=== PATIENT | female | born 1960 | race Caucasian/White ===

== ENCOUNTER → 2016-11-19 | Outpatient (CLI) | payer OTHER ==
[~2016-11-19] MED LIST: EST.625T; ESTR-19; NF-SOLIF5T PO; PANT40TA3; PNT40TEC; PRM25T; RIZA10TA23; SCR1T; SCR1T1; SUCR1TAB36 PO; TOPI100T; TOPI50TA20; TPR100T
--- OUTSIDE RECORDS SUMMARY | 2016-11-19 14:51 | XMS REPORT | Continuity of Care Document ---
Author Author Interface Organization Interface Address Unknown Phone Unavailable Problems Problem Status Onset Date Classification Date Reported Comments Source No data available for this section Problem 05/09/2014 [employer]. Chronic migraine without aura, without mention of intractable migraine, without mention of status migrainosus 05/05/2014 Diagnosis 05/09/2014 [employer]. Headache 05/05/2014 Diagnosis 05/09/2014 [employer]. Medications Medication Details Route Status Patient Instructions Ordering Provider Order Date Source Allergies, Adverse Reactions, Alerts Substance Category Reaction Severity Reaction type Status Date Reported Comments Source Cephalexin Assertion sunburn effect Drug allergy [employer]. Valproate Assertion Drug allergy [employer]. Doxycycline Assertion Drug allergy [employer]. Erythromycin Assertion Drug allergy [employer]. Niacin Assertion Drug allergy [employer]. NSAIDs Assertion Drug allergy [employer]. sulfa drugs Assertion Drug allergy [employer]. Immunizations Immunization Date Given Site Status Last Updated Comments Source No data available for this section No data available for this section [employer]. Results Order Name Results Value Reference Range Date Interpretation Comments Source Vital Signs Vital Sign Value Date Comments Source Encounters Location Location Details Encounter Type Encounter Number Reason For Visit Attending Provider ADM Date DC Date Status Source [facility] [id number] Day Surgery [id number] PAT Randle 03/03/201405/2014 Active [facility] [id number] Day Surgery [id number] PAT Randle 04/07/201409/2014 [facility] [id number] Day Surgery [id number] PAT Randle 05/05/201407/2014 Active [facility] Out[facility] Day [facility] [id number] Physician Non-Staff 05/0505/06/2014 [employer] Outpatient Day Surgery [id number] Physician Non-Staff 04/0704/08/2014 [facility] [id number] Physician Non-Staff 03/0303/03/2014 [employer] [facility] Procedures Procedure Code Date Perfomer Comments Source Bilateral frontal migraine decompression 05/05/2014 [employer] Bilat Occipital Migraine Decompression 04/07/2014 [employer] Bilateral temporal migraine decompression 03/03/2014 [employer] cholecystectomy 10/27/1996 [employer]. EGD/Colonoscopy 10/27/2008 [employer]. heart catheterization-negative 10/27/2009 [employer]. lump remove right breast 10/1998 [employer]. lump removed from left breast 10/27/1999 [employer]. t and a 10/27/1968 [employer]. SHAMIR/BSO 10/27/1987 [employer].
--- NOTE | 2016-11-19 18:54 | Diagnostic Imaging Report ---
Digital mammogram bilateral screening. This study was compared to the prior exams of 10/11/2015, 08/17/2014, 01/27/2014, and 08/10/2013. At this time, there are no current complaints. The current study was also evaluated with a Computer Aided Detection (CAD) system. FINDINGS: The fibroglandular tissue in both breasts is heterogeneously dense. This does limit the sensitivity of this exam. Overall, there does not appear to have been any significant change when compared to the prior study. No primary or secondary sign of malignancy is noted. IMPRESSION: There is no radiographic evidence for malignancy. ACR BI-RADS Category 1: Negative. Result letter will be mailed to the patient. Note: At least 10% of breast cancer is not imaged by mammography. Dictated by: Dictated on workstation # [id number]
== END ==
LOC: RAD 14:47
PROVIDERS: ATTEND Obstetrics & Gynecology
DX: Z12.31 Encounter for screening mammogram for malignant neoplasm of breast (principal)

== ENCOUNTER → 2017-09-29 | Outpatient (CLI) | payer OTHER ==
--- NOTE | 2017-09-29 21:03 | Diagnostic Imaging Report ---
EXAMINATION: Liver ultrasound. INDICATION: Abdominal pain. FINDINGS: The pancreas is largely obscured. The liver is fairly homogeneous with no focal lesion. Hepatopetal flow in the portal vein is seen. The gallbladder has been removed. The CBD is obscured. The right kidney is 10.3 cm in length with no hydronephrosis or focal lesion. Sonographic Fuentes's sign is reportedly negative. No fluid collection in the upper right abdomen is seen. IMPRESSION: No definite abnormality. Dictated by: Dictated on workstation # [id number]
== END ==
LOC: RAD 06:57
PROVIDERS: ATTEND Nurse Practitioner Family
DX: R10.811 Right upper quadrant abdominal tenderness (principal); R79.82 Elevated C-reactive protein (CRP)
CPT/HCPCS: 76705

== ENCOUNTER → 2018-02-23 | Outpatient (CLI) | payer OTHER ==
--- NOTE | 2018-02-23 15:30 | Diagnostic Imaging Report ---
INDICATION: Routine screening. COMPARISON: 11/19/2016 and 10/11/2015. TECHNIQUE: Bilateral CC and MLO 3D mammography was performed. The current study was also evaluated with a Computer Aided Detection (CAD) system. FINDINGS: Scattered fibroglandular densities are identified bilaterally. No mass or malignant appearing microcalcifications are seen. The axillae are unremarkable. IMPRESSION: No mammographic features suspicious for malignancy are identified. ACR BI-RADS Category 1: Negative. Result letter will be mailed to the patient. Note: At least 10% of breast cancer is not imaged by mammography. Dictated by: Dictated on workstation # [id number]
== END ==
LOC: RAD 09:46
PROVIDERS: ATTEND Obstetrics & Gynecology
DX: Z12.31 Encounter for screening mammogram for malignant neoplasm of breast (principal)
CPT/HCPCS: 77067

== ENCOUNTER → 2018-12-08 | Outpatient (CLI) | payer OTHER ==
--- NOTE | 2018-12-08 15:54 | Diagnostic Imaging Report ---
INDICATION: Knee pain and swelling. COMPARISON: None. FINDINGS: Three views of the right knee joint demonstrate no acute fracture or dislocation. No focal osseous lesions are seen. No significant joint effusion is seen. The surrounding soft tissue structures are unremarkable. There are no radiopaque foreign bodies. IMPRESSION: 1. No acute fractures or dislocations of the right knee joint. Dictated by: Dictated on workstation # [id number]
== END ==
LOC: RAD 14:35
PROVIDERS: ATTEND Nurse Practitioner Family
DX: M25.461 Effusion, right knee (principal)
CPT/HCPCS: 73562

== ENCOUNTER → 2019-02-24 | Outpatient (CLI) | payer OTHER ==
--- NOTE | 2019-02-24 12:10 | Diagnostic Imaging Report ---
INDICATION: Screening. TECHNIQUE: The current study was also evaluated with a Computer Aided Detection (CAD) system. 3D tomographic imaging was also performed. COMPARISON: 02/23/2018, 11/19/2016, and 10/11/2015. FINDINGS: There are scattered fibroglandular densities bilaterally. There are a few benign type calcifications. There is no dominant mass, spiculated lesion, or suspicious calcification identified. The skin, nipples, and axillae are unremarkable. IMPRESSION: Benign findings. ACR BI-RADS Category 2: Benign findings. Result letter will be mailed to the patient. Note: At least 10% of breast cancer is not imaged by mammography. Dictated by: Dictated on workstation # [id number]
== END ==
LOC: RAD 09:33
PROVIDERS: ATTEND Obstetrics & Gynecology
DX: Z12.31 Encounter for screening mammogram for malignant neoplasm of breast (principal)
CPT/HCPCS: 77067

== ENCOUNTER 2020-02-02 08:00 | Inpatient (IN) | payer OTHER ==
[~2020-02-02] VITALS: Ht 165 cm; Wt 103.8 kg
[2020-03-06] MEDS ORDERED: NAPR500T8 PO (09:25)
[2020-03-06] MEDS ORDERED: NF-VITD400 PO (09:25)
[2020-03-06] MEDS ORDERED: OXYB5TAB13 PO (09:25)
[2020-03-06] MEDS ORDERED: ALPR0.254 PO (09:25)
[2020-03-06] MEDS ORDERED: ROPI0.253 PO (09:25)
[2020-03-06] MEDS ORDERED: LOSA50TA63 PO (09:25)
[2020-03-06] MEDS ORDERED: PANT40TA3 PO (09:25)
[2020-03-06] MEDS ORDERED: MULT-593 PO (09:25)
--- NOTE | 2020-03-06 11:34 | HISTORY AND PHYSICAL ---
DATE OF SERVICE: DATE OF ADMISSION: 03/15/2020. This will be inpatient admission for right total knee arthroplasty on 03/15/2020 for right total knee arthroplasty. The patient will require regular inpatient admission due to pain management, gait abnormalities, need for physical therapy and comorbidities. HISTORY OF PRESENT ILLNESS: The patient is a 60-year-old female with longstanding progressive right knee pain. She has previously undergone multiple arthroscopies as well as injections. Radiographs reveal complete loss of medial patellofemoral joint spaces. She reports functional impairment and failure to improve with conservative measures and because of this, it was elected to proceed with surgical intervention. REVIEW OF SYSTEMS: No chest pain, no shortness of breath, no dysuria. PAST MEDICAL HISTORY: Reflux, anxiety disorder, migraines, hypertension, insomnia, urinary incontinence. PAST SURGICAL HISTORY: Cholecystectomy, hysterectomy, tonsillectomy, right knee arthroscopy. FAMILY HISTORY: Significant for hypertension, cancer, diabetes. PRIMARY CARE PROVIDER: Dr. Collins. MEDICATIONS: Ibuprofen, cranberry, vitamin D, oxybutynin, Xanax, meloxicam, Hyzaar, Protonix, hydrocodone. ALLERGIES: CEPHALEXIN, DOXYCYCLINE, SULFA AND NIACIN. SOCIAL HISTORY: The patient drinks alcohol socially. Denies tobacco use. PHYSICAL EXAMINATION: GENERAL: The patient is well developed, well-nourished, in no acute distress. HEENT: Normocephalic, atraumatic. Pupils are equal, round and reactive to light. Oropharynx is clear. NECK: Supple, no lymphadenopathy. LUNGS: Clear to auscultation bilaterally. HEART: Regular rate and rhythm. ABDOMEN: Soft, nontender, nondistended. EXTREMITIES: The right knee demonstrates varus alignment. She has an antalgic gait on the right. She has moderate effusion. She is tender along the medial joint line. She has pain medially with Princess's. Range of motion actively 0/3/120. There is no varus valgus laxity. Negative anterior and posterior drawer. Patella tracks well. No skin lesions are noted. IMPRESSION: Right knee osteoarthritis, unresponsive to conservative measures. PLAN: Right total knee arthroplasty. The risks, benefits, options, ramifications and recovery were discussed at length with the patient. She understands and wishes to proceed. Job ID: [id number] DocumentID: [id number] Dictated Date: 03/06/2020 11:02:01 Transverse Abdominal Muscle Nurse Date: 03/06/2020 11:33:22 Dictated By: CECILIO SHORT MD
[2020-03-15] VITALS (11 sets, daily range): BP systolic 103–175; BP diastolic 60–103
--- OUTSIDE RECORDS SUMMARY | 2020-03-15 06:28 | XMS REPORT | Encounter Summary ---
Author Author [facility], [facility] Organization [facility], [facility] Address Unknown Phone Unavailable Care Team Providers Care Turning Machine Operator Helper Name Role Phone Chaparro Macias DO PCP Unavailable Encounter Details Care Team Description Date Type Department Bryan Crabtree MD [address] [place], [place] [id number] SCREENING MAMM-MAILG NEOPL-OTHER (Primar y Dx) 02/02/2002 Inpatient [facility] Breast [facility] Kat [address] [place] [phone] Social History Date Tobacco Use Types Packs/Day Years Used Never Assessed Sex Assigned at Date Recorded Not on file documented as of this encounter Plan of Treatment Not on filedocumented as of this encounter Visit Diagnoses Diagnosis Other screening mammogram documented in this encounter
--- OUTSIDE RECORDS SUMMARY | 2020-03-15 06:28 | XMS REPORT | Encounter Summary ---
Author Author [facility] [place], [facility] Organization [facility] Kat [facility] Address Unknown Phone Unavailable Care Team Providers Care Game Farm Supervisor Name Role Phone Chaparro Macias DO PCP Unavailable Encounter Details Care Team Description Date Type Department Mayra Carvalho MD [address] [place] [address] CHEST PAIN NEC (Primary Dx) 05/25/2002 Emergency [facility] in Emergency Services [address] [place] [address] [place] [phone] Social History Date Tobacco Use Types Packs/Day Years Used Never Assessed Sex Assigned at Date Recorded Not on file documented as of this encounter Plan of Treatment Not on filedocumented as of this encounter Visit Diagnoses Diagnosis Other chest pain documented in this encounter
--- OUTSIDE RECORDS SUMMARY | 2020-03-15 06:28 | XMS REPORT | Encounter Summary ---
Author Author [facility], [facility] Organization [facility], [facility] Address Unknown Phone Unavailable Care Team Providers Care Warehouse Man Name Role Phone Chaparro Macias DO PCP Unavailable Encounter Details Care Team Description Date Type Department Bryan Crabtree MD [address] [place], [place] [id number] SCREENING MAMM-MAILG NEOPL-OTHER (Primar y Dx) 02/04/2003 Inpatient [facility] Breast [facility] Kat [address] [place] [phone] Social History Date Tobacco Use Types Packs/Day Years Used Never Assessed Sex Assigned at Date Recorded Not on file documented as of this encounter Plan of Treatment Not on filedocumented as of this encounter Visit Diagnoses Diagnosis Other screening mammogram documented in this encounter
--- OUTSIDE RECORDS SUMMARY | 2020-03-15 06:28 | XMS REPORT | Encounter Summary ---
Author Author [facility] Organization [facility] Kat [facility] Address Unknown Phone Unavailable Care Team Providers Care Edging Machine Feeder Name Role Phone Chaparro Macias DO PCP Unavailable Encounter Details Care Team Description Date Type Department Chaparro Macias DO NO ADDRESS ON FILE HEADACHE (Primary Dx) 02/02/2002 Inpatient [facility] Laboratory Se rvices Historical [place] [address] [facility] [place] [phone] Social History Date Tobacco Use Types Packs/Day Years Used Never Assessed Sex Assigned at Date Recorded Not on file documented as of this encounter Plan of Treatment Not on filedocumented as of this encounter Visit Diagnoses Diagnosis Headache(784.0) Headache documented in this encounter
--- OUTSIDE RECORDS SUMMARY | 2020-03-15 06:28 | XMS REPORT | Encounter Summary ---
Author Author [facility] [place], [facility] Organization [facility] Kat [facility] Address Unknown Phone Unavailable Care Team Providers Care Washing Machine Striper Name Role Phone Chaparro Macias DO PCP Unavailable Encounter Details Care Team Description Date Type Department Mayra Carvalho MD [address] [place] [place] [address] GASTRITIS/DUODEN NOS W/O HEMORRH (Primar y Dx) 01/21/2002 Inpatient [facility] Kat [address] [facility] [place] [phone] Social History Date Tobacco Use Types Packs/Day Years Used Never Assessed Sex Assigned at Date Recorded Not on file documented as of this encounter Plan of Treatment Not on filedocumented as of this encounter Visit Diagnoses Diagnosis Unspecified gastritis and gastroduodeni tis without mention of hemorrhage documented in this encounter
--- OUTSIDE RECORDS SUMMARY | 2020-03-15 06:28 | XMS REPORT | Encounter Summary ---
Author Author [facility] [place], [facility] Organization [facility], [facility] Address Unknown Phone Unavailable Care Team Providers Care Surg Tech Name Role Phone Chaparro Macias DO PCP Unavailable Encounter Details Care Team Description Date Type Department Page V, DO Fly [address] [facility] [address] [place] [address] PHYSICAL THERAPY NEC (Primary Dx) 08/04/2003 Inpatient Historical [place] Historical Outpatient [facility] Social History Date Tobacco Use Types Packs/Day Years Used Never Assessed Sex Assigned at Date Recorded Not on file documented as of this encounter Plan of Treatment Not on filedocumented as of this encounter Visit Diagnoses Diagnosis Other physical therapy documented in this encounter
--- OUTSIDE RECORDS SUMMARY | 2020-03-15 06:28 | XMS REPORT | Encounter Summary ---
Author Author [facility] [place], [facility] Organization [facility] Kat [facility] Address Unknown Phone Unavailable Care Team Providers Care Casino Floor Person Name Role Phone Chaparro Macias DO PCP Unavailable Encounter Details Care Team Description Date Type Department Henri Ruiz DO [address] [place] [phone] Ed, Physician CHEST PAIN NEC (Primary Dx) 07/20/2003 Emergency [facility] [place] in Emergency Services [address] [place] [address] [place] [phone] Social History Date Tobacco Use Types Packs/Day Years Used Never Assessed Sex Assigned at Date Recorded Not on file documented as of this encounter Plan of Treatment Not on filedocumented as of this encounter Visit Diagnoses Diagnosis Other chest pain documented in this encounter
--- OUTSIDE RECORDS SUMMARY | 2020-03-15 06:28 | XMS REPORT | Clinical Summary ---
Author Author [facility] Organization [facility] Address Unknown Phone Unavailable Care Team Providers Care Composite Mechanic Name Role Phone Chaparro Macias DO PCP Unavailable Allergies Not on File Medications Not on file Active Problems Not on file Social History Date Tobacco Use Types Packs/Day Years Used Never Assessed Sex Assigned at Date Recorded Not on file Last Filed Vital Signs Not on file Plan of Treatment Health Maintenance Due Date Last Done Comments CERVICAL CANCER SCREENING 02/19/1990 BREAST CANCER SCREENING 2000 COLORECTAL SCREENING 02/19/2010 ZOSTER VACCINE (1 of 2) 02/19/2010 INFLUENZA VACCINE 05/27/2019 PNEUMOCOCCAL VACCINE 0-64 Aged Out No longer el igible based on patient's age to YEARS complete this topic Results Not on filefrom Last 3 Months
--- OUTSIDE RECORDS SUMMARY | 2020-03-15 06:28 | XMS REPORT | Encounter Summary ---
Author Author [facility] [place], [facility] Organization [facility] Kat [facility]ellan [facility] Address Unknown Phone Unavailable Care Team Providers Care Poultry Processing Supervisor Name Role Phone Chaparro Macias DO PCP Unavailable Encounter Details Care Team Description Date Type Department Chaparro Macias DO NO ADDRESS ON FILE CHEST PAIN NOS (Primary Dx) 07/27/2003 Inpatient [facility] [place] Historical [place] [address] [facility] [place] [phone] Social History Date Tobacco Use Types Packs/Day Years Used Never Assessed Sex Assigned at Date Recorded Not on file documented as of this encounter Plan of Treatment Not on filedocumented as of this encounter Visit Diagnoses Diagnosis Chest pain, unspecified documented in this encounter
--- OUTSIDE RECORDS SUMMARY | 2020-03-15 06:28 | XMS REPORT | Encounter Summary ---
Author Author [facility] Organization [facility] Address Unknown Phone Unavailable Care Team Providers Care Automotive Collision Repair Instructor Name Role Phone Chaparro Macias DO PCP Unavailable Encounter Details Care Team Description Date Type Department Darius Eugene MD [address] [facility] [address] [place] [address] CHEST PAIN NEC (Primary Dx) 12/22/2001 Inpatient [facility] Historical MEDICAL CARDIAC [address] [facility] [place] [phone] Social History Date Tobacco Use Types Packs/Day Years Used Never Assessed Sex Assigned at Date Recorded Not on file documented as of this encounter Plan of Treatment Not on filedocumented as of this encounter Visit Diagnoses Diagnosis Other chest pain documented in this encounter
--- OUTSIDE RECORDS SUMMARY | 2020-03-15 06:28 | XMS REPORT | Encounter Summary ---
Author Author [facility] Sofia [place], [facility] Organization [facility] Kat [facility] Address Unknown Phone Unavailable Care Team Providers Care Vessel Slagman Name Role Phone Chaparro Macias DO PCP Unavailable Encounter Details Care Team Description Date Type Department Alex Roy MD [address] [place] [address] [place] [address] 12/21/2002 Inpatient [facility] [place] [phone] Social History Date Tobacco Use Types Packs/Day Years Used Never Assessed Sex Assigned at Date Recorded Not on file documented as of this encounter Plan of Treatment Not on filedocumented as of this encounter Visit Diagnoses Not on filedocumented in this encounter
--- OUTSIDE RECORDS SUMMARY | 2020-03-15 06:28 | XMS REPORT | Encounter Summary ---
Author Author [facility] [facility] Organization [facility] [place], [facility] Address Unknown Phone Unavailable Care Team Providers Care Engraver Flatware Name Role Phone Chaparro Macias DO PCP Unavailable Encounter Details Care Team Description Date Type Department Airam Ball MD [facility] [address] [place], [place] [id number] 12/08/2003 Inpatient Historical Social History Date Tobacco Use Types Packs/Day Years Used Never Assessed Sex Assigned at Date Recorded Not on file documented as of this encounter Plan of Treatment Not on filedocumented as of this encounter Visit Diagnoses Not on filedocumented in this encounter
--- OUTSIDE RECORDS SUMMARY | 2020-03-15 06:28 | XMS REPORT | Encounter Summary ---
Author Author [facility] [place], [facility] Organization [facility] Kat Gee, [facility] Address Unknown Phone Unavailable Care Team Providers Care Commercial Artist Name Role Phone Chaparro Macias DO PCP Unavailable Encounter Details Care Team Description Date Type Department Deepak Gonzalez DO [address] [place] [address] [phone] Ed, Physician MIGRAINE NOS W/O MENTN INTRACTABLE (Prim enzo Dx) 11/19/2002 Emergency [facility] in Emergency Services [address] [place] [address] [place] [phone] Social History Date Tobacco Use Types Packs/Day Years Used Never Assessed Sex Assigned at Date Recorded Not on file documented as of this encounter Plan of Treatment Not on filedocumented as of this encounter Visit Diagnoses Diagnosis Migraine, unspecified, without mention of intractable migraine without mention of status migrainosus documented in this encounter
--- OUTSIDE RECORDS SUMMARY | 2020-03-15 06:28 | XMS REPORT | Encounter Summary ---
Author Author [facility] [place] [facility] Organization [facility] Kat [facility] Address Unknown Phone Unavailable Care Team Providers Care Diesel Technician Name Role Phone Chaparro Macias DO PCP Unavailable Encounter Details Care Team Description Date Type Department Chaparro Macias DO NO ADDRESS ON FILE CHEST PAIN NOS (Primary Dx) 07/18/2003 Inpatient Historical [place] [facility] Historical Social History Date Tobacco Use Types Packs/Day Years Used Never Assessed Sex Assigned at Date Recorded Not on file documented as of this encounter Plan of Treatment Not on filedocumented as of this encounter Visit Diagnoses Diagnosis Chest pain, unspecified documented in this encounter
--- OUTSIDE RECORDS SUMMARY | 2020-03-15 06:28 | XMS REPORT | Clinical Summary ---
Author Author [facility] Organization [facility] Address Unknown Phone Unavailable Care Team Providers Care Cane Piler Name Role Phone Unverified, Unverified Md PCP Unavailable Source Comments Some departments are not documenting in the electronic medical record. If you d o not see the information that you expected, contact Release of Information in [facility] [employer] Information Management department at [phone] for further assistan ce in locating additional records.[facility] Allergies Not on File Medications Not on file Active Problems Not on file Social History Date Tobacco Use Types Packs/Day Years Used Never Assessed Sex Assigned at Date Recorded Not on file Industry Job Start Date Occupation Not on file Not on file Not on file Travel End Travel History Travel Start No recent travel history available. Last Filed Vital Signs Not on file Plan of Treatment Health Maintenance Due Date Last Done Comments HIV SCREENING 02/19/1975 DTAP/TDAP VACCINES (1 - 02/19/1978 Tdap) HEPATITIS C SCREENING 02/19/1978 PHYSICAL (COMPREHENSIVE) 02/19/1978 EXAM CERVICAL CANCER SCREENING 02/19/1981 BREAST CANCER SCREENING 2000 COLORECTAL CANCER 02/19/2010 SCREENING SHINGLES RECOMBINANT 02/19/2010 VACCINE (1 of 2) INFLUENZA VACCINE 07/27/2020 Results Not on filefrom Last 3 Months
--- OUTSIDE RECORDS SUMMARY | 2020-03-15 06:28 | XMS REPORT | Encounter Summary ---
Author [facility] Organization [facility] Address Unknown Phone Unavailable Care Team Providers Care Health Data Administrator Name Role Phone Chaparro Macias DO PCP Unavailable Encounter Details Care Team Description Date Type Department Chaparro Macias DO NO ADDRESS ON FILE CHEST PAIN NOS (Primary Dx) 07/18/2003 Inpatient Historical [facility] Social History Date Tobacco Use Types Packs/Day Years Used Never Assessed Sex Assigned at Date Recorded Not on file documented as of this encounter Plan of Treatment Not on filedocumented as of this encounter Visit Diagnoses Diagnosis Chest pain, unspecified documented in this encounter
--- OUTSIDE RECORDS SUMMARY | 2020-03-15 06:29 | XMS REPORT | CCD ---
Author Author Shannon Field Organization Ling Collins MD, [facility] Address [address] [place] [address] Phone Care Team Providers Care Maintenance Supervisor 2Nd Shift Name Role Phone PP Unavailable CCM Unavailable Summary Purpose Interface Exchange Insurance Providers Payer name Policy type / Coverage type Covered republican ID Effective Begin Date Effective End Date [employer] [facility] [id number] Unkno wn Family history Mother Diagnosis Age At Onset Diabetes Unknown Lung abscess Unknown Cardiovascular disease Unknown Father Diagnosis Age At Onset Skin cancer Unknown Hypertension Unknown Cardiovascular disease Unknown Diabetes mellitus Type 2 Unknown Brother Diagnosis Age At Onset No Family Disease Entered N/A Aunt Diagnosis Age At Onset Breast cancer Unknown Sister Diagnosis Age At Onset No Family Disease Entered N/A Social History Social History Element Codes Description Effective Dates Marital status Unknown M arried 10/17/2011 Living arrangements Unknown House 10/17/2011 Employment Unknown 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 10/17/[address]: 402802821 Nonsmoker 10/17/[address]: 732579393 Never drinks alcohol 10/17/2011 Allergies, Adverse Reactions, Alerts Substance Reaction Codes Entered Date Inactivated Date Status doxycycline hyclate RxNorm: 3640 10/17/2011 No Inactive Date Active cephalexin RxNorm: 2231 11/21/2015 No Inactive Date Active NIACIN PREPARATIONS pruritis Unknown 08/23/2014 No Inactive Date Active SULFA (SULFONAMIDE A NTIBIOTICS) Unknown 10/17/2011 No Inactive Date Active Past Medical History Illness Codes Condition Status Onset Date Resolved Date Encounter for [facility] adult medical examination with abnormal findings ICD-9: V70.0 ICD-10: Z00.01 Active 06/24/2017 Unknown Essential (primary) hypertension ICD-9: 401.1 ICD-10: I10 Active 02/26/2018 Unknown Gastro-esophageal re flux disease without esophagitis ICD-9: 530.81 ICD-10: K21.9 Active 07/09/2017 Unknown Pain in right knee ICD- 9: 719.46 ICD-10: M25.561 Active 12/08/2018 Unknown Restless legs syndrome ICD-9: 333.94 ICD-10: G25.81 Active 03/02/2019 Unknown Encounter for screen ing mammogram for malignant neoplasm of breast ICD-9: V76.10 ICD-10: Z12.31 Active 02/25/2019 Unknown Acute laryngopharyng itis ICD-9: 465.9 ICD-10: J06.0 Active 09/01/2018 Unknown Other insomnia ICD-9: 327.09 ICD-10: G47.09 Active 09/01/2018 Unknown Epigastric pain ICD-9: 789.06 ICD-10: R10.13 Active 07/24/2017 Unknown Generalized abdomina l pain ICD-9: 789.07 ICD-10: R10.84 Active 07/24/2017 Unknown Other specified valeriy nfective gastroenteritis and colitis ICD-9: 558.9 ICD-10: K52.89 Active 07/24/2017 Unknown Gastro-esophageal re flux disease with esophagitis ICD-9: 530.11 ICD-10: K21.0 Active 04/22/2016 Unknown Morbid (severe) obes ity due to excess calories ICD-9: 278.01 ICD-10: E66.01 Active 01/22/2016 Unknown Urge incontinence ICD-9: 788.31 ICD-10: N39.41 Active 01/22/2016 Unknown Achilles tendinitis, right leg ICD-9: 726.71 ICD-10: M76.61 Active 11/20/2015 Unknown Metatarsalgia, right foot ICD-9: 726.70 ICD-10: M77.41 Active 11/20/2015 Unknown Biceps tendonitis ICD-9: 726.12 Active 08/23/2014 Unknown Encounter for long-t erm (current) use of other medications ICD-9: V58.69 Active 08/23/2014 Unknown Anxiety, generalized ICD-9: 300.02 Active 03/01/2014 Unknown Pain, lower leg ICD-9: 729.5 Active 03/01/2014 Unknown Intractable migraine with aura without status migrainosus ICD-9: 346.01 Active 02/18/2013 Unknown Nausea ICD-9: 787.02 Active 02/18/2013 Unknow n BACTERIAL PNEUMONIA ICD- 9: 482.9 Active 11/16/2012 Unknown Dyspnea ICD-9: 786.09 Active 11/16/2012 Unknow n OBESITY ICD-9: 278.00 Active 03/12/2012 Unknow n Knee pain ICD-9: 719.46 Active 01/28/2012 Unknow n Rotator cuff disorder ICD-9: 726.10 Active 01/28/2012 Unknown Shoulder pain, acute ICD-9: 719.41 Active 01/28/2012 Unknown Anxiety ICD-9: 300.00 Active 01/09/2012 Unknow n Migraine ICD-9: 346.90 Active 01/09/2012 Unknow n aortic insufficiency Unknown Active 10/17/2011 Unknown Gastritis Unknown Active 10/17/2011 Unknow n Migraines Unknown Active 10/17/2011 Unknow n ACUTE URI ICD-9: 465.9 Active 10/17/2011 Unknow n Cough ICD-9: 786.2 Active 10/17/2011 Unknow n Problems Condition Codes Effectiv e Dates Condition Status Encounter for genera l adult medical examination with abnormal findings ICD-9: V70.0 ICD-10: Z00.01 06/24/2017 Active Essential (primary) hypertension ICD-9: 401.1 ICD-10: I10 02/26/2018 Active Gastro-esophageal re flux disease without esophagitis ICD-9: 530.81 ICD-10: K21.9 07/09/2017 Active Pain in right knee ICD- 9: 719.46 ICD-10: M25.561 12/08/2018 Active Restless legs syndrome ICD-9: 333.94 ICD-10: G25.81 03/02/2019 Active Encounter for screen ing mammogram for malignant neoplasm of breast ICD-9: V76.10 ICD-10: Z12.31 02/25/2019 Active Acute laryngopharyng itis ICD-9: 465.9 ICD-10: J06.0 09/01/2018 Active Other insomnia ICD-9: 327.09 ICD-10: G47.09 09/01/2018 Active Epigastric pain ICD-9: 789.06 ICD-10: R10.13 07/24/2017 Active Generalized abdomina l pain ICD-9: 789.07 ICD-10: R10.84 07/24/2017 Active Other specified valeriy nfective gastroenteritis and colitis ICD-9: 558.9 ICD-10: K52.89 07/24/2017 Active Gastro-esophageal re flux disease with esophagitis ICD-9: 530.11 ICD-10: K21.0 04/22/2016 Active Morbid (severe) obes ity due to excess calories ICD-9: 278.01 ICD-10: E66.01 01/22/2016 Active Urge incontinence ICD-9: 788.31 ICD-10: N39.41 01/22/2016 Active Achilles tendinitis, right leg ICD-9: 726.71 ICD-10: M76.61 11/20/2015 Active Metatarsalgia, right foot ICD-9: 726.70 ICD-10: M77.41 11/20/2015 Active Biceps tendonitis ICD-9: 726.12 08/23/2014 Active Encounter for long-t erm (current) use of other medications ICD-9: V58.69 08/23/2014 Active Anxiety, generalized ICD-9: 300.02 03/01/2014 Active Pain, lower leg ICD-9: 729.5 03/01/2014 Active Intractable migraine with aura without status migrainosus ICD-9: 346.01 02/18/2013 Active Nausea ICD-9: 787.02 02/18/2013 Active BACTERIAL PNEUMONIA ICD- 9: 482.9 11/16/2012 Active Dyspnea ICD-9: 786.09 11/16/2012 Active OBESITY ICD-9: 278.00 03/12/2012 Active Knee pain ICD-9: 719.46 01/28/2012 Active Rotator cuff disorder ICD-9: 726.10 01/28/2012 Active Shoulder pain, acute ICD-9: 719.41 01/28/2012 Active Anxiety ICD-9: 300.00 01/09/2012 Active Migraine ICD-9: 346.90 01/09/2012 Active aortic insufficiency Unknown 10/17/2011 Active Gastritis Unknown 10/17/2011 Active Migraines Unknown 10/17/2011 Active ACUTE URI ICD-9: 465.9 10/17/2011 Active Cough ICD-9: 786.2 10/17/2011 Active Medications Medication Codes Instruc tions Start Date Stop Date Sta tus Fill Instructions ropinirole 0.25 mg t ablet RxNorm: 774518 TAKE 1 TABLET BY MOUT H TWICE DAILY 07/12/2019 No Stop Date Active losartan 50 mg tablet RxNorm: 448437 1 Tablet(s) PO daily 06/10/2019 10/07/2019 Active Protonix 40 mg table t,delayed release RxNorm: 238438 TAKE 1 TABLET BY MOUT H ONCE DAILY 05/19/2019 No Stop Date Active oxybutynin chloride ER 5 mg tablet,extended release 24 hr RxNorm: 547832 TAKE 1 TABLET BY MOUTH ONCE DAILY 05/19/2019 No Stop Date Active ropinirole 0.25 mg t ablet RxNorm: 883196 1 Tablet(s) PO BID 03/02/2019 06/29/2019 Inactive Vivlodex 10 mg capsule RxNorm: 0615547 1 Capsule(s) PO daily 03/02/2019 06/09/2019 Inactive oxybutynin chloride ER 5 mg tablet,extended release 24 hr RxNorm: 010803 TAKE 1 TABLET BY MOUTH ONCE DAILY 12/21/2018 05/18/2019 Inactive Protonix 40 mg table t,delayed release RxNorm: 596636 TAKE 1 TABLET BY MOUT H ONCE DAILY 12/21/2018 05/18/2019 Inactive Zorvolex 35 mg capsule RxNorm: 6209663 1 Capsule(s) PO TID 12/09/2018 06/09/2019 Inactive oxybutynin chloride ER 5 mg tablet,extended release 24 hr RxNorm: 007928 TAKE 1 TABLET BY MOUTH ONCE DAILY 10/21/2018 12/20/2018 Inactive Protonix 40 mg table t,delayed release RxNorm: 524353 TAKE 1 TABLET BY MOUT H ONCE DAILY 10/21/2018 12/20/2018 Inactive oxybutynin chloride ER 5 mg tablet,extended release 24 hr RxNorm: 709497 TAKE 1 TABLET BY MOUTH ONCE DAILY 07/20/2018 10/20/2018 Inactive Protonix 40 mg table t,delayed release RxNorm: 293524 TAKE 1 TABLET BY MOUT H ONCE DAILY 07/20/2018 10/20/2018 Inactive Xanax 0.25 mg tablet RxNorm: 084017 1 Tablet(s) PO Q8 as needed anxiety 02/17/2018 03/18/2018 In active oxybutynin chloride ER 5 mg tablet,extended release 24 hr RxNorm: 076029 TAKE ONE TABLET BY MOUTH ONCE DAILY 02/17/2018 07/19/2018 Inactive Protonix 40 mg table t,delayed release RxNorm: 651524 TAKE ONE TABLET BY MO UTH ONCE DAILY 02/17/2018 07/19/2018 Inactive Xanax 0.25 mg tablet RxNorm: 790703 1 Tablet(s) PO Q8 as needed anxiety 10/16/2017 11/12/2017 In active Zantac 150 mg tablet RxNorm: 863211 1 Tablet(s) PO daily 09/15/2017 03/13/2018 Inactive Carafate 1 gram tablet RxNorm: 710521 1 Tablet(s) PO AC & HS 09/15/2017 03/13/2018 Inactive oxybutynin chloride ER 5 mg tablet,extended release 24 hr RxNorm: 248331 TAKE ONE TABLET BY MOUTH ONCE DAILY 08/18/2017 02/13/2018 Inactive Protonix 40 mg table t,delayed release RxNorm: 304206 TAKE ONE TABLET BY MO UTH ONCE DAILY 08/18/2017 02/13/2018 Inactive Carafate 1 gram tablet RxNorm: 386885 1 Tablet(s) PO AC & HS 07/09/2017 08/07/2017 Inactive Protonix 40 mg table t,delayed release RxNorm: 863087 1 Tablet(s) PO daily 07/09/2017 08/07/2017 In active Zofran 4 mg tablet RxNorm: 143809 1 Tablet(s) PO TID as needed nausea 07/09/2017 07/13/2017 In active Zantac 150 mg tablet RxNorm: 605165 1 Tablet(s) PO daily 07/09/2017 08/07/2017 Inactive losartan 25 mg tablet RxNorm: 839486 1 Tablet(s) PO daily 06/24/2017 10/21/2017 Inactive oxybutynin chloride ER 5 mg tablet,extended release 24 hr RxNorm: 171237 TAKE ONE TABLET BY MOUTH ONCE DAILY 05/15/2017 08/12/2017 Inactive oxybutynin chloride ER 5 mg tablet,extended release 24 hr RxNorm: 565246 TAKE ONE TABLET BY MOUTH ONCE DAILY 02/07/2017 05/07/2017 Inactive oxybutynin chloride ER 5 mg tablet,extended release 24 hr RxNorm: 358844 TAKE ONE TABLET BY MOUTH ONCE DAILY 10/01/2016 01/28/2017 Inactive oxybutynin chloride ER 5 mg tablet,extended release 24 hr RxNorm: 077285 TAKE ONE TABLET BY MOUTH ONCE DAILY 05/27/2016 09/23/2016 Inactive cranberry fruit conc entrate 500 mg capsule RxNorm: 261012 1 Capsule(s) PO two t o three times weekly 04/23/2016 No Stop Date Active Nexium 40 mg capsule ,delayed release RxNorm: 521741 1 Capsule(s) PO BID 04/23/2016 07/23/2017 In active oxybutynin chloride ER 5 mg tablet,extended release 24 hr RxNorm: 851697 1 Tablet(s) PO daily 01/23/2016 05/21/2016 Inactive pantoprazole 40 mg t ablet,delayed release RxNorm: 721072 1 Tablet(s) PO BID TA KE ONE TABLET BY MOUTH EVERY DAY 12/12/2015 12/11/2015 Inactive pantoprazole 40 mg t ablet,delayed release RxNorm: 954858 1 Tablet(s) PO BID TA KE ONE TABLET BY MOUTH TWICE EVERY DAY 12/12/2015 04/22/2016 Inactive Vesicare 5 mg tablet RxNorm: 820747 1 Tablet(s) PO QPM 11/21/2015 01/21/2016 Inactive Carafate 1 gram tablet RxNorm: 347983 1 Tablet(s) PO QID dissolve in 10mL of w ater 11/21/2015 04/22/2016 Inactive pantoprazole 40 mg t ablet,delayed release RxNorm: 891075 1 Tablet(s) PO daily TAKE ONE TABLET BY MOUTH EVERY DAY 04/05/2015 12/11/2015 Inactive Topamax 100 mg tablet RxNorm: 020578 1 Tablet(s) UD 1tab AM & 2 at hs x2wks, [id number] x2wks, then 1/2 am & 1hs x1wk, then 1/2 bidx 1wk, then 1/2 at hs x1wk then stop 08/23/2014 01/19/2015 Inactive Vitamin B-12 1,000 m cg/mL injection solution RxNorm: 879194 2x per month Millilit er(s) Inj INJECT 1ML EVERY 2 WEEKS 08/23/2014 11/20/2015 Inactive amitriptyline 50 mg tablet RxNorm: 381923 1 Tablet(s) QPM 08/23/2014 11/20/2015 Inactive amitriptyline 50 mg tablet RxNorm: 831027 TAKE ONE TABLET BY MO UT TWICE DAILY 08/18/2014 08/22/2014 In active amitriptyline 50 mg tablet RxNorm: 715617 TAKE ONE TABLET BY MO UTH TWICE DAILY 05/27/2014 08/17/2014 In active Topamax 100 mg tablet RxNorm: 727803 TAKE ONE TABLET BY MOUTH TWICE DAILY 05/27/2014 08/22/2014 In active Topamax 100 mg tablet RxNorm: 622967 Tablet(s) PO TAKE ONE TABLET BY MOUTH TW ICE DAILY 03/24/2014 05/26/2014 Inactive pantoprazole 40 mg t ablet,delayed release RxNorm: 665950 1 Tablet(s) PO daily TAKE ONE TABLET BY MOUTH EVERY DAY 03/18/2014 03/12/2015 Inactive nystatin 100,000 uni t/mL oral suspension RxNorm: 756789 5 Milliliter(s) PO QI D 03/07/2014 03/06/2014 In active nystatin 100,000 uni t/mL oral suspension RxNorm: 564139 5 Milliliter(s) PO QI D 03/07/2014 03/16/2014 In active Topamax 100 mg tablet RxNorm: 279165 Tablet(s) PO TAKE ONE TABLET BY MOUTH TW ICE DAILY 02/21/2014 03/23/2014 Inactive Vitamin B-12 1,000 m cg/mL injection solution RxNorm: 281537 solution Inj INJECT 1 ML EVERY 2 WEEKS 12/21/2013 08/22/2014 Inactive Frova 2.5 mg tablet RxNorm: 724179 1 Tablet(s) PO 12/20/2013 11/20/2015 Inactive at o nset of migraine Frova 2.5 mg tablet RxNorm: 351329 1 Tablet(s) PO 10/28/2013 12/19/2013 Inactive at o nset of migraine Topamax 100 mg tablet RxNorm: 717117 Tablet(s) PO TAKE ONE TABLET BY MOUTH TW ICE DAILY 10/21/2013 2014 Inactive Topamax 100 mg tablet RxNorm: 998786 Tablet(s) PO TAKE ONE TABLET BY MOUTH TW ICE DAILY 08/23/2013 10/20/2013 Inactive Topamax 100 mg tablet RxNorm: 630298 1 Tablet(s) PO BID TAKE ONE TABLET BY [facility] TWICE DAILY 05/24/2013 08/22/2013 Inactive Demerol (PF) 50 mg/m L Injection RxNorm: 5264545 1/2 Milliliter(s) In j 04/06/2013 04/06/2013 In active promethazine 25 mg/m L Injection RxNorm: 507158 1 Milliliter(s) Inj 04/06/2013 04/06/2013 Inactive promethazine 25 mg/m L Injection RxNorm: 156715 2 Milliliter(s) Inj 03/26/2013 03/26/2013 Inactive Demerol (PF) 50 mg/m L Injection RxNorm: 2884905 Milliliter(s) Inj 03/26/2013 03/26/2013 Inactive amitriptyline 50 mg tablet RxNorm: 602136 Tablet(s) PO TAKE ONE TABLET BY MOUTH TWICE DAILY 03/22/2013 05/26/2014 Inactive Topamax 100 mg tablet RxNorm: 197654 1 Tablet(s) PO BID 03/19/2013 03/18/2013 Inactive Topamax 100 mg tablet RxNorm: 208032 1 Tablet(s) PO BID 03/19/2013 05/24/2013 Inactive Demerol (PF) 50 mg/m L Injection RxNorm: 3322478 1 Milliliter(s) Inj 03/11/2013 03/11/2013 Inactive Topamax 50 mg tablet RxNorm: 492837 1.5 Tablet(s) PO BID 03/10/2013 03/18/2013 Inactive promethazine 25 mg t ablet RxNorm: 337266 1 Tablet(s) PO Q6 PRN 02/25/2013 11/20/2015 Inactive pantoprazole 40 mg t ablet,delayed release RxNorm: 906303 Tablet(s) PO TAKE ONE TABLET BY MOUTH EVERY DAY 02/22/2013 03/17/2014 Inactive promethazine 25 mg/m L Injection RxNorm: 895186 1 Milliliter(s) Inj 02/18/2013 02/18/2013 Inactive Demerol (PF) 25 mg/0 .5 mL Injection RxNorm: 832577 1 Milliliter(s) Inj 02/18/2013 02/18/2013 In active total of 50mg given IM Topamax 50 mg tablet RxNorm: 742865 Tablet(s) PO TAKE ONE TABLET BY MOUTH TW ICE DAILY 02/04/2013 03/09/2013 Inactive prednisone 20 mg tablet RxNorm: 634745 3 Tablet(s) PO daily 11/16/2012 11/20/2012 Inactive ciprofloxacin 500 mg tablet RxNorm: 624864 1 Tablet(s) PO BID 11/16/2012 11/22/2012 Inactive Kenalog 40 mg/mL Lovely p for Injection RxNorm: 5821720 1 Milliliter(s) Inj 11/16/2012 11/16/2012 In active Tamiflu 75 mg capsule RxNorm: 313412 1 Capsule(s) PO BID 11/16/2012 11/20/2012 Inactive esterified estrogens -methyltestosterone 1.25 mg-2.5 mg tablet RxNorm: 056546 1 Tablet(s) PO every other day 10/29/2012 06/23/2017 Inactive amitriptyline 50 mg tablet RxNorm: 107359 1 Tablet(s) PO daily 10/29/2012 03/21/2013 Inactive TAKE ONE TABLET BY MOUTH TWICE DAILY Topamax 50 mg tablet RxNorm: 233040 1 Tablet(s) PO BID 10/29/2012 01/26/2013 Inactive Vitamin B-12 1,000 m cg/mL injection solution RxNorm: 485887 1 Milliliter(s) Inj Q 2weeks INJECT 1ML TWICE A MONTH 10/29/2012 12/20/2013 Inactive takes 2 times monthly. ok to give multidose vial if available. if not please give 3 month supply of single dose vials Vitamin B-12 1,000 m cg/mL Injection RxNorm: 524495 Solution Inj INJECT 1 ML TWICE A MONTH 10/26/2012 10/28/2012 Inactive Topamax 25 mg tablet RxNorm: 158455 1 Tablet(s) PO BID 10/13/2012 03/10/2013 Inactive Topamax 25 mg tablet RxNorm: 864551 1 Tablet(s) PO as directed 09/24/2012 10/12/2012 Inactive 1 tab bid x 2 weeks1 tab daily x 1 month 1 tab qod x 1 week then stop Percocet 10 mg-325 m g tablet RxNorm: 3061634 1 Tablet(s) PO Q4 PRN 07/22/2012 11/20/2015 Inactive diazepam 5 mg tablet RxNorm: 312146 1 Tablet(s) PO TID PRN 07/22/2012 01/17/2013 Inactive amitriptyline 50 mg tablet RxNorm: 480330 Tablet(s) PO 06/17/2012 10/28/2012 Inactive TAKE ONE TABLET BY MOUTH TWICE DAILY Topamax 25 mg tablet RxNorm: 123546 1 Tablet(s) PO as directed 04/14/2012 06/01/2012 Inactive 1 tab bid x 2 weeks1 tab daily x 1 month 1 tab qod x 1 week then stop Topamax 25 mg Tab RxNorm: 800336 1 Tablet(s) PO as directed 03/16/2012 04/13/2012 Inactive 1 tab bid x 2 weeks1 tab daily x 1 month 1 tab qod x 1 week then stop pantoprazole 40 mg t ablet,delayed release RxNorm: 731551 Tablet(s) PO 02/17/2012 02/21/2013 In active TAKE ONE TABLET BY MOUTH EVERY DAY Topamax 50 mg Tab RxNorm: 748148 Tablet(s) PO 01/21/2012 03/11/2012 Inactive plea se give pt #42 of the 50mg tablets, to take bid till gone.then 25mg q am and 50 q hs x 14 days then 25 mg bid thereafter # 44 amitriptyline 50 mg tablet RxNorm: 258126 Tablet(s) PO 12/18/2011 06/16/2012 Inactive TAKE ONE TABLET BY MOUTH TWICE DAILY Percocet 10 mg-325 m g tablet RxNorm: 9377115 1 Tablet(s) PO Q4 PRN 11/13/2011 07/21/2012 Inactive Vitamin B-12 1,000 m cg/mL Injection RxNorm: 920130 1 Milliliter(s) Inj 2 x month 10/17/2011 10/16/2011 In active Vitamin B-12 1,000 m cg/mL Injection RxNorm: 006005 1 Milliliter(s) Inj 2 x month 10/17/2011 10/25/2012 In active topiramate 100 mg Tab RxNorm: 812475 1 Tablet(s) PO BID 10/17/2011 01/20/2012 Inactive TAKE ONE TABLET BY MOUTH TWICE DAILY Kenalog 40 mg/mL Lovely p for Injection RxNorm: 1777885 1 Milliliter(s) Inj 10/17/2011 10/17/2011 In active diazepam 5 mg tablet RxNorm: 418648 1 Tablet(s) PO TID PRN 09/25/2011 03/22/2012 Inactive diazepam 5 mg Tab RxNorm: 739085 1 Tablet(s) PO TID PRN 09/15/2011 09/17/2011 Inactive topiramate 100 mg Tab RxNorm: 315748 Tablet(s) PO 08/25/2011 10/16/2011 Inactive TAKE ONE TABLET BY MOUTH TWICE DAILY topiramate 100 mg Tab RxNorm: 625532 1 Tablet(s) PO BID 08/21/2011 08/24/2011 Inactive pantoprazole 40 mg T ab, Delayed Release RxNorm: 263240 1 Tablet(s) PO daily 07/19/2011 08/17/2011 In active ibuprofen 800 mg Tab RxNorm: 090354 1 Tablet(s) PO Q8 PRN No Start Date Active Vitamin D3 5,000 uni t tablet RxNorm: 425430 1 Tablet(s) PO daily No Start Date Active Beano 150 unit tablet RxNorm: 547238 1 Tablet(s) PO PRN No Start Date Active calcium 167 mg-magne sium 65 mg-herbal complex no.180 200 mg tablet RxNorm: calcium mag zinc Tablet(s) PO daily No Start Date Active multivitamin capsule RxNorm: 1 Capsule(s) PO daily No Start Date Active cranberry fruit conc entrate 250 mg chewable tablet RxNorm: 7444266 1 Tablet(s) PO two to three times weekly No Start Date 04/22/2016 Inactive amitriptyline 50 mg Tab RxNorm: 112113 1 Tablet(s) PO BID No Start Date 12/17/2011 Inactive Topamax 50 mg Tab RxNorm: 806583 Tablet(s) PO No Start Date 01/20/2012 Inactive plea se give pt #42 of the 50mg tablets, to take bid till gone.then 25mg q am and 50 q hs x 14 days then 25 mg bid thereafter # 44 cranberry 1,000 mg c apsule RxNorm: 354203 3 Capsule(s) PO daily No Start Date 01/22/2016 Inactive promethazine 25 mg t ablet RxNorm: 381997 1 Tablet(s) PO Q6 PRN No Start Date 02/24/2013 Inactive Topamax 25 mg Tab RxNorm: 032864 1 Tablet(s) PO BID No Start Date 03/15/2012 Inactive Xanax 0.25 mg tablet RxNorm: 251467 1 Tablet(s) PO as needed anxiety No Start Date 10/15/2017 Inactive Frova 2.5 mg tablet RxNorm: 373749 1 Tablet(s) PO No Start Date 10/27/2013 Inactive at onset of migraine Zithromax Z-Darion 250 mg Tab RxNorm: 663889 Tablet(s) PO No Start Date 10/28/2012 Inactive Diflucan 200 mg tablet RxNorm: 053342 1 Tablet(s) PO PRN No Start Date 06/13/2013 Inactive Fish Oil 1,000 mg ca psule RxNorm: 4 Capsule(s) PO daily No Start Date 08/31/2018 Inactive esterified estrogens -methyltestosterone 1.25 mg-2.5 mg tablet RxNorm: 855751 1 Tablet(s) PO daily No Start Date 10/28/2012 Inactive Demerol (PF) 50 mg/m L Injection RxNorm: 4782318 1 Milliliter(s) Inj as doctor directed No Start Date 06/13/2013 Inactive Tessalon 200 mg Cap RxNorm: 800643 1 Capsule(s) PO Q6 PRN No Start Date 10/28/2012 Inactive Medication Administered Medication Codes Instruc tions Start Date Status promethazine 25 mg/mL Injection RxNo rm: 402949 1Milliliter 04/06/2013 N o longer Active Demerol (PF) 50 mg/mL Injection RxNo rm: 5335387 1/2Milliliter 04/06/2013 No longer Active promethazine 25 mg/mL Injection RxNo rm: 880712 2Milliliter 03/26/2013 N o longer Active Demerol (PF) 50 mg/mL Injection RxNo rm: 8069646 Milliliter 03/26/2013 No longer Active Demerol (PF) 50 mg/mL Injection RxNo rm: 0250214 1Milliliter 03/11/2013 N o longer Active promethazine 25 mg/mL Injection RxNo rm: 790875 1Milliliter 02/18/2013 N o longer Active Demerol (PF) 25 mg/0.5 mL Injection RxNorm: 606458 1Milliliter 02/18/2013 N o longer Active Kenalog 40 mg/mL Susp for Injection RxNorm: 0803775 1Milliliter 11/16/2012 N o longer Active Kenalog 40 mg/mL Susp for Injection RxNorm: 8124672 1Milliliter 10/17/2011 N o longer Active Immunizations No Immunization data Assessments Condition Codes Effectiv e Dates Essential (primary) hypertension ICD -10: I10 ICD-9: 401.1 06/10/2019 Gastro-esophageal reflux disease without esophagitis ICD-10: K21.9 ICD-9: 530.81 06/10/2019 Encounter for general adult medical exam ination with abnormal findings ICD-10: Z00.01 ICD-9: V70.0 06/10/2019 Restless legs syndrome ICD-10: G25.8 1 ICD-9: 333.94 03/02/2019 Pain in right knee ICD-10: M25.561 ICD-9: 719.46 03/02/2019 Encounter for screening mammogram for ma lignant neoplasm of breast ICD-10: Z12.31 ICD-9: V76.10 02/25/2019 Acute laryngopharyngitis ICD-10: J06 .0 ICD-9: 465.9 09/01/2018 Other insomnia ICD-10: G47.09 ICD-9: 327.09 09/01/2018 Generalized abdominal pain ICD-10: R 10.84 ICD-9: 789.07 07/24/2017 Other specified noninfective gastroenteritis and colit is ICD- 10: K52.89 ICD-9: 558.9 07/24/2017 Epigastric pain ICD-10: R10.13 ICD-9: 789.06 07/24/2017 Gastro-esophageal reflux disease with esophagitis ICD-10: K21.0 ICD-9: 530.11 04/23/2016 Morbid (severe) obesity due to excess calories ICD-10: E66.01 ICD-9: 278.01 01/23/2016 Urge incontinence ICD-10: N39.41 ICD-9: 788.31 01/23/2016 Achilles tendinitis, right leg ICD-1 0: M76.61 ICD-9: 726.71 11/21/2015 Metatarsalgia, right foot ICD-10: M7 7.41 ICD-9: 726.70 11/21/2015 Biceps tendonitis ICD-9: 726.12 08/23/2014 Encounter for long-term (current) use of other medicat ions ICD-9: V58.69 08/23/2014 Pain, lower leg ICD-9: 729.5 03/01/2014 Anxiety, generalized ICD-9: 300.02 03/01/2014 MIGRAINE NOS/NOT INTRCBL ICD-9: 346.90 06/14/2013 MGRN W AURA W INTRC MGRN ICD-9: 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 04/06/2013 NAUSEA ALONE ICD-9: 787.02 03/10/2013 BACTERIAL PNEUMONIA ICD-9: 482.9 11/16/2012 Cough ICD-9: 786.2 11/16 Dyspnea ICD-9: 786.09 ANXIETY STATE ICD-9: 300.00 10/29/2012 JOINT PAIN-SHLDER ICD-9: 719.41 03/12/2012 OBESITY ICD-9: 278.00 Knee pain ICD-9: 719.46 01/28/2012 Rotator cuff disorder ICD-9: 726.10 01/28/2012 ACUTE URI ICD-9: 465.9 1 12/18/2010 Reason For Visit Reason For Visit Effective Dates Notes hypertension 06/10/2019 hypertension 03/02/2019 lower leg pain 12/08/2018 hypertension 09/01/2018 hypertension 02/26/2018 abdominal pain 07/24/2017 abdominal pain 07/09/2017 foot pain 06/24/2017 imp roved foot pain 04/23/2016 nocturia 01/23/2016 nocturia 11/21/2015 headache 08/23/2014 pre-op/surgery consult 03/01/2014 having migraine surgery headache 06/14/2013 headache 03/10/2013 headache 02/18/2013 cough 11/16/2012 complai ns of not getting enough air. breathing treatments make her jittery headache 10/29/2012 headache 03/12/2012 knee pain 01/28/2012 headache 01/09/2012 sinus congestion 10/17/2011 Results Observation Observation Code Item Item Code Result Date URINALYSIS NONAUTO W/O SCOPE 07999 Specific [place] 1.005 DateTime(Free Text in Aprima) URINALYSIS NONAUTO W/O SCOPE 57272 PH 6.0 DateTime(Free Jamar t in ) URINALYSIS NONAUTO W/O SCOPE 47823 GLUCOSE DateTime(Free Text i n Aprima) URINALYSIS NONAUTO W/O SCOPE 54045 Protein DateTime(Free Text i n Aprima) URINALYSIS NONAUTO W/O SCOPE 29295 Blood DateTime(Free Text i n Aprima) URINALYSIS NONAUTO W/O SCOPE 58260 Bilirubin DateTime(Free Text i n Aprima) URINALYSIS NONAUTO W/O SCOPE 59241 Ketones DateTime(Free Text i n Aprima) URINALYSIS NONAUTO W/O SCOPE 83233 Urobilinogen DateTime(Free Text in Apr) URINALYSIS NONAUTO W/O SCOPE 32590 Nitrite DateTime(Free Text i n ) URINALYSIS NONAUTO W/O SCOPE 90130 Leukocytes DateTime(Fr ee Text in ) Review of Systems System Result Effective Dates Constitutional No recent illness 06/10/2019 Constitutional No chills 06/10/2019 Constitutional No fatigue 06/10/2019 Constitutional No fever 06/10/2019 Constitutional No malaise 06/10/2019 Eyes No vision change Ears/Nose/Throat/Neck No dizziness 06/10/2019 Ears/Nose/Throat/Neck No headache 06/10/2019 Cardiovascular No chest pain/pressure 06/10/2019 Cardiovascular No dyspnea 06/10/2019 Cardiovascular No edema 06/10/2019 Cardiovascular No fatigue 06/10/2019 Respiratory No chest congestion 06/10/2019 Respiratory No chest tightness 06/10/2019 Respiratory No cough Gastrointestinal No abdominal pain 06/10/2019 Gastrointestinal No diarrhea 06/10/2019 Musculoskeletal No stiffness 06/10/2019 Musculoskeletal No arthralgia(s) 06/10/2019 Musculoskeletal No joint complaint 06/10/2019 Dermatologic No rash Dermatologic No sores Psychiatric No anxiety 0 06/10/2019 Psychiatric No depression 06/10/2019 Constitutional No recent illness 03/02/2019 Constitutional No chills 03/02/2019 Constitutional No fever 03/02/2019 Eyes No blindness 2018 Ears/Nose/Throat/Neck No nasal discharge 03/02/2019 Cardiovascular No chest pain/pressure 03/02/2019 Cardiovascular No dyspnea 03/02/2019 Respiratory No cough 04/2019 Respiratory No dyspnea 0 03/02/2019 Musculoskeletal joint complaint 03/02/2019 Neurologic No alteration of consciousness 03/02/2019 Neurologic No mental status change 03/02/2019 Constitutional No fatigue 03/02/2019 Constitutional No malaise 03/02/2019 Eyes No vision change Ears/Nose/Throat/Neck No dizziness 03/02/2019 Ears/Nose/Throat/Neck No headache 03/02/2019 Cardiovascular No edema 03/02/2019 Cardiovascular No fatigue 03/02/2019 Cardiovascular hypertension 03/02/2019 Respiratory No chest congestion 03/02/2019 Respiratory No chest tightness 03/02/2019 Gastrointestinal No abdominal pain 03/02/2019 Gastrointestinal No diarrhea 03/02/2019 Musculoskeletal No stiffness 03/02/2019 Musculoskeletal No arthralgia(s) 03/02/2019 Dermatologic No rash 04/2019 Dermatologic No sores Psychiatric No anxiety 0 03/02/2019 Psychiatric No depression 03/02/2019 Neurologic spasms/spasticity 03/02/2019 Constitutional No recent illness 12/08/2018 Constitutional No chills 12/08/2018 Constitutional No fever 12/08/2018 Eyes No eye erythema 09/2019 Ears/Nose/Throat/Neck No nasal discharge 12/08/2018 Cardiovascular No chest pain/pressure 12/08/2018 Cardiovascular No dyspnea 12/08/2018 Respiratory No cough 09/2019 Respiratory No dyspnea 0 12/08/2018 Musculoskeletal joint complaint 12/08/2018 Neurologic No alteration of consciousness 12/08/2018 Neurologic No mental status change 12/08/2018 Constitutional No recent illness 09/01/2018 Constitutional No chills 09/01/2018 Constitutional No fatigue 09/01/2018 Constitutional No fever 09/01/2018 Constitutional No malaise 09/01/2018 Eyes No vision change Ears/Nose/Throat/Neck No dizziness 09/01/2018 Ears/Nose/Throat/Neck No headache 09/01/2018 Cardiovascular No chest pain/pressure 09/01/2018 Cardiovascular No dyspnea 09/01/2018 Cardiovascular No edema 09/01/2018 Cardiovascular No fatigue 09/01/2018 Respiratory No chest congestion 09/01/2018 Respiratory No chest tightness 09/01/2018 Respiratory No cough 03/2018 Gastrointestinal No abdominal pain 09/01/2018 Gastrointestinal No diarrhea 09/01/2018 Musculoskeletal No stiffness 09/01/2018 Musculoskeletal No arthralgia(s) 09/01/2018 Musculoskeletal No joint complaint 09/01/2018 Dermatologic No rash 03/2018 Dermatologic No sores Psychiatric No anxiety 1 11/01/2017 Psychiatric No depression 09/01/2018 Cardiovascular hypertension 09/01/2018 Ears/Nose/Throat/Neck sore throat 09/01/2018 Constitutional No recent illness 02/26/2018 Constitutional No chills 02/26/2018 Constitutional No fatigue 02/26/2018 Constitutional No fever 02/26/2018 Constitutional No malaise 02/26/2018 Eyes No vision change Ears/Nose/Throat/Neck No dizziness 02/26/2018 Ears/Nose/Throat/Neck No headache 02/26/2018 Cardiovascular No chest pain/pressure 02/26/2018 Cardiovascular No dyspnea 02/26/2018 Cardiovascular No edema 02/26/2018 Cardiovascular No fatigue 02/26/2018 Respiratory No chest congestion 02/26/2018 Respiratory No chest tightness 02/26/2018 Respiratory No cough 12/2017 Gastrointestinal No abdominal pain 02/26/2018 Gastrointestinal No diarrhea 02/26/2018 Musculoskeletal No stiffness 02/26/2018 Musculoskeletal No arthralgia(s) 02/26/2018 Musculoskeletal No joint complaint 02/26/2018 Dermatologic No rash 12/2017 Dermatologic No sores Psychiatric No anxiety 0 02/26/2018 Psychiatric No depression 02/26/2018 Constitutional No recent illness 07/24/2017 Constitutional No chills 07/24/2017 Constitutional No diaphoresis 07/24/2017 Constitutional No fever 07/24/2017 Eyes No blindness 2016 Ears/Nose/Throat/Neck No nasal allergies 07/24/2017 Ears/Nose/Throat/Neck No nasal discharge 07/24/2017 Cardiovascular No chest pain/pressure 07/24/2017 Cardiovascular No dyspnea 07/24/2017 Respiratory No chest congestion 07/24/2017 Respiratory No cough Respiratory No dyspnea 0 07/24/2017 Gastrointestinal abdominal pain 07/24/2017 Gastrointestinal gastroesophageal reflux 07/24/2017 Gastrointestinal nausea 07/24/2017 Gastrointestinal No vomiting 07/24/2017 Musculoskeletal No joint complaint 07/24/2017 Neurologic No alteration of consciousness 07/24/2017 Neurologic No mental status change 07/24/2017 Gastrointestinal gas and bloating 07/24/2017 Psychiatric No anxiety 0 07/24/2017 Psychiatric No depression 07/24/2017 Constitutional No recent illness 07/09/2017 Constitutional No chills 07/09/2017 Constitutional No diaphoresis 07/09/2017 Constitutional No fever 07/09/2017 Eyes No eye erythema Ears/Nose/Throat/Neck No nasal discharge 07/09/2017 Ears/Nose/Throat/Neck No nasal allergies 07/09/2017 Cardiovascular No chest pain/pressure 07/09/2017 Cardiovascular No dyspnea 07/09/2017 Respiratory No cough Respiratory No chest congestion 07/09/2017 Respiratory No dyspnea 0 07/09/2017 Gastrointestinal abdominal pain 07/09/2017 Gastrointestinal No diarrhea 07/09/2017 Gastrointestinal No constipation 07/09/2017 Gastrointestinal nausea 07/09/2017 Gastrointestinal No vomiting 07/09/2017 Gastrointestinal gastroesophageal reflux 07/09/2017 Musculoskeletal No joint complaint 07/09/2017 Dermatologic No rash Neurologic No alteration of consciousness 07/09/2017 Neurologic No mental status change 07/09/2017 Constitutional No recent illness 06/24/2017 Constitutional No chills 06/24/2017 Constitutional No fatigue 06/24/2017 Constitutional No fever 06/24/2017 Constitutional No malaise 06/24/2017 Eyes No vision change Ears/Nose/Throat/Neck No dizziness 06/24/2017 Ears/Nose/Throat/Neck No headache 06/24/2017 Cardiovascular No chest pain/pressure 06/24/2017 Cardiovascular No dyspnea 06/24/2017 Cardiovascular No edema 06/24/2017 Cardiovascular No fatigue 06/24/2017 Respiratory No chest congestion 06/24/2017 Respiratory No chest tightness 06/24/2017 Respiratory No cough Gastrointestinal No abdominal pain 06/24/2017 Gastrointestinal No diarrhea 06/24/2017 Musculoskeletal No stiffness 06/24/2017 Musculoskeletal No arthralgia(s) 06/24/2017 Musculoskeletal No joint complaint 06/24/2017 Dermatologic No rash Dermatologic No sores Psychiatric No anxiety 0 06/24/2017 Psychiatric No depression 06/24/2017 Genitourinary/Nephrology No dysuria 06/24/2017 Constitutional No recent illness 04/23/2016 Constitutional No chills 04/23/2016 Constitutional No fatigue 04/23/2016 Constitutional No fever 04/23/2016 Constitutional No malaise 04/23/2016 Eyes No vision change Ears/Nose/Throat/Neck No dizziness 04/23/2016 Ears/Nose/Throat/Neck No headache 04/23/2016 Cardiovascular No chest pain/pressure 04/23/2016 Cardiovascular No dyspnea 04/23/2016 Cardiovascular No edema 04/23/2016 Cardiovascular No fatigue 04/23/2016 Respiratory No chest congestion 04/23/2016 Respiratory No chest tightness 04/23/2016 Respiratory No cough Gastrointestinal No abdominal pain 04/23/2016 Gastrointestinal No diarrhea 04/23/2016 Musculoskeletal No stiffness 04/23/2016 Musculoskeletal No arthralgia(s) 04/23/2016 Musculoskeletal No joint complaint 04/23/2016 Dermatologic No rash Dermatologic No sores Psychiatric No anxiety 0 04/23/2016 Psychiatric No depression 04/23/2016 Constitutional No recent illness 01/23/2016 Constitutional No chills 01/23/2016 Constitutional No fatigue 01/23/2016 Constitutional No fever 01/23/2016 Constitutional No malaise 01/23/2016 Eyes No vision change Ears/Nose/Throat/Neck No dizziness 01/23/2016 Ears/Nose/Throat/Neck No headache 01/23/2016 Cardiovascular No chest pain/pressure 01/23/2016 Cardiovascular No dyspnea 01/23/2016 Cardiovascular No edema 01/23/2016 Cardiovascular No fatigue 01/23/2016 Respiratory No chest congestion 01/23/2016 Respiratory No chest tightness 01/23/2016 Respiratory No cough Gastrointestinal No abdominal pain 01/23/2016 Gastrointestinal No diarrhea 01/23/2016 Musculoskeletal No stiffness 01/23/2016 Musculoskeletal No arthralgia(s) 01/23/2016 Musculoskeletal No joint complaint 01/23/2016 Musculoskeletal myalgias 01/23/2016 Dermatologic No rash Dermatologic No sores Psychiatric No anxiety 0 01/23/2016 Psychiatric No depression 01/23/2016 Constitutional No recent illness 11/21/2015 Constitutional No diaphoresis 11/21/2015 Constitutional No fatigue 11/21/2015 Constitutional No fever 11/21/2015 Constitutional No malaise 11/21/2015 Cardiovascular No chest pain/pressure 11/21/2015 Cardiovascular No dyspnea 11/21/2015 Respiratory No chest congestion 11/21/2015 Respiratory No cough Gastrointestinal No abdominal pain 11/21/2015 Gastrointestinal No constipation 11/21/2015 Gastrointestinal No diarrhea 11/21/2015 Psychiatric No anxiety 0 11/21/2015 Psychiatric No depression 11/21/2015 Constitutional No chills 11/21/2015 Constitutional No insomnia 11/21/2015 Eyes No blindness 2015 Eyes No vision change Ears/Nose/Throat/Neck No dental pain 11/21/2015 Ears/Nose/Throat/Neck No dizziness 11/21/2015 Ears/Nose/Throat/Neck No dysphagia 11/21/2015 Ears/Nose/Throat/Neck No headache 11/21/2015 Ears/Nose/Throat/Neck No hearing loss 11/21/2015 Ears/Nose/Throat/Neck No nasal allergies 11/21/2015 Ears/Nose/Throat/Neck No sore throat 11/21/2015 Ears/Nose/Throat/Neck No postnasal drip 11/21/2015 Ears/Nose/Throat/Neck No sinus congestion 11/21/2015 Cardiovascular No edema 11/21/2015 Cardiovascular No exercise intolerance 11/21/2015 Cardiovascular No fatigue 11/21/2015 Cardiovascular No near-syncope/dizziness 11/21/2015 Respiratory No chest tightness 11/21/2015 Respiratory No dyspnea 0 11/21/2015 Respiratory No pedal edema 11/21/2015 Gastrointestinal No gastroesophageal reflu x 11/21/2015 Gastrointestinal No nausea 11/21/2015 Gastrointestinal No vomiting 11/21/2015 Genitourinary/Nephrology No dysuria 11/21/2015 Genitourinary/Nephrology No nocturia 11/21/2015 Genitourinary/Nephrology No urinary incontinence 11/21/2015 Musculoskeletal No stiffness 11/21/2015 Musculoskeletal No swelling 11/21/2015 Musculoskeletal No muscle weakness 11/21/2015 Musculoskeletal No myalgias 11/21/2015 Dermatologic No rash Dermatologic No sores Dermatologic No scar Neurologic No dizziness 11/21/2015 Neurologic No headache 0 11/21/2015 Neurologic No neck pain 11/21/2015 Neurologic No syncope Constitutional No recent illness 08/23/2014 Constitutional No diaphoresis 08/23/2014 Constitutional No fatigue 08/23/2014 Constitutional No fever 08/23/2014 Constitutional No malaise 08/23/2014 Cardiovascular No chest pain/pressure 08/23/2014 Cardiovascular No dyspnea 08/23/2014 Respiratory No cough Respiratory No chest congestion 08/23/2014 Musculoskeletal joint complaint 08/23/2014 Musculoskeletal shoulder pain 08/23/2014 Musculoskeletal stiffness 08/23/2014 Gastrointestinal No abdominal pain 08/23/2014 Gastrointestinal No constipation 08/23/2014 Gastrointestinal No diarrhea 08/23/2014 Psychiatric No anxiety 1 Psychiatric No depression 08/23/2014 Constitutional No recent illness 03/01/2014 Constitutional No chills 03/01/2014 Constitutional No fatigue 03/01/2014 Constitutional No fever 03/01/2014 Constitutional No malaise 03/01/2014 Eyes No vision change Ears/Nose/Throat/Neck No dizziness 03/01/2014 Ears/Nose/Throat/Neck No headache 03/01/2014 Cardiovascular No chest pain/pressure 03/01/2014 Cardiovascular No dyspnea 03/01/2014 Cardiovascular No edema 03/01/2014 Cardiovascular No fatigue 03/01/2014 Respiratory No chest congestion 03/01/2014 Respiratory No chest tightness 03/01/2014 Respiratory No cough 03/2014 Gastrointestinal No abdominal pain 03/01/2014 Gastrointestinal No diarrhea 03/01/2014 Musculoskeletal No stiffness 03/01/2014 Musculoskeletal No arthralgia(s) 03/01/2014 Dermatologic No rash 03/2014 Dermatologic No sores Psychiatric No anxiety 0 03/01/2014 Psychiatric No depression 03/01/2014 Musculoskeletal No joint complaint 03/01/2014 Musculoskeletal myalgias 03/01/2014 Constitutional No recent illness 06/14/2013 Constitutional No anorexia 06/14/2013 Constitutional No night sweats 06/14/2013 Constitutional No chills 06/14/2013 Constitutional No diaphoresis 06/14/2013 Constitutional No fatigue 06/14/2013 Constitutional No fever 06/14/2013 Constitutional No malaise 06/14/2013 Constitutional weight gain 06/14/2013 Ears/Nose/Throat/Neck No otitis media 06/14/2013 Ears/Nose/Throat/Neck No sinus congestion 06/14/2013 Cardiovascular No chest pain/pressure 06/14/2013 Cardiovascular No dyspnea 06/14/2013 Cardiovascular No edema 06/14/2013 Respiratory No productive sputum 06/14/2013 Respiratory No chest congestion 06/14/2013 Respiratory No chest tightness 06/14/2013 Respiratory No cough Gastrointestinal No abdominal pain 06/14/2013 Gastrointestinal No constipation 06/14/2013 Gastrointestinal No diarrhea 06/14/2013 Gastrointestinal No nausea 06/14/2013 Gastrointestinal No vomiting 06/14/2013 Dermatologic No rash Dermatologic No sores Psychiatric No anxiety 0 06/14/2013 Psychiatric No depression 06/14/2013 Gastrointestinal No constipation 03/10/2013 Gastrointestinal No diarrhea 03/10/2013 Gastrointestinal nausea 03/10/2013 Genitourinary/Nephrology No dysuria 03/10/2013 Musculoskeletal No joint complaint 03/10/2013 Dermatologic No rash Constitutional No recent illness 03/10/2013 Constitutional No anorexia 03/10/2013 Constitutional No night sweats 03/10/2013 Constitutional No chills 03/10/2013 Constitutional No fever 03/10/2013 Eyes No eye discharge Eyes No eye erythema Eyes photophobia 013 Ears/Nose/Throat/Neck headache 03/10/2013 Ears/Nose/Throat/Neck No nasal discharge 03/10/2013 Cardiovascular No chest pain/pressure 03/10/2013 Respiratory No cough Gastrointestinal No abdominal pain 03/10/2013 Constitutional No anorexia 02/18/2013 Constitutional No recent illness 02/18/2013 Constitutional No night sweats 02/18/2013 Constitutional No chills 02/18/2013 Constitutional No fever 02/18/2013 Eyes No eye discharge Eyes No eye erythema Eyes photophobia 013 Ears/Nose/Throat/Neck headache 02/18/2013 Ears/Nose/Throat/Neck No nasal discharge 02/18/2013 Cardiovascular No chest pain/pressure 02/18/2013 Respiratory No cough Gastrointestinal No abdominal pain 02/18/2013 Gastrointestinal No constipation 02/18/2013 Gastrointestinal No diarrhea 02/18/2013 Gastrointestinal nausea 02/18/2013 Gastrointestinal vomiting 02/18/2013 Genitourinary/Nephrology No dysuria 02/18/2013 Neurologic No alteration of consciousness 02/18/2013 Dermatologic No rash Musculoskeletal No joint complaint 02/18/2013 Constitutional recent illness 11/16/2012 Constitutional chills Constitutional fatigue 0 11/16/2012 Constitutional fever Constitutional malaise 0 11/16/2012 Cardiovascular No chest pain/pressure 11/16/2012 Cardiovascular No dyspnea 11/16/2012 Cardiovascular No edema 11/16/2012 Cardiovascular No exercise intolerance 11/16/2012 Cardiovascular No fatigue 11/16/2012 Cardiovascular No near-syncope/dizziness 11/16/2012 Gastrointestinal No hemorrhoids 11/16/2012 Gastrointestinal No abdominal pain 11/16/2012 Gastrointestinal No constipation 11/16/2012 Gastrointestinal No diarrhea 11/16/2012 Gastrointestinal No gastroesophageal reflu x 11/16/2012 Gastrointestinal No melena 11/16/2012 Gastrointestinal No nausea 11/16/2012 Gastrointestinal No vomiting 11/16/2012 Genitourinary/Nephrology No dysuria 11/16/2012 Genitourinary/Nephrology No nocturia 11/16/2012 Genitourinary/Nephrology No urinary incontinence 11/16/2012 Psychiatric No anxiety 0 11/16/2012 Psychiatric No depression 11/16/2012 Dermatologic No rash Dermatologic No scar Constitutional No recent illness 10/29/2012 Constitutional No chills 10/29/2012 Constitutional No fatigue 10/29/2012 Constitutional No fever 10/29/2012 Constitutional No malaise 10/29/2012 Eyes No vision change Ears/Nose/Throat/Neck No dizziness 10/29/2012 Ears/Nose/Throat/Neck No headache 10/29/2012 Cardiovascular No chest pain/pressure 10/29/2012 Cardiovascular No dyspnea 10/29/2012 Cardiovascular No edema 10/29/2012 Cardiovascular No fatigue 10/29/2012 Respiratory No chest congestion 10/29/2012 Respiratory No chest tightness 10/29/2012 Respiratory No cough 12/2012 Gastrointestinal No abdominal pain 10/29/2012 Gastrointestinal No diarrhea 10/29/2012 Musculoskeletal No stiffness 10/29/2012 Musculoskeletal No arthralgia(s) 10/29/2012 Dermatologic No rash 12/2012 Dermatologic No sores Psychiatric No anxiety 0 10/29/2012 Psychiatric No depression 10/29/2012 Constitutional weight gain 03/12/2012 Constitutional No recent illness 03/12/2012 Constitutional No anorexia 03/12/2012 Constitutional No night sweats 03/12/2012 Constitutional No chills 03/12/2012 Constitutional No diaphoresis 03/12/2012 Constitutional No fatigue 03/12/2012 Constitutional No fever 03/12/2012 Ears/Nose/Throat/Neck No sinus congestion 03/12/2012 Ears/Nose/Throat/Neck No otitis media 03/12/2012 Cardiovascular No chest pain/pressure 03/12/2012 Respiratory No productive sputum 03/12/2012 Respiratory No chest congestion 03/12/2012 Respiratory No cough Gastrointestinal No vomiting 03/12/2012 Gastrointestinal No nausea 03/12/2012 Gastrointestinal No abdominal pain 03/12/2012 Gastrointestinal No constipation 03/12/2012 Gastrointestinal No diarrhea 03/12/2012 Dermatologic No rash Constitutional No malaise 03/12/2012 Cardiovascular No dyspnea 03/12/2012 Cardiovascular No edema 03/12/2012 Respiratory No chest tightness 03/12/2012 Dermatologic No sores Psychiatric No anxiety 0 03/12/2012 Psychiatric No depression 03/12/2012 Constitutional No recent illness 01/28/2012 Constitutional No chills 01/28/2012 Constitutional No fatigue 01/28/2012 Constitutional No fever 01/28/2012 Constitutional No malaise 01/28/2012 Ears/Nose/Throat/Neck No dizziness 01/28/2012 Ears/Nose/Throat/Neck No headache 01/28/2012 Cardiovascular No chest pain/pressure 01/28/2012 Cardiovascular No dyspnea 01/28/2012 Cardiovascular No edema 01/28/2012 Cardiovascular No fatigue 01/28/2012 Respiratory No chest congestion 01/28/2012 Respiratory No chest tightness 01/28/2012 Respiratory No cough 12/2011 Gastrointestinal No abdominal pain 01/28/2012 Gastrointestinal No diarrhea 01/28/2012 Dermatologic No rash 12/2011 Dermatologic No sores Psychiatric No anxiety 0 01/28/2012 Psychiatric No depression 01/28/2012 Constitutional No recent illness 01/09/2012 Constitutional No chills 01/09/2012 Constitutional No fatigue 01/09/2012 Constitutional No fever 01/09/2012 Constitutional No malaise 01/09/2012 Eyes No vision change Ears/Nose/Throat/Neck No dizziness 01/09/2012 Ears/Nose/Throat/Neck No headache 01/09/2012 Cardiovascular No chest pain/pressure 01/09/2012 Cardiovascular No edema 01/09/2012 Cardiovascular No dyspnea 01/09/2012 Cardiovascular No fatigue 01/09/2012 Respiratory No cough Respiratory No chest congestion 01/09/2012 Respiratory No chest tightness 01/09/2012 Gastrointestinal No abdominal pain 01/09/2012 Gastrointestinal No diarrhea 01/09/2012 Musculoskeletal No stiffness 01/09/2012 Musculoskeletal No arthralgia(s) 01/09/2012 Dermatologic No rash Dermatologic No sores Psychiatric No anxiety 0 01/09/2012 Psychiatric No depression 01/09/2012 Constitutional No recent illness 10/17/2011 Constitutional No anorexia 10/17/2011 Constitutional No chills 10/17/2011 Constitutional No diaphoresis 10/17/2011 Constitutional No fatigue 10/17/2011 Constitutional No fever 10/17/2011 Eyes No eye discharge Eyes No eye erythema Ears/Nose/Throat/Neck No dizziness 10/17/2011 Ears/Nose/Throat/Neck nasal discharge 10/17/2011 Ears/Nose/Throat/Neck No sore throat 10/17/2011 Ears/Nose/Throat/Neck sinus congestion 10/17/2011 Cardiovascular No chest pain/pressure 10/17/2011 Respiratory No productive sputum 10/17/2011 Respiratory No chest congestion 10/17/2011 Respiratory No cough Respiratory No dyspnea 1 12/18/2010 Respiratory No dyspnea on exertion 10/17/2011 Gastrointestinal No nausea 10/17/2011 Gastrointestinal No vomiting 10/17/2011 Gastrointestinal No abdominal pain 10/17/2011 Gastrointestinal No constipation 10/17/2011 Gastrointestinal No diarrhea 10/17/2011 Genitourinary/Nephrology No dysuria 10/17/2011 Dermatologic No rash Physical Exam Exam Name System Name It em Name Status Result Effective Dates Notes Full Exam - General 1994 Constitutional general appearance Overall: well developed 06/10/2019 None Full Exam - General 1994 Constitutional general appearance Overall: in no acute distress 06/10/2019 None Full Exam - General 1994 Constitutional general appearance Overall: well nourished 06/10/2019 None Full Exam - General 1994 Eyes pupils and irises Overall: pupils equal, round, reactive to light and accomodation 06/10/2019 None Full Exam - General 1994 Ears/Nose/Throat otoscopic exam Overall: external auditory canals clear 06/10/2019 None Full Exam - General 1994 Ears/Nose/Throat otoscopic exam Overall: tympanic membranes clear 06/10/2019 None Full Exam - General 1994 Ears/Nose/Throat oral cavity/pharynx/larynx Overall: oral mucosa clear 06/10/2019 None Full Exam - General 1994 Ears/Nose/Throat oral cavity/pharynx/larynx Overall: oropharyngeal mucosa clear 06/10/2019 None Full Exam - General 1994 Ears/Nose/Throat oral cavity/pharynx/larynx Overall: no masses 06/10/2019 None Full Exam - General 1994 Respiratory auscultation Overall: breath sounds clear bilaterally 06/10/2019 None Full Exam - General 1994 Respiratory respiratory effort/rhythm Overall: no retractions 06/10/2019 None Full Exam - General 1994 Respiratory respiratory effort/rhythm Overall: normal rate 06/10/2019 None Full Exam - General 1994 Cardiovascular auscultation of heart Overall: regular rate 06/10/2019 None Full Exam - General 1994 Cardiovascular auscultation of heart Overall: normal heart sounds 06/10/2019 None Full Exam - General 1994 Cardiovascular auscultation of heart Overall: no murmurs 06/10/2019 None Full Exam - General 1994 Abdomen abdominal exam Overall: no tenderness 06/10/2019 None Full Exam - General 1994 Abdomen abdominal exam Overall: normal bowel sounds 06/10/2019 None Full Exam - General 1994 Musculoskeletal spine, ribs and pelvis Overall: ribs benign 06/10/2019 None Full Exam - General 1994 Musculoskeletal spine, ribs and pelvis Overall: spine benign 06/10/2019 None Full Exam - General 1994 Musculoskeletal spine, ribs and pelvis Overall: sacroiliac joint benign 06/10/2019 None Full Exam - General 1994 Musculoskeletal spine, ribs and pelvis Overall: right hip benign 06/10/2019 None Full Exam - General 1994 Musculoskeletal spine, ribs and pelvis Overall: left hip benign 06/10/2019 None Full Exam - General 1994 Musculoskeletal spine, ribs and pelvis Overall: good posture 06/10/2019 None Full Exam - General 1994 Neurologic gait Overall: no ataxia, no unsteadiness 06/10/2019 None Full Exam - General 1994 Neurologic cranial nerves Overall: crainial nerves 2 - 12 grossly intact 06/10/2019 None Full Exam - General 1994 Psychiatric orientation/consciousness Overall: oriented to person, place and time 06/10/2019 None Full Exam - General 1994 Psychiatric mood and affect Overall: normal mood and affect 06/10/2019 None Full Exam - General 1994 Psychiatric mood and affect Mood: happy 06/10/2019 None Full Exam - General 1994 Constitutional general appearance Overall: well developed 03/02/2019 None Full Exam - General 1994 Constitutional general appearance Overall: in no acute distress 03/02/2019 None Full Exam - General 1994 Constitutional general appearance Overall: well nourished 03/02/2019 None Full Exam - General 1994 Eyes pupils and irises Overall: pupils equal, round, reactive to light and accomodation 03/02/2019 None Full Exam - General 1994 Ears/Nose/Throat oral cavity/pharynx/larynx Overall: oral mucosa clear 03/02/2019 None Full Exam - General 1994 Ears/Nose/Throat oral cavity/pharynx/larynx Overall: oropharyngeal mucosa clear 03/02/2019 None Full Exam - General 1994 Ears/Nose/Throat oral cavity/pharynx/larynx Overall: no masses 03/02/2019 None Full Exam - General 1994 Respiratory auscultation Overall: breath sounds clear bilaterally 03/02/2019 None Full Exam - General 1994 Respiratory respiratory effort/rhythm Overall: no retractions 03/02/2019 None Full Exam - General 1994 Respiratory respiratory effort/rhythm Overall: normal rate 03/02/2019 None Full Exam - General 1994 Cardiovascular auscultation of heart Overall: regular rate 03/02/2019 None Full Exam - General 1994 Cardiovascular auscultation of heart Overall: normal heart sounds 03/02/2019 None Full Exam - General 1994 Cardiovascular auscultation of heart Overall: no murmurs 03/02/2019 None Full Exam - General 1994 Musculoskeletal spine, ribs and pelvis Overall: ribs benign 03/02/2019 None Full Exam - General 1994 Musculoskeletal spine, ribs and pelvis Overall: spine benign 03/02/2019 None Full Exam - General 1994 Musculoskeletal spine, ribs and pelvis Overall: sacroiliac joint benign 03/02/2019 None Full Exam - General 1994 Musculoskeletal spine, ribs and pelvis Overall: right hip benign 03/02/2019 None Full Exam - General 1994 Musculoskeletal spine, ribs and pelvis Overall: left hip benign 03/02/2019 None Full Exam - General 1994 Musculoskeletal spine, ribs and pelvis Overall: good posture 03/02/2019 None Full Exam - General 1994 Neurologic cranial nerves Overall: crainial nerves 2 - 12 grossly intact 03/02/2019 None Full Exam - General 1994 Psychiatric orientation/consciousness Overall: oriented to person, place and time 03/02/2019 None Full Exam - General 1994 Psychiatric mood and affect Overall: normal mood and affect 03/02/2019 None Full Exam - General 1994 Psychiatric mood and affect Mood: happy 03/02/2019 None Full Exam - General 1994 Musculoskeletal lower extremity Palpation - knee: small effusion 03/02/2019 None Full Exam - General 1994 Musculoskeletal lower extremity Palpation - knee: tender joint line 03/02/2019 None Full Exam - Orthopedics Constitutional general appearance Overall: well nourished 12/08/2018 None Full Exam - Orthopedics Constitutional general appearance Overall: well developed 12/08/2018 None Full Exam - Orthopedics Constitutional general appearance Overall: in no acute distress 12/08/2018 None Full Exam - Orthopedics Eyes conjunctiva/eyelids Overall: conjunctiva clear 12/08/2018 None Full Exam - Orthopedics Eyes conjunctiva/eyelids Overall: eyelids normal 12/08/2018 None Full Exam - Orthopedics Ears/Nose/Throat lips/teeth/gingiva Overall: benign lips 12/08/2018 None Full Exam - Orthopedics Ears/Nose/Throat oral cavity/pharynx/larynx Overall: oral mucosa clear 12/08/2018 None Full Exam - Orthopedics Respiratory respiratory effort/rhythm Overall: no retractions 12/08/2018 None Full Exam - Orthopedics Respiratory respiratory effort/rhythm Overall: normal rate 12/08/2018 None Full Exam - Orthopedics Psychiatric orientation/consciousness Overall: oriented to person, place and time 12/08/2018 None Full Exam - Orthopedics Psychiatric mood and affect Overall: normal mood and affect 12/08/2018 None Full Exam - Orthopedics Psychiatric appearance Overall: well-groomed, good eye contact 12/08/2018 None Full Exam - Orthopedics MS: head/neck insp & palp - H/N Overall: head atraumatic 12/08/2018 None Full Exam - Orthopedics MS: right lo wer extremity insp & palp - RLE Knee: joint swelling 12/08/2018 None Full Exam - Orthopedics MS: right lo wer extremity insp & palp - RLE Knee: joint tenderness 12/08/2018 None Full Exam - Orthopedics MS: right lo wer extremity range of motion - RLE Knee: pain with flexion 12/08/2018 None Full Exam - Orthopedics MS: right lo wer extremity range of motion - RLE Knee: pain with extension 12/08/2018 None Full Exam - General 1994 Constitutional general appearance Overall: well developed 09/01/2018 None Full Exam - General 1994 Constitutional general appearance Overall: in no acute distress 09/01/2018 None Full Exam - General 1994 Constitutional general appearance Overall: well nourished 09/01/2018 None Full Exam - General 1994 Eyes pupils and irises Overall: pupils equal, round, reactive to light and accomodation 09/01/2018 None Full Exam - General 1994 Ears/Nose/Throat otoscopic exam Overall: external auditory canals clear 09/01/2018 None Full Exam - General 1994 Ears/Nose/Throat otoscopic exam Overall: tympanic membranes clear 09/01/2018 None Full Exam - General 1994 Ears/Nose/Throat oral cavity/pharynx/larynx Overall: oral mucosa clear 09/01/2018 None Full Exam - General 1994 Ears/Nose/Throat oral cavity/pharynx/larynx Overall: oropharyngeal mucosa clear 09/01/2018 None Full Exam - General 1994 Ears/Nose/Throat oral cavity/pharynx/larynx Overall: no masses 09/01/2018 None Full Exam - General 1994 Respiratory auscultation Overall: breath sounds clear bilaterally 09/01/2018 None Full Exam - General 1994 Respiratory respiratory effort/rhythm Overall: no retractions 09/01/2018 None Full Exam - General 1994 Respiratory respiratory effort/rhythm Overall: normal rate 09/01/2018 None Full Exam - General 1994 Cardiovascular auscultation of heart Overall: regular rate 09/01/2018 None Full Exam - General 1994 Cardiovascular auscultation of heart Overall: normal heart sounds 09/01/2018 None Full Exam - General 1994 Cardiovascular auscultation of heart Overall: no murmurs 09/01/2018 None Full Exam - General 1994 Abdomen abdominal exam Overall: no tenderness 09/01/2018 None Full Exam - General 1994 Abdomen abdominal exam Overall: normal bowel sounds 09/01/2018 None Full Exam - General 1994 Musculoskeletal spine, ribs and pelvis Overall: ribs benign 09/01/2018 None Full Exam - General 1994 Musculoskeletal spine, ribs and pelvis Overall: spine benign 09/01/2018 None Full Exam - General 1994 Musculoskeletal spine, ribs and pelvis Overall: sacroiliac joint benign 09/01/2018 None Full Exam - General 1994 Musculoskeletal spine, ribs and pelvis Overall: right hip benign 09/01/2018 None Full Exam - General 1994 Musculoskeletal spine, ribs and pelvis Overall: left hip benign 09/01/2018 None Full Exam - General 1994 Musculoskeletal spine, ribs and pelvis Overall: good posture 09/01/2018 None Full Exam - General 1994 Neurologic gait Overall: no ataxia, no unsteadiness 09/01/2018 None Full Exam - General 1994 Neurologic cranial nerves Overall: crainial nerves 2 - 12 grossly intact 09/01/2018 None Full Exam - General 1994 Psychiatric orientation/consciousness Overall: oriented to person, place and time 09/01/2018 None Full Exam - General 1994 Psychiatric mood and affect Overall: normal mood and affect 09/01/2018 None Full Exam - General 1994 Psychiatric mood and affect Mood: happy 09/01/2018 None Full Exam - General 1994 Lymphatic neck nodes Overall: anterior cervical chain benign 09/01/2018 None Full Exam - General 1994 Lymphatic neck nodes Overall: posterior cervical chain benign 09/01/2018 None Full Exam - General 1994 Constitutional general appearance Overall: well developed 02/26/2018 None Full Exam - General 1994 Constitutional general appearance Overall: in no acute distress 02/26/2018 None Full Exam - General 1994 Constitutional general appearance Overall: well nourished 02/26/2018 None Full Exam - General 1994 Eyes pupils and irises Overall: pupils equal, round, reactive to light and accomodation 02/26/2018 None Full Exam - General 1994 Ears/Nose/Throat otoscopic exam Overall: external auditory canals clear 02/26/2018 None Full Exam - General 1994 Ears/Nose/Throat otoscopic exam Overall: tympanic membranes clear 02/26/2018 None Full Exam - General 1994 Ears/Nose/Throat oral cavity/pharynx/larynx Overall: oral mucosa clear 02/26/2018 None Full Exam - General 1994 Ears/Nose/Throat oral cavity/pharynx/larynx Overall: oropharyngeal mucosa clear 02/26/2018 None Full Exam - General 1994 Ears/Nose/Throat oral cavity/pharynx/larynx Overall: no masses 02/26/2018 None Full Exam - General 1994 Respiratory auscultation Overall: breath sounds clear bilaterally 02/26/2018 None Full Exam - General 1994 Respiratory respiratory effort/rhythm Overall: no retractions 02/26/2018 None Full Exam - General 1994 Respiratory respiratory effort/rhythm Overall: normal rate 02/26/2018 None Full Exam - General 1994 Cardiovascular auscultation of heart Overall: regular rate 02/26/2018 None Full Exam - General 1994 Cardiovascular auscultation of heart Overall: normal heart sounds 02/26/2018 None Full Exam - General 1994 Cardiovascular auscultation of heart Overall: no murmurs 02/26/2018 None Full Exam - General 1994 Musculoskeletal spine, ribs and pelvis Overall: ribs benign 02/26/2018 None Full Exam - General 1994 Musculoskeletal spine, ribs and pelvis Overall: spine benign 02/26/2018 None Full Exam - General 1994 Musculoskeletal spine, ribs and pelvis Overall: sacroiliac joint benign 02/26/2018 None Full Exam - General 1994 Musculoskeletal spine, ribs and pelvis Overall: right hip benign 02/26/2018 None Full Exam - General 1994 Musculoskeletal spine, ribs and pelvis Overall: left hip benign 02/26/2018 None Full Exam - General 1994 Musculoskeletal spine, ribs and pelvis Overall: good posture 02/26/2018 None Full Exam - General 1994 Neurologic gait Overall: no ataxia, no unsteadiness 02/26/2018 None Full Exam - General 1994 Neurologic cranial nerves Overall: crainial nerves 2 - 12 grossly intact 02/26/2018 None Full Exam - General 1994 Psychiatric orientation/consciousness Overall: oriented to person, place and time 02/26/2018 None Full Exam - General 1994 Psychiatric mood and affect Overall: normal mood and affect 02/26/2018 None Full Exam - General 1994 Psychiatric mood and affect Mood: happy 02/26/2018 None Full Exam - General 1994 Abdomen abdominal exam Overall: no tenderness 02/26/2018 None Full Exam - General 1994 Abdomen abdominal exam Overall: normal bowel sounds 02/26/2018 None Full Exam - General 1994 Constitutional general appearance Overall: well developed 07/24/2017 None Full Exam - General 1994 Constitutional general appearance Overall: in no acute distress 07/24/2017 None Full Exam - General 1994 Constitutional general appearance Overall: well nourished 07/24/2017 None Full Exam - General 1994 Eyes conjunctiva/eyelids Overall: conjunctiva clear 07/24/2017 None Full Exam - General 1994 Eyes conjunctiva/eyelids Overall: eyelids normal 07/24/2017 None Full Exam - General 1994 Ears/Nose/Throat lips/teeth/gingiva Overall: benign lips 07/24/2017 None Full Exam - General 1994 Ears/Nose/Throat oral cavity/pharynx/larynx Overall: oral mucosa clear 07/24/2017 None Full Exam - General 1994 Respiratory auscultation Overall: breath sounds clear bilaterally 07/24/2017 None Full Exam - General 1994 Respiratory respiratory effort/rhythm Overall: no retractions 07/24/2017 None Full Exam - General 1994 Respiratory respiratory effort/rhythm Overall: normal rate 07/24/2017 None Full Exam - General 1994 Cardiovascular auscultation of heart Overall: regular rate 07/24/2017 None Full Exam - General 1994 Cardiovascular auscultation of heart Overall: normal heart sounds 07/24/2017 None Full Exam - General 1994 Abdomen abdominal exam Epigastric: tender to palpation 07/24/2017 None Full Exam - General 1994 Abdomen abdominal exam Epigastric: no rebound tenderness 07/24/2017 None Full Exam - General 1994 Abdomen abdominal exam Epigastric: soft 07/24/2017 None Full Exam - General 1994 Musculoskeletal gait and station Overall: normal gait 07/24/2017 None Full Exam - General 1994 Musculoskeletal gait and station Overall: normal station 07/24/2017 None Full Exam - General 1994 Musculoskeletal head and neck Overall: head atraumatic 07/24/2017 None Full Exam - General 1994 Neurologic cranial nerves Overall: crainial nerves 2 - 12 grossly intact 07/24/2017 None Full Exam - General 1994 Psychiatric orientation/consciousness Overall: oriented to person, place and time 07/24/2017 None Full Exam - General 1994 Psychiatric mood and affect Overall: normal mood and affect 07/24/2017 None Full Exam - General 1994 Psychiatric appearance Overall: well-groomed, good eye contact 07/24/2017 None Full Exam - General 1994 Abdomen abdominal exam Bowel sounds: hypoactive 07/24/2017 with intermittent high pi tched sounds Full Exam - General 1994 Constitutional general appearance Overall: well developed 07/09/2017 None Full Exam - General 1994 Constitutional general appearance Overall: in no acute distress 07/09/2017 None Full Exam - General 1994 Constitutional general appearance Overall: well nourished 07/09/2017 None Full Exam - General 1994 Eyes conjunctiva/eyelids Overall: eyelids normal 07/09/2017 None Full Exam - General 1994 Eyes conjunctiva/eyelids Overall: conjunctiva clear 07/09/2017 None Full Exam - General 1994 Ears/Nose/Throat lips/teeth/gingiva Overall: benign lips 07/09/2017 None Full Exam - General 1994 Ears/Nose/Throat oral cavity/pharynx/larynx Overall: oral mucosa clear 07/09/2017 None Full Exam - General 1994 Respiratory respiratory effort/rhythm Overall: normal rate 07/09/2017 None Full Exam - General 1994 Respiratory respiratory effort/rhythm Overall: no retractions 07/09/2017 None Full Exam - General 1994 Respiratory auscultation Overall: breath sounds clear bilaterally 07/09/2017 None Full Exam - General 1994 Cardiovascular auscultation of heart Overall: normal heart sounds 07/09/2017 None Full Exam - General 1994 Cardiovascular auscultation of heart Overall: regular rate 07/09/2017 None Full Exam - General 1994 Abdomen abdominal exam Overall: normal bowel sounds 07/09/2017 None Full Exam - General 1994 Abdomen abdominal exam Epigastric: tender to palpation 07/09/2017 None Full Exam - General 1994 Abdomen abdominal exam Epigastric: sharp pain 07/09/2017 None Full Exam - General 1994 Abdomen abdominal exam Epigastric: voluntary guarding 07/09/2017 None Full Exam - General 1994 Abdomen abdominal exam Epigastric: no rebound tenderness 07/09/2017 None Full Exam - General 1994 Abdomen abdominal exam Epigastric: soft 07/09/2017 None Full Exam - General 1994 Musculoskeletal head and neck Overall: head atraumatic 07/09/2017 None Full Exam - General 1994 Musculoskeletal gait and station Overall: normal station 07/09/2017 None Full Exam - General 1994 Musculoskeletal gait and station Overall: normal gait 07/09/2017 None Full Exam - General 1994 Neurologic cranial nerves Overall: crainial nerves 2 - 12 grossly intact 07/09/2017 None Full Exam - General 1994 Psychiatric orientation/consciousness Overall: oriented to person, place and time 07/09/2017 None Full Exam - General 1994 Psychiatric mood and affect Overall: normal mood and affect 07/09/2017 None Full Exam - General 1994 Psychiatric appearance Overall: well-groomed, good eye contact 07/09/2017 None Full Exam - General 1994 Constitutional general appearance Overall: well developed 06/24/2017 None Full Exam - General 1994 Constitutional general appearance Overall: in no acute distress 06/24/2017 None Full Exam - General 1994 Constitutional general appearance Overall: well nourished 06/24/2017 None Full Exam - General 1994 Eyes pupils and irises Overall: pupils equal, round, reactive to light and accomodation 06/24/2017 None Full Exam - General 1994 Ears/Nose/Throat otoscopic exam Overall: external auditory canals clear 06/24/2017 None Full Exam - General 1994 Ears/Nose/Throat otoscopic exam Overall: tympanic membranes clear 06/24/2017 None Full Exam - General 1994 Ears/Nose/Throat oral cavity/pharynx/larynx Overall: oral mucosa clear 06/24/2017 None Full Exam - General 1994 Ears/Nose/Throat oral cavity/pharynx/larynx Overall: oropharyngeal mucosa clear 06/24/2017 None Full Exam - General 1994 Ears/Nose/Throat oral cavity/pharynx/larynx Overall: no masses 06/24/2017 None Full Exam - General 1994 Respiratory auscultation Overall: breath sounds clear bilaterally 06/24/2017 None Full Exam - General 1994 Respiratory respiratory effort/rhythm Overall: no retractions 06/24/2017 None Full Exam - General 1994 Respiratory respiratory effort/rhythm Overall: normal rate 06/24/2017 None Full Exam - General 1994 Cardiovascular auscultation of heart Overall: regular rate 06/24/2017 None Full Exam - General 1994 Cardiovascular auscultation of heart Overall: normal heart sounds 06/24/2017 None Full Exam - General 1994 Cardiovascular auscultation of heart Overall: no murmurs 06/24/2017 None Full Exam - General 1994 Musculoskeletal spine, ribs and pelvis Overall: ribs benign 06/24/2017 None Full Exam - General 1994 Musculoskeletal spine, ribs and pelvis Overall: spine benign 06/24/2017 None Full Exam - General 1994 Musculoskeletal spine, ribs and pelvis Overall: sacroiliac joint benign 06/24/2017 None Full Exam - General 1994 Musculoskeletal spine, ribs and pelvis Overall: right hip benign 06/24/2017 None Full Exam - General 1994 Musculoskeletal spine, ribs and pelvis Overall: left hip benign 06/24/2017 None Full Exam - General 1994 Musculoskeletal spine, ribs and pelvis Overall: good posture 06/24/2017 None Full Exam - General 1994 Neurologic gait Overall: no ataxia, no unsteadiness 06/24/2017 None Full Exam - General 1994 Neurologic cranial nerves Overall: crainial nerves 2 - 12 grossly intact 06/24/2017 None Full Exam - General 1994 Psychiatric orientation/consciousness Overall: oriented to person, place and time 06/24/2017 None Full Exam - General 1994 Psychiatric mood and affect Overall: normal mood and affect 06/24/2017 None Full Exam - General 1994 Psychiatric mood and affect Mood: happy 06/24/2017 None Full Exam - General 1994 Abdomen abdominal exam Overall: no tenderness 06/24/2017 None Full Exam - General 1994 Abdomen abdominal exam Overall: normal bowel sounds 06/24/2017 None Full Exam - General 1994 Constitutional general appearance Overall: well developed 04/23/2016 None Full Exam - General 1994 Constitutional general appearance Overall: in no acute distress 04/23/2016 None Full Exam - General 1994 Constitutional general appearance Overall: well nourished 04/23/2016 None Full Exam - General 1994 Eyes pupils and irises Overall: pupils equal, round, reactive to light and accomodation 04/23/2016 None Full Exam - General 1994 Ears/Nose/Throat otoscopic exam Overall: external auditory canals clear 04/23/2016 None Full Exam - General 1994 Ears/Nose/Throat otoscopic exam Overall: tympanic membranes clear 04/23/2016 None Full Exam - General 1994 Ears/Nose/Throat oral cavity/pharynx/larynx Overall: oral mucosa clear 04/23/2016 None Full Exam - General 1994 Ears/Nose/Throat oral cavity/pharynx/larynx Overall: oropharyngeal mucosa clear 04/23/2016 None Full Exam - General 1994 Ears/Nose/Throat oral cavity/pharynx/larynx Overall: no masses 04/23/2016 None Full Exam - General 1994 Respiratory auscultation Overall: breath sounds clear bilaterally 04/23/2016 None Full Exam - General 1994 Respiratory respiratory effort/rhythm Overall: no retractions 04/23/2016 None Full Exam - General 1994 Respiratory respiratory effort/rhythm Overall: normal rate 04/23/2016 None Full Exam - General 1994 Cardiovascular auscultation of heart Overall: regular rate 04/23/2016 None Full Exam - General 1994 Cardiovascular auscultation of heart Overall: normal heart sounds 04/23/2016 None Full Exam - General 1994 Cardiovascular auscultation of heart Overall: no murmurs 04/23/2016 None Full Exam - General 1994 Musculoskeletal spine, ribs and pelvis Overall: ribs benign 04/23/2016 None Full Exam - General 1994 Musculoskeletal spine, ribs and pelvis Overall: spine benign 04/23/2016 None Full Exam - General 1994 Musculoskeletal spine, ribs and pelvis Overall: sacroiliac joint benign 04/23/2016 None Full Exam - General 1994 Musculoskeletal spine, ribs and pelvis Overall: right hip benign 04/23/2016 None Full Exam - General 1994 Musculoskeletal spine, ribs and pelvis Overall: left hip benign 04/23/2016 None Full Exam - General 1994 Musculoskeletal spine, ribs and pelvis Overall: good posture 04/23/2016 None Full Exam - General 1994 Neurologic gait Overall: no ataxia, no unsteadiness 04/23/2016 None Full Exam - General 1994 Neurologic cranial nerves Overall: crainial nerves 2 - 12 grossly intact 04/23/2016 None Full Exam - General 1994 Psychiatric orientation/consciousness Overall: oriented to person, place and time 04/23/2016 None Full Exam - General 1994 Psychiatric mood and affect Overall: normal mood and affect 04/23/2016 None Full Exam - General 1994 Psychiatric mood and affect Mood: happy 04/23/2016 None Full Exam - General 1994 Constitutional general appearance Overall: well developed 01/23/2016 None Full Exam - General 1994 Constitutional general appearance Overall: in no acute distress 01/23/2016 None Full Exam - General 1994 Constitutional general appearance Overall: well nourished 01/23/2016 None Full Exam - General 1994 Eyes pupils and irises Overall: pupils equal, round, reactive to light and accomodation 01/23/2016 None Full Exam - General 1994 Ears/Nose/Throat otoscopic exam Overall: external auditory canals clear 01/23/2016 None Full Exam - General 1994 Ears/Nose/Throat otoscopic exam Overall: tympanic membranes clear 01/23/2016 None Full Exam - General 1994 Ears/Nose/Throat oral cavity/pharynx/larynx Overall: oral mucosa clear 01/23/2016 None Full Exam - General 1994 Ears/Nose/Throat oral cavity/pharynx/larynx Overall: oropharyngeal mucosa clear 01/23/2016 None Full Exam - General 1994 Ears/Nose/Throat oral cavity/pharynx/larynx Overall: no masses 01/23/2016 None Full Exam - General 1994 Respiratory auscultation Overall: breath sounds clear bilaterally 01/23/2016 None Full Exam - General 1994 Respiratory respiratory effort/rhythm Overall: no retractions 01/23/2016 None Full Exam - General 1994 Respiratory respiratory effort/rhythm Overall: normal rate 01/23/2016 None Full Exam - General 1994 Cardiovascular auscultation of heart Overall: regular rate 01/23/2016 None Full Exam - General 1994 Cardiovascular auscultation of heart Overall: normal heart sounds 01/23/2016 None Full Exam - General 1994 Cardiovascular auscultation of heart Overall: no murmurs 01/23/2016 None Full Exam - General 1994 Musculoskeletal spine, ribs and pelvis Overall: ribs benign 01/23/2016 None Full Exam - General 1994 Musculoskeletal spine, ribs and pelvis Overall: spine benign 01/23/2016 None Full Exam - General 1994 Musculoskeletal spine, ribs and pelvis Overall: sacroiliac joint benign 01/23/2016 None Full Exam - General 1994 Musculoskeletal spine, ribs and pelvis Overall: right hip benign 01/23/2016 None Full Exam - General 1994 Musculoskeletal spine, ribs and pelvis Overall: left hip benign 01/23/2016 None Full Exam - General 1994 Musculoskeletal spine, ribs and pelvis Overall: good posture 01/23/2016 None Full Exam - General 1994 Neurologic gait Overall: no ataxia, no unsteadiness 01/23/2016 None Full Exam - General 1994 Neurologic cranial nerves Overall: crainial nerves 2 - 12 grossly intact 01/23/2016 None Full Exam - General 1994 Psychiatric orientation/consciousness Overall: oriented to person, place and time 01/23/2016 None Full Exam - General 1994 Psychiatric mood and affect Overall: normal mood and affect 01/23/2016 None Full Exam - General 1994 Psychiatric mood and affect Mood: happy 01/23/2016 None Full Exam - General 1994 Constitutional general appearance Overall: well developed 11/21/2015 None Full Exam - General 1994 Constitutional general appearance Overall: in no acute distress 11/21/2015 None Full Exam - General 1994 Constitutional general appearance Overall: well nourished 11/21/2015 None Full Exam - General 1994 Eyes pupils and irises Overall: pupils equal, round, reactive to light and accomodation 11/21/2015 None Full Exam - General 1994 Ears/Nose/Throat otoscopic exam Overall: external auditory canals clear 11/21/2015 None Full Exam - General 1994 Ears/Nose/Throat otoscopic exam Overall: tympanic membranes clear 11/21/2015 None Full Exam - General 1994 Ears/Nose/Throat oral cavity/pharynx/larynx Overall: oral mucosa clear 11/21/2015 None Full Exam - General 1994 Ears/Nose/Throat oral cavity/pharynx/larynx Overall: oropharyngeal mucosa clear 11/21/2015 None Full Exam - General 1994 Ears/Nose/Throat oral cavity/pharynx/larynx Overall: no masses 11/21/2015 None Full Exam - General 1994 Respiratory auscultation Overall: breath sounds clear bilaterally 11/21/2015 None Full Exam - General 1994 Respiratory respiratory effort/rhythm Overall: no retractions 11/21/2015 None Full Exam - General 1994 Respiratory respiratory effort/rhythm Overall: normal rate 11/21/2015 None Full Exam - General 1994 Cardiovascular auscultation of heart Overall: regular rate 11/21/2015 None Full Exam - General 1994 Cardiovascular auscultation of heart Overall: no murmurs 11/21/2015 None Full Exam - General 1994 Musculoskeletal upper extremity Inspection - shoulder: a normal exam 11/21/2015 None Full Exam - General 1994 Musculoskeletal upper extremity Palpation - shoulder: tenderness @ subacromial space 11/21/2015 None Full Exam - General 1994 Musculoskeletal upper extremity Palpation - shoulder: tenderness @ bicipital groove 11/21/2015 None Full Exam - General 1994 Musculoskeletal upper extremity ROM - shoulder: decreased abduction 11/21/2015 None Full Exam - General 1994 Musculoskeletal upper extremity ROM - shoulder: pain with abduction 11/21/2015 None Full Exam - General 1994 Musculoskeletal upper extremity ROM - shoulder: decreased adduction 11/21/2015 None Full Exam - General 1994 Musculoskeletal upper extremity ROM - shoulder: pain with adduction 11/21/2015 None Full Exam - General 1994 Neurologic gait Overall: no ataxia, no unsteadiness 11/21/2015 None Full Exam - General 1994 Neurologic cranial nerves Overall: crainial nerves 2 - 12 grossly intact 11/21/2015 None Full Exam - General 1994 Psychiatric orientation/consciousness Overall: oriented to person, place and time 11/21/2015 None Full Exam - General 1994 Psychiatric mood and affect Overall: normal mood and affect 11/21/2015 None Full Exam - General 1994 Psychiatric mood and affect Mood: happy 11/21/2015 None Full Exam - General 1994 Constitutional general appearance Development: well developed 11/21/2015 None Full Exam - General 1994 Constitutional general appearance Development: appears stated age 0111/21/2015 None Full Exam - General 1994 Constitutional general appearance Hygiene/Attention to Grooming: good hygiene 11/21/2015 None Full Exam - General 1994 Eyes conjunctiva/eyelids Overall: conjunctiva clear 11/21/2015 None Full Exam - General 1994 Eyes conjunctiva/eyelids Overall: cornea clear 11/21/2015 None Full Exam - General 1994 Eyes conjunctiva/eyelids Overall: eyelids normal 11/21/2015 None Full Exam - General 1994 Ears/Nose/Throat lips/teeth/gingiva Overall: benign lips 11/21/2015 None Full Exam - General 1994 Ears/Nose/Throat lips/teeth/gingiva Overall: normal dentition 11/21/2015 None Full Exam - General 1994 Ears/Nose/Throat oral cavity/pharynx/larynx Overall: hypopharynx benign 11/21/2015 None Full Exam - General 1994 Cardiovascular extremities Overall: no clubbing 11/21/2015 None Full Exam - General 1994 Cardiovascular auscultation of heart Overall: normal heart sounds 11/21/2015 None Full Exam - General 1994 Abdomen abdominal exam Overall: no tenderness 11/21/2015 None Full Exam - General 1994 Abdomen abdominal exam Overall: normal bowel sounds 11/21/2015 None Full Exam - General 1994 Lymphatic neck nodes Overall: anterior cervical chain benign 11/21/2015 None Full Exam - General 1994 Lymphatic neck nodes Overall: posterior cervical chain benign 11/21/2015 None Full Exam - General 1994 Musculoskeletal spine, ribs and pelvis Overall: spine benign 11/21/2015 None Full Exam - General 1994 Musculoskeletal spine, ribs and pelvis Overall: sacroiliac joint benign 11/21/2015 None Full Exam - General 1994 Musculoskeletal spine, ribs and pelvis Overall: good posture 11/21/2015 None Full Exam - General 1994 Musculoskeletal head and neck Overall: head atraumatic 11/21/2015 None Full Exam - General 1994 Musculoskeletal head and neck Overall: cervical spine benign 11/21/2015 None Full Exam - General 1994 Integument inspection of skin Overall: few scattered moles, no gross abnormalities 11/21/2015 None Full Exam - General 1994 Neurologic deep tendon reflexes Overall: deep tendon reflexes intact 11/21/2015 None Full Exam - General 1994 Constitutional general appearance Overall: well developed 08/23/2014 None Full Exam - General 1994 Constitutional general appearance Overall: in no acute distress 08/23/2014 None Full Exam - General 1994 Constitutional general appearance Overall: well nourished 08/23/2014 None Full Exam - General 1994 Eyes pupils and irises Overall: pupils equal, round, reactive to light and accomodation 08/23/2014 None Full Exam - General 1994 Ears/Nose/Throat otoscopic exam Overall: tympanic membranes clear 08/23/2014 None Full Exam - General 1994 Ears/Nose/Throat oral cavity/pharynx/larynx Overall: oral mucosa clear 08/23/2014 None Full Exam - General 1994 Ears/Nose/Throat oral cavity/pharynx/larynx Overall: oropharyngeal mucosa clear 08/23/2014 None Full Exam - General 1994 Ears/Nose/Throat oral cavity/pharynx/larynx Overall: no masses 08/23/2014 None Full Exam - General 1994 Ears/Nose/Throat otoscopic exam Overall: external auditory canals clear 08/23/2014 None Full Exam - General 1994 Respiratory auscultation Overall: breath sounds clear bilaterally 08/23/2014 None Full Exam - General 1994 Respiratory respiratory effort/rhythm Overall: no retractions 08/23/2014 None Full Exam - General 1994 Respiratory respiratory effort/rhythm Overall: normal rate 08/23/2014 None Full Exam - General 1994 Cardiovascular auscultation of heart Overall: regular rate 08/23/2014 None Full Exam - General 1994 Cardiovascular auscultation of heart Overall: no murmurs 08/23/2014 None Full Exam - General 1994 Neurologic gait Overall: no ataxia, no unsteadiness 08/23/2014 None Full Exam - General 1994 Neurologic cranial nerves Overall: crainial nerves 2 - 12 grossly intact 08/23/2014 None Full Exam - General 1994 Psychiatric orientation/consciousness Overall: oriented to person, place and time 08/23/2014 None Full Exam - General 1994 Psychiatric mood and affect Overall: normal mood and affect 08/23/2014 None Full Exam - General 1994 Psychiatric mood and affect Mood: happy 08/23/2014 None Full Exam - General 1994 Musculoskeletal upper extremity Inspection - shoulder: a normal exam 08/23/2014 None Full Exam - General 1994 Musculoskeletal upper extremity Palpation - shoulder: tenderness @ subacromial space 08/23/2014 None Full Exam - General 1994 Musculoskeletal upper extremity Palpation - shoulder: tenderness @ bicipital groove 08/23/2014 None Full Exam - General 1994 Musculoskeletal upper extremity ROM - shoulder: decreased abduction 08/23/2014 None Full Exam - General 1994 Musculoskeletal upper extremity ROM - shoulder: pain with abduction 08/23/2014 None Full Exam - General 1994 Musculoskeletal upper extremity ROM - shoulder: decreased adduction 08/23/2014 None Full Exam - General 1994 Musculoskeletal upper extremity ROM - shoulder: pain with adduction 08/23/2014 None Full Exam - General 1994 Constitutional general appearance Overall: well developed 03/01/2014 None Full Exam - General 1994 Constitutional general appearance Overall: in no acute distress 03/01/2014 None Full Exam - General 1994 Constitutional general appearance Overall: well nourished 03/01/2014 None Full Exam - General 1994 Eyes pupils and irises Overall: pupils equal, round, reactive to light and accomodation 03/01/2014 None Full Exam - General 1994 Ears/Nose/Throat otoscopic exam Overall: external auditory canals clear 03/01/2014 None Full Exam - General 1994 Ears/Nose/Throat otoscopic exam Overall: tympanic membranes clear 03/01/2014 None Full Exam - General 1994 Ears/Nose/Throat oral cavity/pharynx/larynx Overall: oral mucosa clear 03/01/2014 None Full Exam - General 1994 Ears/Nose/Throat oral cavity/pharynx/larynx Overall: oropharyngeal mucosa clear 03/01/2014 None Full Exam - General 1994 Ears/Nose/Throat oral cavity/pharynx/larynx Overall: no masses 03/01/2014 None Full Exam - General 1994 Respiratory auscultation Overall: breath sounds clear bilaterally 03/01/2014 None Full Exam - General 1994 Respiratory respiratory effort/rhythm Overall: no retractions 03/01/2014 None Full Exam - General 1994 Respiratory respiratory effort/rhythm Overall: normal rate 03/01/2014 None Full Exam - General 1994 Cardiovascular auscultation of heart Overall: regular rate 03/01/2014 None Full Exam - General 1994 Cardiovascular auscultation of heart Overall: normal heart sounds 03/01/2014 None Full Exam - General 1994 Cardiovascular auscultation of heart Overall: no murmurs 03/01/2014 None Full Exam - General 1994 Musculoskeletal spine, ribs and pelvis Overall: ribs benign 03/01/2014 None Full Exam - General 1994 Musculoskeletal spine, ribs and pelvis Overall: spine benign 03/01/2014 None Full Exam - General 1994 Musculoskeletal spine, ribs and pelvis Overall: sacroiliac joint benign 03/01/2014 None Full Exam - General 1994 Musculoskeletal spine, ribs and pelvis Overall: right hip benign 03/01/2014 None Full Exam - General 1994 Musculoskeletal spine, ribs and pelvis Overall: left hip benign 03/01/2014 None Full Exam - General 1994 Musculoskeletal spine, ribs and pelvis Overall: good posture 03/01/2014 None Full Exam - General 1994 Neurologic gait Overall: no ataxia, no unsteadiness 03/01/2014 None Full Exam - General 1994 Neurologic cranial nerves Overall: crainial nerves 2 - 12 grossly intact 03/01/2014 None Full Exam - General 1994 Psychiatric orientation/consciousness Overall: oriented to person, place and time 03/01/2014 None Full Exam - General 1994 Psychiatric mood and affect Overall: normal mood and affect 03/01/2014 None Full Exam - General 1994 Psychiatric mood and affect Mood: happy 03/01/2014 None Full Exam - General 1994 Constitutional general appearance Overall: well developed 06/14/2013 None Full Exam - General 1994 Constitutional general appearance Overall: in no acute distress 06/14/2013 None Full Exam - General 1994 Constitutional general appearance Overall: well nourished 06/14/2013 None Full Exam - General 1994 Eyes pupils and irises Overall: pupils equal, round, reactive to light and accomodation 06/14/2013 None Full Exam - General 1994 Ears/Nose/Throat otoscopic exam Overall: external auditory canals clear 06/14/2013 None Full Exam - General 1994 Ears/Nose/Throat otoscopic exam Overall: tympanic membranes clear 06/14/2013 None Full Exam - General 1994 Ears/Nose/Throat oral cavity/pharynx/larynx Overall: oral mucosa clear 06/14/2013 None Full Exam - General 1994 Ears/Nose/Throat oral cavity/pharynx/larynx Overall: oropharyngeal mucosa clear 06/14/2013 None Full Exam - General 1994 Ears/Nose/Throat oral cavity/pharynx/larynx Overall: no masses 06/14/2013 None Full Exam - General 1994 Respiratory auscultation Overall: breath sounds clear bilaterally 06/14/2013 None Full Exam - General 1994 Respiratory respiratory effort/rhythm Overall: no retractions 06/14/2013 None Full Exam - General 1994 Respiratory respiratory effort/rhythm Overall: normal rate 06/14/2013 None Full Exam - General 1994 Cardiovascular auscultation of heart Overall: regular rate 06/14/2013 None Full Exam - General 1994 Cardiovascular auscultation of heart Overall: normal heart sounds 06/14/2013 None Full Exam - General 1994 Cardiovascular auscultation of heart Overall: no murmurs 06/14/2013 None Full Exam - General 1994 Musculoskeletal spine, ribs and pelvis Overall: ribs benign 06/14/2013 None Full Exam - General 1994 Musculoskeletal spine, ribs and pelvis Overall: spine benign 06/14/2013 None Full Exam - General 1994 Musculoskeletal spine, ribs and pelvis Overall: sacroiliac joint benign 06/14/2013 None Full Exam - General 1994 Musculoskeletal spine, ribs and pelvis Overall: right hip benign 06/14/2013 None Full Exam - General 1994 Musculoskeletal spine, ribs and pelvis Overall: left hip benign 06/14/2013 None Full Exam - General 1994 Musculoskeletal spine, ribs and pelvis Overall: good posture 06/14/2013 None Full Exam - General 1994 Neurologic gait Overall: no ataxia, no unsteadiness 06/14/2013 None Full Exam - General 1994 Neurologic cranial nerves Overall: crainial nerves 2 - 12 grossly intact 06/14/2013 None Full Exam - General 1994 Psychiatric orientation/consciousness Overall: oriented to person, place and time 06/14/2013 None Full Exam - General 1994 Psychiatric mood and affect Overall: normal mood and affect 06/14/2013 None Full Exam - General 1994 Psychiatric mood and affect Mood: happy 06/14/2013 None Full Exam - General 1994 Constitutional general appearance Overall: in no acute distress 03/10/2013 None Full Exam - General 1994 Constitutional general appearance Overall: well nourished 03/10/2013 None Full Exam - General 1994 Eyes pupils and irises Overall: pupils equal, round, reactive to light and accomodation 03/10/2013 None Full Exam - General 1994 Ears/Nose/Throat otoscopic exam Overall: external auditory canals clear 03/10/2013 None Full Exam - General 1994 Ears/Nose/Throat otoscopic exam Overall: tympanic membranes clear 03/10/2013 None Full Exam - General 1994 Ears/Nose/Throat oral cavity/pharynx/larynx Overall: oral mucosa clear 03/10/2013 None Full Exam - General 1994 Ears/Nose/Throat oral cavity/pharynx/larynx Overall: oropharyngeal mucosa clear 03/10/2013 None Full Exam - General 1994 Ears/Nose/Throat oral cavity/pharynx/larynx Overall: no masses 03/10/2013 None Full Exam - General 1994 Respiratory auscultation Overall: breath sounds clear bilaterally 03/10/2013 None Full Exam - General 1994 Respiratory respiratory effort/rhythm Overall: no retractions 03/10/2013 None Full Exam - General 1994 Respiratory respiratory effort/rhythm Overall: normal rate 03/10/2013 None Full Exam - General 1994 Cardiovascular auscultation of heart Overall: regular rate 03/10/2013 None Full Exam - General 1994 Cardiovascular auscultation of heart Overall: normal heart sounds 03/10/2013 None Full Exam - General 1994 Constitutional general appearance Overall: well developed 03/10/2013 None Full Exam - General 1994 Cardiovascular auscultation of heart Overall: no murmurs 03/10/2013 None Full Exam - General 1994 Musculoskeletal spine, ribs and pelvis Overall: ribs benign 03/10/2013 None Full Exam - General 1994 Musculoskeletal spine, ribs and pelvis Overall: spine benign 03/10/2013 None Full Exam - General 1994 Musculoskeletal spine, ribs and pelvis Overall: sacroiliac joint benign 03/10/2013 None Full Exam - General 1994 Musculoskeletal spine, ribs and pelvis Overall: right hip benign 03/10/2013 None Full Exam - General 1994 Musculoskeletal spine, ribs and pelvis Overall: left hip benign 03/10/2013 None Full Exam - General 1994 Musculoskeletal spine, ribs and pelvis Overall: good posture 03/10/2013 None Full Exam - General 1994 Neurologic gait Overall: no ataxia, no unsteadiness 03/10/2013 None Full Exam - General 1994 Neurologic cranial nerves Overall: crainial nerves 2 - 12 grossly intact 03/10/2013 None Full Exam - General 1994 Psychiatric orientation/consciousness Overall: oriented to person, place and time 03/10/2013 None Full Exam - General 1994 Psychiatric mood and affect Overall: normal mood and affect 03/10/2013 None Full Exam - General 1994 Psychiatric mood and affect Mood: happy 03/10/2013 None Full Exam - General 1994 Ears/Nose/Throat oral cavity/pharynx/larynx Overall: oral mucosa clear 02/18/2013 None Full Exam - General 1994 Ears/Nose/Throat oral cavity/pharynx/larynx Overall: oropharyngeal mucosa clear 02/18/2013 None Full Exam - General 1994 Ears/Nose/Throat oral cavity/pharynx/larynx Overall: no masses 02/18/2013 None Full Exam - General 1994 Respiratory auscultation Overall: breath sounds clear bilaterally 02/18/2013 None Full Exam - General 1994 Respiratory respiratory effort/rhythm Overall: no retractions 02/18/2013 None Full Exam - General 1994 Respiratory respiratory effort/rhythm Overall: normal rate 02/18/2013 None Full Exam - General 1994 Cardiovascular auscultation of heart Overall: regular rate 02/18/2013 None Full Exam - General 1994 Cardiovascular auscultation of heart Overall: normal heart sounds 02/18/2013 None Full Exam - General 1994 Cardiovascular auscultation of heart Overall: no murmurs 02/18/2013 None Full Exam - General 1994 Musculoskeletal spine, ribs and pelvis Overall: ribs benign 02/18/2013 None Full Exam - General 1994 Musculoskeletal spine, ribs and pelvis Overall: spine benign 02/18/2013 None Full Exam - General 1994 Musculoskeletal spine, ribs and pelvis Overall: sacroiliac joint benign 02/18/2013 None Full Exam - General 1994 Musculoskeletal spine, ribs and pelvis Overall: right hip benign 02/18/2013 None Full Exam - General 1994 Musculoskeletal spine, ribs and pelvis Overall: left hip benign 02/18/2013 None Full Exam - General 1994 Constitutional general appearance Overall: well developed 02/18/2013 None Full Exam - General 1994 Constitutional general appearance Overall: in no acute distress 02/18/2013 None Full Exam - General 1994 Constitutional general appearance Overall: well nourished 02/18/2013 None Full Exam - General 1994 Eyes pupils and irises Overall: pupils equal, round, reactive to light and accomodation 02/18/2013 None Full Exam - General 1994 Ears/Nose/Throat otoscopic exam Overall: external auditory canals clear 02/18/2013 None Full Exam - General 1994 Ears/Nose/Throat otoscopic exam Overall: tympanic membranes clear 02/18/2013 None Full Exam - General 1994 Musculoskeletal spine, ribs and pelvis Overall: good posture 02/18/2013 None Full Exam - General 1994 Neurologic gait Overall: no ataxia, no unsteadiness 02/18/2013 None Full Exam - General 1994 Neurologic cranial nerves Overall: crainial nerves 2 - 12 grossly intact 02/18/2013 None Full Exam - General 1994 Psychiatric orientation/consciousness Overall: oriented to person, place and time 02/18/2013 None Full Exam - General 1994 Psychiatric mood and affect Overall: normal mood and affect 02/18/2013 None Full Exam - General 1994 Psychiatric mood and affect Mood: happy 02/18/2013 None Full Exam - General 1995 Constitutional general appearance Overall: well developed 10/29/2012 None Full Exam - General 1995 Constitutional general appearance Overall: in no acute distress 10/29/2012 None Full Exam - General 1995 Constitutional general appearance Overall: well nourished 10/29/2012 None Full Exam - General 1994 Eyes pupils and irises Overall: pupils equal, round, reactive to light and accomodation 10/29/2012 None Full Exam - General 1995 Ears/Nose/Throat otoscopic exam Overall: external auditory canals clear 10/29/2012 None Full Exam - General 1995 Ears/Nose/Throat otoscopic exam Overall: tympanic membranes clear 10/29/2012 None Full Exam - General 1995 Ears/Nose/Throat oral cavity/pharynx/larynx Overall: oral mucosa clear 10/29/2012 None Full Exam - General 1995 Ears/Nose/Throat oral cavity/pharynx/larynx Overall: oropharyngeal mucosa clear 10/29/2012 None Full Exam - General 1995 Ears/Nose/Throat oral cavity/pharynx/larynx Overall: no masses 10/29/2012 None Full Exam - General 1994 Respiratory auscultation Overall: breath sounds clear bilaterally 10/29/2012 None Full Exam - General 1994 Respiratory respiratory effort/rhythm Overall: no retractions 10/29/2012 None Full Exam - General 1994 Respiratory respiratory effort/rhythm Overall: normal rate 10/29/2012 None Full Exam - General 1994 Cardiovascular auscultation of heart Overall: regular rate 10/29/2012 None Full Exam - General 1994 Cardiovascular auscultation of heart Overall: normal heart sounds 10/29/2012 None Full Exam - General 1994 Cardiovascular auscultation of heart Overall: no murmurs 10/29/2012 None Full Exam - General 1994 Musculoskeletal spine, ribs and pelvis Overall: good posture 10/29/2012 None Full Exam - General 1994 Musculoskeletal spine, ribs and pelvis Overall: ribs benign 10/29/2012 None Full Exam - General 1994 Musculoskeletal spine, ribs and pelvis Overall: spine benign 10/29/2012 None Full Exam - General 1994 Musculoskeletal spine, ribs and pelvis Overall: sacroiliac joint benign 10/29/2012 None Full Exam - General 1994 Musculoskeletal spine, ribs and pelvis Overall: right hip benign 10/29/2012 None Full Exam - General 1994 Musculoskeletal spine, ribs and pelvis Overall: left hip benign 10/29/2012 None Full Exam - General 1994 Neurologic gait Overall: no ataxia, no unsteadiness 10/29/2012 None Full Exam - General 1994 Neurologic cranial nerves Overall: crainial nerves 2 - 12 grossly intact 10/29/2012 None Full Exam - General 1994 Psychiatric orientation/consciousness Overall: oriented to person, place and time 10/29/2012 None Full Exam - General 1994 Psychiatric mood and affect Overall: normal mood and affect 10/29/2012 None Full Exam - General 1994 Psychiatric mood and affect Mood: happy 10/29/2012 None Full Exam - General 1994 Constitutional general appearance Overall: well developed 03/12/2012 None Full Exam - General 1994 Constitutional general appearance Overall: in no acute distress 03/12/2012 None Full Exam - General 1994 Constitutional general appearance Overall: well nourished 03/12/2012 None Full Exam - General 1994 Eyes pupils and irises Overall: pupils equal, round, reactive to light and accomodation 03/12/2012 None Full Exam - General 1994 Ears/Nose/Throat otoscopic exam Overall: external auditory canals clear 03/12/2012 None Full Exam - General 1994 Ears/Nose/Throat otoscopic exam Overall: tympanic membranes clear 03/12/2012 None Full Exam - General 1994 Ears/Nose/Throat oral cavity/pharynx/larynx Overall: oral mucosa clear 03/12/2012 None Full Exam - General 1994 Ears/Nose/Throat oral cavity/pharynx/larynx Overall: oropharyngeal mucosa clear 03/12/2012 None Full Exam - General 1994 Ears/Nose/Throat oral cavity/pharynx/larynx Overall: no masses 03/12/2012 None Full Exam - General 1994 Respiratory auscultation Overall: breath sounds clear bilaterally 03/12/2012 None Full Exam - General 1994 Respiratory respiratory effort/rhythm Overall: no retractions 03/12/2012 None Full Exam - General 1994 Respiratory respiratory effort/rhythm Overall: normal rate 03/12/2012 None Full Exam - General 1994 Cardiovascular auscultation of heart Overall: regular rate 03/12/2012 None Full Exam - General 1994 Cardiovascular auscultation of heart Overall: normal heart sounds 03/12/2012 None Full Exam - General 1994 Cardiovascular auscultation of heart Overall: no murmurs 03/12/2012 None Full Exam - General 1994 Musculoskeletal upper extremity Overall: normal elbow 03/12/2012 None Full Exam - General 1994 Musculoskeletal upper extremity Overall: normal wrist 03/12/2012 None Full Exam - General 1994 Musculoskeletal upper extremity Inspection - shoulder: a normal exam 03/12/2012 None Full Exam - General 1994 Musculoskeletal upper extremity Palpation - shoulder: pain with resisted abduction 03/12/2012 None Full Exam - General 1994 Musculoskeletal upper extremity Palpation - shoulder: pain with resisted internal rotation 03/12/2012 None Full Exam - General 1994 Musculoskeletal upper extremity Palpation - shoulder: pain with resisted external rotation 03/12/2012 None Full Exam - General 1994 Musculoskeletal upper extremity ROM - shoulder: pain with abduction 03/12/2012 None Full Exam - General 1994 Musculoskeletal upper extremity ROM - shoulder: pain with adduction 03/12/2012 None Full Exam - General 1994 Musculoskeletal upper extremity ROM - shoulder: decreased internal rotation 03/12/2012 None Full Exam - General 1994 Musculoskeletal upper extremity ROM - shoulder: pain with internal rotation 03/12/2012 None Full Exam - General 1994 Musculoskeletal upper extremity Stability - shoulder: a normal exam 03/12/2012 None Full Exam - General 1994 Musculoskeletal lower extremity Palpation - knee: small effusion 03/12/2012 None Full Exam - General 1994 Musculoskeletal lower extremity Muscle Strength/Tone - knee: a normal exam 03/12/2012 None Full Exam - General 1994 Musculoskeletal spine, ribs and pelvis Overall: good posture 03/12/2012 None Full Exam - General 1994 Musculoskeletal spine, ribs and pelvis Overall: ribs benign 03/12/2012 None Full Exam - General 1994 Musculoskeletal spine, ribs and pelvis Overall: spine benign 03/12/2012 None Full Exam - General 1994 Musculoskeletal spine, ribs and pelvis Overall: sacroiliac joint benign 03/12/2012 None Full Exam - General 1994 Musculoskeletal spine, ribs and pelvis Overall: right hip benign 03/12/2012 None Full Exam - General 1994 Musculoskeletal spine, ribs and pelvis Overall: left hip benign 03/12/2012 None Full Exam - General 1994 Neurologic gait Overall: no ataxia, no unsteadiness 03/12/2012 None Full Exam - General 1994 Neurologic cranial nerves Overall: crainial nerves 2 - 12 grossly intact 03/12/2012 None Full Exam - General 1994 Psychiatric orientation/consciousness Overall: oriented to person, place and time 03/12/2012 None Full Exam - General 1994 Psychiatric mood and affect Overall: normal mood and affect 03/12/2012 None Full Exam - General 1994 Psychiatric mood and affect Mood: happy 03/12/2012 None Full Exam - General 1994 Ears/Nose/Throat oral cavity/pharynx/larynx Overall: no masses 01/28/2012 None Full Exam - General 1994 Respiratory auscultation Overall: breath sounds clear bilaterally 01/28/2012 None Full Exam - General 1994 Respiratory respiratory effort/rhythm Overall: no retractions 01/28/2012 None Full Exam - General 1994 Respiratory respiratory effort/rhythm Overall: normal rate 01/28/2012 None Full Exam - General 1994 Cardiovascular auscultation of heart Overall: regular rate 01/28/2012 None Full Exam - General 1994 Cardiovascular auscultation of heart Overall: normal heart sounds 01/28/2012 None Full Exam - General 1994 Cardiovascular auscultation of heart Overall: no murmurs 01/28/2012 None Full Exam - General 1994 Musculoskeletal spine, ribs and pelvis Overall: good posture 01/28/2012 None Full Exam - General 1994 Musculoskeletal spine, ribs and pelvis Overall: ribs benign 01/28/2012 None Full Exam - General 1994 Musculoskeletal spine, ribs and pelvis Overall: spine benign 01/28/2012 None Full Exam - General 1994 Musculoskeletal spine, ribs and pelvis Overall: sacroiliac joint benign 01/28/2012 None Full Exam - General 1994 Musculoskeletal spine, ribs and pelvis Overall: right hip benign 01/28/2012 None Full Exam - General 1994 Musculoskeletal spine, ribs and pelvis Overall: left hip benign 01/28/2012 None Full Exam - General 1994 Constitutional general appearance Overall: well developed 01/28/2012 None Full Exam - General 1994 Constitutional general appearance Overall: in no acute distress 01/28/2012 None Full Exam - General 1994 Constitutional general appearance Overall: well nourished 01/28/2012 None Full Exam - General 1994 Eyes pupils and irises Overall: pupils equal, round, reactive to light and accomodation 01/28/2012 None Full Exam - General 1994 Ears/Nose/Throat otoscopic exam Overall: external auditory canals clear 01/28/2012 None Full Exam - General 1994 Ears/Nose/Throat otoscopic exam Overall: tympanic membranes clear 01/28/2012 None Full Exam - General 1994 Ears/Nose/Throat oral cavity/pharynx/larynx Overall: oral mucosa clear 01/28/2012 None Full Exam - General 1994 Ears/Nose/Throat oral cavity/pharynx/larynx Overall: oropharyngeal mucosa clear 01/28/2012 None Full Exam - General 1994 Musculoskeletal upper extremity ROM - shoulder: decreased internal rotation 01/28/2012 None Full Exam - General 1994 Musculoskeletal upper extremity ROM - shoulder: pain with internal rotation 01/28/2012 None Full Exam - General 1994 Musculoskeletal upper extremity Stability - shoulder: a normal exam 01/28/2012 None Full Exam - General 1994 Musculoskeletal lower extremity Muscle Strength/Tone - knee: a normal exam 01/28/2012 None Full Exam - General 1994 Musculoskeletal lower extremity Palpation - knee: small effusion 01/28/2012 None Full Exam - General 1994 Neurologic gait Overall: no ataxia, no unsteadiness 01/28/2012 None Full Exam - General 1994 Neurologic cranial nerves Overall: crainial nerves 2 - 12 grossly intact 01/28/2012 None Full Exam - General 1994 Psychiatric orientation/consciousness Overall: oriented to person, place and time 01/28/2012 None Full Exam - General 1994 Psychiatric mood and affect Overall: normal mood and affect 01/28/2012 None Full Exam - General 1994 Psychiatric mood and affect Mood: happy 01/28/2012 None Full Exam - General 1994 Musculoskeletal upper extremity Overall: normal elbow 01/28/2012 None Full Exam - General 1994 Musculoskeletal upper extremity Overall: normal wrist 01/28/2012 None Full Exam - General 1994 Musculoskeletal upper extremity Inspection - shoulder: a normal exam 01/28/2012 None Full Exam - General 1994 Musculoskeletal upper extremity Palpation - shoulder: pain with resisted abduction 01/28/2012 None Full Exam - General 1994 Musculoskeletal upper extremity Palpation - shoulder: pain with resisted internal rotation 01/28/2012 None Full Exam - General 1994 Musculoskeletal upper extremity Palpation - shoulder: pain with resisted external rotation 01/28/2012 None Full Exam - General 1994 Musculoskeletal upper extremity ROM - shoulder: pain with abduction 01/28/2012 None Full Exam - General 1994 Musculoskeletal upper extremity ROM - shoulder: pain with adduction 01/28/2012 None Full Exam - General 1994 Constitutional general appearance Overall: well nourished 01/09/2012 None Full Exam - General 1994 Constitutional general appearance Overall: well developed 01/09/2012 None Full Exam - General 1994 Constitutional general appearance Overall: in no acute distress 01/09/2012 None Full Exam - General 1994 Eyes pupils and irises Overall: pupils equal, round, reactive to light and accomodation 01/09/2012 None Full Exam - General 1994 Ears/Nose/Throat otoscopic exam Overall: tympanic membranes clear 01/09/2012 None Full Exam - General 1994 Ears/Nose/Throat otoscopic exam Overall: external auditory canals clear 01/09/2012 None Full Exam - General 1994 Ears/Nose/Throat oral cavity/pharynx/larynx Overall: oropharyngeal mucosa clear 01/09/2012 None Full Exam - General 1994 Ears/Nose/Throat oral cavity/pharynx/larynx Overall: no masses 01/09/2012 None Full Exam - General 1994 Ears/Nose/Throat oral cavity/pharynx/larynx Overall: oral mucosa clear 01/09/2012 None Full Exam - General 1994 Respiratory respiratory effort/rhythm Overall: normal rate 01/09/2012 None Full Exam - General 1994 Respiratory respiratory effort/rhythm Overall: no retractions 01/09/2012 None Full Exam - General 1994 Respiratory auscultation Overall: breath sounds clear bilaterally 01/09/2012 None Full Exam - General 1994 Cardiovascular auscultation of heart Overall: regular rate 01/09/2012 None Full Exam - General 1994 Cardiovascular auscultation of heart Overall: normal heart sounds 01/09/2012 None Full Exam - General 1994 Cardiovascular auscultation of heart Overall: no murmurs 01/09/2012 None Full Exam - General 1994 Musculoskeletal spine, ribs and pelvis Overall: ribs benign 01/09/2012 None Full Exam - General 1994 Musculoskeletal spine, ribs and pelvis Overall: good posture 01/09/2012 None Full Exam - General 1994 Musculoskeletal spine, ribs and pelvis Overall: sacroiliac joint benign 01/09/2012 None Full Exam - General 1994 Musculoskeletal spine, ribs and pelvis Overall: left hip benign 01/09/2012 None Full Exam - General 1994 Musculoskeletal spine, ribs and pelvis Overall: spine benign 01/09/2012 None Full Exam - General 1994 Musculoskeletal spine, ribs and pelvis Overall: right hip benign 01/09/2012 None Full Exam - General 1994 Neurologic gait Overall: no ataxia, no unsteadiness 01/09/2012 None Full Exam - General 1994 Neurologic cranial nerves Overall: crainial nerves 2 - 12 grossly intact 01/09/2012 None Full Exam - General 1994 Psychiatric orientation/consciousness Overall: oriented to person, place and time 01/09/2012 None Full Exam - General 1994 Psychiatric mood and affect Mood: happy 01/09/2012 None Full Exam - General 1994 Psychiatric mood and affect Overall: normal mood and affect 01/09/2012 None Full Exam - Cardiology Constitutional general appearance Overall: well nourished 10/17/2011 None Full Exam - Cardiology Constitutional general appearance Overall: well developed 10/17/2011 None Full Exam - Cardiology Constitutional general appearance Overall: in no acute distress 10/17/2011 None Full Exam - Cardiology Eyes conjunctiva/eyelids Overall: conjunctiva clear 10/17/2011 None Full Exam - Cardiology Ears/Nose/Throat oral mucosa Overall: oral mucosa clear 10/17/2011 None Full Exam - Cardiology Respiratory respiratory effort/rhythm Overall: no retractions 10/17/2011 None Full Exam - Cardiology Respiratory respiratory effort/rhythm Overall: normal rate 10/17/2011 None Full Exam - Cardiology Respiratory auscultation Overall: breath sounds clear bilaterally 10/17/2011 None Full Exam - Cardiology Cardiovascular auscultation of heart Overall: regular rate 10/17/2011 None Full Exam - Cardiology Cardiovascular auscultation of heart Overall: normal heart sounds 10/17/2011 None Full Exam - Cardiology Cardiovascular auscultation of heart Overall: no murmurs 10/17/2011 None Full Exam - Cardiology Lymphatic neck nodes Overall: posterior cervical chain be nign 10/17/2011 None Full Exam - Cardiology Lymphatic neck nodes Overall: anterior cervical chain [place] ign 10/17/2011 None Full Exam - Cardiology Psychiatric orientation/consciousness Overall: oriented to person, place and time 10/17/2011 None Procedures Procedure Codes Date URINALYSIS NONAUTO W /O SCOPE CPT-4: 40327 06/14/2013 THER/PROPH/DIAG INJ SC/IM CPT-4: 23098 04/06/2013 PROMETHAZINE HCL INJ ECTION CPT-4: J2550 04/06/2013 THER/PROPH/DIAG INJ SC/IM CPT-4: 42628 03/26/2013 PROMETHAZINE HCL INJ ECTION CPT-4: J2550 03/26/2013 THER/PROPH/DIAG INJ SC/IM CPT-4: 14706 03/11/2013 PROMETHAZINE HCL INJ ECTION CPT-4: J2550 02/18/2013 TRIAMCINOLONE ACET I [place] NOS CPT-4: J3301 11/16/2012 THER/PROPH/DIAG INJ SC/IM CPT-4: 30818 11/16/2012 TRIAMCINOLONE ACET I [place] NOS CPT-4: J3301 10/17/2011 THER/PROPH/DIAG INJ SC/IM CPT-4: 48560 10/17/2011 Vital Signs Date Vital 06/10/2019 Blood Pressure 1: 140/78 Code: 8480-6 BMI: 38.6 Code: 81596-6 Heart Rate 1: 78 bpm Height: 5'5" SpO2: 98% Weight: 232 lbs 03/02/2019 Blood Pressure 1: 150/78 Code: 8480-6 Heart Rate 1: 68 bpm Height: 5'5" SpO2: 98% Weight: 12/08/2018 Blood Pressure 1: 122/74 Code: 8480-6 BMI: 36.3 Code: 92417-2 Heart Rate 1: 64 bpm Height: 5'5" SpO2: 100% Weight: 218 lbs 09/01/2018 Blood Pressure 1: 132/80 Code: 8480-6 BMI: 35.6 Code: 77572-0 Heart Rate 1: 80 bpm Height: 5'5" SpO2: 96% Weight: 214 lbs 02/26/2018 Blood Pressure 1: 126/72 Code: 8480-6 BMI: 36.1 Code: 09226-7 Heart Rate 1: 63 bpm Height: 5'5" SpO2: 98% Weight: 217 lbs 07/24/2017 Blood Pressure 1: 138/78 Code: 8480-6 BMI: 36.1 Code: 98494-1 Heart Rate 1: 78 bpm Height: 5'5" SpO2: 99% Weight: 217 lbs 07/09/2017 Blood Pressure 1: 150/84 Code: 8480-6 BMI: 36.4 Code: 85896-2 Heart Rate 1: 70 bpm Height: 5'5" SpO2: 98% Weight: 219 lbs 06/24/2017 Blood Pressure 1: 154/80 Code: 8480-6 BMI: 36.9 Code: 40564-7 Heart Rate 1: 68 bpm Height: 5'5" SpO2: 98% Weight: 222 lbs 04/23/2016 Blood Pressure 1: 136/78 Code: 8480-6 BMI: 38.4 Code: 53916-5 Heart Rate 1: 76 bpm Height: 5'5" SpO2: 98% Weight: 231 lbs 01/23/2016 Blood Pressure 1: 148/82 Code: 8480-6 BMI: 39.6 Code: 81521-9 Heart Rate 1: 76 bpm Height: 5'5" SpO2: 98% Weight: 238 lbs 11/21/2015 Blood Pressure 1: 140/80 Code: 8480-6 BMI: 38.9 Code: 91458-0 Heart Rate 1: 89 bpm Height: 5'5" SpO2: 98% Weight: 233 lbs 8 oz 08/23/2014 Blood Pressure 1: 140/72 Code: 8480-6 BMI: 38.1 Code: 77447-5 Height: 5'5" Weight: 229 lbs 03/01/2014 Blood Pressure 1: 128/74 Code: 8480-6 Heart Rate 1: 80 bpm Weight: 232 lbs 06/14/2013 Blood Pressure 1: 134/82 Code: 8480-6 Heart Rate 1: 80 bpm Weight: 227 lbs 03/10/2013 Blood Pressure 1: 145/90 Code: 8480-6 Heart Rate 1: 80 bpm Temperature: 36.9 (C) / 98.5 (F) Weight: 233 lbs 02/18/2013 Blood Pressure 1: 130/70 Code: 8480-6 Heart Rate 1: 60 bpm Weight: 11/16/2012 Blood Pressure 1: 130/82 Code: 8480-6 Heart Rate 1: 65 bpm SpO2: 99% Temperature: 36.3 (C ) / 97.3 (F) Weight: 10/29/2012 Blood Pressure 1: 116/84 Code: 8480-6 Heart Rate 1: 77 bpm Weight: 235 lbs 03/12/2012 Blood Pressure 1: 120/82 Code: 8480-6 Heart Rate 1: 80 bpm Weight: 222 lbs 01/28/2012 Blood Pressure 1: 126/76 Code: 8480-6 Heart Rate 1: 84 bpm Respiratory Rate: 16 bpm Weight: 223 lbs 8 oz 01/09/2012 Blood Pressure 1: 122/82 Code: 8480-6 Heart Rate 1: 80 bpm Respiratory Rate: 20 bpm Weight: 221 lbs 10/17/2011 Blood Pressure 1: 142/89 Code: 8480-6 Heart Rate 1: 87 bpm Temperature: 36.4 (C) / 97.5 (F) Weight: 229 lbs Functional Status No Functional Status data History of Present Illness Symptom Name Status Resu lt Effective Date Notes Onset and Resolution o ngoing 06/10/2019 None Alleviating Factors me dication 06/10/2019 None Pertinent Findings Den ies dizziness 06/10/2019 None Pertinent Findings Den ies dyspnea 06/10/2019 None Pertinent Findings Den ies edema 06/10/2019 None Location on the right 06/10/2019 None Onset of Symptom 4 mon ths ago 06/10/2019 None Frequency of Episodes daily 06/10/2019 None Pertinent Findings Den ies decreased range of motion 06/10/2019 None Pertinent Findings Den ies limping 06/10/2019 None Pertinent Findings Den ies sensation of buckling 06/10/2019 None Quality intermittent 06/10/2019 None Onset and Resolution o ngoing 06/10/2019 None Onset of Symptom _ mon ths ago 06/10/2019 None Frequency of Episodes daily 06/10/2019 happens in day and worse at night: has been to ER twice thinking heart related. Quality stable 06/10/2019 None Blood Pressure Values patient checking blood pressure at home - did not bring in readings 06/10/2019 None Blood Pressure Values pt checking blood pressure - see scanned document 06/10/2019 None Quality acute 06/10/2019 None Quality intermittent 06/10/2019 None Quality reduced abilit y to maintain tone 06/10/2019 None Quality breathy voice 06/10/2019 None Quality raspy 06/10/2019 None Onset and Resolution s udden in onset 06/10/2019 None Onset of Symptom 1 mon ths ago 06/10/2019 None Pertinent Findings cough 06/10/2019 None Pertinent Findings Den ies decreased appetite 06/10/2019 None Pertinent Findings Den ies decreased energy 06/10/2019 None Pertinent Findings Den ies fever 06/10/2019 None Onset and Resolution o ngoing 03/02/2019 None Blood Pressure Values pt checking blood pressure - see scanned document 03/02/2019 None Alleviating Factors me dication 03/02/2019 None Pertinent Findings Den ies dizziness 03/02/2019 None Pertinent Findings Den ies dyspnea 03/02/2019 None Pertinent Findings Den ies edema 03/02/2019 None Location on the right 03/02/2019 None Onset of Symptom 4 mon ths ago 03/02/2019 None Frequency of Episodes daily 03/02/2019 None Pertinent Findings dec reased range of motion 03/02/2019 None Pertinent Findings mckeon ping 03/02/2019 None Pertinent Findings sen sation of buckling 03/02/2019 None Quality intermittent 03/02/2019 None Onset and Resolution o ngoing 03/02/2019 None Onset of Symptom _ yea rs ago 03/02/2019 None Pertinent Findings ins omnia 03/02/2019 None Location on the right 12/08/2018 None Quality cramping 12/08/2018 None Quality constant 12/08/2018 None Location in the calf r egion 12/08/2018 None Quality throbbing 12/08/2018 None Onset and Resolution s udden in onset 12/08/2018 None Onset of Symptom 2 wee ks ago 12/08/2018 None hypertension Onset and Resolution ongoing 09/01/2018 None hypertension Blood Pressure Values pt checking blood pressure - see scanned document 09/01/2018 None hypertension Alleviating Factors medication 09/01/2018 None hypertension Pertinent Findings Denies dizziness 09/01/2018 None hypertension Pertinent Findings Denies dyspnea 09/01/2018 None hypertension Pertinent Findings Denies edema 09/01/2018 None hypertension Onset and Resolution ongoing 02/26/2018 None hypertension Blood Pressure Values pt checking blood pressure - see scanned document 02/26/2018 None hypertension Alleviating Factors medication 02/26/2018 None hypertension Pertinent Findings Denies dizziness 02/26/2018 None hypertension Pertinent Findings Denies dyspnea 02/26/2018 None hypertension Pertinent Findings Denies edema 02/26/2018 None hoarseness Quality acute 02/26/2018 None hoarseness Quality inter mittent 02/26/2018 None hoarseness Quality reduc ed ability to maintain tone 02/26/2018 None hoarseness Quality breat hy voice 02/26/2018 None hoarseness Quality raspy 02/26/2018 None hoarseness Onset and Resolution sudden in onset 02/26/2018 None hoarseness Onset of Symptom 1 months ago 02/26/2018 None hoarseness Pertinent Findings cough 02/26/2018 None hoarseness Pertinent Findings Denies decreased appetite 02/26/2018 None hoarseness Pertinent Findings Denies decreased energy 02/26/2018 None hoarseness Pertinent Findings Denies fever 02/26/2018 None abdominal pain Location in the epigastric area 07/24/2017 None abdominal pain Quality a leandro 07/24/2017 None abdominal pain Onset and Resolution sudden in onset 07/24/2017 None abdominal pain Limitation on Activities moderately limits activities 07/24/2017 None abdominal pain Frequency of Episodes daily 07/24/2017 None abdominal pain Timing of Episodes all day long 07/24/2017 None hypertension Onset and Resolution ongoing 07/24/2017 None hypertension Alleviating Factors medication 07/24/2017 None hypertension Blood Pressure Values pt checking blood pressure - see scanned document 07/24/2017 None hypertension Pertinent Findings Denies dizziness 07/24/2017 None hypertension Pertinent Findings Denies dyspnea 07/24/2017 None hypertension Pertinent Findings Denies edema 07/24/2017 None abdominal pain Quality a cute 07/24/2017 None abdominal pain Quality i ntermittent 07/24/2017 None abdominal pain Pertinent Findings Denies fever 07/24/2017 None abdominal pain Pertinent Findings nausea 07/24/2017 -She did have- resolved abdominal pain Location in the epigastric area 07/09/2017 None abdominal pain Quality a leandro 07/09/2017 None abdominal pain Quality c onstant 07/09/2017 None abdominal pain Quality s tabbing 07/09/2017 None abdominal pain Quality w orsening 07/09/2017 None abdominal pain Onset and Resolution sudden in onset 07/09/2017 None abdominal pain Onset of Symptom 3 days ago 07/09/2017 None abdominal pain Limitation on Activities moderately limits activities 07/09/2017 None abdominal pain Frequency of Episodes daily 07/09/2017 None abdominal pain Frequency of Episodes hourly 07/09/2017 None abdominal pain Timing of Episodes after meals 07/09/2017 None abdominal pain Timing of Episodes all day long 07/09/2017 None foot pain Location on th e right 06/24/2017 None foot pain Quality interm ittent 06/24/2017 None foot pain Timing of Episodes after periods of inactivity (poststatic) 06/24/2017 None foot pain Timing of Episodes after rest 06/24/2017 None foot pain Timing of Episodes after sleeping 06/24/2017 None foot pain Onset and Resolution ongoing 06/24/2017 None foot pain Onset of Symptom months ago 06/24/2017 None foot pain Limitation on Activities allows weight bearing activity 06/24/2017 None foot pain Limitation on Activities moderately limits activities 06/24/2017 None foot pain Alleviating Factors NSAID's 06/24/2017 advil/tylneol foot pain Alleviating Factors orthotics 06/24/2017 None foot pain Exacerbating Factors exercise 06/24/2017 None foot pain Exacerbating Factors running 06/24/2017 None foot pain Exacerbating Factors walking 06/24/2017 None foot pain Exacerbating Factors standing 06/24/2017 None back pain Location in th e right middle back area 06/24/2017 radiating to the right breast back pain Quality acute 06/24/2017 None back pain Quality sharp 06/24/2017 None back pain Onset and Resolution sudden in onset 06/24/2017 None back pain Onset and Resolution resolved 06/24/2017 None back pain Onset of Symptom 5-6 weeks ago 06/24/2017 None back pain Triggers no kn own associated factors 06/24/2017 None back pain Severity severe 06/24/2017 None gastroesophageal reflux Quality improving 06/24/2017 None gastroesophageal reflux Quality intermittent 06/24/2017 None gastroesophageal reflux Onset and Re solution ongoing 06/24/2017 None gastroesophageal reflux Timing of Episodes at night 06/24/2017 None gastroesophageal reflux Triggers meals 06/24/2017 None gastroesophageal reflux Alleviating Factor s proton pump inhibitor 06/24/2017 None gastroesophageal reflux Pertinent Findings heartburn 06/24/2017 None foot pain Location on th e right 04/23/2016 None foot pain Quality interm ittent 04/23/2016 None foot pain Timing of Episodes after periods of inactivity (poststatic) 04/23/2016 None foot pain Timing of Episodes after rest 04/23/2016 None foot pain Timing of Episodes after sleeping 04/23/2016 None foot pain Onset and Resolution ongoing 04/23/2016 None foot pain Alleviating Factors NSAID's 04/23/2016 advil/tylneol foot pain Alleviating Factors orthotics 04/23/2016 None gastroesophageal reflux Onset and Re solution ongoing 04/23/2016 None gastroesophageal reflux Timing of Episodes at night 04/23/2016 None gastroesophageal reflux Alleviating Factor s proton pump inhibitor 04/23/2016 None foot pain Onset of Symptom months ago 04/23/2016 None foot pain Limitation on Activities allows weight bearing activity 04/23/2016 None foot pain Limitation on Activities moderately limits activities 04/23/2016 None foot pain Exacerbating Factors exercise 04/23/2016 None foot pain Exacerbating Factors walking 04/23/2016 None foot pain Exacerbating Factors running 04/23/2016 None foot pain Exacerbating Factors standing 04/23/2016 None foot pain Assistive devices orthotics 04/23/2016 None back pain Location in th e right middle back area 04/23/2016 radiating to the right breast back pain Quality acute 04/23/2016 None back pain Quality sharp 04/23/2016 None back pain Onset and Resolution sudden in onset 04/23/2016 None back pain Onset and Resolution resolved 04/23/2016 None back pain Onset of Symptom 5-6 weeks ago 04/23/2016 None back pain Triggers no kn own associated factors 04/23/2016 None back pain Severity severe 04/23/2016 None gastroesophageal reflux Quality intermittent 04/23/2016 None gastroesophageal reflux Quality improving 04/23/2016 None gastroesophageal reflux Triggers meals 04/23/2016 None nocturia Onset and Resolution ongoing 01/23/2016 None urinary frequency Quality chronic 01/23/2016 None urinary frequency Onset and Resolution ongoing 01/23/2016 None urinary frequency Triggers no known associated factors 01/23/2016 None foot pain Location on th e right 01/23/2016 None foot pain Quality interm ittent 01/23/2016 None foot pain Timing of Episodes after periods of inactivity (poststatic) 01/23/2016 None foot pain Timing of Episodes after rest 01/23/2016 None foot pain Timing of Episodes after sleeping 01/23/2016 None foot pain Onset and Resolution ongoing 01/23/2016 None gastroesophageal reflux Onset and Re solution ongoing 01/23/2016 None foot pain Onset of Symptom 6 months ago 01/23/2016 None foot pain Alleviating Factors NSAID's 01/23/2016 advil/tylneol foot pain Alleviating Factors orthotics 01/23/2016 None weight gain/obesity Quality worsening 01/23/2016 None weight gain/obesity Onset and Resolution ongoing 01/23/2016 None weight gain/obesity Onset and Resolution gradual in onset 01/23/2016 None weight gain/obesity Significant Medi nelida Conditions acid reflux 01/23/2016 N one gastroesophageal reflux Timing of Episodes at night 01/23/2016 None gastroesophageal reflux Alleviating Factor s proton pump inhibitor 01/23/2016 None urinary frequency Quality improving 01/23/2016 None urinary frequency Alleviating Factors medication 01/23/2016 -[facility]are nocturia Quality improvi ng 01/23/2016 None nocturia Alleviating Factors medication 01/23/2016 -[facility] sinus congestion Quality acute 01/23/2016 None sinus congestion Onset and Resolution sudden in onset 01/23/2016 None sinus congestion Onset of Symptom 1 days ago 01/23/2016 None nocturia Onset and Resolution ongoing 11/21/2015 None urinary frequency Onset and Resolution ongoing 11/21/2015 None foot pain Location on th e right 11/21/2015 None foot pain Quality interm ittent 11/21/2015 None foot pain Timing of Episodes after periods of inactivity (poststatic) 11/21/2015 None foot pain Timing of Episodes after rest 11/21/2015 None foot pain Timing of Episodes after sleeping 11/21/2015 None foot pain Onset and Resolution ongoing 11/21/2015 None foot pain Onset of Symptom 4-5 months ago 11/21/2015 None gastroesophageal reflux Onset and Re solution ongoing 11/21/2015 None gastroesophageal reflux Quality worsening 11/21/2015 None urinary frequency Quality chronic 11/21/2015 None urinary frequency Triggers no known associated factors 11/21/2015 she has an urge to urinate all day and night - she has not been on medication for urge incontinence. headache Onset and Resolution resolved 08/23/2014 No headache since surgery arm pain Location right forearm 08/23/2014 None arm pain Radiating the r ight upper extremity 08/23/2014 None arm pain Quality intermi ttent 08/23/2014 None arm pain Severity modera te 08/23/2014 None arm pain Extent of Symptoms weakness of deltoid, biceps 08/23/2014 None arm pain Extent of Symptoms stiffness 08/23/2014 at shoulder on the right - pt states that the shoulder feels like it is "frozen" arm pain Pertinent Findings female 08/23/2014 None arm pain Pertinent Findings 50 - 59 years 08/23/2014 None pre-op/surgery consult Referred by Dr. Asa Randle 03/01/2014 - pt states that she has surgery of this week - pre-op/surgery consult Prior Treatments multiple medications for migraine headaches 03/01/2014 She states that since the botox injectio ns helped, she states that she was told she was a great candidate for surgery to remove the nerve that is causing her the most problems for her migraine headaches.She states that the day that her botox needed to be done, she would have migraine headaches. pre-op/surgery consult Procedure to be performed frontal and temporal migraine surgery 03/01/2014 None pre-op/surgery consult Scheduled disha e of procedure 03/03/2014 03/01/2014 None pre-op/surgery consult Significant M edical Conditions migraine headaches 03/01/2014 None pre-op/surgery consult Pertinent Findings persistent headaches/migraines 03/01/2014 None pre-op/surgery consult Pertinent Findings pain 03/01/2014 None pre-op/surgery consult Additional Comments The patient is ready for surgery, states that she has not had her botox since September and would like to just get her migraine surgery taken care of soon. 03/01/2014 None headache Quality intermi ttent 06/14/2013 None headache Alleviating Factors medication 06/14/2013 patient had botox injecti ons. states it has alleviated migraines some. this weekend and today she feels "weird" and complains of pressure in her head. patient believes she still has the migraines they just are not as bad. headache Quality improvi ng 06/14/2013 None headache Triggers no kno wn associated factors 06/14/2013 None headache Pertinent Findings Denies anxiety 06/14/2013 None headache Pertinent Findings Denies chills 06/14/2013 None headache Pertinent Findings Denies depressed mood 06/14/2013 None headache Pertinent Findings Denies dizziness 06/14/2013 None headache Limitation on Activities is incapacitating 06/14/2013 None headache Quality intermi ttent 03/10/2013 patient was here 3 weeks ago for migraine and got shot for it. patient states she is extremely nauseated. says the nausea is interfering with her daily life. headache Limitation on Activities is incapacitating 03/10/2013 None headache Pertinent Findings nausea 03/10/2013 None headache Pertinent Findings Denies vomiting 03/10/2013 None headache Triggers no kno wn associated factors 03/10/2013 None headache Location diffus gretta 02/18/2013 None headache Quality acute 02/18/2013 None headache Onset of Symptom 1 days ago 02/18/2013 None headache Pertinent Findings nausea 02/18/2013 None headache Pertinent Findings vomiting 02/18/2013 None headache Pertinent Findings pallor 02/18/2013 None headache Pertinent Findings photophobia 02/18/2013 None headache Exacerbating Factors activity 02/18/2013 None headache Exacerbating Factors sunlight 02/18/2013 None headache Limitation on Activities moderately limits activities 02/18/2013 None headache Frequency of Episodes increasing 02/18/2013 None headache Significant Medical Conditions migraines 02/18/2013 None headache Significant Medications NSAID's 02/18/2013 took a valium and percoce t with no relief headache Triggers no kno wn associated factors 02/18/2013 None cough Location in the antony ng 11/16/2012 been around day care chil d diagnosed with flu cough Quality worsening 11/16/2012 None cough Onset of Symptom 3 days ago 11/16/2012 None cough Onset and Resolution ongoing 11/16/2012 None cough Quality acute 11/16/2012 None cough Quality intermitte nt 11/16/2012 None cough Quality interrupts sleep 11/16/2012 None cough Limitation on Activities moderately limits activities 11/16/2012 None cough Significant Medical Conditions asthma 11/16/2012 None cough Pertinent Findings Denies apnea 11/16/2012 None cough Pertinent Findings chills 11/16/2012 None headache Location diffus gretta 11/16/2012 None headache Quality aching 11/16/2012 None headache Quality constant 11/16/2012 None headache Quality pressure 11/16/2012 None headache Onset and Resolution gradual in onset 11/16/2012 None headache Limitation on Activities moderately limits activities 11/16/2012 None headache Location diffus gretta 10/29/2012 None headache Quality chronic 10/29/2012 states head gets heavy headache Quality pressure 10/29/2012 None headache Quality worseni ng 10/29/2012 None headache Onset and Resolution ongoing 10/29/2012 None headache Onset of Symptom 1 months ago 10/29/2012 None headache Limitation on Activities is incapacitating 10/29/2012 None headache Frequency of Episodes weekly 10/29/2012 sometimes 4 times a week headache Frequency of Episodes increasing 10/29/2012 None headache Significant Medical Conditions migraines 10/29/2012 None headache Triggers no kno wn associated factors 10/29/2012 None headache Alleviating Factors medication 10/29/2012 in the past was on topama x , migraines went away, and she stopped topamax, then about 6 months pt was tapering herself off of the topamax. headache Pertinent Findings anxiety 10/29/2012 None headache Pertinent Findings Denies chills 10/29/2012 None headache Pertinent Findings Denies depressed mood 10/29/2012 None headache Pertinent Findings Denies dizziness 10/29/2012 None headache Pertinent Findings lethargy 10/29/2012 None headache Pertinent Findings Denies nausea 10/29/2012 None headache Pertinent Findings Denies warning signs 10/29/2012 None headache Pertinent Findings photophobia 10/29/2012 None headache Pertinent Findings phonophobia 10/29/2012 None headache Quality chronic 03/12/2012 None headache Onset and Resolution ongoing 03/12/2012 None headache Limitation on Activities does not limit activities 03/12/2012 States she had migraines in 2009, has been taking topamax since. States she is also taking elavil. Weaning off of topamax-taking 25mg twice daily. States she did have one migraine on 02/16-02/17. Went home, took valium, percocet and rested. headache Frequency of Episodes decreasing 03/12/2012 None headache Significant Medical Conditions migraines 03/12/2012 None headache Exacerbating Factors weather change 03/12/2012 None weight gain/obesity Location globally 03/12/2012 None weight gain/obesity Quality worsening 03/12/2012 None weight gain/obesity Onset and Resolution ongoing 03/12/2012 States she has been doing body by [employer] for about 3 months but is not losing weight. States she is trying to lose weight. shoulder pain Location o n the left shoulder 03/12/2012 Dr. Judge told her she h ad a frozen shoulder. Trying non-surgical treatments first. shoulder pain Quality ch ronic 03/12/2012 None shoulder pain Onset and Resolution ongoing 03/12/2012 Dr. Judge injected her s isabella last week. He told her to take ibuprofen 800mg q 8 hours but she is taking it PRN. States it bothers her more at night. shoulder pain Limitation on Activities moderately limits activities 03/12/2012 None shoulder pain Triggers n o known associated factors 03/12/2012 None shoulder pain Mechanism of injury unknown 03/12/2012 None knee pain Quality sharp pain 01/28/2012 None knee pain Mechanism of injury unknown 01/28/2012 None shoulder pain Mechanism of injury unknown 01/28/2012 None shoulder pain Exacerbating Factors pulling 01/28/2012 None shoulder pain Exacerbating Factors extension 01/28/2012 None shoulder pain Exacerbating Factors internal rotation 01/28/2012 None shoulder pain Exacerbating Factors abduction/external rotation 01/28/2012 None knee pain Location in th e medial region 01/28/2012 None knee pain Location infer ior to the patella 01/28/2012 None knee pain Frequency of Episodes increasing 01/28/2012 None knee pain Limitation on Activities allows weight bearing activity 01/28/2012 None knee pain Limitation on Activities moderately limits activities 01/28/2012 None knee pain Severity mild 01/28/2012 None knee pain Sports Participation not significant 01/28/2012 None knee pain Pertinent Findings decreased range of motion 01/28/2012 None knee pain Pertinent Findings Denies limping 01/28/2012 None knee pain Pertinent Findings pain with movement 01/28/2012 None knee pain Exacerbating Factors weight bearing 01/28/2012 None shoulder pain Location o n the left shoulder 01/28/2012 None shoulder pain Quality ac cahto 01/28/2012 None shoulder pain Quality th robbing 01/28/2012 None shoulder pain Onset and Resolution gradual in onset 01/28/2012 None shoulder pain Onset and Resolution ongoing 01/28/2012 None shoulder pain Limitation on Activities moderately limits activities 01/28/2012 None shoulder pain Limitation on Activities lacks strength 01/28/2012 None shoulder pain Alleviating Factors rest 01/28/2012 None shoulder pain Pertinent Findings limited range of motion 01/28/2012 None headache Onset and Resolution resolved 01/09/2012 states hasn't had migrain e since november 18. wants to try decreaseding meds headache Location diffus gretta 01/09/2012 None headache Quality chronic 01/09/2012 None headache Limitation on Activities does not limit activities 01/09/2012 None headache Frequency of Episodes decreasing 01/09/2012 None headache Significant Medical Conditions migraines 01/09/2012 None headache Triggers stress 01/09/2012 None headache Alleviating Factors medication 01/09/2012 None headache Pertinent Findings Denies depressed mood 01/09/2012 None headache Pertinent Findings Denies blurred vision 01/09/2012 None headache Pertinent Findings Denies anxiety 01/09/2012 None sinus congestion Onset of Symptom 1 days ago 10/17/2011 None earache Location left ear 10/17/2011 None sinus congestion Quality acute 10/17/2011 None sinus congestion Onset and Resolution ongoing 10/17/2011 None sinus congestion Severity moderate 10/17/2011 None sinus congestion Frequency of Episodes increasing 10/17/2011 None earache Quality acute 10/17/2011 None earache Onset and Resolution ongoing 10/17/2011 None earache Onset of Symptom 1 days ago 10/17/2011 None earache Severity mild 10/17/2011 None earache Frequency of Episodes increasing 10/17/2011 None Advance Directives No Advance Directive data Encounters Encounter Performer Loca tion Codes Date ([id number]) PREV VISIT E ST AGE 40-64 Diagnosis: Encounter for general adult medical examination with abnormal findings[ICD10: Z00.01] [facility] CPT-4: 12548 06/10/2019 ([id number]) 48686 EST. P ATIENT, LEVEL IV Diagnosis: Essential (primary) hypertension[ICD10: I10] Diagnosis: Restless legs syndrome[ICD10: G25.81] Diagnosis: Pain in right knee[ICD10: M25.561] Ling Collins MD, [facility] CPT- 4: 13454 03/02/2019 [id number] EST. PATIENT, LEVEL III Diagnosis: Pain in right knee[ICD10: M25.561] Claritza Collins MD, [facility] CPT-4: 78147 12/08/2018 ([id number]) 08229 EST. P ATIENT, LEVEL IV Diagnosis: Essential (primary) hypertension[ICD10: I10] Diagnosis: Acute laryngopharyngitis[ICD10: J06.0] Diagnosis: Other insomnia[ICD10: G47.09] Ling Collins MD, [facility] CPT-4: 12603 09/01/2018 ([id number]) 26713 EST. P ATIENT, LEVEL III Diagnosis: Gastro-esophageal reflux disease without esophagitis[ICD10: K21.9] Diagnosis: Essential (primary) hypertension[ICD10: I10] Ling Collins MD, [facility] CPT-4: 57539 02/26/2018 ([id number]) 34076 EST. P ATIENT, LEVEL III Diagnosis: Other specified noninfective gastroenteritis and colitis[ICD10: K52.89] Diagnosis: Epigastric pain[ICD10: R10.13] Diagnosis: Generalized abdominal pain[ICD10: R10.84] Ling [facility] CPT-4: 74054 07/24/2017 00588 EST. PATIENT, LEVEL IV Diagnosis: Gastro-esophageal reflux disease without esophagitis[ICD10: K21.9] Claritza Collins MD, [facility] CPT-4: 53512 07/09/2017 ([id number]) PREV VISIT E ST AGE 40-64 Diagnosis: Encounter for general adult medical examination with abnormal findings[ICD10: Z00.01] Ling Collins MD, [facility] CPT-4: 45001 06/24/2017 ([id number]) 24012 EST. P ATIENT, LEVEL III Diagnosis: Gastro-esophageal reflux disease with esophagitis[ICD10: K21.0] Ling Collins MD, [facility] CPT-4: 66615 04/23/2016 ([id number]) 30504 EST. P ATIENT, LEVEL IV Diagnosis: Gastro-esophageal reflux disease with esophagitis[ICD10: K21.0] Diagnosis: Morbid (severe) obesity due to excess calories[ICD10: E66.01] Diagnosis: Urge incontinence[ICD10: N39.41] Ling Collins MD, [facility] CPT-4: 68736 01/23/2016 ([id number]) 20320 EST. P ATIENT, LEVEL IV Diagnosis: Metatarsalgia, right foot[ICD10: M77.41] Diagnosis: Achilles tendinitis, right leg[ICD10: M76.61] Diagnosis: Gastro-esophageal reflux disease with esophagitis[ICD10: K21.0] Ling Collins MD, [facility] CPT-4: 24590 11/21/2015 ([id number]) 40301 EST. [facility]: Biceps tendonitis[ICD9: 726.12] Diagnosis: Encounter for long-term (current) use of other medications[ICD9: V58.69] Ling Collins MD, [facility] CPT-4: 13186 08/23/2014 ([id number]) 52272 EST. [facility] Diagnosis: Anxiety, generalized[ICD9: 300.02] Diagnosis: Pain, lower leg[ICD9: 729.5] Ling Collins MD, [facility] CPT-4: 87716 03/01/2014 ([id number]) 37045 EST. P ATIENT, LEVEL III Diagnosis: MIGRAINE NOS/NOT INTRCBL[ICD9: 346.90] Ling Collins MD, [facility] CPT-4: 02993 06/14/2013 ([id number]) 40607 EST. P ATIENT, LEVEL III Diagnosis: MIGRAINE NOS/NOT INTRCBL[ICD9: 346.90] Diagnosis: NAUSEA ALONE[ICD9: 787.02] Ling Collins MD, [facility] CPT-4: 20914 03/10/2013 ([id number]) 77010 EST. [facility] Diagnosis: Intractable migraine with aura without status migrainosus[ICD9: 346.01] Diagnosis: Nausea[ICD9: 787.02] Yennifer Collins MD, [facility] CPT-4: 34235 02/18/2013 ([id number]) 06247 EST. P ATIENT, LEVEL III Diagnosis: BACTERIAL PNEUMONIA[ICD9: 482.9] Diagnosis: Dyspnea[ICD9: 786.09] Ling Collins MD, [facility] CPT-4: 14536 11/16/2012 ([id number]) 41543 EST. P ATIENT, LEVEL III Diagnosis: MIGRAINE NOS/NOT INTRCBL[ICD9: 346.90] Diagnosis: ANXIETY STATE[ICD9: 300.00] Ling Collins MD, [facility] CPT-4: 67704 10/29/2012 ([id number]) 60687 EST. P ATIENT, LEVEL IV Diagnosis: MIGRAINE NOS/NOT INTRCBL[ICD9: 346.90] Diagnosis: JOINT PAIN-SHLDER[ICD9: 719.41] Diagnosis: OBESITY[ICD9: 278.00] Ling Collins MD, [facility] CPT-4: 30565 03/12/2012 ([id number]) 50886 EST. P ATIENT, LEVEL IV Diagnosis: Rotator cuff disorder[ICD9: 726.10] Diagnosis: Shoulder pain, acute[ICD9: 719.41] Diagnosis: Knee pain[ICD9: 719.46] Ling Collins MD, [facility] CPT-4: 95073 01/28/2012 ([id number]) 60385 EST. P ATIENT, LEVEL IV Diagnosis: Migraine[ICD9: 346.90] Diagnosis: Anxiety[ICD9: 300.00] Ling Collins MD, [facility] CPT-4: 84550 01/09/2012 25994 EST. PATIENT, LEVEL III Diagnosis: ACUTE URI[ICD9: 465.9] Diagnosis: Cough[ICD9: 786.2] Yennifer Collins MD, [facility] CPT-4: 39242 10/17/2011 Plan of Care Planned Activity Notes C odes Status Date Visit Plan: Well Adult - pt was cou nseled about diet, exercise, and encouraged to follow a heart healthy diet and increase activity level. The patient was instructed to RTC yearly for well adult exams and PRN for acute illnesses. The pt was also instructed to have yearly labs for check of cholesterol, thyroid, chem panel, CBC, and renal functioning. Esophageal Reflux - the patient has been counseled against excessive intake of caffeine, spicy foods, peppermint, and cinnamon - all of which can exacerbate esophageal reflux. The patient is to take medications as prescribed and call the office if the symptoms are not improving. Hypertension - well controlled - continue with current medications, continue with no added salt diet. Pt has been encouraged to exercise daily. The pt has been advised to call the office if there are any acute concerns about change in blood pressure readings at home. 06/10/2019 Appointment: [facility] [address] [facility] (15 min) Moderate 06/10/2019 Patient Education: Patient Medication Summary Completed 06/10/2019 Referral: [facility] Referral Completed 03/08/2019 Visit Plan: Right knee pain - I hav e recommended a referral for right knee pain evaluation to Dr. Judge at [facility] [place] in [place]. - Anti-inflammatory sample of vivlodex given to patient today. vivlodex lot c [id number], exp 04/2020, iroko Restless Leg Syndrome - uncontrolled symptoms - I have recommended pt to start on a low dose of requip. Pt to alert us if the symptoms do not improve. HTN - not optimally controlled - she admits to feeling nervous today and being in pain due to her knee. Advised to monitor pressure at home. 03/02/2019 Appointment: [facility] [phone] [facility] [facility] 03/02/2019 Patient Education: Patient Medication Summary Completed 03/02/2019 Care Plan: Referral Order SNOMED-CT : [id number] Pending 03/02/2019 Patient Education: Patient Medication Summary Completed 02/25/2019 Visit Plan: Right knee pain - the p atient was instructed in appropriate posture, need for weight loss to alleviate abdominal obesity that is worsening the patient's pain.. The pt is to use prn antiinflammatories to manage acute pain. The patient is to call the office if the pain is worsening or does not improve. 12/08/2018 Appointment: Claritza Russelll: [place] (15 min) Moderate 12/08/2018 Patient Education: Patient Medication Summary Completed 12/08/2018 Visit Plan: Hypertension - well con trolled - continue with current medications, continue with no added salt diet. Pt has been encouraged to exercise daily. The pt has been advised to call the office if there are any acute concerns about change in blood pressure readings at home. URI - corcidin HBP - a decongestant for people with high blood pressure - get this over the counter - try this twice a day x 1 wk to see if it helps to clear up the cough/mucus. Insomnia - pt advised to try extended release melatonin 10mg at bedtime - if the insomnia does not improve - then we need to consider you starting on amitriptyline 10mg nightly. 09/01/2018 Appointment: Ling Collins WPtel: [place] (15 min) Moderate 09/01/2018 Patient Education: Patient Medication Summary Completed 09/01/2018 Visit Plan: Hypertension - well con trolled - continue with current medications, continue with no added salt diet. Pt has been encouraged to exercise daily. The pt has been advised to call the office if there are any acute concerns about change in blood pressure readings at home. Esophageal Reflux - the patient has been counseled against excessive intake of caffeine, spicy foods, peppermint, and cinnamon - all of which can exacerbate esophageal reflux. The patient is to take medications as prescribed and call the office if the symptoms are not improving. 02/26/2018 Appointment: Ling Collins WPtel: [place] [place] (15 min) Moderate 02/26/2018 Patient Education: Patient Medication Summary Completed 02/26/2018 Appointment: Ling Collins WPtel: [place] [facility] [place] (15 min) Moderate 08/11/2017 Visit Plan: Abdominal pain, Colitis - advised liquid diet x 2-3 days, then advance to bland diet. If at any time her symptoms worsen, she is to go to the emergency department. Pt given order for EGD/Colonoscopy at [facility] [address] Garcia. 07/24/2017 Appointment: Ling [facility]el[facility] [phone] [facility] (15 min) Moderate 07/24/2017 Patient Education: Patient Medication Summary Completed 07/24/2017 Patient Education: Obesity Completed 07/24/2017 Visit Plan: Esophageal Reflux - Sev ere and ongoing - will refer for EGD - the patient has been counseled against excessive intake of caffeine, spicy foods, peppermint, and cinnamon - all of which can exacerbate esophageal reflux. The patient is to take medications as prescribed and call the office if the symptoms are not improving. Pt states that she needs to have the EGD through a clinic through their insurance - Fax number - [phone] phone number - [phone]. 07/09/2017 Visit Plan: Esophageal Reflux - Sev ere and ongoing - will refer for EGD - the patient has been counseled against excessive intake of caffeine, spicy foods, peppermint, and cinnamon - all of which can exacerbate esophageal reflux. The patient is to take medications as prescribed and call the office if the symptoms are not improving. Pt states that she needs to have the EGD through a clinic through their insurance - Fax number - [phone] phone number - [phone]. 07/09/2017 Appointment: [facility]it[facility] Russell [facility]el[facility] [phone] [facility] (30 min) Complex 07/09/2017 Patient Education: Patient Medication Summary Completed 07/09/2017 Care Plan: Referral Order SNOMED-CT : [id number] Pending 07/09/2017 Visit Plan: Well Adult - pt was cou nseled about diet, exercise, and encouraged to follow a heart healthy diet and increase activity level. The patient was instructed to RTC yearly for well adult exams and PRN for acute illnesses. The pt was also instructed to have yearly labs for check of cholesterol, thyroid, chem panel, CBC, and renal functioning. Hypertension - uncontrolled - the patient's medications have been modified as documented in the visit note. The patient has been counseled to cut back on salt in diet for a no added salt diet, low fat diet, start an exercise program with low weight bearing exercises and higher aerobic activity for heart health. The patient is to check blood pressure readings as an outpatient and either fax, call, or email the readings to the office next week for practitioner to review. The pt is to call for acute concerns. 06/24/2017 Appointment: Ling oCllins WPtel: [address] [facility] [id number] (15 min) Moderate 06/24/2017 Patient Education: Patient Medication Summary Completed 06/24/2017 Patient Education: Obesity Completed 06/24/2017 Visit Plan: Esophageal Reflux - the patient has been counseled against excessive intake of caffeine, spicy foods, peppermint, and cinnamon - all of which can exacerbate esophageal reflux. The patient is to take medications as prescribed and call the office if the symptoms are not improving. 04/23/2016 Patient Education: Patient Medication Summary Completed 04/23/2016 Patient Education: Obesity Completed 04/23/2016 Visit Plan: Esophageal Reflux - the patient has been counseled against excessive intake of caffeine, spicy foods, peppermint, and cinnamon - all of which can exacerbate esophageal reflux. The patient is to take medications as prescribed and call the office if the symptoms are not improving. Urge incontinence -Pt has urge incontinence - the patient has been counseled about potential triggers for increase in sensation of the urgency - the pt has been counseled to avoid caffeinated products, spicy products, and to urinate every 2-3 hours to prevent the incontinence associated with the urgency. Pt is to continue with current treatment plan and call if symptoms worsen. Obesity - advised activity - exercise - decrease caloric intake - and in 6 weeks we will re-eval her situation and possibly start her on diet medication. 01/23/2016 Appointment: Ling Collins [facility]Ptel[facility] [address] [id number] (15 min) Moderate 01/23/2016 Patient Education: Patient Medication Summary Completed 01/23/2016 Patient Education: Obesity Completed 01/23/2016 Visit Plan: Esophageal Reflux - the patient has been counseled against excessive intake of caffeine, spicy foods, peppermint, and cinnamon - all of which can exacerbate esophageal reflux. The patient is to take medications as prescribed and call the office if the symptoms are not improving. referral to [facility] for EGD Urge incontinence -Pt has urge incontinence - the patient has been counseled about potential triggers for increase in sensation of the urgency - the pt has been counseled to avoid caffeinated products, spicy products, and to urinate every 2-3 hours to prevent the incontinence associated with the urgency. Pt is to continue with current treatment plan and call if symptoms worsen. start on vesicare 11/21/2015 Patient Education: Patient Medication Summary Completed 11/21/2015 Care Plan: Referral Order SNOMED-CT : [id number] Ordered 11/21/2015 Visit Plan: Biceps tendonitis - pt to do exercises as directed, antiinflammatories directed to be taken per RX instructions and pt to call if symptoms are not improved. take two aleve twice daily - call if not impr oving in the next 10 -14 days. Pt is to decrease her topamax as directed: topamax 25mg tablet to be tapered as follows: 1tab AM & 2 at hs x2wks, [id number] x2wks, then 1/2 am & 1hs x1wk, then 1/2 bidx 1wk, then 1/2 at hs x1wk then stop 08/23/2014 Appointment: Ling Collins WPtel: [address] [place], [place] [id number] Sick 08/23/2014 Patient Education: Patient Medication Summary Completed 08/23/2014 Visit Plan: Chronic migraine headac hes - recommended for pt to keep appt with the specialist in [place] for migraine surgery. Topical pain in legs - recommended pt to start on iron, monitor as pt weans off of the topamax post surgically. 03/01/2014 Appointment: Ling Collins WPtel: [address] [place], [place] [id number] Follow up 03/01/2014 Patient Education: Patient Medication Summary Completed 03/01/2014 Visit Plan: Migraine headaches - pt has not yet had an intractible migraine since she had her botox injections. She is to follow up with her Neurologist about her migraine headaches.. 06/14/2013 Appointment: Ling Collins WPtel: [id number] [place] Follow up 06/14/2013 Patient Education: Patient Medication Summary Completed 06/14/2013 Visit Plan: Acute Migraine - pt has chronic migraine headaches, but comes into clinic today complaining of intractible migraine headache symptoms. I have recommended changes to the chronic symptoms management and the pt has been given the following acute treatment in clinic today: 04/06/2013 Patient Education: Patient Medication Summary Completed 04/06/2013 Visit Plan: Migraine - shot given t o patient - pt tolerated without incidient and was sent home after abt 20-30 minute wait. 03/26/2013 Patient Education: Patient Medication Summary Completed 03/26/2013 Patient Education: Patient Medication Summary Completed 03/11/2013 Visit Plan: Acute on Chronic Migrai ne headaches - I have recommended a demerol shot tomorrow as the patient cannot drive home with having had the shot today. She was given a script for demerol 50mg to be given IM x 1 tomorrow. I have AGAIN counseled Shannon that she would be best served to have the botox injections in her forehead as this seems to be the trigger site for the migraine headaches. She has been having multiple migraine recently and I suspect that the allergy season is part of the trigger for her migraines. She is to call if her migraines to not improve with the higher dose of the topamax as I increased her topamax to 75mg bid. 03/10/2013 Appointment: Ling Collins WPtel: [address] [facility] [place] Other 03/10/2013 Patient Education: Patient Medication Summary Completed 03/10/2013 Visit Plan: Acute Migraine - pt has chronic migraine headaches, but comes into clinic today complaining of intractible migraine headache symptoms. I have recommended changes to the chronic symptoms management and the pt has been given the following acute treatment in clinic today: Demerol 50mg IM (RX written and patient's picked up medication from [facility] pharmacy and we administered) and Phenergan 25mg IM. 02/18/2013 Appointment: Yennifer Field [facility]Ptel[facility] [id number] [place] Other 02/18/2013 Patient Education: Patient Medication Summary Completed 02/18/2013 Visit Plan: Pneumonia - Pt has been diagnosed with pneumonia by physical exam. A chest xray has been ordered as have antibiotics. The pt is aware of the diagnosis and the need for acute treatment of this illness. Asthma exacerbation- recommended steroid taper. 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 11/16/2012 Appointment: Ling Collins WPtel: [address] [place] [address] 11/16/2012 Patient Education: Patient Medication Summary Completed 11/16/2012 Visit Plan: Acute on Chronic Migrai ne - pt has chronic migraine headaches, but comes into clinic today complaining of intractible migraine headache symptoms. I have recommended changes to the chronic symptoms management and the pt has been instructed in acute treatment, medications have been adjusted. I suspect that for this patient, she may need to consider BOTOX treatments for her migraines. 10/29/2012 Appointment: Ling Collins WPtel: [facility] [address] Other 10/29/2012 Patient Education: Patient Medication Summary Completed 10/29/2012 Visit Plan: Migraine Headaches - im proved, continue with plan to taper off of topamax. Pt to do the following: TOPAMAX- stay on the 25 mg dose twice daily x 2 more weeks, then back down to 25 mg one daily x 1 month, then every other day x 1 week then stop.. CALL IF THE MIGRAINES RESTART, IF YOU ARE ON THE ONCE DAILY DOSING, GO BACK UP TO TWICE DAILY. Obesity - chronic issue with this patient. The pt has been counseled about diet changes, calorie restriction, and need to exercise. Pt will RTC in one month for weight check. Shoulder pain - due to frozen shoulder - recommended follow up as per Dr. Judge. 03/12/2012 Appointment: Ling Collins WPtel: [facility] [address] Other 03/12/2012 Patient Education: Patient Medication Summary Completed 03/12/2012 Visit Plan: mri of keft shoulder - rotator cuff instability kenalog shot referal to orthopedic surgeon for eval of left shoulder and right knee 01/28/2012 Appointment: Ling Collinsl: [address] [facility] [place] Other 01/28/2012 Patient Education: Patient Medication Summary Completed 01/28/2012 Visit Plan: Migraine headaches - im proved - Decrease the Topamax to 100mg in the morning and 50mg at night x 2 weeks, then decrease further to 50mg twice daily. After two weeks on the topamax at 50mg twice daily, then lets change the amitryptylline to 25mg in the morning and 50mg at night x 2 weeks. After two weeks, and if not having migraines, then decrease to 25mg twice daily. Anxiety - associated with migraines - recommended no change in valium use at this time. 01/09/2012 Appointment: Ling Collins WPtel: [facility] [address] Other 01/09/2012 Patient Education: Patient Medication Summary Completed 01/09/2012 Visit Plan: URI - Pt advised to inc rease fluids, vitamin C. Discussed natural and expected course of this diagnosis and need to alert me if symtpoms do not follow expected course, or if any worse. RX sent to patient's pharmacy. Kenalog injection given today in the office as well. Cough-cough med called to patient's pharmacy. Call if syptoms do not resolve or if any worse. 10/17/2011 Appointment: Yennifer Field WPtel: [facility] [place] Other 10/17/2011 Patient Education: Patient Medication Summary Completed 10/17/2011 Referral: Eric Ramirez Referral Completed Referral: External, Ordering Provider Referral Initiated Referral: [facility] Referral Appointment Requested Referral: Eric Ramirez Referral Appointment Requested Instructions Comment . Acute on Chronic M igraine - pt has chronic migraine headaches, but comes into clinic today complaining of intractible migraine headache symptoms. I have recommended changes to the chronic symptoms m anagement and the pt has been instructed in acute treatment, medications have been adjusted. I suspect that for this patient, she may need to consider BOTOX treatments for her migraines. . Chronic migraine h eadaches - recommended for pt to keep appt with the specialist in [place] for migraine surgery. Topical pain in legs - recommended pt to start on iron, monitor as pt weans off of the topamax post surgically. use RICE - rest, ice , compression, elevation get knee x-ray if things are not getting better then we need to refer you to Ortho or PT zorvolex 35mg - 1 pill three times a day x 3 days. . Right knee pain - the patient was instructed in appropriate posture, need for weight loss to alleviate abdominal obesity that is worsening the patient's pain.. The pt is to use prn antiinflammatories to manage acute pain. The patient is to call the office if the pain is worsening or does not improve. corcidin HBP - a dec ongestant for people with high blood pressure - get this over the counter - try this twice a day x 1 wk to see if it helps to clear up the cough/mucus. try extended release melatonin 10mg at bedtime - if the insomnia does not improve - then we need to consider you starting on amitriptyline 10mg nightly. . Hypertension - well controlled - cosmo nue with current medications, continue with no added salt diet. Pt has been encouraged to exercise daily. The pt has been advised to call the office if there are any acute concerns about change in blood pressure readings at home. URI - corcidin HBP - a decongestant for people with high blood pressure - get this over the counter - try this twice a day x 1 wk to see if it helps to clear up the cough/mucus. Insomnia - pt advised to try extended release melatonin 10mg at bedtime - if the insomnia does not improve - then we need to consider you starting on amitriptyline 10mg nightly. . Migraine headaches - pt has not yet had an intractible migraine since she had her botox injections. She is to follow up with her Neurologist about her migraine headaches.. . Migraine - shot gi anamaria to patient - pt tolerated without incidient and was sent home after abt 20-30 minute wait. . Acute on Chronic M igraine headaches - I have recommended a demerol shot tomorrow as the patient cannot drive home with having had the shot today. She was given a script for demerol 50mg to be given IM x 1 tomorrow. I have AGAIN counseled Shannon that she would be best served to have the botox injections in her forehead as this seems to be the trigger site for the migraine headaches. She has been having multiple migraine recently and I suspect that the allergy season is part of the trigger for her migraines. She is to call if her migraines to not improve with the higher dose of the topamax as I increased her topamax to 75mg bid. . Acute Migraine - p t has chronic migraine headaches, but comes into clinic today complaining of intractible migraine headache symptoms. I have recommended changes to the chronic symptoms management and the pt has been given the following acute treatment in clinic today: Demerol 50mg IM (RX written and patient's picked up medication from [facility] pharmacy and we administered) and Phenergan 25mg IM. . Pneumonia - Pt has been diagnosed with pneumonia by physical exam. A chest xray has been ordered as have antibiotics. The pt is aware of the diagnosis and the need for acute treatment of this illness. Asthma exacerbation- recommended steroid taper. 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 . Abdominal pain, Co litis - advised liquid diet x 2-3 days, then advance to bland diet. If at any time her symptoms worsen, she is to go to the emergency department. Pt given order for EGD/Colonoscopy at [address] Garcia. . Migraine headaches - improved - Decrease the Topamax to 100mg in the morning and 50mg at night x 2 weeks, then decrease further to 50mg twice daily. After two weeks on the topamax at 50mg twice daily, then lets change the amitryptylline to 25mg in the morning and 50mg at night x 2 weeks. After two weeks, and if not having migraines, then decrease to 25mg twice daily. Anxiety - associated with migraines - recommended no change in valium use at this time. . Esophageal Reflux - the patient has been counseled against excessive intake of caffeine, spicy foods, peppermint, and cinnamon - all of which can exacerbate esophageal reflux. The patient is to take medications as prescribed and call the office if the symptoms are not improving. . Esophageal Reflux - the patient has been counseled against excessive intake of caffeine, spicy foods, peppermint, and cinnamon - all of which can exacerbate esophageal reflux. The patient is to take medications as prescribed and call the office if the symptoms are not improving. referral to [facility] for EGD Urge incontinence -Pt has urge incontinence - the patient has been counseled about potential triggers for increase in sensation of the urgency - the pt has been counseled to avoid caffeinated products, spicy products, and to urinate every 2-3 hours to prevent the incontinence associated with the urgency. Pt is to continue with current treatment plan and call if symptoms worsen. start on vesicare . Hypertension - wel l controlled - continue with current medications, continue with no added salt diet. Pt has been encouraged to exercise daily. The pt has been advised to call the office if there are any acute concerns about change in blood pressure readings at home. Esophageal Reflux - the patient has been counseled against excessive intake of caffeine, spicy foods, peppermint, and cinnamon - all of which can exacerbate esophageal reflux. The patient is to take medications as prescribed and call the office if the symptoms are not improving. . Well Adult - pt wa s counseled about diet, exercise, and encouraged to follow a heart healthy diet and increase activity level. The patient was instructed to RTC yearly for well adult exams and PRN for acute illnesses. The pt was also instructed to have yearly labs for check of cholesterol, thyroid, chem panel, CBC, and renal functioning. Hypertension - uncontrolled - the patient's medications have been modified as documented in the visit note. The patient has been counseled to cut back on salt in diet for a no added salt diet, low fat diet, start an exercise program with low weight bearing exercises and higher aerobic activity for heart health. The patient is to check blood pressure readings as an outpatient and either fax, call, or email the readings to the office next week for practitioner to review. The pt is to call for acute concerns. . mri of keft should er - rotator cuff instability kenalog shot referal to orthopedic surgeon for eval of left shoulder and right knee . Acute Migraine - p t has chronic migraine headaches, but comes into clinic today complaining of intractible migraine headache symptoms. I have recommended changes to the chronic symptoms management and the pt has been given the following acute treatment in clinic today: . Esophageal Reflux - the patient has been counseled against excessive intake of caffeine, spicy foods, peppermint, and cinnamon - all of which can exacerbate esophageal reflux. The patient is to take medications as prescribed and call the office if the symptoms are not improving. Urge incontinence -Pt has urge incontinence - the patient has been counseled about potential triggers for increase in sensation of the urgency - the pt has been counseled to avoid caffeinated products, spicy products, and to urinate every 2-3 hours to prevent the incontinence associated with the urgency. Pt is to continue with current treatment plan and call if symptoms worsen. Obesity - advised activity - exercise - decrease caloric intake - and in 6 weeks we will re-eval her situation and possibly start her on diet medication. topamax 25mg tablet to be tapered as follows: 1tab AM & 2 at hs x2wks, [id number] x2wks, then 1/2 am & 1hs x1wk, then 1/2 bidx 1wk, then 1/2 at hs x1wk then stop take two aleve twice daily - call if not improving in the next 10 -14 days. . Biceps tendonitis - pt to do exercises as directed, antiinflammatories directed to be taken per RX instructions and pt to call if symptoms are not improved. take two aleve twice daily - call if not improving in the next 10 -14 days. Pt is to decrease her topamax as directed: topamax 25mg tablet to be tapered as follows: 1tab AM & 2 at hs x2wks, [id number] x2wks, then 1/2 am & 1hs x1wk, then 1/2 bidx 1wk, then 1/2 at hs x1wk then stop Carafate - with meal s and at night protonix daily zantac daily zofran for nausea Will refer for a scope (EGD) . Esophageal Reflux - Severe and ongoing - will refer for EGD - the patient has been counseled against excessive intake of caffeine, spicy foods, peppermint, and cinnamon - all of which can exacerbate esophageal reflux. The patient is to take medications as prescribed and call the office if the symptoms are not improving. Pt states that she needs to have the EGD through a clinic through their insurance - Fax number - [phone]; phone number - [phone]. Carafate - with meal s and at night protonix daily zantac daily zofran for nausea Will refer for a scope (EGD) . Esophageal Reflux - Severe and ongoing - will refer for EGD - the patient has been counseled against excessive intake of caffeine, spicy foods, peppermint, and cinnamon - all of which can exacerbate esophageal reflux. The patient is to take medications as prescribed and call the office if the symptoms are not improving. Pt states that she needs to have the EGD through a clinic through their insurance - Fax number - [phone]; phone number - [phone]. . Migraine Headaches - improved, continue with plan to taper off of topamax. Pt to do the following: TOPAMAX- stay on the 25 mg dose twice daily x 2 more weeks, then back down to 25 mg one daily x 1 month, then every other day x 1 week then stop.. CALL IF THE MIGRAINES RESTART, IF YOU ARE ON THE ONCE DAILY DOSING, GO BACK UP TO TWICE DAILY. Obesity - chronic issue with this patient. The pt has been counseled about diet changes, calorie restriction, and need to exercise. Pt will RTC in one month for weight check. Shoulder pain - due to frozen shoulder - recommended follow up as per Dr. Judge. . URI - Pt advised t o increase fluids, vitamin C. Discussed natural and expected course of this diagnosis and need to alert me if symtpoms do not follow expected course, or if any worse. RX sent to patient's pharmacy. Kenalog injection given today in the office as well. Cough-cough med called to patient's pharmacy. Call if syptoms do not resolve or if any worse. Esophageal Reflux - the patient has been counseled against excessive intake of caffeine, spicy foods, peppermint, and cinnamon - all of which can exacerbate esophageal reflux. The patient is to take medications as prescribed and call the office if the symptoms are not improving. . Well Adult - pt was counseled about di et, exercise, and encouraged to follow a heart healthy diet and increase activity level. The patient was instructed to RTC yearly for well adult exams and PRN for acute illnesses. The pt was also instructed to have yearly labs for check of cholesterol, thyroid, chem panel, CBC, and renal functioning. Esophageal Reflux - the patient has been counseled against excessive intake of caffeine, spicy foods, peppermint, and cinnamon - all of which can exacerbate esophageal reflux. The patient is to take medications as prescribed and call the office if the symptoms are not improving. Hypertension - well controlled - continue with current medications, continue with no added salt diet. Pt has been encouraged to exercise daily. The pt has been advised to call the office if there are any acute concerns about change in blood pressure readings at home. . Right knee pain - I have recommended a referral for right knee pain evaluation to Dr. Judge at [facility] in [place]. - Anti- inflammatory sample of vivlodex given to patient today. vivlodex lot [id number], exp 04/2020, addieo Restless Leg Syndrome - uncontrolled symptoms - I have recommended pt to start on a low dose of requip. Pt to alert us if the symptoms do not improve. HTN - not optimally controlled - she admits to feeling nervous today and being in pain due to her knee. Advised to monitor pressure at home.
--- OUTSIDE RECORDS SUMMARY | 2020-03-15 06:31 | XMS REPORT | CCD ---
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 Name Role Phone PP Unavailable CCM Unavailable Summary Purpose Interface Exchange Insurance Providers Payer name Policy type / Coverage type Covered democrat ID Effective Begin Date Effective End Date [employer] Benefit [employer] [facility] [id number] Unkno wn Family history Mother Diagnosis Age [...] a daycare 10/17/[address]: 613095511 Nonsmoker 10/17/[address]: 987192843 Never drinks alcohol 10/17/2011 Allergies, Adverse Reactions, [...] Status Onset Date Resolved Date Encounter for [facility] adult medical examination with abnormal findings [...] Date Stop Date Sta tus Fill Instructions losartan 50 mg tablet RxNorm: 534191 1 Tablet(s) PO daily 06/10/2019 10/07/2019 Active Protonix 40 mg table t,delayed release RxNorm: 473699 TAKE 1 TABLET BY MOUT H ONCE DAILY 05/19/2019 No Stop Date Active oxybutynin chloride ER 5 mg tablet,extended release 24 hr RxNorm: 199753 TAKE 1 TABLET BY MOUTH ONCE DAILY 05/19/2019 No Stop Date Active ropinirole 0.25 mg t ablet RxNorm: 389591 1 Tablet(s) PO BID 03/02/2019 06/29/2019 Active Vivlodex 10 mg capsule RxNorm: 4736620 1 Capsule(s) PO daily 03/02/2019 06/09/2019 Inactive oxybutynin chloride ER 5 mg tablet,extended release 24 hr RxNorm: 760256 TAKE 1 TABLET BY MOUTH ONCE DAILY 12/21/2018 05/18/2019 Inactive Protonix 40 mg table t,delayed release RxNorm: 512289 TAKE 1 TABLET BY MOUT H ONCE DAILY 12/21/2018 05/18/2019 Inactive Zorvolex 35 mg capsule RxNorm: 9368077 1 Capsule(s) PO TID 12/09/2018 06/09/2019 Inactive oxybutynin chloride ER 5 mg tablet,extended release 24 hr RxNorm: 131585 TAKE 1 TABLET BY MOUTH ONCE DAILY 10/21/2018 12/20/2018 Inactive Protonix 40 mg table t,delayed release RxNorm: 636540 TAKE 1 TABLET BY MOUT H ONCE DAILY 10/21/2018 12/20/2018 Inactive oxybutynin chloride ER 5 mg tablet,extended release 24 hr RxNorm: 390629 TAKE 1 TABLET BY MOUTH ONCE DAILY 07/20/2018 10/20/2018 Inactive Protonix 40 mg table t,delayed release RxNorm: 850592 TAKE 1 TABLET BY MOUT H ONCE DAILY 07/20/2018 10/20/2018 Inactive Xanax 0.25 mg tablet RxNorm: 547342 1 Tablet(s) PO Q8 as needed anxiety 02/17/2018 03/18/2018 In active oxybutynin chloride ER 5 mg tablet,extended release 24 hr RxNorm: 440328 TAKE ONE TABLET BY MOUTH ONCE DAILY 02/17/2018 07/19/2018 Inactive Protonix 40 mg table t,delayed release RxNorm: 613976 TAKE ONE TABLET BY MO UTH ONCE DAILY 02/17/2018 07/19/2018 Inactive Xanax 0.25 mg tablet RxNorm: 628063 1 Tablet(s) PO Q8 as needed anxiety 10/16/2017 11/12/2017 In active Zantac 150 mg tablet RxNorm: 511857 1 Tablet(s) PO daily 09/15/2017 03/13/2018 Inactive Carafate 1 gram tablet RxNorm: 863836 1 Tablet(s) PO AC & HS 09/15/2017 03/13/2018 Inactive oxybutynin chloride ER 5 mg tablet,extended release 24 hr RxNorm: 344672 TAKE ONE TABLET BY MOUTH ONCE DAILY 08/18/2017 02/13/2018 Inactive Protonix 40 mg table t,delayed release RxNorm: 204476 TAKE ONE TABLET BY [facility] ONCE DAILY 08/18/2017 02/13/2018 Inactive Carafate 1 gram tablet RxNorm: 875500 1 Tablet(s) PO AC & HS 07/09/2017 08/07/2017 Inactive Protonix 40 mg table t,delayed release RxNorm: 784311 1 Tablet(s) PO daily 07/09/2017 08/07/2017 In active Zofran 4 mg tablet RxNorm: 064562 1 Tablet(s) PO TID as needed nausea 07/09/2017 07/13/2017 In active Zantac 150 mg tablet RxNorm: 595749 1 Tablet(s) PO daily 07/09/2017 08/07/2017 Inactive losartan 25 mg tablet RxNorm: 268709 1 Tablet(s) PO daily 06/24/2017 10/21/2017 Inactive oxybutynin chloride ER 5 mg tablet,extended release 24 hr RxNorm: 543342 TAKE ONE TABLET BY MOUTH ONCE DAILY 05/15/2017 08/12/2017 Inactive oxybutynin chloride ER 5 mg tablet,extended release 24 hr RxNorm: 435069 TAKE ONE TABLET BY MOUTH ONCE DAILY 02/07/2017 05/07/2017 Inactive oxybutynin chloride ER 5 mg tablet,extended release 24 hr RxNorm: 348183 TAKE ONE TABLET BY MOUTH ONCE DAILY 10/01/2016 01/28/2017 Inactive oxybutynin chloride ER 5 mg tablet,extended release 24 hr RxNorm: 140666 TAKE ONE TABLET BY MOUTH ONCE DAILY 05/27/2016 09/23/2016 Inactive cranberry fruit conc entrate 500 mg capsule RxNorm: 912327 1 Capsule(s) PO two t o three times weekly 04/23/2016 No Stop Date Active Nexium 40 mg capsule ,delayed release RxNorm: 430881 1 Capsule(s) PO BID 04/23/2016 07/23/2017 In active oxybutynin chloride ER 5 mg tablet,extended release 24 hr RxNorm: 688558 1 Tablet(s) PO daily 01/23/2016 05/21/2016 Inactive pantoprazole 40 mg t ablet,delayed release RxNorm: 486644 1 Tablet(s) PO BID TA KE ONE TABLET BY MOUTH EVERY DAY 12/12/2015 12/11/2015 Inactive pantoprazole 40 mg t ablet,delayed release RxNorm: 003808 1 Tablet(s) PO BID TA KE ONE TABLET BY MOUTH TWICE EVERY DAY 12/12/2015 04/22/2016 Inactive Vesicare 5 mg tablet RxNorm: 209893 1 Tablet(s) PO QPM 11/21/2015 01/21/2016 Inactive Carafate 1 gram tablet RxNorm: 188617 1 Tablet(s) PO QID dissolve in 10mL of w ater 11/21/2015 04/22/2016 Inactive pantoprazole 40 mg t ablet,delayed release RxNorm: 720695 1 Tablet(s) PO daily TAKE ONE TABLET BY MOUTH EVERY DAY 04/05/2015 12/11/2015 Inactive Topamax 100 mg tablet RxNorm: 462906 1 Tablet(s) UD 1tab AM & 2 at hs x2wks, lvlr1qno x2wks, then 1/2 am & 1hs x1wk, then 1/2 bidx 1wk, then 1/2 at hs x1wk then stop 08/23/2014 01/19/2015 Inactive Vitamin B-12 1,000 m cg/mL injection solution RxNorm: 371558 2x per month Millilit er(s) Inj INJECT 1ML EVERY 2 WEEKS 08/23/2014 11/20/2015 Inactive amitriptyline 50 mg tablet RxNorm: 172739 1 Tablet(s) QPM 08/23/2014 11/20/2015 Inactive amitriptyline 50 mg tablet RxNorm: 187740 TAKE ONE TABLET BY MO UTH TWICE DAILY 08/18/2014 08/22/2014 In active amitriptyline 50 mg tablet RxNorm: 349328 TAKE ONE TABLET BY MO UTH TWICE DAILY 05/27/2014 08/17/2014 In active Topamax 100 mg tablet RxNorm: 379626 TAKE ONE TABLET BY MOUTH TWICE DAILY 05/27/2014 08/22/2014 In active Topamax 100 mg tablet RxNorm: 956452 Tablet(s) PO TAKE ONE TABLET BY MOUTH TW ICE DAILY 03/24/2014 05/26/2014 Inactive pantoprazole 40 mg t ablet,delayed release RxNorm: 456091 1 Tablet(s) PO daily TAKE ONE TABLET BY MOUTH EVERY DAY 03/18/2014 03/12/2015 Inactive nystatin 100,000 uni t/mL oral suspension RxNorm: 569717 5 Milliliter(s) PO QI D 03/07/2014 03/06/2014 In active nystatin 100,000 uni t/mL oral suspension RxNorm: 676471 5 Milliliter(s) PO QI D 03/07/2014 03/16/2014 In active Topamax 100 mg tablet RxNorm: 069588 Tablet(s) PO TAKE ONE TABLET BY MOUTH TW ICE DAILY 02/21/2014 03/23/2014 Inactive Vitamin B-12 1,000 m cg/mL injection solution RxNorm: 874099 solution Inj INJECT 1 ML EVERY 2 WEEKS 12/21/2013 08/22/2014 Inactive Frova 2.5 mg tablet RxNorm: 749255 1 Tablet(s) PO 12/20/2013 11/20/2015 Inactive at o nset of migraine Frova 2.5 mg tablet RxNorm: 426931 1 Tablet(s) PO 10/28/2013 12/19/2013 Inactive at o nset of migraine Topamax 100 mg tablet RxNorm: 456449 Tablet(s) PO TAKE ONE TABLET BY MOUTH TW ICE DAILY 10/21/2013 2014 Inactive Topamax 100 mg tablet RxNorm: 660008 Tablet(s) PO TAKE ONE TABLET BY MOUTH TW ICE DAILY 08/23/2013 10/20/2013 Inactive Topamax 100 mg tablet RxNorm: 662355 1 Tablet(s) PO BID TAKE ONE TABLET BY MO UTH TWICE DAILY 05/24/2013 08/22/2013 Inactive Demerol (PF) 50 mg/m L Injection RxNorm: 3879134 1/2 Milliliter(s) In j 04/06/2013 04/06/2013 In active promethazine 25 mg/m L Injection RxNorm: 727201 1 Milliliter(s) Inj 04/06/2013 04/06/2013 Inactive promethazine 25 mg/m L Injection RxNorm: 666735 2 Milliliter(s) Inj 03/26/2013 03/26/2013 Inactive Demerol (PF) 50 mg/m L Injection RxNorm: 2969868 Milliliter(s) Inj 03/26/2013 03/26/2013 Inactive amitriptyline 50 mg tablet RxNorm: 080224 Tablet(s) PO TAKE ONE TABLET BY MOUTH TWICE DAILY 03/22/2013 05/26/2014 Inactive Topamax 100 mg tablet RxNorm: 961928 1 Tablet(s) PO BID 03/19/2013 03/18/2013 Inactive Topamax 100 mg tablet RxNorm: 231904 1 Tablet(s) PO BID 03/19/2013 05/24/2013 Inactive Demerol (PF) 50 mg/m L Injection RxNorm: 5341904 1 Milliliter(s) Inj 03/11/2013 03/11/2013 Inactive Topamax 50 mg tablet RxNorm: 323079 1.5 Tablet(s) PO BID 03/10/2013 03/18/2013 Inactive promethazine 25 mg t ablet RxNorm: 993858 1 Tablet(s) PO Q6 PRN 02/25/2013 11/20/2015 Inactive pantoprazole 40 mg t ablet,delayed release RxNorm: 695333 Tablet(s) PO TAKE ONE TABLET BY MOUTH EVERY DAY 02/22/2013 03/17/2014 Inactive promethazine 25 mg/m L Injection RxNorm: 718558 1 Milliliter(s) Inj 02/18/2013 02/18/2013 Inactive Demerol (PF) 25 mg/0 .5 mL Injection RxNorm: 079803 1 Milliliter(s) Inj 02/18/2013 02/18/2013 In active total of 50mg given IM Topamax 50 mg tablet RxNorm: 009706 Tablet(s) PO TAKE ONE TABLET BY MOUTH TW ICE DAILY 02/04/2013 03/09/2013 Inactive prednisone 20 mg tablet RxNorm: 445244 3 Tablet(s) PO daily 11/16/2012 11/20/2012 Inactive ciprofloxacin 500 mg tablet RxNorm: 620649 1 Tablet(s) PO BID 11/16/2012 11/22/2012 Inactive Kenalog 40 mg/mL Lovely p for Injection RxNorm: 6338147 1 Milliliter(s) Inj 11/16/2012 11/16/2012 In active Tamiflu 75 mg capsule RxNorm: 128464 1 Capsule(s) PO BID 11/16/2012 11/20/2012 Inactive esterified estrogens -methyltestosterone 1.25 mg-2.5 mg tablet RxNorm: 767732 1 Tablet(s) PO every other day 10/29/2012 06/23/2017 Inactive amitriptyline 50 mg tablet RxNorm: 909763 1 Tablet(s) PO daily 10/29/2012 03/21/2013 Inactive TAKE ONE TABLET BY MOUTH TWICE DAILY Topamax 50 mg tablet RxNorm: 752114 1 Tablet(s) PO BID 10/29/2012 01/26/2013 Inactive Vitamin B-12 1,000 m cg/mL injection solution RxNorm: 904875 1 Milliliter(s) Inj Q 2weeks INJECT 1ML TWICE A MONTH 10/29/2012 12/20/2013 Inactive takes 2 times monthly. ok to give multidose vial if available. if not please give 3 month supply of single dose vials Vitamin B-12 1,000 m cg/mL Injection RxNorm: 016001 Solution Inj INJECT 1 ML TWICE A MONTH 10/26/2012 10/28/2012 Inactive Topamax 25 mg tablet RxNorm: 366368 1 Tablet(s) PO BID 10/13/2012 03/10/2013 Inactive Topamax 25 mg tablet RxNorm: 665612 1 Tablet(s) PO as directed 09/24/2012 10/12/2012 Inactive 1 tab bid x 2 weeks1 tab daily x 1 month 1 tab qod x 1 week then stop Percocet 10 mg-325 m g tablet RxNorm: 7658053 1 Tablet(s) PO Q4 PRN 07/22/2012 11/20/2015 Inactive diazepam 5 mg tablet RxNorm: 814170 1 Tablet(s) PO TID PRN 07/22/2012 01/17/2013 Inactive amitriptyline 50 mg tablet RxNorm: 014485 Tablet(s) PO 06/17/2012 10/28/2012 Inactive TAKE ONE TABLET BY MOUTH TWICE DAILY Topamax 25 mg tablet RxNorm: 153432 1 Tablet(s) PO as directed 04/14/2012 06/01/2012 Inactive 1 tab bid x 2 weeks1 tab daily x 1 month 1 tab qod x 1 week then stop Topamax 25 mg Tab RxNorm: 382949 1 Tablet(s) PO as directed 03/16/2012 04/13/2012 Inactive 1 tab bid x 2 weeks1 tab daily x 1 month 1 tab qod x 1 week then stop pantoprazole 40 mg t ablet,delayed release RxNorm: 484522 Tablet(s) PO 02/17/2012 02/21/2013 In active TAKE ONE TABLET BY MOUTH EVERY DAY Topamax 50 mg Tab RxNorm: 307071 Tablet(s) PO 01/21/2012 03/11/2012 Inactive plea se give pt #42 of the 50mg tablets, to take bid till gone.then 25mg q am and 50 q hs x 14 days then 25 mg bid thereafter # 44 amitriptyline 50 mg tablet RxNorm: 895528 Tablet(s) PO 12/18/2011 06/16/2012 Inactive TAKE ONE TABLET BY MOUTH TWICE DAILY Percocet 10 mg-325 m g tablet RxNorm: 2117681 1 Tablet(s) PO Q4 PRN 11/13/2011 07/21/2012 Inactive Vitamin B-12 1,000 m cg/mL Injection RxNorm: 444328 1 Milliliter(s) Inj 2 x month 10/17/2011 10/16/2011 In active Vitamin B-12 1,000 m cg/mL Injection RxNorm: 031820 1 Milliliter(s) Inj 2 x month 10/17/2011 10/25/2012 In active topiramate 100 mg Tab RxNorm: 694339 1 Tablet(s) PO BID 10/17/2011 01/20/2012 Inactive TAKE ONE TABLET BY MOUTH TWICE DAILY Kenalog 40 mg/mL Lovely p for Injection RxNorm: 0205377 1 Milliliter(s) Inj 10/17/2011 10/17/2011 In active diazepam 5 mg tablet RxNorm: 181822 1 Tablet(s) PO TID PRN 09/25/2011 03/22/2012 Inactive diazepam 5 mg Tab RxNorm: 715497 1 Tablet(s) PO TID PRN 09/15/2011 09/17/2011 Inactive topiramate 100 mg Tab RxNorm: 417122 Tablet(s) PO 08/25/2011 10/16/2011 Inactive TAKE ONE TABLET BY MOUTH TWICE DAILY topiramate 100 mg Tab RxNorm: 509369 1 Tablet(s) PO BID 08/21/2011 08/24/2011 Inactive pantoprazole 40 mg T ab, Delayed Release RxNorm: 312957 1 Tablet(s) PO daily 07/19/2011 08/17/2011 In active ibuprofen 800 mg Tab RxNorm: 785627 1 Tablet(s) PO Q8 PRN No Start Date Active Vitamin D3 5,000 uni t tablet RxNorm: 182692 1 Tablet(s) PO daily No Start Date Active Beano 150 unit tablet RxNorm: 678811 1 Tablet(s) PO PRN No Start Date Active calcium 167 mg-magne sium 65 mg-herbal complex no.180 200 mg tablet RxNorm: calcium mag zinc Tablet(s) PO daily No Start Date Active multivitamin capsule RxNorm: 1 Capsule(s) PO daily No Start Date Active cranberry fruit conc entrate 250 mg chewable tablet RxNorm: 9595229 1 Tablet(s) PO two to three times weekly No Start Date 04/22/2016 Inactive amitriptyline 50 mg Tab RxNorm: 222852 1 Tablet(s) PO BID No Start Date 12/17/2011 Inactive Topamax 50 mg Tab RxNorm: 998226 Tablet(s) PO No Start Date 01/20/2012 Inactive plea se give pt #42 of the 50mg tablets, to take bid till gone.then 25mg q am and 50 q hs x 14 days then 25 mg bid thereafter # 44 cranberry 1,000 mg c apsule RxNorm: 222998 3 Capsule(s) PO daily No Start Date 01/22/2016 Inactive promethazine 25 mg t ablet RxNorm: 874556 1 Tablet(s) PO Q6 PRN No Start Date 02/24/2013 Inactive Topamax 25 mg Tab RxNorm: 423049 1 Tablet(s) PO BID No Start Date 03/15/2012 Inactive Xanax 0.25 mg tablet RxNorm: 968281 1 Tablet(s) PO as needed anxiety No Start Date 10/15/2017 Inactive Frova 2.5 mg tablet RxNorm: 831110 1 Tablet(s) PO No Start Date 10/27/2013 Inactive at onset of migraine Zithromax Z-Darion 250 mg Tab RxNorm: 972684 Tablet(s) PO No Start Date 10/28/2012 Inactive Diflucan 200 mg tablet RxNorm: 057574 1 Tablet(s) PO PRN No Start Date 06/13/2013 Inactive Fish Oil 1,000 mg ca psule RxNorm: 4 Capsule(s) PO daily No Start Date 08/31/2018 Inactive esterified estrogens -methyltestosterone 1.25 mg-2.5 mg tablet RxNorm: 850869 1 Tablet(s) PO daily No Start Date 10/28/2012 Inactive Demerol (PF) 50 mg/m L Injection RxNorm: 7861203 1 Milliliter(s) Inj as doctor directed No Start Date 06/13/2013 Inactive Tessalon 200 mg Cap RxNorm: 606464 1 Capsule(s) PO Q6 PRN No Start Date 10/28/2012 Inactive Medication Administered Medication Codes Instruc tions Start Date Status promethazine 25 mg/mL Injection RxNo rm: 335780 1Milliliter 04/06/2013 N o longer Active Demerol (PF) 50 mg/mL Injection RxNo rm: 4673101 1/2Milliliter 04/06/2013 No longer Active promethazine 25 mg/mL Injection RxNo rm: 925279 2Milliliter 03/26/2013 N o longer Active Demerol (PF) 50 mg/mL Injection RxNo rm: 7410023 Milliliter 03/26/2013 No longer Active Demerol (PF) 50 mg/mL Injection RxNo rm: 5992269 1Milliliter 03/11/2013 N o longer Active promethazine 25 mg/mL Injection RxNo rm: 918886 1Milliliter 02/18/2013 N o longer Active Demerol (PF) 25 mg/0.5 mL Injection RxNorm: 942815 1Milliliter 02/18/2013 N o longer Active Kenalog 40 mg/mL Susp for Injection RxNorm: 6913612 1Milliliter 11/16/2012 N o longer Active Kenalog 40 mg/mL Susp for Injection RxNorm: 8109423 1Milliliter 10/17/2011 N o longer Active Immunizations [...] Code Result Date URINALYSIS NONAUTO W/O SCOPE 02970 Specific [place] 1.005 DateTime(Free Text in Aprima) URINALYSIS NONAUTO W/O SCOPE 45818 PH 6.0 DateTime(Free Jamar t in Aprima) URINALYSIS NONAUTO W/O SCOPE 37172 GLUCOSE DateTime(Free Text i n Aprima) URINALYSIS NONAUTO W/O SCOPE 11872 Protein DateTime(Free Text i n Aprima) URINALYSIS NONAUTO W/O SCOPE 45745 Blood DateTime(Free Text i n Aprima) URINALYSIS NONAUTO W/O SCOPE 00126 Bilirubin DateTime(Free Text i n Aprima) URINALYSIS NONAUTO W/O SCOPE 59203 Ketones DateTime(Free Text i n Aprima) URINALYSIS NONAUTO W/O SCOPE 96246 Urobilinogen DateTime(Free Text in Aprima) URINALYSIS NONAUTO W/O SCOPE 79440 Nitrite DateTime(Free Text i n Aprima) URINALYSIS NONAUTO W/O SCOPE 25518 Leukocytes DateTime(Fr ee Text in ) Review [...] benign 03/01/2014 None Full Exam - General 1995 Musculoskeletal spine, ribs and pelvis Overall: good [...] happy 03/01/2014 None Full Exam - General 1995 Constitutional general appearance Overall: well developed 06/14/2013 [...] clear 06/14/2013 None Full Exam - General 1995 Ears/Nose/Throat [...] murmurs 06/14/2013 None Full Exam - General 1995 Musculoskeletal spine, ribs and pelvis Overall: ribs [...] happy 02/18/2013 None Full Exam - General 1994 Constitutional general appearance Overall: well developed 10/29/2012 None Full Exam - General 1994 [...] clear 01/09/2012 None Full Exam - General 1995 Ears/Nose/Throat oral cavity/pharynx/larynx Overall: oropharyngeal mucosa clear 01/09/2012 None Full Exam - General 1994 Ears/Nose/Throat oral cavity/pharynx/larynx Overall: no masses 01/09/2012 None Full Exam - General 1995 Ears/Nose/Throat [...] Date URINALYSIS NONAUTO W /O SCOPE CPT-4: 29639 06/14/2013 THER/PROPH/DIAG INJ SC/IM CPT-4: 66745 04/06/2013 PROMETHAZINE HCL INJ ECTION CPT-4: J2550 04/06/2013 THER/PROPH/DIAG INJ SC/IM CPT-4: 77006 03/26/2013 PROMETHAZINE HCL INJ ECTION CPT-4: J2550 03/26/2013 THER/PROPH/DIAG INJ SC/IM CPT-4: 36637 03/11/2013 PROMETHAZINE HCL INJ ECTION CPT-4: J2550 02/18/2013 TRIAMCINOLONE ACET I [place] NOS CPT-4: J3301 11/16/2012 THER/PROPH/DIAG INJ SC/IM CPT-4: 81055 11/16/2012 TRIAMCINOLONE ACET I [place] NOS CPT-4: J3301 10/17/2011 THER/PROPH/DIAG INJ SC/IM CPT-4: 22468 10/17/2011 Vital Signs Date Vital 06/10/2019 Blood Pressure 1: 140/78 Code: 8480-6 BMI: 38.6 Code: 51718-5 Heart Rate 1: 78 bpm Height: 5'5" SpO2: 98% Weight: 232 lbs 03/02/2019 Blood Pressure 1: 150/78 Code: 8480-6 Heart Rate 1: 68 bpm Height: 5'5" SpO2: 98% Weight: 12/08/2018 Blood Pressure 1: 122/74 Code: 8480-6 BMI: 36.3 Code: 07081-4 Heart Rate 1: 64 bpm Height: 5'5" SpO2: 100% Weight: 218 lbs 09/01/2018 Blood Pressure 1: 132/80 Code: 8480-6 BMI: 35.6 Code: 49493-2 Heart Rate 1: 80 bpm Height: 5'5" SpO2: 96% Weight: 214 lbs 02/26/2018 Blood Pressure 1: 126/72 Code: 8480-6 BMI: 36.1 Code: 95041-0 Heart Rate 1: 63 bpm Height: 5'5" SpO2: 98% Weight: 217 lbs 07/24/2017 Blood Pressure 1: 138/78 Code: 8480-6 BMI: 36.1 Code: 28254-2 Heart Rate 1: 78 bpm Height: 5'5" SpO2: 99% Weight: 217 lbs 07/09/2017 Blood Pressure 1: 150/84 Code: 8480-6 BMI: 36.4 Code: 19005-2 Heart Rate 1: 70 bpm Height: 5'5" SpO2: 98% Weight: 219 lbs 06/24/2017 Blood Pressure 1: 154/80 Code: 8480-6 BMI: 36.9 Code: 30108-6 Heart Rate 1: 68 bpm Height: 5'5" SpO2: 98% Weight: 222 lbs 04/23/2016 Blood Pressure 1: 136/78 Code: 8480-6 BMI: 38.4 Code: 35466-1 Heart Rate 1: 76 bpm Height: 5'5" SpO2: 98% Weight: 231 lbs 01/23/2016 Blood Pressure 1: 148/82 Code: 8480-6 BMI: 39.6 Code: 79932-7 Heart Rate 1: 76 bpm Height: 5'5" SpO2: 98% Weight: 238 lbs 11/21/2015 Blood Pressure 1: 140/80 Code: 8480-6 BMI: 38.9 Code: 49909-7 Heart Rate 1: 89 bpm Height: 5'5" SpO2: 98% Weight: 233 lbs 8 oz 08/23/2014 Blood Pressure 1: 140/72 Code: 8480-6 BMI: 38.1 Code: 45388-4 Height: 5'5" Weight: 229 lbs 03/01/2014 Blood [...] factors 02/18/2013 None cough Location in the [facility] 11/16/2012 been around day care chil d [...] States she has been doing body by [facility] [employer] for about 3 months but is not losing weight. States she is trying to lose weight. shoulder pain Location o n the left shoulder 03/12/2012 Dr. Judge told her she h ad a frozen shoulder. Trying non-surgical treatments first. shoulder pain [facility] 03/12/2012 None shoulder pain Onset and Resolution ongoing 03/12/2012 Dr. Judge injected her lia mason last week. He told her to take [...] shoulder 01/28/2012 None shoulder pain [facility] [place] 01/28/2012 None shoulder pain Quality th ro[place] [...] Encounters Encounter Performer Loca tion Codes Date ([id number]) PREV VISIT E ST AGE 40-64 Diagnosis: Encounter for general adult medical examination with abnormal findings[ICD10: Z00.01] [facility] CPT-4: 85935 06/10/2019 ([id number]) 34241 EST. P ATIENT, LEVEL IV Diagnosis: Essential (primary) hypertension[ICD10: I10] Diagnosis: Restless legs syndrome[ICD10: G25.81] Diagnosis: Pain in right knee[ICD10: M25.561] Ling Collins MD, [facility] CPT- 4: 79225 03/02/2019 74035 EST. PATIENT, LEVEL III Diagnosis: Pain in right knee[ICD10: M25.561] Claritza Collins MD, [facility] CPT-4: 08787 12/08/2018 ([id number]) 93179 EST. P ATIENT, LEVEL IV Diagnosis: Essential (primary) hypertension[ICD10: I10] Diagnosis: Acute laryngopharyngitis[ICD10: J06.0] Diagnosis: Other insomnia[ICD10: G47.09] Ling Collins MD, [facility] CPT-4: 22123 09/01/2018 ([id number]) 04188 EST. P ATIENT, LEVEL III Diagnosis: Gastro-esophageal reflux disease without esophagitis[ICD10: K21.9] Diagnosis: Essential (primary) hypertension[ICD10: I10] Ling Collins MD, [facility] CPT-4: 11448 02/26/2018 ([id number]) 80843 EST. P ATIENT, LEVEL III Diagnosis: Other specified noninfective gastroenteritis and colitis[ICD10: K52.89] Diagnosis: Epigastric pain[ICD10: R10.13] Diagnosis: Generalized abdominal pain[ICD10: R10.84] Ling Collins MD, [facility] CPT-4: 98195 07/24/2017 [id number] EST. PATIENT, LEVEL IV Diagnosis: Gastro-esophageal reflux disease without esophagitis[ICD10: K21.9] Claritza Collins MD, [facility] CPT-4: 42084 07/09/2017 ([id number]) PREV VISIT E ST AGE 40-64 Diagnosis: Encounter for general adult medical examination with abnormal findings[ICD10: Z00.01] Ling Collins MD, [facility] CPT-4: 31526 06/24/2017 ([id number]) 14594 EST. P ATIENT, LEVEL III Diagnosis: Gastro-esophageal reflux disease with esophagitis[ICD10: K21.0] Ling Collins MD, [facility] CPT-4: 62889 04/23/2016 ([id number]) 48779 EST. P ATIENT, LEVEL IV Diagnosis: Gastro-esophageal reflux disease with esophagitis[ICD10: K21.0] Diagnosis: Morbid (severe) obesity due to excess calories[ICD10: E66.01] Diagnosis: Urge incontinence[ICD10: N39.41] Ling Collins MD, [facility] CPT-4: 70363 01/23/2016 ([id number]) 07821 EST. P ATIENT, LEVEL IV Diagnosis: Metatarsalgia, right foot[ICD10: M77.41] Diagnosis: Achilles tendinitis, right leg[ICD10: M76.61] Diagnosis: Gastro-esophageal reflux disease with esophagitis[ICD10: K21.0] Ling Collins MD, [facility] CPT-4: 32998 11/21/2015 ([id number]) 59668 EST. P ATIENT, LEVEL III Diagnosis: Biceps tendonitis[ICD9: 726.12] Diagnosis: Encounter for long-term (current) use of other medications[ICD9: V58.69] Ling Collins MD, [facility] CPT-4: 94997 08/23/2014 ([id number]) 15407 EST. P ATIENT, LEVEL III Diagnosis: Anxiety, generalized[ICD9: 300.02] Diagnosis: Pain, lower leg[ICD9: 729.5] Ling Collins MD, [facility] CPT-4: 53101 03/01/2014 ([id number]) 29033 EST. P ATIENT, LEVEL III Diagnosis: MIGRAINE NOS/NOT INTRCBL[ICD9: 346.90] Ling Collins MD, [facility] CPT-4: 39365 06/14/2013 ([id number]) 17565 EST. P ATIENT, LEVEL III Diagnosis: MIGRAINE NOS/NOT INTRCBL[ICD9: 346.90] Diagnosis: NAUSEA ALONE[ICD9: 787.02] Ling Collins MD, [facility] CPT-4: 22117 03/10/2013 ([id number]) 59558 EST. P ATIENT, LEVEL III Diagnosis: Intractable migraine with aura without status migrainosus[ICD9: 346.01] Diagnosis: Nausea[ICD9: 787.02] Yennifer Collins MD, [facility] CPT-4: 17867 02/18/2013 ([id number]) 75645 EST. P ATIENT, LEVEL III Diagnosis: BACTERIAL PNEUMONIA[ICD9: 482.9] Diagnosis: Dyspnea[ICD9: 786.09] Ling Collins MD, [facility] CPT-4: 81949 11/16/2012 ([id number]) [id number] EST. P ATIENT, LEVEL III Diagnosis: MIGRAINE NOS/NOT INTRCBL[ICD9: 346.90] Diagnosis: ANXIETY STATE[ICD9: 300.00] Ling Collins MD, [facility] CPT-4: 85376 10/29/2012 ([id number]) 42163 EST. P ATIENT, LEVEL IV Diagnosis: MIGRAINE NOS/NOT INTRCBL[ICD9: 346.90] Diagnosis: JOINT PAIN-SHLDER[ICD9: 719.41] Diagnosis: OBESITY[ICD9: 278.00] Ling Collins MD, [facility] CPT-4: 72059 03/12/2012 ([id number]) 04677 EST. P ATIENT, LEVEL IV Diagnosis: Rotator cuff disorder[ICD9: 726.10] Diagnosis: Shoulder pain, acute[ICD9: 719.41] Diagnosis: Knee pain[ICD9: 719.46] Ling Collins MD, [facility] CPT-4: 61493 01/28/2012 ([id number]) 93272 EST. P ATIENT, LEVEL IV Diagnosis: Migraine[ICD9: 346.90] Diagnosis: Anxiety[ICD9: 300.00] Ling Collins MD, [facility] CPT-4: 38799 01/09/2012 10804 EST. PATIENT, LEVEL III Diagnosis: ACUTE URI[ICD9: 465.9] Diagnosis: Cough[ICD9: 786.2] Yennifer Collins MD, [facility] CPT-4: 88729 10/17/2011 Plan of Care Planned Activity Notes [...] in blood pressure readings at home. 06/10/2019 Patient Education: Patient Medication Summary Completed 06/10/2019 Referral: [facility] Referral Completed 03/08/2019 Visit Plan: Right knee pain - I hav e recommended a referral for right knee pain evaluation to Dr. Judge at [facility] in [place]. - Anti-inflammatory sample of vivlodex given to patient today. vivlodex lot [id number], exp 04/2020, lisa Restless Leg Syndrome - uncontrolled symptoms - I have recommended pt to start on a low dose of requip. Pt to alert us if the symptoms do not improve. HTN - not optimally controlled - she admits to feeling nervous today and being in pain due to her knee. Advised to monitor pressure at home. 03/02/2019 Appointment: Ling Collins WPtel: [facility] [facility] 03/02/2019 Patient Education: Patient Medication Summary Completed 03/02/2019 Care Plan: Referral Order SNOMED-CT : [id number] Pending 03/02/2019 Patient Education: Patient Medication Summary [...] or does not improve. 12/08/2018 Appointment: Claritza Russell WPtel: [facility] (15 min) Moderate 12/08/2018 Patient Education: [...] 10mg nightly. 09/01/2018 Appointment: Ling Collins WPtel: [facility]5 [facility] (15 min) Moderate 09/01/2018 Patient Education: Patient [...] not improving. 02/26/2018 Appointment: Ling Collins WPtel: [facility]8 [facility] (15 min) Moderate 02/26/2018 Patient Education: Patient Medication Summary Completed 02/26/2018 Appointment: Ling Collins WPtel: [facility]0 [facility] (15 min) Moderate 08/11/2017 Visit Plan: Abdominal pain, Colitis - advised liquid diet x 2-3 days, then advance to bland diet. If at any time her symptoms worsen, she is to go to the emergency department. Pt given order for EGD/Colonoscopy at [address] Garcia. 07/24/2017 Appointment: Ling Collins WPtel: [phone] [facility] (15 min) Moderate 07/24/2017 Patient Education: Patient [...] through their insurance - Fax number - [phone] phone number - [phone]. 07/09/2017 Visit Plan: Esophageal Reflux - Sev [...] through their insurance - Fax number - [phone] phone number - [phone]. 07/09/2017 Appointment: Claritza Russell WPtel: [address] [place], [place] [address] (30 min) Complex 07/09/2017 Patient Education: Patient Medication Summary Completed 07/09/2017 Care Plan: Referral Order SNOMED-CT : [id number] Pending 07/09/2017 Visit Plan: Well Adult - [...] call for acute concerns. 06/24/2017 Appointment: Ling Collins WPtel: [phone] [facility] (15 min) Moderate 06/24/2017 Patient Education: Patient [...] diet medication. 01/23/2016 Appointment: Ling Collins WPtel: [phone] [facility] (15 min) Moderate 01/23/2016 Patient Education: Patient [...] 11/21/2015 Care Plan: Referral Order SNOMED-CT : [id number] Ordered 11/21/2015 Visit Plan: Biceps tendonitis - [...] 1tab AM & 2 at hs x2wks, xpat6ane x2wks, then 1/2 am & 1hs x1wk, then 1/2 bidx 1wk, then 1/2 at hs x1wk then stop 08/23/2014 Appointment: Ling Collins WPtel: [facility]8 [facility] Sick 08/23/2014 Patient Education: Patient Medication Summary Completed 08/23/2014 Visit Plan: Chronic migraine headac hes - recommended for pt to keep appt with the specialist in [place] for migraine surgery. Topical pain in legs - recommended pt to start on iron, monitor as pt weans off of the topamax post surgically. 03/01/2014 Appointment: Ling Collins WPtel: [facility]5 [facility] Follow up 03/01/2014 Patient Education: Patient Medication Summary Completed 03/01/2014 Visit Plan: Migraine headaches - pt has not yet had an intractible migraine since she had her botox injections. She is to follow up with her Neurologist about her migraine headaches.. 06/14/2013 Appointment: Ling Collins WPtel: [facility] Follow up 06/14/2013 Patient Education: Patient Medication [...] 75mg bid. 03/10/2013 App[facility]ment: [phone] Other 03/10/2013 Patient Education: Patient Medication Summary Completed 03/10/2013 Visit Plan: Acute Migraine - pt has chronic migraine headaches, but comes into clinic today complaining of intractible migraine headache symptoms. I have recommended changes to the chronic symptoms management and the pt has been given the following acute treatment in clinic today: Demerol 50mg IM (RX written and patient's picked up medication from [facility] pharmacy and we administered) and Phenergan 25mg IM. 02/18/2013 Appointment: Yennifer Field [facility]Ptel[phone] [facility] [place] Other 02/18/2013 Patient Education: Patient [...] positive children. 11/16/2012 Appointment: Ling Collins WPtel: [facility]5 [facility] Sick 11/16/2012 Patient Education: Patient Medication Summary Completed [...] her migraines. 10/29/2012 Appointment: Ling Collins WPtel: [facility]5 [facility] Other 10/29/2012 Patient Education: Patient Medication Summary [...] Dr. Judge. 03/12/2012 Appointment: Ling Collins WPtel: [address] [place], [place] [id number] Other 03/12/2012 Patient Education: Patient Medication Summary Completed 03/12/2012 Visit Plan: mri of keft shoulder - rotator cuff instability kenalog shot referal to orthopedic surgeon for eval of left shoulder and right knee 01/28/2012 Appointment: Ling Collins WPtel: [facility]5 [facility] Other 01/28/2012 Patient Education: Patient Medication Summary [...] this time. 01/09/2012 Appointment: Ling Collins WPtel: [phone] [facility] Other 01/09/2012 Patient Education: Patient Medication Summary [...] any worse. 10/17/2011 Appointment: Yennifer Field [facility]Ptel[facility] [phone] [facility] Other 10/17/2011 Patient Education: Patient Medication Summary Completed 10/17/2011 Referral: Eric Ramirez Referral Completed Referral: External, Ordering Provider Referral Initiated Referral: [facility] Referral Appointment Requested Referral: Eric Ramirez Referral Appointment Requested Instructions Comment . Esophageal Reflux - the patient has [...] and possibly start her on diet medication. . Acute Migraine - p t has chronic migraine headaches, but comes into clinic today complaining of intractible migraine headache symptoms. I have recommended changes to the chronic symptoms management and the pt has been given the following acute treatment in clinic today: . mri of keft should er - rotator cuff instability jerzy shot referal to orthopedic surgeon for eval of left shoulder and right knee . Hypertension - wel l controlled - [...] office if the symptoms are not improving. corcidin HBP - a dec ongestant for [...] you starting on amitriptyline 10mg nightly. . Chronic migraine h eadaches - recommended for pt to keep appt with the specialist in [place] for migraine surgery. Topical pain in legs - recommended pt to start on iron, monitor as pt weans off of the topamax post surgically. Esophageal Reflux - the patient has been [...] knee pain evaluation to Dr. Judge at [facility] in [place]. - Anti- inflammatory sample of vivlodex given to patient today. vivlodex lot [id number], exp 04/2020, iroko Restless Leg Syndrome - uncontrolled symptoms - I have recommended pt to start on a low dose of requip. Pt to alert us if the symptoms do not improve. HTN - not optimally controlled - she admits to feeling nervous today and being in pain due to her knee. Advised to monitor pressure at home. . Acute on Chronic M igraine headaches [...] increased her topamax to 75mg bid. . Abdominal pain, Co litis - advised liquid diet x 2-3 days, then advance to bland diet. If at any time her symptoms worsen, she is to go to the emergency department. Pt given order for EGD/Colonoscopy at [address] Garcia. . Migraine headaches [...] if symptoms worsen. start on vesicare . Well Adult - pt wa s [...] pt is to call for acute concerns. topamax 25mg tablet to be tapered as follows: 1tab AM & 2 at hs x2wks, [id number] x2wks, then 1/2 am & 1hs x1wk, [...] 1tab AM & 2 at hs x2wks, [id number] x2wks, then 1/2 am & 1hs x1wk, [...] through their insurance - Fax number - [phone]; phone number - [phone]. Carafate - with meal s and at [...] through their insurance - Fax number - [phone]; phone number - [phone]. . Migraine Headaches - improved, continue with [...] do not resolve or if any worse. . Acute on Chronic M igraine - pt has chronic migraine headaches, but comes into clinic today complaining of intractible migraine headache symptoms. I have recommended changes to the chronic symptoms m anagement and the pt has been instructed in acute treatment, medications have been adjusted. I suspect that for this patient, she may need to consider BOTOX treatments for her migraines. use RICE - rest, ice , compression, [...] pain is worsening or does not improve. . Migraine headaches - pt has not yet had an intractible migraine since she had her botox injections. She is to follow up with her Neurologist about her migraine headaches.. . Migraine - shot gi anamaria to patient - pt tolerated without incidient and was sent home after abt 20-30 minute wait. . Acute Migraine - p t has chronic migraine headaches, but comes into clinic today complaining of intractible migraine headache symptoms. I have recommended changes to the chronic symptoms management and the pt has been given the following acute treatment in clinic today: Demerol 50mg IM (RX written and patient's picked up medication from [facility] pharmacy and we administered) and [...]
--- OUTSIDE RECORDS SUMMARY | 2020-03-15 06:32 | XMS REPORT | CCD ---
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 Name Role Phone PP Unavailable CCM Unavailable Summary Purpose Interface Exchange Insurance Providers Payer name Policy type / Coverage type Covered constitution party ID Effective Begin Date Effective End Date [employer] [facility] [id number] Unkno wn Family history Mother Diagnosis Age [...] a daycare 10/17/[address]: 711906595 Nonsmoker 10/17/[address]: 544060856 Never drinks alcohol 10/17/2011 Allergies, Adverse Reactions, Alerts Substance Reaction Codes Entered Date Inactivated Date Status doxycycline hyclate RxNorm: 3640 10/17/2011 No Inactive Date Active cephalexin RxNorm: 2231 11/21/2015 No Inactive Date Active NIACIN PREPARATIONS pruritis Unknown 08/23/2014 No Inactive Date Active SULFA (SULFONAMIDE A NTIBIOTICS) Unknown 10/17/2011 No Inactive Date Active Past Medical History Illness Codes Condition Status Onset Date Resolved Date Essential (primary) hypertension ICD-9: 401.1 ICD-10: I10 Active 02/26/2018 Unknown Pain in right knee ICD- 9: 719.46 ICD-10: M25.561 Active 12/08/2018 Unknown Restless legs syndrome ICD-9: 333.94 ICD-10: G25.81 Active 03/02/2019 Unknown Encounter for screen ing mammogram for malignant neoplasm of breast ICD-9: V76.10 ICD-10: Z12.31 Active 02/25/2019 Unknown Acute laryngopharyng itis ICD-9: 465.9 ICD-10: J06.0 Active 09/01/2018 Unknown Other insomnia ICD-9: 327.09 ICD-10: G47.09 Active 09/01/2018 Unknown Gastro-esophageal re flux disease without esophagitis ICD-9: 530.81 ICD-10: K21.9 Active 07/09/2017 Unknown Epigastric pain ICD-9: 789.06 ICD-10: R10.13 Active 07/24/2017 Unknown Generalized abdomina l pain ICD-9: 789.07 ICD-10: R10.84 Active 07/24/2017 Unknown Other specified valeriy nfective gastroenteritis and colitis ICD-9: 558.9 ICD-10: K52.89 Active 07/24/2017 Unknown Encounter for genera l adult medical examination with abnormal findings ICD-9: V70.0 ICD-10: Z00.01 Active 06/24/2017 Unknown Gastro-esophageal re flux disease with esophagitis [...] Condition Codes Effectiv e Dates Condition Status Essential (primary) hypertension ICD-9: 401.1 ICD-10: I10 02/26/2018 Active Pain in right knee ICD- 9: 719.46 ICD-10: M25.561 12/08/2018 Active Restless legs syndrome ICD-9: 333.94 ICD-10: G25.81 03/02/2019 Active Encounter for screen ing mammogram for malignant neoplasm of breast ICD-9: V76.10 ICD-10: Z12.31 02/25/2019 Active Acute laryngopharyng itis ICD-9: 465.9 ICD-10: J06.0 09/01/2018 Active Other insomnia ICD-9: 327.09 ICD-10: G47.09 09/01/2018 Active Gastro-esophageal re flux disease without esophagitis ICD-9: 530.81 ICD-10: K21.9 07/09/2017 Active Epigastric pain ICD-9: 789.06 ICD-10: R10.13 07/24/2017 Active Generalized abdomina l pain ICD-9: 789.07 ICD-10: R10.84 07/24/2017 Active Other specified valeriy nfective gastroenteritis and colitis ICD-9: 558.9 ICD-10: K52.89 07/24/2017 Active Encounter for genera l adult medical examination with abnormal findings ICD-9: V70.0 ICD-10: Z00.01 06/24/2017 Active Gastro-esophageal re flux disease with esophagitis [...] Date Stop Date Sta tus Fill Instructions Protonix 40 mg table t,delayed release RxNorm: 985454 TAKE 1 TABLET BY MOUT H ONCE DAILY 05/19/2019 No Stop Date Active oxybutynin chloride ER 5 mg tablet,extended release 24 hr RxNorm: 643420 TAKE 1 TABLET BY MOUTH ONCE DAILY 05/19/2019 No Stop Date Active ropinirole 0.25 mg t ablet RxNorm: 151787 1 Tablet(s) PO BID 03/02/2019 06/29/2019 Active Vivlodex 10 mg capsule RxNorm: 1864880 1 Capsule(s) PO daily 03/02/2019 No Stop Date Active oxybutynin chloride ER 5 mg tablet,extended release 24 hr RxNorm: 752400 TAKE 1 TABLET BY MOUTH ONCE DAILY 12/21/2018 05/18/2019 Inactive Protonix 40 mg table t,delayed release RxNorm: 123627 TAKE 1 TABLET BY MOUT H ONCE DAILY 12/21/2018 05/18/2019 Inactive Zorvolex 35 mg capsule RxNorm: 6786733 1 Capsule(s) PO TID 12/09/2018 No Stop Date Active oxybutynin chloride ER 5 mg tablet,extended release 24 hr RxNorm: 431826 TAKE 1 TABLET BY MOUTH ONCE DAILY 10/21/2018 12/20/2018 Inactive Protonix 40 mg table t,delayed release RxNorm: 990016 TAKE 1 TABLET BY MOUT H ONCE DAILY 10/21/2018 12/20/2018 Inactive oxybutynin chloride ER 5 mg tablet,extended release 24 hr RxNorm: 014118 TAKE 1 TABLET BY MOUTH ONCE DAILY 07/20/2018 10/20/2018 Inactive Protonix 40 mg table t,delayed release RxNorm: 078869 TAKE 1 TABLET BY MOUT H ONCE DAILY 07/20/2018 10/20/2018 Inactive Xanax 0.25 mg tablet RxNorm: 415709 1 Tablet(s) PO Q8 as needed anxiety 02/17/2018 03/18/2018 In active oxybutynin chloride ER 5 mg tablet,extended release 24 hr RxNorm: 036011 TAKE ONE TABLET BY MOUTH ONCE DAILY 02/17/2018 07/19/2018 Inactive Protonix 40 mg table t,delayed release RxNorm: 399848 TAKE ONE TABLET BY MO UTH ONCE DAILY 02/17/2018 07/19/2018 Inactive Xanax 0.25 mg tablet RxNorm: 805466 1 Tablet(s) PO Q8 as needed anxiety 10/16/2017 11/12/2017 In active Zantac 150 mg tablet RxNorm: 155771 1 Tablet(s) PO daily 09/15/2017 03/13/2018 Inactive Carafate 1 gram tablet RxNorm: 535955 1 Tablet(s) PO AC & HS 09/15/2017 03/13/2018 Inactive oxybutynin chloride ER 5 mg tablet,extended release 24 hr RxNorm: 580760 TAKE ONE TABLET BY MOUTH ONCE DAILY 08/18/2017 02/13/2018 Inactive Protonix 40 mg table t,delayed release RxNorm: 854681 TAKE ONE TABLET BY MO [facility] ONCE DAILY 08/18/2017 02/13/2018 Inactive Carafate 1 gram tablet RxNorm: 832645 1 Tablet(s) PO AC & HS 07/09/2017 08/07/2017 Inactive Protonix 40 mg table t,delayed release RxNorm: 452752 1 Tablet(s) PO daily 07/09/2017 08/07/2017 In active Zofran 4 mg tablet RxNorm: 743525 1 Tablet(s) PO TID as needed nausea 07/09/2017 07/13/2017 In active Zantac 150 mg tablet RxNorm: 728105 1 Tablet(s) PO daily 07/09/2017 08/07/2017 Inactive losartan 25 mg tablet RxNorm: 238789 1 Tablet(s) PO daily 06/24/2017 10/21/2017 Inactive oxybutynin chloride ER 5 mg tablet,extended release 24 hr RxNorm: 128508 TAKE ONE TABLET BY MOUTH ONCE DAILY 05/15/2017 08/12/2017 Inactive oxybutynin chloride ER 5 mg tablet,extended release 24 hr RxNorm: 312179 TAKE ONE TABLET BY MOUTH ONCE DAILY 02/07/2017 05/07/2017 Inactive oxybutynin chloride ER 5 mg tablet,extended release 24 hr RxNorm: 160036 TAKE ONE TABLET BY MOUTH ONCE DAILY 10/01/2016 01/28/2017 Inactive oxybutynin chloride ER 5 mg tablet,extended release 24 hr RxNorm: 764995 TAKE ONE TABLET BY MOUTH ONCE DAILY 05/27/2016 09/23/2016 Inactive cranberry fruit conc entrate 500 mg capsule RxNorm: 107778 1 Capsule(s) PO two t o three times weekly 04/23/2016 No Stop Date Active Nexium 40 mg capsule ,delayed release RxNorm: 245929 1 Capsule(s) PO BID 04/23/2016 07/23/2017 In active oxybutynin chloride ER 5 mg tablet,extended release 24 hr RxNorm: 299213 1 Tablet(s) PO daily 01/23/2016 05/21/2016 Inactive pantoprazole 40 mg t ablet,delayed release RxNorm: 180529 1 Tablet(s) PO BID TA KE ONE TABLET BY MOUTH EVERY DAY 12/12/2015 12/11/2015 Inactive pantoprazole 40 mg t ablet,delayed release RxNorm: 520791 1 Tablet(s) PO BID TA KE ONE TABLET BY MOUTH TWICE EVERY DAY 12/12/2015 04/22/2016 Inactive Vesicare 5 mg tablet RxNorm: 983788 1 Tablet(s) PO QPM 11/21/2015 01/21/2016 Inactive Carafate 1 gram tablet RxNorm: 631126 1 Tablet(s) PO QID dissolve in 10mL of w ater 11/21/2015 04/22/2016 Inactive pantoprazole 40 mg t ablet,delayed release RxNorm: 244747 1 Tablet(s) PO daily TAKE ONE TABLET BY MOUTH EVERY DAY 04/05/2015 12/11/2015 Inactive Topamax 100 mg tablet RxNorm: 140157 1 Tablet(s) UD 1tab AM & 2 at hs x2wks, [id number] x2wks, then 1/2 am & 1hs x1wk, then 1/2 bidx 1wk, then 1/2 at hs x1wk then stop 08/23/2014 01/19/2015 Inactive Vitamin B-12 1,000 m cg/mL injection solution RxNorm: 214939 2x per month Millilit er(s) Inj INJECT 1ML EVERY 2 WEEKS 08/23/2014 11/20/2015 Inactive amitriptyline 50 mg tablet RxNorm: 619107 1 Tablet(s) QPM 08/23/2014 11/20/2015 Inactive amitriptyline 50 mg tablet RxNorm: 518188 TAKE ONE TABLET BY [facility] TWICE DAILY 08/18/2014 08/22/2014 In active amitriptyline 50 mg tablet RxNorm: 035912 TAKE ONE TABLET BY MO UT TWICE DAILY 05/27/2014 08/17/2014 In active Topamax 100 mg tablet RxNorm: 081308 TAKE ONE TABLET BY MOUTH TWICE DAILY 05/27/2014 08/22/2014 In active Topamax 100 mg tablet RxNorm: 453245 Tablet(s) PO TAKE ONE TABLET BY MOUTH TW ICE DAILY 03/24/2014 05/26/2014 Inactive pantoprazole 40 mg t ablet,delayed release RxNorm: 781968 1 Tablet(s) PO daily TAKE ONE TABLET BY MOUTH EVERY DAY 03/18/2014 03/12/2015 Inactive nystatin 100,000 uni t/mL oral suspension RxNorm: 467531 5 Milliliter(s) PO QI D 03/07/2014 03/06/2014 In active nystatin 100,000 uni t/mL oral suspension RxNorm: 758543 5 Milliliter(s) PO QI D 03/07/2014 03/16/2014 In active Topamax 100 mg tablet RxNorm: 852110 Tablet(s) PO TAKE ONE TABLET BY MOUTH TW ICE DAILY 02/21/2014 03/23/2014 Inactive Vitamin B-12 1,000 m cg/mL injection solution RxNorm: 487219 solution Inj INJECT 1 ML EVERY 2 WEEKS 12/21/2013 08/22/2014 Inactive Frova 2.5 mg tablet RxNorm: 494272 1 Tablet(s) PO 12/20/2013 11/20/2015 Inactive at o nset of migraine Frova 2.5 mg tablet RxNorm: 321304 1 Tablet(s) PO 10/28/2013 12/19/2013 Inactive at o nset of migraine Topamax 100 mg tablet RxNorm: 732247 Tablet(s) PO TAKE ONE TABLET BY MOUTH TW ICE DAILY 10/21/2013 2014 Inactive Topamax 100 mg tablet RxNorm: 473229 Tablet(s) PO TAKE ONE TABLET BY MOUTH TW ICE DAILY 08/23/2013 10/20/2013 Inactive Topamax 100 mg tablet RxNorm: 025571 1 Tablet(s) PO BID TAKE ONE TABLET BY MO UT TWICE DAILY 05/24/2013 08/22/2013 Inactive Demerol (PF) 50 mg/m L Injection RxNorm: 1433642 1/2 Milliliter(s) In j 04/06/2013 04/06/2013 In active promethazine 25 mg/m L Injection RxNorm: 436546 1 Milliliter(s) Inj 04/06/2013 04/06/2013 Inactive promethazine 25 mg/m L Injection RxNorm: 513738 2 Milliliter(s) Inj 03/26/2013 03/26/2013 Inactive Demerol (PF) 50 mg/m L Injection RxNorm: 0236900 Milliliter(s) Inj 03/26/2013 03/26/2013 Inactive amitriptyline 50 mg tablet RxNorm: 375280 Tablet(s) PO TAKE ONE TABLET BY MOUTH TWICE DAILY 03/22/2013 05/26/2014 Inactive Topamax 100 mg tablet RxNorm: 878144 1 Tablet(s) PO BID 03/19/2013 03/18/2013 Inactive Topamax 100 mg tablet RxNorm: 079614 1 Tablet(s) PO BID 03/19/2013 05/24/2013 Inactive Demerol (PF) 50 mg/m L Injection RxNorm: 1632488 1 Milliliter(s) Inj 03/11/2013 03/11/2013 Inactive Topamax 50 mg tablet RxNorm: 152826 1.5 Tablet(s) PO BID 03/10/2013 03/18/2013 Inactive promethazine 25 mg t ablet RxNorm: 631286 1 Tablet(s) PO Q6 PRN 02/25/2013 11/20/2015 Inactive pantoprazole 40 mg t ablet,delayed release RxNorm: 134691 Tablet(s) PO TAKE ONE TABLET BY MOUTH EVERY DAY 02/22/2013 03/17/2014 Inactive promethazine 25 mg/m L Injection RxNorm: 444073 1 Milliliter(s) Inj 02/18/2013 02/18/2013 Inactive Demerol (PF) 25 mg/0 .5 mL Injection RxNorm: 332342 1 Milliliter(s) Inj 02/18/2013 02/18/2013 In active total of 50mg given IM Topamax 50 mg tablet RxNorm: 366583 Tablet(s) PO TAKE ONE TABLET BY MOUTH TW ICE DAILY 02/04/2013 03/09/2013 Inactive prednisone 20 mg tablet RxNorm: 992233 3 Tablet(s) PO daily 11/16/2012 11/20/2012 Inactive ciprofloxacin 500 mg tablet RxNorm: 030214 1 Tablet(s) PO BID 11/16/2012 11/22/2012 Inactive Kenalog 40 mg/mL Lovely p for Injection RxNorm: 5936111 1 Milliliter(s) Inj 11/16/2012 11/16/2012 In active Tamiflu 75 mg capsule RxNorm: 272338 1 Capsule(s) PO BID 11/16/2012 11/20/2012 Inactive esterified estrogens -methyltestosterone 1.25 mg-2.5 mg tablet RxNorm: 297601 1 Tablet(s) PO every other day 10/29/2012 06/23/2017 Inactive amitriptyline 50 mg tablet RxNorm: 643057 1 Tablet(s) PO daily 10/29/2012 03/21/2013 Inactive TAKE ONE TABLET BY MOUTH TWICE DAILY Topamax 50 mg tablet RxNorm: 824980 1 Tablet(s) PO BID 10/29/2012 01/26/2013 Inactive Vitamin B-12 1,000 m cg/mL injection solution RxNorm: 307513 1 Milliliter(s) Inj Q 2weeks INJECT 1ML TWICE A MONTH 10/29/2012 12/20/2013 Inactive takes 2 times monthly. ok to give multidose vial if available. if not please give 3 month supply of single dose vials Vitamin B-12 1,000 m cg/mL Injection RxNorm: 098938 Solution Inj INJECT 1 ML TWICE A MONTH 10/26/2012 10/28/2012 Inactive Topamax 25 mg tablet RxNorm: 816761 1 Tablet(s) PO BID 10/13/2012 03/10/2013 Inactive Topamax 25 mg tablet RxNorm: 332654 1 Tablet(s) PO as directed 09/24/2012 10/12/2012 Inactive 1 tab bid x 2 weeks1 tab daily x 1 month 1 tab qod x 1 week then stop Percocet 10 mg-325 m g tablet RxNorm: 8773827 1 Tablet(s) PO Q4 PRN 07/22/2012 11/20/2015 Inactive diazepam 5 mg tablet RxNorm: 369528 1 Tablet(s) PO TID PRN 07/22/2012 01/17/2013 Inactive amitriptyline 50 mg tablet RxNorm: 535013 Tablet(s) PO 06/17/2012 10/28/2012 Inactive TAKE ONE TABLET BY MOUTH TWICE DAILY Topamax 25 mg tablet RxNorm: 675873 1 Tablet(s) PO as directed 04/14/2012 06/01/2012 Inactive 1 tab bid x 2 weeks1 tab daily x 1 month 1 tab qod x 1 week then stop Topamax 25 mg Tab RxNorm: 036715 1 Tablet(s) PO as directed 03/16/2012 04/13/2012 Inactive 1 tab bid x 2 weeks1 tab daily x 1 month 1 tab qod x 1 week then stop pantoprazole 40 mg t ablet,delayed release RxNorm: 266303 Tablet(s) PO 02/17/2012 02/21/2013 In active TAKE ONE TABLET BY MOUTH EVERY DAY Topamax 50 mg Tab RxNorm: 909125 Tablet(s) PO 01/21/2012 03/11/2012 Inactive plea se give pt #42 of the 50mg tablets, to take bid till gone.then 25mg q am and 50 q hs x 14 days then 25 mg bid thereafter # 44 amitriptyline 50 mg tablet RxNorm: 158336 Tablet(s) PO 12/18/2011 06/16/2012 Inactive TAKE ONE TABLET BY MOUTH TWICE DAILY Percocet 10 mg-325 m g tablet RxNorm: 8305772 1 Tablet(s) PO Q4 PRN 11/13/2011 07/21/2012 Inactive Vitamin B-12 1,000 m cg/mL Injection RxNorm: 354004 1 Milliliter(s) Inj 2 x month 10/17/2011 10/16/2011 In active Vitamin B-12 1,000 m cg/mL Injection RxNorm: 116766 1 Milliliter(s) Inj 2 x month 10/17/2011 10/25/2012 In active topiramate 100 mg Tab RxNorm: 148334 1 Tablet(s) PO BID 10/17/2011 01/20/2012 Inactive TAKE ONE TABLET BY MOUTH TWICE DAILY Kenalog 40 mg/mL Lovely p for Injection RxNorm: 8681955 1 Milliliter(s) Inj 10/17/2011 10/17/2011 In active diazepam 5 mg tablet RxNorm: 256883 1 Tablet(s) PO TID PRN 09/25/2011 03/22/2012 Inactive diazepam 5 mg Tab RxNorm: 220794 1 Tablet(s) PO TID PRN 09/15/2011 09/17/2011 Inactive topiramate 100 mg Tab RxNorm: 435235 Tablet(s) PO 08/25/2011 10/16/2011 Inactive TAKE ONE TABLET BY MOUTH TWICE DAILY topiramate 100 mg Tab RxNorm: 536804 1 Tablet(s) PO BID 08/21/2011 08/24/2011 Inactive pantoprazole 40 mg T ab, Delayed Release RxNorm: 112850 1 Tablet(s) PO daily 07/19/2011 08/17/2011 In active ibuprofen 800 mg Tab RxNorm: 861101 1 Tablet(s) PO Q8 PRN No Start Date Active Vitamin D3 5,000 uni t tablet RxNorm: 514936 1 Tablet(s) PO daily No Start Date Active multivitamin capsule RxNorm: 1 Capsule(s) PO daily No Start Date Active cranberry fruit conc entrate 250 mg chewable tablet RxNorm: 6032276 1 Tablet(s) PO two to three times weekly No Start Date 04/22/2016 Inactive amitriptyline 50 mg Tab RxNorm: 352465 1 Tablet(s) PO BID No Start Date 12/17/2011 Inactive Topamax 50 mg Tab RxNorm: 246355 Tablet(s) PO No Start Date 01/20/2012 Inactive plea se give pt #42 of the 50mg tablets, to take bid till gone.then 25mg q am and 50 q hs x 14 days then 25 mg bid thereafter # 44 cranberry 1,000 mg c apsule RxNorm: 731466 3 Capsule(s) PO daily No Start Date 01/22/2016 Inactive promethazine 25 mg t ablet RxNorm: 752314 1 Tablet(s) PO Q6 PRN No Start Date 02/24/2013 Inactive Topamax 25 mg Tab RxNorm: 284679 1 Tablet(s) PO BID No Start Date 03/15/2012 Inactive Xanax 0.25 mg tablet RxNorm: 628542 1 Tablet(s) PO as needed anxiety No Start Date 10/15/2017 Inactive Frova 2.5 mg tablet RxNorm: 721627 1 Tablet(s) PO No Start Date 10/27/2013 Inactive at onset of migraine Zithromax Z-Darion 250 mg Tab RxNorm: 803738 Tablet(s) PO No Start Date 10/28/2012 Inactive Diflucan 200 mg tablet RxNorm: 072217 1 Tablet(s) PO PRN No Start Date 06/13/2013 Inactive Fish Oil 1,000 mg ca psule RxNorm: 4 Capsule(s) PO daily No Start Date 08/31/2018 Inactive esterified estrogens -methyltestosterone 1.25 mg-2.5 mg tablet RxNorm: 621908 1 Tablet(s) PO daily No Start Date 10/28/2012 Inactive Demerol (PF) 50 mg/m L Injection RxNorm: 4434869 1 Milliliter(s) Inj as doctor directed No Start Date 06/13/2013 Inactive Tessalon 200 mg Cap RxNorm: 252455 1 Capsule(s) PO Q6 PRN No Start Date 10/28/2012 Inactive Medication Administered Medication Codes Instruc tions Start Date Status promethazine 25 mg/mL Injection RxNo rm: 037237 1Milliliter 04/06/2013 N o longer Active Demerol (PF) 50 mg/mL Injection RxNo rm: 0329025 1/2Milliliter 04/06/2013 No longer Active promethazine 25 mg/mL Injection RxNo rm: 434997 2Milliliter 03/26/2013 N o longer Active Demerol (PF) 50 mg/mL Injection RxNo rm: 3205949 Milliliter 03/26/2013 No longer Active Demerol (PF) 50 mg/mL Injection RxNo rm: 4852388 1Milliliter 03/11/2013 N o longer Active promethazine 25 mg/mL Injection RxNo rm: 201335 1Milliliter 02/18/2013 N o longer Active Demerol (PF) 25 mg/0.5 mL Injection RxNorm: 067456 1Milliliter 02/18/2013 N o longer Active Kenalog 40 mg/mL Susp for Injection RxNorm: 9060392 1Milliliter 11/16/2012 N o longer Active Kenalog 40 mg/mL Susp for Injection RxNorm: 1177129 1Milliliter 10/17/2011 N o longer Active Immunizations No Immunization data Assessments Condition Codes Effectiv e Dates Restless legs syndrome ICD-10: G25.8 1 ICD-9: 333.94 03/02/2019 Essential (primary) hypertension ICD -10: I10 ICD-9: 401.1 03/02/2019 Pain in right knee ICD-10: M25.561 ICD-9: 719.46 03/02/2019 Encounter for screening mammogram for ma lignant neoplasm of breast ICD-10: Z12.31 ICD-9: V76.10 02/25/2019 Acute laryngopharyngitis ICD-10: J06 .0 ICD-9: 465.9 09/01/2018 Other insomnia ICD-10: G47.09 ICD-9: 327.09 09/01/2018 Gastro-esophageal reflux disease without esophagitis ICD-10: K21.9 ICD-9: 530.81 02/26/2018 Generalized abdominal pain ICD-10: R 10.84 ICD-9: 789.07 07/24/2017 Other specified noninfective gastroenteritis and colit is ICD- 10: K52.89 ICD-9: 558.9 07/24/2017 Epigastric pain ICD-10: R10.13 ICD-9: 789.06 07/24/2017 Encounter for general adult medical exam ination with abnormal findings ICD-10: Z00.01 ICD-9: V70.0 06/24/2017 Gastro-esophageal reflux disease with esophagitis ICD-10: K21.0 [...] Reason For Visit Effective Dates Notes hypertension 03/02/2019 lower leg pain 12/08/2018 hypertension [...] Code Result Date URINALYSIS NONAUTO W/O SCOPE 29209 Specific [place] 1.005 DateTime(Free Text in Aprima) URINALYSIS NONAUTO W/O SCOPE 13520 PH 6.0 DateTime(Free Jamar t in Aprima) URINALYSIS NONAUTO W/O SCOPE 60821 GLUCOSE DateTime(Free Text i n Aprima) URINALYSIS NONAUTO W/O SCOPE 41574 Protein DateTime(Free Text i n Aprima) URINALYSIS NONAUTO W/O SCOPE 35260 Blood DateTime(Free Text i n Aprima) URINALYSIS NONAUTO W/O SCOPE 65307 Bilirubin DateTime(Free Text i n Aprima) URINALYSIS NONAUTO W/O SCOPE 25307 Ketones DateTime(Free Text i n Aprima) URINALYSIS NONAUTO W/O SCOPE 32565 Urobilinogen DateTime(Free Text in ) URINALYSIS NONAUTO W/O SCOPE 26916 Nitrite DateTime(Free Text i n ) URINALYSIS NONAUTO W/O SCOPE 93851 Leukocytes DateTime(Fr ee Text in ) Review of Systems System Result Effective Dates Constitutional No recent illness 03/02/2019 Constitutional No [...] 1995 Musculoskeletal spine, ribs and pelvis Overall: left [...] posture 10/29/2012 None Full Exam - General 1995 Musculoskeletal spine, ribs and pelvis Overall: ribs benign 10/29/2012 None Full Exam - General 1994 Musculoskeletal spine, ribs and pelvis Overall: spine benign 10/29/2012 None Full Exam - General 1995 Musculoskeletal spine, ribs and pelvis Overall: sacroiliac [...] clear 03/12/2012 None Full Exam - General 1995 Ears/Nose/Throat oral cavity/pharynx/larynx Overall: oropharyngeal mucosa clear 03/12/2012 None Full Exam - General 1995 Ears/Nose/Throat oral cavity/pharynx/larynx Overall: no masses 03/12/2012 [...] Date URINALYSIS NONAUTO W /O SCOPE CPT-4: 97014 06/14/2013 THER/PROPH/DIAG INJ SC/IM CPT-4: 73797 04/06/2013 PROMETHAZINE HCL INJ ECTION CPT-4: J2550 04/06/2013 THER/PROPH/DIAG INJ SC/IM CPT-4: 29786 03/26/2013 PROMETHAZINE HCL INJ ECTION CPT-4: J2550 03/26/2013 THER/PROPH/DIAG INJ SC/IM CPT-4: 39889 03/11/2013 PROMETHAZINE HCL INJ ECTION CPT-4: J2550 02/18/2013 TRIAMCINOLONE ACET I [place] NOS CPT-4: J3301 11/16/2012 THER/PROPH/DIAG INJ SC/IM CPT-4: 97484 11/16/2012 TRIAMCINOLONE ACET I [place] NOS CPT-4: J3301 10/17/2011 THER/PROPH/DIAG INJ SC/IM CPT-4: 23381 10/17/2011 Vital Signs Date Vital 03/02/2019 Blood Pressure 1: 150/78 Code: 8480-6 Heart Rate 1: 68 bpm Height: 5'5" SpO2: 98% Weight: 12/08/2018 Blood Pressure 1: 122/74 Code: 8480-6 BMI: 36.3 Code: 75572-1 Heart Rate 1: 64 bpm Height: 5'5" SpO2: 100% Weight: 218 lbs 09/01/2018 Blood Pressure 1: 132/80 Code: 8480-6 BMI: 35.6 Code: 00143-6 Heart Rate 1: 80 bpm Height: 5'5" SpO2: 96% Weight: 214 lbs 02/26/2018 Blood Pressure 1: 126/72 Code: 8480-6 BMI: 36.1 Code: 57153-8 Heart Rate 1: 63 bpm Height: 5'5" SpO2: 98% Weight: 217 lbs 07/24/2017 Blood Pressure 1: 138/78 Code: 8480-6 BMI: 36.1 Code: 53357-2 Heart Rate 1: 78 bpm Height: 5'5" SpO2: 99% Weight: 217 lbs 07/09/2017 Blood Pressure 1: 150/84 Code: 8480-6 BMI: 36.4 Code: 31033-4 Heart Rate 1: 70 bpm Height: 5'5" SpO2: 98% Weight: 219 lbs 06/24/2017 Blood Pressure 1: 154/80 Code: 8480-6 BMI: 36.9 Code: 83071-4 Heart Rate 1: 68 bpm Height: 5'5" SpO2: 98% Weight: 222 lbs 04/23/2016 Blood Pressure 1: 136/78 Code: 8480-6 BMI: 38.4 Code: 67782-2 Heart Rate 1: 76 bpm Height: 5'5" SpO2: 98% Weight: 231 lbs 01/23/2016 Blood Pressure 1: 148/82 Code: 8480-6 BMI: 39.6 Code: 91693-3 Heart Rate 1: 76 bpm Height: 5'5" SpO2: 98% Weight: 238 lbs 11/21/2015 Blood Pressure 1: 140/80 Code: 8480-6 BMI: 38.9 Code: 17596-6 Heart Rate 1: 89 bpm Height: 5'5" SpO2: 98% Weight: 233 lbs 8 oz 08/23/2014 Blood Pressure 1: 140/72 Code: 8480-6 BMI: 38.1 Code: 90511-8 Height: 5'5" Weight: 229 lbs 03/01/2014 Blood [...] Date Notes Onset and Resolution o ngoing 03/02/2019 None [...] antony ng 11/16/2012 been around day care chimai d diagnosed with flu cough Quality worsening [...] States she has been doing body by [facility] for about 3 months but is not [...] shoulder 01/28/2012 None shoulder pain Quality ac lower [place] 01/28/2012 None shoulder pain Quality th robbing [...] Encounters Encounter Performer Loca tion Codes Date ([id number]) 17324 EST. P ATIENT, LEVEL IV Diagnosis: Essential (primary) hypertension[ICD10: I10] Diagnosis: Restless legs syndrome[ICD10: G25.81] Diagnosis: Pain in right knee[ICD10: M25.561] Ling Collins MD, [facility] CPT- 4: 57041 03/02/2019 [id number] EST. PATIENT, LEVEL III Diagnosis: Pain in right knee[ICD10: M25.561] Claritza Collins MD, [facility] CPT-4: 76807 12/08/2018 ([id number]) 19044 EST. P ATIENT, LEVEL IV Diagnosis: Essential (primary) hypertension[ICD10: I10] Diagnosis: Acute laryngopharyngitis[ICD10: J06.0] Diagnosis: Other insomnia[ICD10: G47.09] Ling Collins MD, [facility] CPT-4: 44351 09/01/2018 ([id number]) 18138 EST. P ATIENT, LEVEL III Diagnosis: Gastro-esophageal reflux disease without esophagitis[ICD10: K21.9] Diagnosis: Essential (primary) hypertension[ICD10: I10] Ling Collins MD, [facility] CPT-4: 66066 02/26/2018 ([id number]) [id number] EST. P ATIENT, LEVEL III Diagnosis: Other specified noninfective gastroenteritis and colitis[ICD10: K52.89] Diagnosis: Epigastric pain[ICD10: R10.13] Diagnosis: Generalized abdominal pain[ICD10: R10.84] Ling Collins MD, [facility] CPT-4: 12230 07/24/2017 [id number] EST. PATIENT, LEVEL IV Diagnosis: Gastro-esophageal reflux disease without esophagitis[ICD10: K21.9] Claritza Collins MD, [facility] CPT-4: 12573 07/09/2017 ([id number]) PREV VISIT E ST AGE 40-64 Diagnosis: Encounter for general adult medical examination with abnormal findings[ICD10: Z00.01] Ling Collins MD, [facility] [facility] CPT-[facility] 12713 06/24/2017 ([id number]) 53547 EST. P ATIENT, LEVEL III Diagnosis: Gastro-esophageal reflux disease with esophagitis[ICD10: K21.0] Ling Collins MD, [facility] CPT-4: 71056 04/23/2016 ([id number]) 70333 EST. P ATIENT, LEVEL IV Diagnosis: Gastro-esophageal reflux disease with esophagitis[ICD10: K21.0] Diagnosis: Morbid (severe) obesity due to excess calories[ICD10: E66.01] Diagnosis: Urge incontinence[ICD10: N39.41] Ling Collins MD, [facility] CPT-4: 71763 01/23/2016 ([id number]) 52629 EST. P ATIENT, LEVEL IV Diagnosis: Metatarsalgia, right foot[ICD10: M77.41] Diagnosis: Achilles tendinitis, right leg[ICD10: M76.61] Diagnosis: Gastro-esophageal reflux disease with esophagitis[ICD10: K21.0] Ling Collins MD, [facility] CPT-4: 75149 11/21/2015 ([id number]) 00264 EST. P ATIENT, LEVEL III Diagnosis: Biceps tendonitis[ICD9: 726.12] Diagnosis: Encounter for long-term (current) use of other medications[ICD9: V58.69] Ling Collins MD, [facility] CPT-4: 14701 08/23/2014 ([id number]) 09479 EST. P ATIENT, LEVEL III Diagnosis: Anxiety, generalized[ICD9: 300.02] Diagnosis: Pain, lower leg[ICD9: 729.5] Ling Collins MD, [facility] CPT-4: 42219 03/01/2014 ([id number]) 99315 EST. P ATIENT, LEVEL III Diagnosis: MIGRAINE NOS/NOT INTRCBL[ICD9: 346.90] Ling Collins MD, [facility] CPT-4: 92331 06/14/2013 ([id number]) 26342 EST. P ATIENT, LEVEL III Diagnosis: MIGRAINE NOS/NOT INTRCBL[ICD9: 346.90] Diagnosis: NAUSEA ALONE[ICD9: 787.02] Ling Collins MD, [facility] CPT-4: 95585 03/10/2013 ([id number]) 18479 EST. P ATIENT, LEVEL III Diagnosis: Intractable migraine with aura without status migrainosus[ICD9: 346.01] Diagnosis: Nausea[ICD9: 787.02] Yennifer Collins MD, [facility] CPT-4: 93077 02/18/2013 ([id number]) 82302 EST. P ATIENT, LEVEL III Diagnosis: BACTERIAL PNEUMONIA[ICD9: 482.9] Diagnosis: Dyspnea[ICD9: 786.09] Ling Collins MD, [facility] CPT-4: 31708 11/16/2012 ([id number]) 30567 EST. P ATIENT, LEVEL III Diagnosis: MIGRAINE NOS/NOT INTRCBL[ICD9: 346.90] Diagnosis: ANXIETY STATE[ICD9: 300.00] Ling Collins MD, [facility] CPT-4: 46600 10/29/2012 ([id number]) 41594 EST. P ATIENT, LEVEL IV Diagnosis: MIGRAINE NOS/NOT INTRCBL[ICD9: 346.90] Diagnosis: JOINT PAIN-SHLDER[ICD9: 719.41] Diagnosis: OBESITY[ICD9: 278.00] Ling Collins MD, [facility] CPT-4: 34530 03/12/2012 ([id number]) 89539 EST. P ATIENT, LEVEL IV Diagnosis: Rotator cuff disorder[ICD9: 726.10] Diagnosis: Shoulder pain, acute[ICD9: 719.41] Diagnosis: Knee pain[ICD9: 719.46] Ling Collins MD, [facility] CPT-4: 34374 01/28/2012 ([id number]) 20940 EST. P ATIENT, LEVEL IV Diagnosis: Migraine[ICD9: 346.90] Diagnosis: Anxiety[ICD9: 300.00] Ling Collins MD, [facility] CPT-4: 97219 01/09/2012 74265 EST. PATIENT, LEVEL III Diagnosis: ACUTE URI[ICD9: 465.9] Diagnosis: Cough[ICD9: 786.2] [facility] CPT-4: 26573 10/17/2011 Plan of Care Planned Activity Notes C odes Status Date Referral: [facility] Referral Completed 03/08/2019 Visit Plan: Right knee pain - I hav e recommended a referral for right knee pain evaluation to Dr. Judge at [facility] in [place]. - Anti-inflammatory sample of vivlodex given to patient today. vivlodex lot [id number], exp 04/2020, lisa Restless Leg Syndrome - uncontrolled symptoms - I have recommended pt to start on a low dose of requip. Pt to alert us if the symptoms do not improve. HTN - not optimally controlled - she admits to feeling nervous today and being in pain due to her knee. Advised to monitor pressure at home. 03/02/2019 Appointment: Ling Collins [facility]Ptel[facility] [facility] 03/02/2019 Patient Education: Patient Medication Summary Completed 03/02/2019 Care Plan: Referral Order SNOMED-CT : [id number] Pending 03/02/2019 Patient Education: Patient Medication Summary [...] not improve. 12/08/2018 Appointment: Claritza Russell WPtel: [facility]5 [facility] (15 min) Moderate 12/08/2018 Patient Education: Patient [...] 10mg nightly. 09/01/2018 Appointment: Ling Collins WPtel: [facility]4 [facility] (15 min) Moderate 09/01/2018 Patient Education: Patient Medication Summary Completed 09/01/2018 Visit Plan: Hypertension - well con trolloyded - continue with current medications, continue with [...] not improving. 02/26/2018 Appointment: Ling Collins WPtel: [facility]3 [facility] (15 min) Moderate 02/26/2018 Patient Education: Patient Medication Summary Completed 02/26/2018 Appointment: Ling Collins WPtel: [facility]5 [facility] (15 min) Moderate 08/11/2017 Visit Plan: Abdominal pain, Colitis - advised liquid diet x 2-3 days, then advance to bland diet. If at any time her symptoms worsen, she is to go to the emergency department. Pt given order for EGD/Colonoscopy at [address] Garcia. 07/24/2017 Appointment: Ling Collins WPtel: [phone] [facility] (15 min) Moderate 07/24/2017 Patient Education: Patient [...] through their insurance - Fax number - [phone] phone number - [phone]. 07/09/2017 Visit Plan: Esophageal Reflux - Sev [...] through their insurance - Fax number - [phone] phone number - [phone]. 07/09/2017 Appointment: Claritza Russell WPtel: [phone] [facility] (30 min) Complex 07/09/2017 Patient Education: Patient Medication Summary Completed 07/09/2017 Care Plan: Referral Order SNOMED-CT : [id number] Pending 07/09/2017 Visit Plan: Well Adult - [...] acute concerns. 06/24/2017 Appointment: [phone] [facility] (15 min) Moderate 06/24/2017 Patient Education: [...] diet medication. 01/23/2016 Appointment: Ling Collins WPtel: [facility] (15 min) Moderate 01/23/2016 Patient Education: [...] 11/21/2015 Care Plan: Referral Order SNOMED-CT : [id number] Ordered 11/21/2015 Visit Plan: Biceps tendonitis - [...] 1tab AM & 2 at hs x2wks, [id number] x2wks, then 1/2 am & 1hs x1wk, then 1/2 bidx 1wk, then 1/2 at hs x1wk then stop 08/23/2014 Appointment: Ling Collins [phone] [facility] S[facility] 08/23/2014 Patient Education: Patient Medication Summary Completed 08/23/2014 Visit Plan: Chronic migraine headac hes - recommended for pt to keep appt with the specialist in [place] for migraine surgery. Topical pain in legs - recommended pt to start on iron, monitor as pt weans off of the topamax post surgically. 03/01/2014 Appointment: Ling Collins WPtel: [phone] [facility] Follow up 03/01/2014 Patient Education: Patient Medication Summary Completed 03/01/2014 Visit Plan: Migraine headaches - pt has not yet had an intractible migraine since she had her botox injections. She is to follow up with her Neurologist about her migraine headaches.. 06/14/2013 Appointment: [phone] [facility] Follow [facility] 06/14/2013 Patient Education: Patient Medication [...] 75mg bid. 03/10/2013 Appointment: Ling Collins WPtel: [phone] [facility] Other 03/10/2013 Patient Education: Patient Medication Summary Completed 03/10/2013 Visit Plan: Acute Migraine - pt has chronic migraine headaches, but comes into clinic today complaining of intractible migraine headache symptoms. I have recommended changes to the chronic symptoms management and the pt has been given the following acute treatment in clinic today: Demerol 50mg IM (RX written and patient's picked up medication from [facility] pharmacy and we administered) and Phenergan 25mg IM. 02/18/2013 Appointment: Yennifer Field WPtel: [phone] [facility] Other 02/18/2013 Patient Education: Patient Medication Summary [...] positive children. 11/16/2012 Appointment: Ling Collins WPtel: [phone] [facility] [facility] 11/16/2012 Patient Education: Patient Medication Summary Completed [...] her migraines. 10/29/2012 Appointment: Ling Collins WPtel: [facility] Other 10/29/2012 Patient Education: Patient Medication [...] - recommended follow up as per Dr. Judeg. 03/12/2012 Appointment: Ling Collins WPtel: [address] [place] [address] Other 03/12/2012 Patient Education: Patient Medication Summary Completed 03/12/2012 Visit Plan: mri of keft shoulder - rotator cuff instability kenwaldemar stalin referal to orthopedic surgeon for eval of left shoulder and right knee 01/28/2012 Appointment: Ling Collins WPtel: [address] [place] [address] Other 01/28/2012 Patient Education: Patient Medication Summary [...] this time. 01/09/2012 Appointment: Ling Collins WPtel: [facility] Other 01/09/2012 Patient Education: Patient Medication [...] resolve or if any worse. 10/17/2011 Appointment: Emir Yennifer WPtel: [facility] Other 10/17/2011 Patient Education: Patient Medication Summary Completed 10/17/2011 Referral: Eric Ramirez Referral Completed Referral: External, Ordering Provider Referral Initiated Referral: [facility] Referral Appointment Requested Referral: Eric Ramirez Referral Appointment Requested Instructions Comment . Migraine Headaches - improved, continue with [...] recommended follow up as per Dr. Judge. Carafate - with meal s and at [...] through their insurance - Fax number - [phone]; phone number - [phone]. Carafate - with meal s and at [...] through their insurance - Fax number - [phone]; phone number - [phone]. topamax 25mg tablet to be tapered as follows: 1tab AM & 2 at hs x2wks, [id number] x2wks, then 1/2 am & 1hs x1wk, [...] 1tab AM & 2 at hs x2wks, [id number] x2wks, then 1/2 am & 1hs x1wk, then 1/2 bidx 1wk, then 1/2 at hs x1wk then stop . Esophageal Reflux - the patient has [...] treatment in clinic today: . mri of khalif should er - rotator cuff instability jerzy shot referal to orthopedic surgeon for eval of left shoulder and right knee . Well Adult - pt wa s [...] is to call for acute concerns. . Hypertension - wel l controlled - [...] if symptoms worsen. start on vesicare . Esophageal Reflux - the patient has been counseled against excessive intake of caffeine, spicy foods, peppermint, and cinnamon - all of which can exacerbate esophageal reflux. The patient is to take medications as prescribed and call the office if the symptoms are not improving. . Migraine headaches - improved - Decrease [...] in valium use at this time. . Abdominal pain, Co litis - advised liquid diet x 2-3 days, then advance to bland diet. If at any time her symptoms worsen, she is to go to the emergency department. Pt given order for EGD/Colonoscopy at [address] Garcia. . Pneumonia - Pt has been diagnosed [...] has had several flu positive children. . Acute Migraine - p t has chronic migraine headaches, but comes into clinic today complaining of intractible migraine headache symptoms. I have recommended changes to the chronic symptoms management and the pt has been given the following acute treatment in clinic today: Demerol 50mg IM (RX written and patient's picked up medication from [facility] pharmacy and we administered) and Phenergan 25mg IM. . Acute on Chronic M igraine headaches [...] increased her topamax to 75mg bid. . Migraine - shot gi anamaria to patient - pt tolerated without incidient and was sent home after abt 20-30 minute wait. . Migraine headaches - pt has not yet had an intractible migraine since she had her botox injections. She is to follow up with her Neurologist about her migraine headaches.. corcidin HBP - a dec ongestant for [...] consider you starting on amitriptyline 10mg nightly. use RICE - rest, ice , compression, [...] is worsening or does not improve. . Chronic migraine h eadaches - recommended for pt to keep appt with the specialist in [place] for migraine surgery. Topical pain in legs - recommended pt to start on iron, monitor as pt weans off of the topamax post surgically. . Acute on Chronic M igraine - pt has chronic migraine headaches, but comes into clinic today complaining of intractible migraine headache symptoms. I have recommended changes to the chronic symptoms m anagement and the pt has been instructed in acute treatment, medications have been adjusted. I suspect that for this patient, she may need to consider BOTOX treatments for her migraines. . URI - Pt advised t o [...] not resolve or if any worse. . Right knee pain - I have recommended a referral for right knee pain evaluation to Dr. Judge at [facility] in [place]. - Anti- inflammatory sample of vivlodex given to patient today. vivlodex lot [id number], exp 04/2020, lisa Restless Leg Syndrome - [...]
--- OUTSIDE RECORDS SUMMARY | 2020-03-15 06:33 | XMS REPORT | CCD ---
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 Name Role Phone PP Unavailable CCM Unavailable Summary Purpose Interface Exchange Insurance Providers Payer name Policy type / Coverage type Covered green party ID Effective Begin Date Effective End Date Six Month [employer] [facility] [facility] [id number] Unkno wn Family history Mother Diagnosis Age [...] a daycare 10/17/[address]: 099497379 Nonsmoker 10/17/[address]: 317319637 Never drinks alcohol 10/17/2011 Allergies, Adverse Reactions, [...] Protonix 40 mg table t,delayed release RxNorm: 937082 TAKE 1 TABLET BY MOUT H ONCE DAILY 05/19/2019 No Stop Date Active oxybutynin chloride ER 5 mg tablet,extended release 24 hr RxNorm: 746041 TAKE 1 TABLET BY MOUTH ONCE DAILY 05/19/2019 No Stop Date Active ropinirole 0.25 mg t ablet RxNorm: 682045 1 Tablet(s) PO BID 03/02/2019 06/29/2019 Active Vivlodex 10 mg capsule RxNorm: 5998141 1 Capsule(s) PO daily 03/02/2019 No Stop Date Active oxybutynin chloride ER 5 mg tablet,extended release 24 hr RxNorm: 981935 TAKE 1 TABLET BY MOUTH ONCE DAILY 12/21/2018 05/18/2019 Inactive Protonix 40 mg table t,delayed release RxNorm: 992381 TAKE 1 TABLET BY MOUT H ONCE DAILY 12/21/2018 05/18/2019 Inactive Zorvolex 35 mg capsule RxNorm: 2809868 1 Capsule(s) PO TID 12/09/2018 No Stop Date Active oxybutynin chloride ER 5 mg tablet,extended release 24 hr RxNorm: 568735 TAKE 1 TABLET BY MOUTH ONCE DAILY 10/21/2018 12/20/2018 Inactive Protonix 40 mg table t,delayed release RxNorm: 893019 TAKE 1 TABLET BY MOUT H ONCE DAILY 10/21/2018 12/20/2018 Inactive oxybutynin chloride ER 5 mg tablet,extended release 24 hr RxNorm: 782580 TAKE 1 TABLET BY MOUTH ONCE DAILY 07/20/2018 10/20/2018 Inactive Protonix 40 mg table t,delayed release RxNorm: 107452 TAKE 1 TABLET BY MOUT H ONCE DAILY 07/20/2018 10/20/2018 Inactive Xanax 0.25 mg tablet RxNorm: 886064 1 Tablet(s) PO Q8 as needed anxiety 02/17/2018 03/18/2018 In active oxybutynin chloride ER 5 mg tablet,extended release 24 hr RxNorm: 098375 TAKE ONE TABLET BY MOUTH ONCE DAILY 02/17/2018 07/19/2018 Inactive Protonix 40 mg table t,delayed release RxNorm: 639724 TAKE ONE TABLET BY MO UTH ONCE DAILY 02/17/2018 07/19/2018 Inactive Xanax 0.25 mg tablet RxNorm: 367369 1 Tablet(s) PO Q8 as needed anxiety 10/16/2017 11/12/2017 In active Zantac 150 mg tablet RxNorm: 295013 1 Tablet(s) PO daily 09/15/2017 03/13/2018 Inactive Carafate 1 gram tablet RxNorm: 175660 1 Tablet(s) PO AC & HS 09/15/2017 03/13/2018 Inactive oxybutynin chloride ER 5 mg tablet,extended release 24 hr RxNorm: 817437 TAKE ONE TABLET BY MOUTH ONCE DAILY 08/18/2017 02/13/2018 Inactive Protonix 40 mg table t,delayed release RxNorm: 133737 TAKE ONE TABLET BY [facility] ONCE DAILY 08/18/2017 02/13/2018 Inactive Carafate 1 gram tablet RxNorm: 366993 1 Tablet(s) PO AC & HS 07/09/2017 08/07/2017 Inactive Protonix 40 mg table t,delayed release RxNorm: 064775 1 Tablet(s) PO daily 07/09/2017 08/07/2017 In active Zofran 4 mg tablet RxNorm: 475057 1 Tablet(s) PO TID as needed nausea 07/09/2017 07/13/2017 In active Zantac 150 mg tablet RxNorm: 610347 1 Tablet(s) PO daily 07/09/2017 08/07/2017 Inactive losartan 25 mg tablet RxNorm: 391783 1 Tablet(s) PO daily 06/24/2017 10/21/2017 Inactive oxybutynin chloride ER 5 mg tablet,extended release 24 hr RxNorm: 714035 TAKE ONE TABLET BY MOUTH ONCE DAILY 05/15/2017 08/12/2017 Inactive oxybutynin chloride ER 5 mg tablet,extended release 24 hr RxNorm: 384884 TAKE ONE TABLET BY MOUTH ONCE DAILY 02/07/2017 05/07/2017 Inactive oxybutynin chloride ER 5 mg tablet,extended release 24 hr RxNorm: 657711 TAKE ONE TABLET BY MOUTH ONCE DAILY 10/01/2016 01/28/2017 Inactive oxybutynin chloride ER 5 mg tablet,extended release 24 hr RxNorm: 987506 TAKE ONE TABLET BY MOUTH ONCE DAILY 05/27/2016 09/23/2016 Inactive cranberry fruit conc entrate 500 mg capsule RxNorm: 381469 1 Capsule(s) PO two t o three times weekly 04/23/2016 No Stop Date Active Nexium 40 mg capsule ,delayed release RxNorm: 408141 1 Capsule(s) PO BID 04/23/2016 07/23/2017 In active oxybutynin chloride ER 5 mg tablet,extended release 24 hr RxNorm: 302586 1 Tablet(s) PO daily 01/23/2016 05/21/2016 Inactive pantoprazole 40 mg t ablet,delayed release RxNorm: 584303 1 Tablet(s) PO BID TA KE ONE TABLET BY MOUTH EVERY DAY 12/12/2015 12/11/2015 Inactive pantoprazole 40 mg t ablet,delayed release RxNorm: 108281 1 Tablet(s) PO BID TA KE ONE TABLET BY MOUTH TWICE EVERY DAY 12/12/2015 04/22/2016 Inactive Vesicare 5 mg tablet RxNorm: 768147 1 Tablet(s) PO QPM 11/21/2015 01/21/2016 Inactive Carafate 1 gram tablet RxNorm: 724035 1 Tablet(s) PO QID dissolve in 10mL of w ater 11/21/2015 04/22/2016 Inactive pantoprazole 40 mg t ablet,delayed release RxNorm: 787145 1 Tablet(s) PO daily TAKE ONE TABLET BY MOUTH EVERY DAY 04/05/2015 12/11/2015 Inactive Topamax 100 mg tablet RxNorm: 406229 1 Tablet(s) UD 1tab AM & 2 at hs x2wks, [id number] x2wks, then 1/2 am & 1hs x1wk, then 1/2 bidx 1wk, then 1/2 at hs x1wk then stop 08/23/2014 01/19/2015 Inactive Vitamin B-12 1,000 m cg/mL injection solution RxNorm: 263183 2x per month Millilit er(s) Inj INJECT 1ML EVERY 2 WEEKS 08/23/2014 11/20/2015 Inactive amitriptyline 50 mg tablet RxNorm: 195235 1 Tablet(s) QPM 08/23/2014 11/20/2015 Inactive amitriptyline 50 mg tablet RxNorm: 432354 TAKE ONE TABLET BY [facility] TWICE DAILY 08/18/2014 08/22/2014 In active amitriptyline 50 mg tablet RxNorm: 608333 TAKE ONE TABLET BY MO UT TWICE DAILY 05/27/2014 08/17/2014 In active Topamax 100 mg tablet RxNorm: 288984 TAKE ONE TABLET BY MOUTH TWICE DAILY 05/27/2014 08/22/2014 In active Topamax 100 mg tablet RxNorm: 383009 Tablet(s) PO TAKE ONE TABLET BY MOUTH TW ICE DAILY 03/24/2014 05/26/2014 Inactive pantoprazole 40 mg t ablet,delayed release RxNorm: 037760 1 Tablet(s) PO daily TAKE ONE TABLET BY MOUTH EVERY DAY 03/18/2014 03/12/2015 Inactive nystatin 100,000 uni t/mL oral suspension RxNorm: 934606 5 Milliliter(s) PO QI D 03/07/2014 03/06/2014 In active nystatin 100,000 uni t/mL oral suspension RxNorm: 353033 5 Milliliter(s) PO QI D 03/07/2014 03/16/2014 In active Topamax 100 mg tablet RxNorm: 579800 Tablet(s) PO TAKE ONE TABLET BY MOUTH TW ICE DAILY 02/21/2014 03/23/2014 Inactive Vitamin B-12 1,000 m cg/mL injection solution RxNorm: 531378 solution Inj INJECT 1 ML EVERY 2 WEEKS 12/21/2013 08/22/2014 Inactive Frova 2.5 mg tablet RxNorm: 280767 1 Tablet(s) PO 12/20/2013 11/20/2015 Inactive at o nset of migraine Frova 2.5 mg tablet RxNorm: 224991 1 Tablet(s) PO 10/28/2013 12/19/2013 Inactive at o nset of migraine Topamax 100 mg tablet RxNorm: 170750 Tablet(s) PO TAKE ONE TABLET BY MOUTH TW ICE DAILY 10/21/2013 2014 Inactive Topamax 100 mg tablet RxNorm: 323974 Tablet(s) PO TAKE ONE TABLET BY MOUTH TW ICE DAILY 08/23/2013 10/20/2013 Inactive Topamax 100 mg tablet RxNorm: 572130 1 Tablet(s) PO BID TAKE ONE TABLET BY MO UT TWICE DAILY 05/24/2013 08/22/2013 Inactive Demerol (PF) 50 mg/m L Injection RxNorm: 5940975 1/2 Milliliter(s) In j 04/06/2013 04/06/2013 In active promethazine 25 mg/m L Injection RxNorm: 889098 1 Milliliter(s) Inj 04/06/2013 04/06/2013 Inactive promethazine 25 mg/m L Injection RxNorm: 001401 2 Milliliter(s) Inj 03/26/2013 03/26/2013 Inactive Demerol (PF) 50 mg/m L Injection RxNorm: 4506674 Milliliter(s) Inj 03/26/2013 03/26/2013 Inactive amitriptyline 50 mg tablet RxNorm: 678019 Tablet(s) PO TAKE ONE TABLET BY MOUTH TWICE DAILY 03/22/2013 05/26/2014 Inactive Topamax 100 mg tablet RxNorm: 440188 1 Tablet(s) PO BID 03/19/2013 03/18/2013 Inactive Topamax 100 mg tablet RxNorm: 542228 1 Tablet(s) PO BID 03/19/2013 05/24/2013 Inactive Demerol (PF) 50 mg/m L Injection RxNorm: 4291670 1 Milliliter(s) Inj 03/11/2013 03/11/2013 Inactive Topamax 50 mg tablet RxNorm: 091867 1.5 Tablet(s) PO BID 03/10/2013 03/18/2013 Inactive promethazine 25 mg t ablet RxNorm: 354177 1 Tablet(s) PO Q6 PRN 02/25/2013 11/20/2015 Inactive pantoprazole 40 mg t ablet,delayed release RxNorm: 819133 Tablet(s) PO TAKE ONE TABLET BY MOUTH EVERY DAY 02/22/2013 03/17/2014 Inactive promethazine 25 mg/m L Injection RxNorm: 110986 1 Milliliter(s) Inj 02/18/2013 02/18/2013 Inactive Demerol (PF) 25 mg/0 .5 mL Injection RxNorm: 683427 1 Milliliter(s) Inj 02/18/2013 02/18/2013 In active total of 50mg given IM Topamax 50 mg tablet RxNorm: 531037 Tablet(s) PO TAKE ONE TABLET BY MOUTH TW ICE DAILY 02/04/2013 03/09/2013 Inactive prednisone 20 mg tablet RxNorm: 394107 3 Tablet(s) PO daily 11/16/2012 11/20/2012 Inactive ciprofloxacin 500 mg tablet RxNorm: 305104 1 Tablet(s) PO BID 11/16/2012 11/22/2012 Inactive Kenalog 40 mg/mL Lovely p for Injection RxNorm: 0057869 1 Milliliter(s) Inj 11/16/2012 11/16/2012 In active Tamiflu 75 mg capsule RxNorm: 597084 1 Capsule(s) PO BID 11/16/2012 11/20/2012 Inactive esterified estrogens -methyltestosterone 1.25 mg-2.5 mg tablet RxNorm: 620046 1 Tablet(s) PO every other day 10/29/2012 06/23/2017 Inactive amitriptyline 50 mg tablet RxNorm: 880332 1 Tablet(s) PO daily 10/29/2012 03/21/2013 Inactive TAKE ONE TABLET BY MOUTH TWICE DAILY Topamax 50 mg tablet RxNorm: 351339 1 Tablet(s) PO BID 10/29/2012 01/26/2013 Inactive Vitamin B-12 1,000 m cg/mL injection solution RxNorm: 272898 1 Milliliter(s) Inj Q 2weeks INJECT 1ML TWICE A MONTH 10/29/2012 12/20/2013 Inactive takes 2 times monthly. ok to give multidose vial if available. if not please give 3 month supply of single dose vials Vitamin B-12 1,000 m cg/mL Injection RxNorm: 683198 Solution Inj INJECT 1 ML TWICE A MONTH 10/26/2012 10/28/2012 Inactive Topamax 25 mg tablet RxNorm: 988626 1 Tablet(s) PO BID 10/13/2012 03/10/2013 Inactive Topamax 25 mg tablet RxNorm: 414088 1 Tablet(s) PO as directed 09/24/2012 10/12/2012 Inactive 1 tab bid x 2 weeks1 tab daily x 1 month 1 tab qod x 1 week then stop Percocet 10 mg-325 m g tablet RxNorm: 6526609 1 Tablet(s) PO Q4 PRN 07/22/2012 11/20/2015 Inactive diazepam 5 mg tablet RxNorm: 942143 1 Tablet(s) PO TID PRN 07/22/2012 01/17/2013 Inactive amitriptyline 50 mg tablet RxNorm: 466645 Tablet(s) PO 06/17/2012 10/28/2012 Inactive TAKE ONE TABLET BY MOUTH TWICE DAILY Topamax 25 mg tablet RxNorm: 350829 1 Tablet(s) PO as directed 04/14/2012 06/01/2012 Inactive 1 tab bid x 2 weeks1 tab daily x 1 month 1 tab qod x 1 week then stop Topamax 25 mg Tab RxNorm: 519802 1 Tablet(s) PO as directed 03/16/2012 04/13/2012 Inactive 1 tab bid x 2 weeks1 tab daily x 1 month 1 tab qod x 1 week then stop pantoprazole 40 mg t ablet,delayed release RxNorm: 734130 Tablet(s) PO 02/17/2012 02/21/2013 In active TAKE ONE TABLET BY MOUTH EVERY DAY Topamax 50 mg Tab RxNorm: 960384 Tablet(s) PO 01/21/2012 03/11/2012 Inactive plea se give pt #42 of the 50mg tablets, to take bid till gone.then 25mg q am and 50 q hs x 14 days then 25 mg bid thereafter # 44 amitriptyline 50 mg tablet RxNorm: 641731 Tablet(s) PO 12/18/2011 06/16/2012 Inactive TAKE ONE TABLET BY MOUTH TWICE DAILY Percocet 10 mg-325 m g tablet RxNorm: 2854154 1 Tablet(s) PO Q4 PRN 11/13/2011 07/21/2012 Inactive Vitamin B-12 1,000 m cg/mL Injection RxNorm: 880450 1 Milliliter(s) Inj 2 x month 10/17/2011 10/16/2011 In active Vitamin B-12 1,000 m cg/mL Injection RxNorm: 816843 1 Milliliter(s) Inj 2 x month 10/17/2011 10/25/2012 In active topiramate 100 mg Tab RxNorm: 482255 1 Tablet(s) PO BID 10/17/2011 01/20/2012 Inactive TAKE ONE TABLET BY MOUTH TWICE DAILY Kenalog 40 mg/mL Lovely p for Injection RxNorm: 9408044 1 Milliliter(s) Inj 10/17/2011 10/17/2011 In active diazepam 5 mg tablet RxNorm: 034921 1 Tablet(s) PO TID PRN 09/25/2011 03/22/2012 Inactive diazepam 5 mg Tab RxNorm: 865382 1 Tablet(s) PO TID PRN 09/15/2011 09/17/2011 Inactive topiramate 100 mg Tab RxNorm: 979210 Tablet(s) PO 08/25/2011 10/16/2011 Inactive TAKE ONE TABLET BY MOUTH TWICE DAILY topiramate 100 mg Tab RxNorm: 896244 1 Tablet(s) PO BID 08/21/2011 08/24/2011 Inactive pantoprazole 40 mg T ab, Delayed Release RxNorm: 779226 1 Tablet(s) PO daily 07/19/2011 08/17/2011 In active ibuprofen 800 mg Tab RxNorm: 702567 1 Tablet(s) PO Q8 PRN No Start Date Active Vitamin D3 5,000 uni t tablet RxNorm: 424406 1 Tablet(s) PO daily No Start Date Active multivitamin capsule RxNorm: 1 Capsule(s) PO daily No Start Date Active cranberry fruit conc entrate 250 mg chewable tablet RxNorm: 8651006 1 Tablet(s) PO two to three times weekly No Start Date 04/22/2016 Inactive amitriptyline 50 mg Tab RxNorm: 816301 1 Tablet(s) PO BID No Start Date 12/17/2011 Inactive Topamax 50 mg Tab RxNorm: 287927 Tablet(s) PO No Start Date 01/20/2012 Inactive plea se give pt #42 of the 50mg tablets, to take bid till gone.then 25mg q am and 50 q hs x 14 days then 25 mg bid thereafter # 44 cranberry 1,000 mg c apsule RxNorm: 199859 3 Capsule(s) PO daily No Start Date 01/22/2016 Inactive promethazine 25 mg t ablet RxNorm: 029586 1 Tablet(s) PO Q6 PRN No Start Date 02/24/2013 Inactive Topamax 25 mg Tab RxNorm: 169888 1 Tablet(s) PO BID No Start Date 03/15/2012 Inactive Xanax 0.25 mg tablet RxNorm: 629314 1 Tablet(s) PO as needed anxiety No Start Date 10/15/2017 Inactive Frova 2.5 mg tablet RxNorm: 181781 1 Tablet(s) PO No Start Date 10/27/2013 Inactive at onset of migraine Zithromax Z-Darion 250 mg Tab RxNorm: 200072 Tablet(s) PO No Start Date 10/28/2012 Inactive Diflucan 200 mg tablet RxNorm: 694854 1 Tablet(s) PO PRN No Start Date 06/13/2013 Inactive Fish Oil 1,000 mg ca psule RxNorm: 4 Capsule(s) PO daily No Start Date 08/31/2018 Inactive esterified estrogens -methyltestosterone 1.25 mg-2.5 mg tablet RxNorm: 066003 1 Tablet(s) PO daily No Start Date 10/28/2012 Inactive Demerol (PF) 50 mg/m L Injection RxNorm: 6747610 1 Milliliter(s) Inj as doctor directed No Start Date 06/13/2013 Inactive Tessalon 200 mg Cap RxNorm: 889631 1 Capsule(s) PO Q6 PRN No Start Date 10/28/2012 Inactive Medication Administered Medication Codes Instruc tions Start Date Status promethazine 25 mg/mL Injection RxNo rm: 957346 1Milliliter 04/06/2013 N o longer Active Demerol (PF) 50 mg/mL Injection RxNo rm: 2753917 1/2Milliliter 04/06/2013 No longer Active promethazine 25 mg/mL Injection RxNo rm: 568145 2Milliliter 03/26/2013 N o longer Active Demerol (PF) 50 mg/mL Injection RxNo rm: 9972641 Milliliter 03/26/2013 No longer Active Demerol (PF) 50 mg/mL Injection RxNo rm: 5827477 1Milliliter 03/11/2013 N o longer Active promethazine 25 mg/mL Injection RxNo rm: 097135 1Milliliter 02/18/2013 N o longer Active Demerol (PF) 25 mg/0.5 mL Injection RxNorm: 257196 1Milliliter 02/18/2013 N o longer Active Kenalog 40 mg/mL Susp for Injection RxNorm: 9950870 1Milliliter 11/16/2012 N o longer Active Kenalog 40 mg/mL Susp for Injection RxNorm: 4407056 1Milliliter 10/17/2011 N o longer Active Immunizations [...] Code Result Date URINALYSIS NONAUTO W/O SCOPE 70469 Specific [place] 1.005 DateTime(Free Text in Aprima) URINALYSIS NONAUTO W/O SCOPE 48499 PH 6.0 DateTime(Free Jamar t in Aprima) URINALYSIS NONAUTO W/O SCOPE 02835 GLUCOSE DateTime(Free Text i n Aprima) URINALYSIS NONAUTO W/O SCOPE 64228 Protein DateTime(Free Text i n Aprima) URINALYSIS NONAUTO W/O SCOPE 94355 Blood DateTime(Free Text i n Aprima) URINALYSIS NONAUTO W/O SCOPE 71888 Bilirubin DateTime(Free Text i n Aprima) URINALYSIS NONAUTO W/O SCOPE 48149 Ketones DateTime(Free Text i n Aprima) URINALYSIS NONAUTO W/O SCOPE 33168 Urobilinogen DateTime(Free Text in ) URINALYSIS NONAUTO W/O SCOPE 41666 Nitrite DateTime(Free Text i n ) URINALYSIS NONAUTO W/O SCOPE 82497 Leukocytes DateTime(Fr ee Text in ) Review [...] Date URINALYSIS NONAUTO W /O SCOPE CPT-4: 91087 06/14/2013 THER/PROPH/DIAG INJ SC/IM CPT-4: 89920 04/06/2013 PROMETHAZINE HCL INJ ECTION CPT-4: J2550 04/06/2013 THER/PROPH/DIAG INJ SC/IM CPT-4: 24639 03/26/2013 PROMETHAZINE HCL INJ ECTION CPT-4: J2550 03/26/2013 THER/PROPH/DIAG INJ SC/IM CPT-4: 96434 03/11/2013 PROMETHAZINE HCL INJ ECTION CPT-4: J2550 02/18/2013 TRIAMCINOLONE ACET I [place] NOS CPT-4: J3301 11/16/2012 THER/PROPH/DIAG INJ SC/IM CPT-4: 16638 11/16/2012 TRIAMCINOLONE ACET I [place] NOS CPT-4: J3301 10/17/2011 THER/PROPH/DIAG INJ SC/IM CPT-4: 13542 10/17/2011 Vital Signs Date Vital 03/02/2019 Blood Pressure 1: 150/78 Code: 8480-6 Heart Rate 1: 68 bpm Height: 5'5" SpO2: 98% Weight: 12/08/2018 Blood Pressure 1: 122/74 Code: 8480-6 BMI: 36.3 Code: 67473-4 Heart Rate 1: 64 bpm Height: 5'5" SpO2: 100% Weight: 218 lbs 09/01/2018 Blood Pressure 1: 132/80 Code: 8480-6 BMI: 35.6 Code: 10793-8 Heart Rate 1: 80 bpm Height: 5'5" SpO2: 96% Weight: 214 lbs 02/26/2018 Blood Pressure 1: 126/72 Code: 8480-6 BMI: 36.1 Code: 46785-7 Heart Rate 1: 63 bpm Height: 5'5" SpO2: 98% Weight: 217 lbs 07/24/2017 Blood Pressure 1: 138/78 Code: 8480-6 BMI: 36.1 Code: 24543-8 Heart Rate 1: 78 bpm Height: 5'5" SpO2: 99% Weight: 217 lbs 07/09/2017 Blood Pressure 1: 150/84 Code: 8480-6 BMI: 36.4 Code: 97853-7 Heart Rate 1: 70 bpm Height: 5'5" SpO2: 98% Weight: 219 lbs 06/24/2017 Blood Pressure 1: 154/80 Code: 8480-6 BMI: 36.9 Code: 11708-7 Heart Rate 1: 68 bpm Height: 5'5" SpO2: 98% Weight: 222 lbs 04/23/2016 Blood Pressure 1: 136/78 Code: 8480-6 BMI: 38.4 Code: 67587-7 Heart Rate 1: 76 bpm Height: 5'5" SpO2: 98% Weight: 231 lbs 01/23/2016 Blood Pressure 1: 148/82 Code: 8480-6 BMI: 39.6 Code: 29628-8 Heart Rate 1: 76 bpm Height: 5'5" SpO2: 98% Weight: 238 lbs 11/21/2015 Blood Pressure 1: 140/80 Code: 8480-6 BMI: 38.9 Code: 36780-4 Heart Rate 1: 89 bpm Height: 5'5" SpO2: 98% Weight: 233 lbs 8 oz 08/23/2014 Blood Pressure 1: 140/72 Code: 8480-6 BMI: 38.1 Code: 79926-4 Height: 5'5" Weight: 229 lbs 03/01/2014 Blood [...] factors 02/18/2013 None cough Location in the antoyn ng 11/16/2012 been around day care chimai [...] States she has been doing body by [facility] for about 3 months but is not [...] shoulder 01/28/2012 None shoulder pain [facility] [place] 01/28/2012 None shoulder pain Quality [facility] [place] [...] Encounters Encounter Performer Loca tion Codes Date ([id number]) 65044 EST. P ATIENT, LEVEL IV Diagnosis: Essential (primary) hypertension[ICD10: I10] Diagnosis: Restless legs syndrome[ICD10: G25.81] Diagnosis: Pain in right knee[ICD10: M25.561] Ling Collins MD, [facility] CPT- 4: 23899 03/02/2019 50161 EST. PATIENT, LEVEL III Diagnosis: Pain in right knee[ICD10: M25.561] Claritza Collins MD, [facility] CPT-4: 38228 12/08/2018 ([id number]) 12136 EST. P ATIENT, LEVEL IV Diagnosis: Essential (primary) hypertension[ICD10: I10] Diagnosis: Acute laryngopharyngitis[ICD10: J06.0] Diagnosis: Other insomnia[ICD10: G47.09] Ling Collins MD, [facility] CPT-4: 80975 09/01/2018 ([id number]) 44096 EST. P ATIENT, LEVEL III Diagnosis: Gastro-esophageal reflux disease without esophagitis[ICD10: K21.9] Diagnosis: Essential (primary) hypertension[ICD10: I10] Ling Collins MD, [facility] CPT-4: 48968 02/26/2018 ([id number]) 90073 EST. P ATIENT, LEVEL III Diagnosis: Other specified noninfective gastroenteritis and colitis[ICD10: K52.89] Diagnosis: Epigastric pain[ICD10: R10.13] Diagnosis: Generalized abdominal pain[ICD10: R10.84] Ling Collins MD, [facility] CPT-4: 61794 07/24/2017 41738 EST. PATIENT, LEVEL IV Diagnosis: Gastro-esophageal reflux disease without esophagitis[ICD10: K21.9] Claritza Collins MD, [facility] CPT-4: 05693 07/09/2017 ([id number]) PREV VISIT E ST AGE 40-64 Diagnosis: Encounter for general adult medical examination with abnormal findings[ICD10: Z00.01] Ling Collins MD, [facility] CPT-4: 15583 06/24/2017 ([id number]) 66401 EST. P ATIENT, LEVEL III Diagnosis: Gastro-esophageal reflux disease with esophagitis[ICD10: K21.0] Ling Collins MD, [facility] CPT-4: 70381 04/23/2016 ([id number]) 11136 EST. P ATIENT, LEVEL IV Diagnosis: Gastro-esophageal reflux disease with esophagitis[ICD10: K21.0] Diagnosis: Morbid (severe) obesity due to excess calories[ICD10: E66.01] Diagnosis: Urge incontinence[ICD10: N39.41] Ling Collins MD, [facility] CPT-4: 43784 01/23/2016 ([id number]) 95847 EST. P ATIENT, LEVEL IV Diagnosis: Metatarsalgia, right foot[ICD10: M77.41] Diagnosis: Achilles tendinitis, right leg[ICD10: M76.61] Diagnosis: Gastro-esophageal reflux disease with esophagitis[ICD10: K21.0] Ling Collins MD, [facility] CPT-4: 20481 11/21/2015 ([id number]) 54015 EST. P ATIENT, LEVEL III Diagnosis: Biceps tendonitis[ICD9: 726.12] Diagnosis: Encounter for long-term (current) use of other medications[ICD9: V58.69] Ling Collins MD, [facility] CPT-4: 22844 08/23/2014 ([id number]) 39994 EST. P ATIENT, LEVEL III Diagnosis: Anxiety, generalized[ICD9: 300.02] Diagnosis: Pain, lower leg[ICD9: 729.5] Ling Collins MD, [facility] CPT-4: 85947 03/01/2014 ([id number]) 43885 EST. P ATIENT, LEVEL III Diagnosis: MIGRAINE NOS/NOT INTRCBL[ICD9: 346.90] Ling Collins MD, [facility] CPT-4: 75755 06/14/2013 ([id number]) 62447 EST. P ATIENT, LEVEL III Diagnosis: MIGRAINE NOS/NOT INTRCBL[ICD9: 346.90] Diagnosis: NAUSEA ALONE[ICD9: 787.02] iLng Collins MD, [facility] CPT-4: 79690 03/10/2013 ([id number]) 54807 EST. P ATIENT, LEVEL III Diagnosis: Intractable migraine with aura without status migrainosus[ICD9: 346.01] Diagnosis: Nausea[ICD9: 787.02] Yennifer Collins MD, [facility] CPT-4: 62649 02/18/2013 ([id number]) 35489 EST. P ATIENT, LEVEL III Diagnosis: BACTERIAL PNEUMONIA[ICD9: 482.9] Diagnosis: Dyspnea[ICD9: 786.09] Ling Collins MD, [facility] CPT-4: 47105 11/16/2012 ([id number]) 31483 EST. P ATIENT, LEVEL III Diagnosis: MIGRAINE NOS/NOT INTRCBL[ICD9: 346.90] Diagnosis: ANXIETY STATE[ICD9: 300.00] Ling Collins MD, [facility] CPT-4: 01700 10/29/2012 ([id number]) 65287 EST. P ATIENT, LEVEL IV Diagnosis: MIGRAINE NOS/NOT INTRCBL[ICD9: 346.90] Diagnosis: JOINT PAIN-SHLDER[ICD9: 719.41] Diagnosis: OBESITY[ICD9: 278.00] Ling Collins MD, [facility] CPT-4: 16949 03/12/2012 ([id number]) 08995 EST. P ATIENT, LEVEL IV Diagnosis: Rotator cuff disorder[ICD9: 726.10] Diagnosis: Shoulder pain, acute[ICD9: 719.41] Diagnosis: Knee pain[ICD9: 719.46] Ling Collins MD, [facility] CPT-4: 11945 01/28/2012 ([id number]) 14545 EST. P ATIENT, LEVEL IV Diagnosis: Migraine[ICD9: 346.90] Diagnosis: Anxiety[ICD9: 300.00] Ling Collins MD, [facility] CPT-4: 47918 01/09/2012 17743 EST. PATIENT, LEVEL III Diagnosis: ACUTE URI[ICD9: 465.9] Diagnosis: Cough[ICD9: 786.2] [facility] CPT-4: 04279 10/17/2011 Plan of Care Planned Activity Notes C odes Status Date Referral: [facility] Referral Completed 03/08/2019 Visit Plan: Right knee pain - I hav e recommended a referral for right knee pain evaluation to Dr. Judge at [facility] in [place]. - Anti-inflammatory sample of vivlodex given to patient today. vivlodex lot c [id number], exp 04/2020, lisa Restless Leg Syndrome - uncontrolled symptoms - I have recommended pt to start on a low dose of requip. Pt to alert us if the symptoms do not improve. HTN - not optimally controlled - she admits to feeling nervous today and being in pain due to her knee. Advised to monitor pressure at home. 03/02/2019 Appointment: Ling Collins [facility]el[id number] [facility]/02/2019 Patient Education: Patient Medication Summary Completed 03/02/2019 Care Plan: Referral Order SNOMED-CT : [id number] Pending 03/02/2019 Patient Education: Patient Medication Summary [...] not improve. 12/08/2018 Appointment: Claritza Russell WPtel: [facility]5 [facility] (15 min) Moderate 12/08/2018 Patient Education: Patient [...] 10mg nightly. 09/01/2018 Appointment: Ling Collins WPtel: [facility]9 [facility] (15 min) Moderate 09/01/2018 Patient Education: Patient [...] not improving. 02/26/2018 Appointment: Ling Collins WPtel: [facility]2 [facility] (15 min) Moderate 02/26/2018 Patient Education: Patient Medication Summary Completed 02/26/2018 Appointment: Ling Collins WPtel: [facility]5 [facility] (15 min) Moderate 08/11/2017 Visit Plan: Abdominal pain, Colitis - advised liquid diet x 2-3 days, then advance to bland diet. If at any time her symptoms worsen, she is to go to the emergency department. Pt given order for EGD/Colonoscopy at [address] Garcia. 07/24/2017 Appointment: Ling Collins WPtel: [phone] [facility] (15 min) Moderate 07/24/2017 Patient Education: Patient [...] through their insurance - Fax number - [phone] phone number - [phone]. 07/09/2017 Visit Plan: Esophageal Reflux - Sev [...] through their insurance - Fax number - [phone] phone number - [phone]. 07/09/2017 Appointment: Claritza Russell WPtel: [phone] [facility] (30 min) Complex 07/09/2017 Patient Education: Patient Medication Summary Completed 07/09/2017 Care Plan: Referral Order SNOMED-CT : [id number] Pending 07/09/2017 Visit Plan: Well Adult - [...] acute concerns. 06/24/2017 App[facility]ment: [phone] ([facility]) Moderate 06/24/2017 Patient Education: Patient [...] diet medication. 01/23/2016 Appointment: Ling Collins WPtel: [facility] (15 min) Moderate 01/23/2016 Patient Education: Patient [...] 11/21/2015 Care Plan: Referral Order SNOMED-CT : [id number] Ordered 11/21/2015 Visit Plan: Biceps tendonitis - [...] 1tab AM & 2 at hs x2wks, [id number] x2wks, then 1/2 am & 1hs x1wk, then 1/2 bidx 1wk, then 1/2 at hs x1wk then stop 08/23/2014 Appointment: Ling Collins [facility]el[phone] Sick 08/23/2014 Patient Education: Patient Medication Summary Completed 08/23/2014 Visit Plan: Chronic migraine headac hes - recommended for pt to keep appt with the specialist in [place] for migraine surgery. Topical pain in legs - recommended pt to start on iron, monitor as pt weans off of the topamax post surgically. 03/01/2014 Appointment: Ling Collins WPtel: [phone] [facility] Follow up 03/01/2014 Patient Education: Patient Medication Summary Completed 03/01/2014 Visit Plan: Migraine headaches - pt has not yet had an intractible migraine since she had her botox injections. She is to follow up with her Neurologist about her migraine headaches.. 06/14/2013 Appointment: Ling Collins [facility]el[phone] Follow up 06/14/2013 Patient Education: Patient Medication [...] 75mg bid. 03/10/2013 Appointment: Ling Collins WPtel: [phone] [facility] Other 03/10/2013 Patient Education: Patient Medication Summary [...] patient's picked up medication from [facility] pharmacy and we administered) and Phenergan 25mg IM. 02/18/2013 Appointment: Yennifer Field WPtel: [phone] [facility] Other 02/18/2013 Patient Education: Patient [...] positive children. 11/16/2012 Appointment: Ling Collins WPtel: [phone] [facility] [facility] 11/16/2012 Patient Education: Patient Medication Summary [...] her migraines. 10/29/2012 Appointment: Ling Collins WPtel: [facility] Other 10/29/2012 Patient Education: Patient Medication [...] Dr. Judge. 03/12/2012 Appointment: Ling Collins WPtel: [address] [place] [address] Other 03/12/2012 Patient Education: Patient Medication Summary Completed 03/12/2012 Visit Plan: mri of keft shoulder - rotator cuff instability kenwaldemar stalin referal to orthopedic surgeon for eval of left shoulder and right knee 01/28/2012 Appointment: Ling Collins WPtel: [address] [place] [address] Other 01/28/2012 Patient Education: Patient Medication Summary [...] this time. 01/09/2012 Appointment: Ling Collins WPtel: [facility] Other 01/09/2012 Patient Education: Patient Medication [...] resolve or if any worse. 10/17/2011 Appointment: Field Yennifer WPtel[facility] Other 10/17/2011 Patient Education: Patient Medication Summary Completed 10/17/2011 Referral: Eric Ramirez Referral Completed Referral: External, Ordering Provider Referral Initiated Referral: [facility] Referral Appointment Requested Referral: Eric Ramirez Referral Appointment Requested Instructions Comment . Esophageal Reflux - the patient has been counseled against excessive intake of caffeine, spicy foods, peppermint, and cinnamon - all of which can exacerbate esophageal reflux. The patient is to take medications as prescribed and call the office if the symptoms are not improving. . Acute Migraine - p t has chronic migraine headaches, but comes into clinic today complaining of intractible migraine headache symptoms. I have recommended changes to the chronic symptoms management and the pt has been given the following acute treatment in clinic today: Demerol 50mg IM (RX written and patient's picked up medication from [facility] pharmacy and we administered) and Phenergan 25mg [...] department. Pt given order for EGD/Colonoscopy at [address] Garcia. . Migraine headaches [...] 1tab AM & 2 at hs x2wks, [id number] x2wks, then 1/2 am & 1hs x1wk, [...] 1tab AM & 2 at hs x2wks, laec0eso x2wks, then 1/2 am & 1hs x1wk, [...] through their insurance - Fax number - [phone]; phone number - [phone]. Carafate - with meal s and at [...] through their insurance - Fax number - [phone]; phone number - [phone]. . Migraine Headaches - improved, continue with [...] follow up as per Dr. Judge. . Right knee pain - I have recommended a referral for right knee pain evaluation to Dr. Judge at [facility] in [place]. - Anti- inflammatory sample of vivlodex given to patient today. vivlodex lot [id number], exp 04/2020, iroko Restless Leg Syndrome - uncontrolled symptoms - I have recommended pt to start on a low dose of requip. Pt to alert us if the symptoms do not improve. HTN - not optimally controlled - she admits to feeling nervous today and being in pain due to her knee. Advised to monitor pressure at home. . URI - Pt advised t o [...] to keep appt with the specialist in [place] for migraine surgery. Topical pain in legs [...]
--- OUTSIDE RECORDS SUMMARY | 2020-03-15 06:35 | XMS REPORT | CCD ---
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 Name Role Phone PP Unavailable CCM Unavailable Summary Purpose Interface Exchange Insurance Providers Payer name Policy type / Coverage type Covered alliance party ID Effective Begin Date Effective End Date [employer] [facility] [id number] Unkno wn Family history Mother Diagnosis Age [...] a daycare 10/17/[address]: 697465460 Nonsmoker 10/17/[address]: 444229552 Never drinks alcohol 10/17/2011 Allergies, Adverse Reactions, [...] Instructions ropinirole 0.25 mg t ablet RxNorm: 955602 1 Tablet(s) PO BID 03/02/2019 06/29/2019 Active Vivlodex 10 mg capsule RxNorm: 6895423 1 Capsule(s) PO daily 03/02/2019 No Stop Date Active oxybutynin chloride ER 5 mg tablet,extended release 24 hr RxNorm: 059237 TAKE 1 TABLET BY MOUTH ONCE DAILY 12/21/2018 No Stop Date Active Protonix 40 mg table t,delayed release RxNorm: 291357 TAKE 1 TABLET BY MOUT H ONCE DAILY 12/21/2018 No Stop Date Active Zorvolex 35 mg capsule RxNorm: 7284203 1 Capsule(s) PO TID 12/09/2018 No Stop Date Active oxybutynin chloride ER 5 mg tablet,extended release 24 hr RxNorm: 720472 TAKE 1 TABLET BY MOUTH ONCE DAILY 10/21/2018 12/20/2018 Inactive Protonix 40 mg table t,delayed release RxNorm: 312764 TAKE 1 TABLET BY MOUT H ONCE DAILY 10/21/2018 12/20/2018 Inactive oxybutynin chloride ER 5 mg tablet,extended release 24 hr RxNorm: 403705 TAKE 1 TABLET BY MOUTH ONCE DAILY 07/20/2018 10/20/2018 Inactive Protonix 40 mg table t,delayed release RxNorm: 048991 TAKE 1 TABLET BY MOUT H ONCE DAILY 07/20/2018 10/20/2018 Inactive Xanax 0.25 mg tablet RxNorm: 684331 1 Tablet(s) PO Q8 as needed anxiety 02/17/2018 03/18/2018 In active oxybutynin chloride ER 5 mg tablet,extended release 24 hr RxNorm: 371068 TAKE ONE TABLET BY MOUTH ONCE DAILY 02/17/2018 07/19/2018 Inactive Protonix 40 mg table t,delayed release RxNorm: 850240 TAKE ONE TABLET BY MO UTH ONCE DAILY 02/17/2018 07/19/2018 Inactive Xanax 0.25 mg tablet RxNorm: 320185 1 Tablet(s) PO Q8 as needed anxiety 10/16/2017 11/12/2017 In active Zantac 150 mg tablet RxNorm: 903876 1 Tablet(s) PO daily 09/15/2017 03/13/2018 Inactive Carafate 1 gram tablet RxNorm: 541306 1 Tablet(s) PO AC & HS 09/15/2017 03/13/2018 Inactive oxybutynin chloride ER 5 mg tablet,extended release 24 hr RxNorm: 231732 TAKE ONE TABLET BY MOUTH ONCE DAILY 08/18/2017 02/13/2018 Inactive Protonix 40 mg table t,delayed release RxNorm: 162092 TAKE ONE TABLET BY MO [facility] ONCE DAILY 08/18/2017 02/13/2018 Inactive Carafate 1 gram tablet RxNorm: 948298 1 Tablet(s) PO AC & HS 07/09/2017 08/07/2017 Inactive Protonix 40 mg table t,delayed release RxNorm: 140896 1 Tablet(s) PO daily 07/09/2017 08/07/2017 In active Zofran 4 mg tablet RxNorm: 620970 1 Tablet(s) PO TID as needed nausea 07/09/2017 07/13/2017 In active Zantac 150 mg tablet RxNorm: 250384 1 Tablet(s) PO daily 07/09/2017 08/07/2017 Inactive losartan 25 mg tablet RxNorm: 509715 1 Tablet(s) PO daily 06/24/2017 10/21/2017 Inactive oxybutynin chloride ER 5 mg tablet,extended release 24 hr RxNorm: 766984 TAKE ONE TABLET BY MOUTH ONCE DAILY 05/15/2017 08/12/2017 Inactive oxybutynin chloride ER 5 mg tablet,extended release 24 hr RxNorm: 919939 TAKE ONE TABLET BY MOUTH ONCE DAILY 02/07/2017 05/07/2017 Inactive oxybutynin chloride ER 5 mg tablet,extended release 24 hr RxNorm: 807144 TAKE ONE TABLET BY MOUTH ONCE DAILY 10/01/2016 01/28/2017 Inactive oxybutynin chloride ER 5 mg tablet,extended release 24 hr RxNorm: 539867 TAKE ONE TABLET BY MOUTH ONCE DAILY 05/27/2016 09/23/2016 Inactive cranberry fruit conc entrate 500 mg capsule RxNorm: 152457 1 Capsule(s) PO two t o three times weekly 04/23/2016 No Stop Date Active Nexium 40 mg capsule ,delayed release RxNorm: 572847 1 Capsule(s) PO BID 04/23/2016 07/23/2017 In active oxybutynin chloride ER 5 mg tablet,extended release 24 hr RxNorm: 109130 1 Tablet(s) PO daily 01/23/2016 05/21/2016 Inactive pantoprazole 40 mg t ablet,delayed release RxNorm: 726166 1 Tablet(s) PO BID TA KE ONE TABLET BY MOUTH EVERY DAY 12/12/2015 12/11/2015 Inactive pantoprazole 40 mg t ablet,delayed release RxNorm: 322087 1 Tablet(s) PO BID TA KE ONE TABLET BY MOUTH TWICE EVERY DAY 12/12/2015 04/22/2016 Inactive Vesicare 5 mg tablet RxNorm: 561991 1 Tablet(s) PO QPM 11/21/2015 01/21/2016 Inactive Carafate 1 gram tablet RxNorm: 483732 1 Tablet(s) PO QID dissolve in 10mL of w ater 11/21/2015 04/22/2016 Inactive pantoprazole 40 mg t ablet,delayed release RxNorm: 072449 1 Tablet(s) PO daily TAKE ONE TABLET BY MOUTH EVERY DAY 04/05/2015 12/11/2015 Inactive Topamax 100 mg tablet RxNorm: 407087 1 Tablet(s) UD 1tab AM & 2 at hs x2wks, [id number] x2wks, then 1/2 am & 1hs x1wk, then 1/2 bidx 1wk, then 1/2 at hs x1wk then stop 08/23/2014 01/19/2015 Inactive Vitamin B-12 1,000 m cg/mL injection solution RxNorm: 026892 2x per month Millilit er(s) Inj INJECT 1ML EVERY 2 WEEKS 08/23/2014 11/20/2015 Inactive amitriptyline 50 mg tablet RxNorm: 819053 1 Tablet(s) QPM 08/23/2014 11/20/2015 Inactive amitriptyline 50 mg tablet RxNorm: 336974 TAKE ONE TABLET BY MO UTH TWICE DAILY 08/18/2014 08/22/2014 In active amitriptyline 50 mg tablet RxNorm: 907897 TAKE ONE TABLET BY MO UTH TWICE DAILY 05/27/2014 08/17/2014 In active Topamax 100 mg tablet RxNorm: 827376 TAKE ONE TABLET BY MOUTH TWICE DAILY 05/27/2014 08/22/2014 In active Topamax 100 mg tablet RxNorm: 403253 Tablet(s) PO TAKE ONE TABLET BY MOUTH TW ICE DAILY 03/24/2014 05/26/2014 Inactive pantoprazole 40 mg t ablet,delayed release RxNorm: 895005 1 Tablet(s) PO daily TAKE ONE TABLET BY MOUTH EVERY DAY 03/18/2014 03/12/2015 Inactive nystatin 100,000 uni t/mL oral suspension RxNorm: 052279 5 Milliliter(s) PO QI D 03/07/2014 03/06/2014 In active nystatin 100,000 uni t/mL oral suspension RxNorm: 055436 5 Milliliter(s) PO QI D 03/07/2014 03/16/2014 In active Topamax 100 mg tablet RxNorm: 686592 Tablet(s) PO TAKE ONE TABLET BY MOUTH TW ICE DAILY 02/21/2014 03/23/2014 Inactive Vitamin B-12 1,000 m cg/mL injection solution RxNorm: 242140 solution Inj INJECT 1 ML EVERY 2 WEEKS 12/21/2013 08/22/2014 Inactive Frova 2.5 mg tablet RxNorm: 620850 1 Tablet(s) PO 12/20/2013 11/20/2015 Inactive at o nset of migraine Frova 2.5 mg tablet RxNorm: 343422 1 Tablet(s) PO 10/28/2013 12/19/2013 Inactive at o nset of migraine Topamax 100 mg tablet RxNorm: 860655 Tablet(s) PO TAKE ONE TABLET BY MOUTH TW ICE DAILY 10/21/2013 2014 Inactive Topamax 100 mg tablet RxNorm: 766355 Tablet(s) PO TAKE ONE TABLET BY MOUTH TW ICE DAILY 08/23/2013 10/20/2013 Inactive Topamax 100 mg tablet RxNorm: 148815 1 Tablet(s) PO BID TAKE ONE TABLET BY [facility] TWICE DAILY 05/24/2013 08/22/2013 Inactive Demerol (PF) 50 mg/m L Injection RxNorm: 5607912 1/2 Milliliter(s) In j 04/06/2013 04/06/2013 In active promethazine 25 mg/m L Injection RxNorm: 071288 1 Milliliter(s) Inj 04/06/2013 04/06/2013 Inactive promethazine 25 mg/m L Injection RxNorm: 784355 2 Milliliter(s) Inj 03/26/2013 03/26/2013 Inactive Demerol (PF) 50 mg/m L Injection RxNorm: 2078080 Milliliter(s) Inj 03/26/2013 03/26/2013 Inactive amitriptyline 50 mg tablet RxNorm: 374345 Tablet(s) PO TAKE ONE TABLET BY MOUTH TWICE DAILY 03/22/2013 05/26/2014 Inactive Topamax 100 mg tablet RxNorm: 982864 1 Tablet(s) PO BID 03/19/2013 03/18/2013 Inactive Topamax 100 mg tablet RxNorm: 724991 1 Tablet(s) PO BID 03/19/2013 05/24/2013 Inactive Demerol (PF) 50 mg/m L Injection RxNorm: 2207397 1 Milliliter(s) Inj 03/11/2013 03/11/2013 Inactive Topamax 50 mg tablet RxNorm: 101662 1.5 Tablet(s) PO BID 03/10/2013 03/18/2013 Inactive promethazine 25 mg t ablet RxNorm: 381987 1 Tablet(s) PO Q6 PRN 02/25/2013 11/20/2015 Inactive pantoprazole 40 mg t ablet,delayed release RxNorm: 463433 Tablet(s) PO TAKE ONE TABLET BY MOUTH EVERY DAY 02/22/2013 03/17/2014 Inactive promethazine 25 mg/m L Injection RxNorm: 551838 1 Milliliter(s) Inj 02/18/2013 02/18/2013 Inactive Demerol (PF) 25 mg/0 .5 mL Injection RxNorm: 777556 1 Milliliter(s) Inj 02/18/2013 02/18/2013 In active total of 50mg given IM Topamax 50 mg tablet RxNorm: 551909 Tablet(s) PO TAKE ONE TABLET BY MOUTH TW ICE DAILY 02/04/2013 03/09/2013 Inactive prednisone 20 mg tablet RxNorm: 798815 3 Tablet(s) PO daily 11/16/2012 11/20/2012 Inactive ciprofloxacin 500 mg tablet RxNorm: 016927 1 Tablet(s) PO BID 11/16/2012 11/22/2012 Inactive Kenalog 40 mg/mL Lovely p for Injection RxNorm: 7699228 1 Milliliter(s) Inj 11/16/2012 11/16/2012 In active Tamiflu 75 mg capsule RxNorm: 814189 1 Capsule(s) PO BID 11/16/2012 11/20/2012 Inactive esterified estrogens -methyltestosterone 1.25 mg-2.5 mg tablet RxNorm: 725211 1 Tablet(s) PO every other day 10/29/2012 06/23/2017 Inactive amitriptyline 50 mg tablet RxNorm: 156384 1 Tablet(s) PO daily 10/29/2012 03/21/2013 Inactive TAKE ONE TABLET BY MOUTH TWICE DAILY Topamax 50 mg tablet RxNorm: 361079 1 Tablet(s) PO BID 10/29/2012 01/26/2013 Inactive Vitamin B-12 1,000 m cg/mL injection solution RxNorm: 788960 1 Milliliter(s) Inj Q 2weeks INJECT 1ML TWICE A MONTH 10/29/2012 12/20/2013 Inactive takes 2 times monthly. ok to give multidose vial if available. if not please give 3 month supply of single dose vials Vitamin B-12 1,000 m cg/mL Injection RxNorm: 539465 Solution Inj INJECT 1 ML TWICE A MONTH 10/26/2012 10/28/2012 Inactive Topamax 25 mg tablet RxNorm: 624884 1 Tablet(s) PO BID 10/13/2012 03/10/2013 Inactive Topamax 25 mg tablet RxNorm: 168895 1 Tablet(s) PO as directed 09/24/2012 10/12/2012 Inactive 1 tab bid x 2 weeks1 tab daily x 1 month 1 tab qod x 1 week then stop Percocet 10 mg-325 m g tablet RxNorm: 4792012 1 Tablet(s) PO Q4 PRN 07/22/2012 11/20/2015 Inactive diazepam 5 mg tablet RxNorm: 272897 1 Tablet(s) PO TID PRN 07/22/2012 01/17/2013 Inactive amitriptyline 50 mg tablet RxNorm: 973815 Tablet(s) PO 06/17/2012 10/28/2012 Inactive TAKE ONE TABLET BY MOUTH TWICE DAILY Topamax 25 mg tablet RxNorm: 458181 1 Tablet(s) PO as directed 04/14/2012 06/01/2012 Inactive 1 tab bid x 2 weeks1 tab daily x 1 month 1 tab qod x 1 week then stop Topamax 25 mg Tab RxNorm: 090251 1 Tablet(s) PO as directed 03/16/2012 04/13/2012 Inactive 1 tab bid x 2 weeks1 tab daily x 1 month 1 tab qod x 1 week then stop pantoprazole 40 mg t ablet,delayed release RxNorm: 735580 Tablet(s) PO 02/17/2012 02/21/2013 In active TAKE ONE TABLET BY MOUTH EVERY DAY Topamax 50 mg Tab RxNorm: 512421 Tablet(s) PO 01/21/2012 03/11/2012 Inactive plea se give pt #42 of the 50mg tablets, to take bid till gone.then 25mg q am and 50 q hs x 14 days then 25 mg bid thereafter # 44 amitriptyline 50 mg tablet RxNorm: 260613 Tablet(s) PO 12/18/2011 06/16/2012 Inactive TAKE ONE TABLET BY MOUTH TWICE DAILY Percocet 10 mg-325 m g tablet RxNorm: 9006000 1 Tablet(s) PO Q4 PRN 11/13/2011 07/21/2012 Inactive Vitamin B-12 1,000 m cg/mL Injection RxNorm: 947770 1 Milliliter(s) Inj 2 x month 10/17/2011 10/16/2011 In active Vitamin B-12 1,000 m cg/mL Injection RxNorm: 726225 1 Milliliter(s) Inj 2 x month 10/17/2011 10/25/2012 In active topiramate 100 mg Tab RxNorm: 889661 1 Tablet(s) PO BID 10/17/2011 01/20/2012 Inactive TAKE ONE TABLET BY MOUTH TWICE DAILY Kenalog 40 mg/mL Lovely p for Injection RxNorm: 5928279 1 Milliliter(s) Inj 10/17/2011 10/17/2011 In active diazepam 5 mg tablet RxNorm: 103780 1 Tablet(s) PO TID PRN 09/25/2011 03/22/2012 Inactive diazepam 5 mg Tab RxNorm: 990355 1 Tablet(s) PO TID PRN 09/15/2011 09/17/2011 Inactive topiramate 100 mg Tab RxNorm: 384635 Tablet(s) PO 08/25/2011 10/16/2011 Inactive TAKE ONE TABLET BY MOUTH TWICE DAILY topiramate 100 mg Tab RxNorm: 462926 1 Tablet(s) PO BID 08/21/2011 08/24/2011 Inactive pantoprazole 40 mg T ab, Delayed Release RxNorm: 981452 1 Tablet(s) PO daily 07/19/2011 08/17/2011 In active ibuprofen 800 mg Tab RxNorm: 282676 1 Tablet(s) PO Q8 PRN No Start Date Active Vitamin D3 5,000 uni t tablet RxNorm: 422248 1 Tablet(s) PO daily No Start Date Active multivitamin capsule RxNorm: 1 Capsule(s) PO daily No Start Date Active cranberry fruit conc entrate 250 mg chewable tablet RxNorm: 2108866 1 Tablet(s) PO two to three times weekly No Start Date 04/22/2016 Inactive amitriptyline 50 mg Tab RxNorm: 459159 1 Tablet(s) PO BID No Start Date 12/17/2011 Inactive Topamax 50 mg Tab RxNorm: 025938 Tablet(s) PO No Start Date 01/20/2012 Inactive plea se give pt #42 of the 50mg tablets, to take bid till gone.then 25mg q am and 50 q hs x 14 days then 25 mg bid thereafter # 44 cranberry 1,000 mg c apsule RxNorm: 933588 3 Capsule(s) PO daily No Start Date 01/22/2016 Inactive promethazine 25 mg t ablet RxNorm: 415010 1 Tablet(s) PO Q6 PRN No Start Date 02/24/2013 Inactive Topamax 25 mg Tab RxNorm: 582981 1 Tablet(s) PO BID No Start Date 03/15/2012 Inactive Xanax 0.25 mg tablet RxNorm: 830091 1 Tablet(s) PO as needed anxiety No Start Date 10/15/2017 Inactive Frova 2.5 mg tablet RxNorm: 962512 1 Tablet(s) PO No Start Date 10/27/2013 Inactive at onset of migraine Zithromax Z-Darion 250 mg Tab RxNorm: 977720 Tablet(s) PO No Start Date 10/28/2012 Inactive Diflucan 200 mg tablet RxNorm: 841548 1 Tablet(s) PO PRN No Start Date 06/13/2013 Inactive Fish Oil 1,000 mg ca psule RxNorm: 4 Capsule(s) PO daily No Start Date 08/31/2018 Inactive esterified estrogens -methyltestosterone 1.25 mg-2.5 mg tablet RxNorm: 321388 1 Tablet(s) PO daily No Start Date 10/28/2012 Inactive Demerol (PF) 50 mg/m L Injection RxNorm: 5093412 1 Milliliter(s) Inj as doctor directed No Start Date 06/13/2013 Inactive Tessalon 200 mg Cap RxNorm: 975023 1 Capsule(s) PO Q6 PRN No Start Date 10/28/2012 Inactive Medication Administered Medication Codes Instruc tions Start Date Status promethazine 25 mg/mL Injection RxNo rm: 810629 1Milliliter 04/06/2013 N o longer Active Demerol (PF) 50 mg/mL Injection RxNo rm: 4767463 1/2Milliliter 04/06/2013 No longer Active promethazine 25 mg/mL Injection RxNo rm: 570397 2Mliter 03/26/2013 N o longer Active Demerol (PF) 50 mg/mL Injection RxNo rm: 3830756 Milliliter 03/26/2013 No longer Active Demerol (PF) 50 mg/mL Injection RxNo rm: 7626423 1Milliliter 03/11/2013 N o longer Active promethazine 25 mg/mL Injection RxNo rm: 198421 1Milliliter 02/18/2013 N o longer Active Demerol (PF) 25 mg/0.5 mL Injection RxNorm: 273663 liter 02/18/2013 N o longer Active Kenalog 40 mg/mL Susp for Injection RxNorm: 5626236 1Milliliter 11/16/2012 N o longer Active Kenalog 40 mg/mL Susp for Injection RxNorm: 2329250 1Milliliter 10/17/2011 N o longer Active Immunizations [...] Code Result Date URINALYSIS NONAUTO W/O SCOPE 13202 Specific [place] 1.005 DateTime(Free Text in Aprima) URINALYSIS NONAUTO W/O SCOPE 22731 PH 6.0 DateTime(Free Jamar t in Aprima) URINALYSIS NONAUTO W/O SCOPE 78028 GLUCOSE DateTime(Free Text i n Aprima) URINALYSIS NONAUTO W/O SCOPE 42624 Protein DateTime(Free Text i n Aprima) URINALYSIS NONAUTO W/O SCOPE 78842 Blood DateTime(Free Text i n Aprima) URINALYSIS NONAUTO W/O SCOPE 65189 Bilirubin DateTime(Free Text i n Aprima) URINALYSIS NONAUTO W/O SCOPE 60615 Ketones DateTime(Free Text i n Aprima) URINALYSIS NONAUTO W/O SCOPE 79392 Urobilinogen DateTime(Free Text in Aprima) URINALYSIS NONAUTO W/O SCOPE 98752 Nitrite DateTime(Free Text i n Aprima) URINALYSIS NONAUTO W/O SCOPE 71031 Leukocytes DateTime(Fr ee Text in Aprima) Review of Systems System Result Effective Dates [...] sounds 03/10/2013 None Full Exam - General 1995 Constitutional general appearance Overall: well developed 03/10/2013 None Full Exam - General 1994 Cardiovascular auscultation of heart Overall: no murmurs 03/10/2013 None Full Exam - General 1995 Musculoskeletal spine, ribs and pelvis Overall: ribs benign 03/10/2013 None Full Exam - General 1995 Musculoskeletal spine, ribs and pelvis Overall: spine benign 03/10/2013 None Full Exam - General 1994 Musculoskeletal spine, ribs and pelvis Overall: sacroiliac joint benign 03/10/2013 None Full Exam - General 1995 Musculoskeletal spine, ribs and pelvis Overall: right hip benign 03/10/2013 None Full Exam - General 1995 Musculoskeletal [...] benign 02/18/2013 None Full Exam - General 1995 Musculoskeletal spine, ribs and pelvis Overall: spine benign 02/18/2013 None Full Exam - General 1995 Musculoskeletal spine, ribs and pelvis Overall: sacroiliac joint benign 02/18/2013 None Full Exam - General 1995 Musculoskeletal spine, ribs and pelvis Overall: right hip benign 02/18/2013 None Full Exam - General 1995 Musculoskeletal spine, ribs and pelvis Overall: left hip benign 02/18/2013 None Full Exam - General 1995 Constitutional general appearance Overall: well developed 02/18/2013 None Full Exam - General 1994 Constitutional general appearance Overall: in no acute distress 02/18/2013 None Full Exam - General 1994 Constitutional general appearance Overall: well nourished 02/18/2013 None Full Exam - General 1994 Eyes pupils and irises Overall: pupils equal, round, reactive to light and accomodation 02/18/2013 None Full Exam - General 1995 Ears/Nose/Throat otoscopic exam Overall: external auditory canals clear 02/18/2013 None Full Exam - General 1995 Ears/Nose/Throat [...] distress 10/29/2012 None Full Exam - General 1994 Constitutional general appearance Overall: well nourished 10/29/2012 [...] masses 10/29/2012 None Full Exam - General 1995 Respiratory auscultation Overall: breath sounds clear bilaterally 10/29/2012 None Full Exam - General 1995 Respiratory respiratory effort/rhythm Overall: no retractions 10/29/2012 [...] Date URINALYSIS NONAUTO W /O SCOPE CPT-4: 14786 06/14/2013 THER/PROPH/DIAG INJ SC/IM CPT-4: 72749 04/06/2013 PROMETHAZINE HCL INJ ECTION CPT-4: J2550 04/06/2013 THER/PROPH/DIAG INJ SC/IM CPT-4: 82864 03/26/2013 PROMETHAZINE HCL INJ ECTION CPT-4: J2550 03/26/2013 THER/PROPH/DIAG INJ SC/IM CPT-4: 41537 03/11/2013 PROMETHAZINE HCL INJ ECTION CPT-4: J2550 02/18/2013 TRIAMCINOLONE ACET I [place] NOS CPT-4: J3301 11/16/2012 THER/PROPH/DIAG INJ SC/IM CPT-4: 85020 11/16/2012 TRIAMCINOLONE ACET I [place] NOS CPT-4: J3301 10/17/2011 THER/PROPH/DIAG INJ SC/IM CPT-4: 44265 10/17/2011 Vital Signs Date Vital 03/02/2019 Blood Pressure 1: 150/78 Code: 8480-6 Heart Rate 1: 68 bpm Height: 5'5" SpO2: 98% Weight: 12/08/2018 Blood Pressure 1: 122/74 Code: 8480-6 BMI: 36.3 Code: 68651-1 Heart Rate 1: 64 bpm Height: 5'5" SpO2: 100% Weight: 218 lbs 09/01/2018 Blood Pressure 1: 132/80 Code: 8480-6 BMI: 35.6 Code: 11320-0 Heart Rate 1: 80 bpm Height: 5'5" SpO2: 96% Weight: 214 lbs 02/26/2018 Blood Pressure 1: 126/72 Code: 8480-6 BMI: 36.1 Code: 46900-2 Heart Rate 1: 63 bpm Height: 5'5" SpO2: 98% Weight: 217 lbs 07/24/2017 Blood Pressure 1: 138/78 Code: 8480-6 BMI: 36.1 Code: 14689-3 Heart Rate 1: 78 bpm Height: 5'5" SpO2: 99% Weight: 217 lbs 07/09/2017 Blood Pressure 1: 150/84 Code: 8480-6 BMI: 36.4 Code: 71116-0 Heart Rate 1: 70 bpm Height: 5'5" SpO2: 98% Weight: 219 lbs 06/24/2017 Blood Pressure 1: 154/80 Code: 8480-6 BMI: 36.9 Code: 87722-9 Heart Rate 1: 68 bpm Height: 5'5" SpO2: 98% Weight: 222 lbs 04/23/2016 Blood Pressure 1: 136/78 Code: 8480-6 BMI: 38.4 Code: 35497-9 Heart Rate 1: 76 bpm Height: 5'5" SpO2: 98% Weight: 231 lbs 01/23/2016 Blood Pressure 1: 148/82 Code: 8480-6 BMI: 39.6 Code: 05774-1 Heart Rate 1: 76 bpm Height: 5'5" SpO2: 98% Weight: 238 lbs 11/21/2015 Blood Pressure 1: 140/80 Code: 8480-6 BMI: 38.9 Code: 80804-6 Heart Rate 1: 89 bpm Height: 5'5" SpO2: 98% Weight: 233 lbs 8 oz 08/23/2014 Blood Pressure 1: 140/72 Code: 8480-6 BMI: 38.1 Code: 14376-9 Height: 5'5" Weight: 229 lbs 03/01/2014 Blood [...] States she has been doing body by [facility] for about 3 months but is not [...] shoulder 01/28/2012 None shoulder pain Quality ac yogi 01/28/2012 None shoulder pain Quality th robbing [...] Encounters Encounter Performer Loca tion Codes Date ([id number]) 25303 EST. P ATIENT, LEVEL IV Diagnosis: Essential (primary) hypertension[ICD10: I10] Diagnosis: Restless legs syndrome[ICD10: G25.81] Diagnosis: Pain in right knee[ICD10: M25.561] Ling Collins MD, [facility] CPT- 4: 17041 03/02/2019 80486 EST. PATIENT, LEVEL III Diagnosis: Pain in right knee[ICD10: M25.561] Claritza Collins MD, [facility] CPT-4: 93603 12/08/2018 ([id number]) 88154 EST. P ATIENT, LEVEL IV Diagnosis: Essential (primary) hypertension[ICD10: I10] Diagnosis: Acute laryngopharyngitis[ICD10: J06.0] Diagnosis: Other insomnia[ICD10: G47.09] Ling Collins MD, [facility] CPT-4: 88495 09/01/2018 ([id number]) 24160 EST. P ATIENT, LEVEL III Diagnosis: Gastro-esophageal reflux disease without esophagitis[ICD10: K21.9] Diagnosis: Essential (primary) hypertension[ICD10: I10] Ling Collins MD, [facility] CPT-4: 13072 02/26/2018 ([id number]) 17669 EST. P ATIENT, LEVEL III Diagnosis: Other specified noninfective gastroenteritis and colitis[ICD10: K52.89] Diagnosis: Epigastric pain[ICD10: R10.13] Diagnosis: Generalized abdominal pain[ICD10: R10.84] Ling Collins MD, [facility] CPT-4: 84398 07/24/2017 99769 EST. PATIENT, LEVEL IV Diagnosis: Gastro-esophageal reflux disease without esophagitis[ICD10: K21.9] Claritza Collins MD, [facility] CPT-4: 10133 07/09/2017 ([id number]) PREV VISIT E ST AGE 40-64 Diagnosis: Encounter for general adult medical examination with abnormal findings[ICD10: Z00.01] Ling Collins MD, [facility] CPT-4: 41622 06/24/2017 ([id number]) 75459 EST. P ATIENT, LEVEL III Diagnosis: Gastro-esophageal reflux disease with esophagitis[ICD10: K21.0] Ling Collins MD, [facility] CPT-4: 01585 04/23/2016 ([id number]) 36136 EST. P ATIENT, LEVEL IV Diagnosis: Gastro-esophageal reflux disease with esophagitis[ICD10: K21.0] Diagnosis: Morbid (severe) obesity due to excess calories[ICD10: E66.01] Diagnosis: Urge incontinence[ICD10: N39.41] Ling Collins MD, [facility] CPT-4: 12880 01/23/2016 ([id number]) 90284 EST. P ATIENT, LEVEL IV Diagnosis: Metatarsalgia, right foot[ICD10: M77.41] Diagnosis: Achilles tendinitis, right leg[ICD10: M76.61] Diagnosis: Gastro-esophageal reflux disease with esophagitis[ICD10: K21.0] Ling Collins MD, [facility] CPT-4: 70214 11/21/2015 ([id number]) 00229 EST. P ATIENT, LEVEL III Diagnosis: Biceps tendonitis[ICD9: 726.12] Diagnosis: Encounter for long-term (current) use of other medications[ICD9: V58.69] Ling Collins MD, [facility] CPT-4: 45946 08/23/2014 ([id number]) 19090 EST. P ATIENT, LEVEL III Diagnosis: Anxiety, generalized[ICD9: 300.02] Diagnosis: Pain, lower leg[ICD9: 729.5] Ling Collins MD, [facility] CPT-4: 04958 03/01/2014 ([id number]) 73730 EST. P ATIENT, LEVEL III Diagnosis: MIGRAINE NOS/NOT INTRCBL[ICD9: 346.90] Ling Collins MD, [facility] CPT-4: 29957 06/14/2013 ([id number]) 61660 EST. P ATIENT, LEVEL III Diagnosis: MIGRAINE NOS/NOT INTRCBL[ICD9: 346.90] Diagnosis: NAUSEA ALONE[ICD9: 787.02] Ling Collins MD, [facility] CPT-4: 39215 03/10/2013 ([id number]) 40626 EST. P ATIENT, LEVEL III Diagnosis: Intractable migraine with aura without status migrainosus[ICD9: 346.01] Diagnosis: Nausea[ICD9: 787.02] [facility] CPT-4: 44752 02/18/2013 ([id number]) 02636 EST. P ATIENT, LEVEL III Diagnosis: BACTERIAL PNEUMONIA[ICD9: 482.9] Diagnosis: Dyspnea[ICD9: 786.09] Ling Collins MD, [facility] CPT-4: 53991 11/16/2012 ([id number]) 27742 EST. P ATIENT, LEVEL III Diagnosis: MIGRAINE NOS/NOT INTRCBL[ICD9: 346.90] Diagnosis: ANXIETY STATE[ICD9: 300.00] [facility] CPT-4: 70718 10/29/2012 ([id number]) [id number] EST. P ATIENT, LEVEL IV Diagnosis: MIGRAINE NOS/NOT INTRCBL[ICD9: 346.90] Diagnosis: JOINT PAIN-SHLDER[ICD9: 719.41] Diagnosis: OBESITY[ICD9: 278.00] Ling Collins MD, [facility] CPT-4: 48516 03/12/2012 ([id number]) 61431 EST. P ATIENT, LEVEL IV Diagnosis: Rotator cuff disorder[ICD9: 726.10] Diagnosis: Shoulder pain, acute[ICD9: 719.41] Diagnosis: Knee pain[ICD9: 719.46] Ling Collins MD, [facility] CPT-4: 29931 01/28/2012 ([id number]) 14671 EST. P ATIENT, LEVEL IV Diagnosis: Migraine[ICD9: 346.90] Diagnosis: Anxiety[ICD9: 300.00] [facility] CPT-4: 63643 01/09/2012 03691 EST. PATIENT, LEVEL III Diagnosis: ACUTE URI[ICD9: 465.9] Diagnosis: Cough[ICD9: 786.2] Yennifer Collins MD, [facility] CPT-4: 34051 10/17/2011 Plan of Care Planned Activity Notes C odes Status Date Visit Plan: Right knee pain - I hav e recommended a referral for right knee pain evaluation to Dr. Judge at [facility] in [place]. - Anti-inflammatory sample of vivlodex given to patient today. vivlodex lot [id number], exp 04/2020, iroko Restless Leg Syndrome - uncontrolled symptoms - I have recommended pt to start on a low dose of requip. Pt to alert us if the symptoms do not improve. HTN - not optimally controlled - she admits to feeling nervous today and being in pain due to her knee. Advised to monitor pressure at home. 03/02/2019 Patient Education: Patient Medication Summary Completed 03/02/2019 Care Plan: Referral Order SNOMED-CT : [id number] Pending 03/02/2019 Patient Education: Patient Medication Summary [...] not improve. 12/08/2018 Appointment: Claritza Russell WPtel: [phone] [facility] (15 min) Moderate 12/08/2018 Patient Education: Patient [...] 10mg nightly. 09/01/2018 App[facility]ment: [phone] (15 min) Moderate 09/01/2018 Patient Education: Patient [...] not improving. 02/26/2018 Appointment: Ling Collins WPtel: [phone] [facility] [place] (15 min) Moderate 02/26/2018 Patient Education: Patient Medication Summary Completed 02/26/2018 Appointment: Ling Collins WPtel: [phone] [facility] [place] (15 min) Moderate 08/11/2017 Visit Plan: Abdominal pain, Colitis - advised liquid diet x 2-3 days, then advance to bland diet. If at any time her symptoms worsen, she is to go to the emergency department. Pt given order for EGD/Colonoscopy at [address] Garcia. 07/24/2017 Appointment: Ling Collins WPtel: [phone] [facility] (15 min) Moderate 07/24/2017 Patient Education: [...] through their insurance - Fax number - [phone] phone number - [phone]. 07/09/2017 Visit Plan: Esophageal Reflux - Sev [...] through their insurance - Fax number - [phone] phone number - [phone]. 07/09/2017 App[facility]ment: [phone] [place] (30 min) Complex 07/09/2017 Patient Education: Patient Medication Summary Completed 07/09/2017 Care Plan: Referral Order SNOMED-CT : [id number] Pending 07/09/2017 Visit Plan: Well Adult - [...] acute concerns. 06/24/2017 Appointment: Ling Collins WPtel: [address] [place], [place] [address] [place] (15 min) Moderate 06/24/2017 Patient Education: Patient [...] medication. 01/23/2016 Appointment: Ling Collins WPtel: [phone] [facility] (15 min) Moderate 01/23/2016 Patient Education: Patient [...] 11/21/2015 Care Plan: Referral Order SNOMED-CT : [id number] Ordered 11/21/2015 Visit Plan: Biceps tendonitis - [...] 1tab AM & 2 at hs x2wks, [id number] x2wks, then 1/2 am & 1hs x1wk, then 1/2 bidx 1wk, then 1/2 at hs x1wk then stop 08/23/2014 Appointment: Ling Collins WPtel: [facility] Sick 08/23/2014 Patient Education: Patient Medication Summary Completed 08/23/2014 Visit Plan: Chronic migraine headac hes - recommended for pt to keep appt with the specialist in [place] for migraine surgery. Topical pain in legs - recommended pt to start on iron, monitor as pt weans off of the topamax post surgically. 03/01/2014 Appointment: Ling Collins WPtel: [phone] [facility] Follow up 03/01/2014 Patient Education: Patient Medication Summary Completed 03/01/2014 Visit Plan: Migraine headaches - pt has not yet had an intractible migraine since she had her botox injections. She is to follow up with her Neurologist about her migraine headaches.. 06/14/2013 Appointment: Ling Collins WPtel: [phone] [facility] Follow up 06/14/2013 Patient Education: Patient Medication [...] bid. 03/10/2013 Appointment: Ling Collins [facility]Ptel[phone] Other 03/10/2013 Patient Education: Patient Medication [...] written and patient's picked up medication from [facility] pharmacy and we administered) and Phenergan 25mg IM. 02/18/2013 Appointment: Yennifer Field WPtel: [phone] [facility] [place] [address] Other 02/18/2013 Patient Education: Patient Medication Summary [...] positive children. 11/16/2012 Appointment: Ling Collins WPtel: [phone] [facility] Sick 11/16/2012 Patient Education: Patient Medication Summary [...] her migraines. 10/29/2012 Appointment: Ling Collins WPtel: [phone] [facility] Other 10/29/2012 Patient Education: Patient Medication Summary [...] Dr. Judge. 03/12/2012 Appointment: Ling Collins WPtel: [address] [place] [address] Other 03/12/2012 Patient Education: Patient Medication Summary Completed 03/12/2012 Visit Plan: mri of keft shoulder - rotator cuff instability kenalog shot referal to orthopedic surgeon for eval of left shoulder and right knee 01/28/2012 Appointment: Ling Collins WPtel: [address] [place] [address] [place] Other 01/28/2012 Patient Education: Patient Medication [...] this time. 01/09/2012 Appointment: Ling Collins WPtel: [address] [place] [address] Other 01/09/2012 Patient Education: Patient Medication Summary [...] any worse. 10/17/2011 Appointment: Yennifer Field WPtel: [facility] [place] [phone] [place] Other 10/17/2011 Patient Education: Patient Medication Summary Completed 10/17/2011 Referral: Eric Ramirez Referral Completed Referral: External, Ordering Provider Referral Initiated Referral: [facility] Referral Appointment Requested Referral: Eric Ramirez [...] through their insurance - Fax number - [phone]; phone number - [phone]. Carafate - with meal s and at [...] through their insurance - Fax number - [phone]; phone number - [phone]. topamax 25mg tablet to be tapered as follows: 1tab AM & 2 at hs x2wks, [id number] x2wks, then 1/2 am & 1hs x1wk, [...] 1tab AM & 2 at hs x2wks, [id number] x2wks, then 1/2 am & 1hs x1wk, [...] khalif should er - rotator cuff instability kenalog [...] department. Pt given order for EGD/Colonoscopy at [address] Garcia. . Pneumonia - [...] written and patient's picked up medication from [facility] pharmacy and we administered) and [...] to keep appt with the specialist in [place] for migraine surgery. Topical pain in legs [...] knee pain evaluation to Dr. Judge at [facility] in [place]. - Anti- inflammatory sample of vivlodex given to patient today. vivlodex lot [id number], exp 04/2020, lisa Restless Leg Syndrome - [...]
--- OUTSIDE RECORDS SUMMARY | 2020-03-15 06:36 | XMS REPORT | CCD ---
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 10/17/[address]: 273913719 Nonsmoker 10/17/[address]: 304518935 Never drinks alcohol 10/17/2011 Allergies, Adverse Reactions, [...] Status Onset Date Resolved Date Encounter for screen ing mammogram for malignant neoplasm of breast ICD-9: V76.10 ICD-10: Z12.31 Active 02/25/2019 Unknown Pain in right knee ICD- 9: 719.46 ICD-10: M25.561 Active 12/08/2018 Unknown Acute laryngopharyng itis ICD-9: 465.9 ICD-10: J06.0 Active 09/01/2018 Unknown Essential (primary) hypertension ICD-9: 401.1 ICD-10: I10 Active 02/26/2018 Unknown Other insomnia ICD-9: 327.09 ICD-10: G47.09 [...] Effectiv e Dates Condition Status Encounter for screen ing mammogram for malignant neoplasm of breast ICD-9: V76.10 ICD-10: Z12.31 02/25/2019 Active Pain in right knee ICD- 9: 719.46 ICD-10: M25.561 12/08/2018 Active Acute laryngopharyng itis ICD-9: 465.9 ICD-10: J06.0 09/01/2018 Active Essential (primary) hypertension ICD-9: 401.1 ICD-10: I10 02/26/2018 Active Other insomnia ICD-9: 327.09 ICD-10: G47.09 [...] Instruc tions Start Date Stop Date Sta Fill Instructions oxybutynin chloride ER 5 mg tablet,extended release 24 hr RxNorm: 348431 TAKE 1 TABLET BY MOUTH ONCE DAILY 12/21/2018 No Stop Date Active Protonix 40 mg table t,delayed release RxNorm: 704634 TAKE 1 TABLET BY MOUT H ONCE DAILY 12/21/2018 No Stop Date Active Zorvolex 35 mg capsule RxNorm: 0390702 1 Capsule(s) PO TID 12/09/2018 No Stop Date Active oxybutynin chloride ER 5 mg tablet,extended release 24 hr RxNorm: 368370 TAKE 1 TABLET BY MOUTH ONCE DAILY 10/21/2018 12/20/2018 Inactive Protonix 40 mg table t,delayed release RxNorm: 749103 TAKE 1 TABLET BY MOUT H ONCE DAILY 10/21/2018 12/20/2018 Inactive oxybutynin chloride ER 5 mg tablet,extended release 24 hr RxNorm: 748717 TAKE 1 TABLET BY MOUTH ONCE DAILY 07/20/2018 10/20/2018 Inactive Protonix 40 mg table t,delayed release RxNorm: 631798 TAKE 1 TABLET BY MOUT H ONCE DAILY 07/20/2018 10/20/2018 Inactive Xanax 0.25 mg tablet RxNorm: 393317 1 Tablet(s) PO Q8 as needed anxiety 02/17/2018 03/18/2018 In active oxybutynin chloride ER 5 mg tablet,extended release 24 hr RxNorm: 968543 TAKE ONE TABLET BY MOUTH ONCE DAILY 02/17/2018 07/19/2018 Inactive Protonix 40 mg table t,delayed release RxNorm: 564871 TAKE ONE TABLET BY MO UTH ONCE DAILY 02/17/2018 07/19/2018 Inactive Xanax 0.25 mg tablet RxNorm: 790370 1 Tablet(s) PO Q8 as needed anxiety 10/16/2017 11/12/2017 In active Zantac 150 mg tablet RxNorm: 575138 1 Tablet(s) PO daily 09/15/2017 03/13/2018 Inactive Carafate 1 gram tablet RxNorm: 188141 1 Tablet(s) PO AC & HS 09/15/2017 03/13/2018 Inactive oxybutynin chloride ER 5 mg tablet,extended release 24 hr RxNorm: 540532 TAKE ONE TABLET BY MOUTH ONCE DAILY 08/18/2017 02/13/2018 Inactive Protonix 40 mg table t,delayed release RxNorm: 926779 TAKE ONE TABLET BY MO UTH ONCE DAILY 08/18/2017 02/13/2018 Inactive Carafate 1 gram tablet RxNorm: 251778 1 Tablet(s) PO AC & HS 07/09/2017 08/07/2017 Inactive Protonix 40 mg table t,delayed release RxNorm: 705703 1 Tablet(s) PO daily 07/09/2017 08/07/2017 In active Zofran 4 mg tablet RxNorm: 293044 1 Tablet(s) PO TID as needed nausea 07/09/2017 07/13/2017 In active Zantac 150 mg tablet RxNorm: 532381 1 Tablet(s) PO daily 07/09/2017 08/07/2017 Inactive losartan 25 mg tablet RxNorm: 643625 1 Tablet(s) PO daily 06/24/2017 10/21/2017 Inactive oxybutynin chloride ER 5 mg tablet,extended release 24 hr RxNorm: 482593 TAKE ONE TABLET BY MOUTH ONCE DAILY 05/15/2017 08/12/2017 Inactive oxybutynin chloride ER 5 mg tablet,extended release 24 hr RxNorm: 405083 TAKE ONE TABLET BY MOUTH ONCE DAILY 02/07/2017 05/07/2017 Inactive oxybutynin chloride ER 5 mg tablet,extended release 24 hr RxNorm: 759062 TAKE ONE TABLET BY MOUTH ONCE DAILY 10/01/2016 01/28/2017 Inactive oxybutynin chloride ER 5 mg tablet,extended release 24 hr RxNorm: 009425 TAKE ONE TABLET BY MOUTH ONCE DAILY 05/27/2016 09/23/2016 Inactive cranberry fruit conc entrate 500 mg capsule RxNorm: 591143 1 Capsule(s) PO two t o three times weekly 04/23/2016 No Stop Date Active Nexium 40 mg capsule ,delayed release RxNorm: 186715 1 Capsule(s) PO BID 04/23/2016 07/23/2017 In active oxybutynin chloride ER 5 mg tablet,extended release 24 hr RxNorm: 288786 1 Tablet(s) PO daily 01/23/2016 05/21/2016 Inactive pantoprazole 40 mg t ablet,delayed release RxNorm: 878571 1 Tablet(s) PO BID TA KE ONE TABLET BY MOUTH EVERY DAY 12/12/2015 12/11/2015 Inactive pantoprazole 40 mg t ablet,delayed release RxNorm: 318005 1 Tablet(s) PO BID TA KE ONE TABLET BY MOUTH TWICE EVERY DAY 12/12/2015 04/22/2016 Inactive Vesicare 5 mg tablet RxNorm: 452143 1 Tablet(s) PO QPM 11/21/2015 01/21/2016 Inactive Carafate 1 gram tablet RxNorm: 625831 1 Tablet(s) PO QID dissolve in 10mL of w ater 11/21/2015 04/22/2016 Inactive pantoprazole 40 mg t ablet,delayed release RxNorm: 309481 1 Tablet(s) PO daily TAKE ONE TABLET BY MOUTH EVERY DAY 04/05/2015 12/11/2015 Inactive Topamax 100 mg tablet RxNorm: 206034 1 Tablet(s) UD 1tab AM & 2 at hs x2wks, [id number] x2wks, then 1/2 am & 1hs x1wk, then 1/2 bidx 1wk, then 1/2 at hs x1wk then stop 08/23/2014 01/19/2015 Inactive Vitamin B-12 1,000 m cg/mL injection solution RxNorm: 548935 2x per month Millilit er(s) Inj INJECT 1ML EVERY 2 WEEKS 08/23/2014 11/20/2015 Inactive amitriptyline 50 mg tablet RxNorm: 034487 1 Tablet(s) QPM 08/23/2014 11/20/2015 Inactive amitriptyline 50 mg tablet RxNorm: 773530 TAKE ONE TABLET BY MO UTH TWICE DAILY 08/18/2014 08/22/2014 In active amitriptyline 50 mg tablet RxNorm: 609292 TAKE ONE TABLET BY MO UTH TWICE DAILY 05/27/2014 08/17/2014 In active Topamax 100 mg tablet RxNorm: 605405 TAKE ONE TABLET BY MOUTH TWICE DAILY 05/27/2014 08/22/2014 In active Topamax 100 mg tablet RxNorm: 149894 Tablet(s) PO TAKE ONE TABLET BY MOUTH TW ICE DAILY 03/24/2014 05/26/2014 Inactive pantoprazole 40 mg t ablet,delayed release RxNorm: 668974 1 Tablet(s) PO daily TAKE ONE TABLET BY MOUTH EVERY DAY 03/18/2014 03/12/2015 Inactive nystatin 100,000 uni t/mL oral suspension RxNorm: 366673 5 Milliliter(s) PO QI D 03/07/2014 03/06/2014 In active nystatin 100,000 uni t/mL oral suspension RxNorm: 012207 5 Milliliter(s) PO QI D 03/07/2014 03/16/2014 In active Topamax 100 mg tablet RxNorm: 401811 Tablet(s) PO TAKE ONE TABLET BY MOUTH TW ICE DAILY 02/21/2014 03/23/2014 Inactive Vitamin B-12 1,000 m cg/mL injection solution RxNorm: 563687 solution Inj INJECT 1 ML EVERY 2 WEEKS 12/21/2013 08/22/2014 Inactive Frova 2.5 mg tablet RxNorm: 341490 1 Tablet(s) PO 12/20/2013 11/20/2015 Inactive at o nset of migraine Frova 2.5 mg tablet RxNorm: 856734 1 Tablet(s) PO 10/28/2013 12/19/2013 Inactive at o nset of migraine Topamax 100 mg tablet RxNorm: 543015 Tablet(s) PO TAKE ONE TABLET BY MOUTH TW ICE DAILY 10/21/2013 2014 Inactive Topamax 100 mg tablet RxNorm: 089629 Tablet(s) PO TAKE ONE TABLET BY MOUTH TW ICE DAILY 08/23/2013 10/20/2013 Inactive Topamax 100 mg tablet RxNorm: 492967 1 Tablet(s) PO BID TAKE ONE TABLET BY MO UT TWICE DAILY 05/24/2013 08/22/2013 Inactive Demerol (PF) 50 mg/m L Injection RxNorm: 2613755 1/2 Milliliter(s) In j 04/06/2013 04/06/2013 In active promethazine 25 mg/m L Injection RxNorm: 032490 1 Milliliter(s) Inj 04/06/2013 04/06/2013 Inactive promethazine 25 mg/m L Injection RxNorm: 749841 2 Milliliter(s) Inj 03/26/2013 03/26/2013 Inactive Demerol (PF) 50 mg/m L Injection RxNorm: 7433337 Milliliter(s) Inj 03/26/2013 03/26/2013 Inactive amitriptyline 50 mg tablet RxNorm: 358435 Tablet(s) PO TAKE ONE TABLET BY MOUTH TWICE DAILY 03/22/2013 05/26/2014 Inactive Topamax 100 mg tablet RxNorm: 848965 1 Tablet(s) PO BID 03/19/2013 03/18/2013 Inactive Topamax 100 mg tablet RxNorm: 736053 1 Tablet(s) PO BID 03/19/2013 05/24/2013 Inactive Demerol (PF) 50 mg/m L Injection RxNorm: 3342848 1 Milliliter(s) Inj 03/11/2013 03/11/2013 Inactive Topamax 50 mg tablet RxNorm: 652251 1.5 Tablet(s) PO BID 03/10/2013 03/18/2013 Inactive promethazine 25 mg t ablet RxNorm: 524473 1 Tablet(s) PO Q6 PRN 02/25/2013 11/20/2015 Inactive pantoprazole 40 mg t ablet,delayed release RxNorm: 899832 Tablet(s) PO TAKE ONE TABLET BY MOUTH EVERY DAY 02/22/2013 03/17/2014 Inactive promethazine 25 mg/m L Injection RxNorm: 742246 1 Milliliter(s) Inj 02/18/2013 02/18/2013 Inactive Demerol (PF) 25 mg/0 .5 mL Injection RxNorm: 723200 1 Milliliter(s) Inj 02/18/2013 02/18/2013 In active total of 50mg given IM Topamax 50 mg tablet RxNorm: 988416 Tablet(s) PO TAKE ONE TABLET BY MOUTH TW ICE DAILY 02/04/2013 03/09/2013 Inactive prednisone 20 mg tablet RxNorm: 908192 3 Tablet(s) PO daily 11/16/2012 11/20/2012 Inactive ciprofloxacin 500 mg tablet RxNorm: 810126 1 Tablet(s) PO BID 11/16/2012 11/22/2012 Inactive Kenalog 40 mg/mL Lovely p for Injection RxNorm: 4721222 1 Milliliter(s) Inj 11/16/2012 11/16/2012 In active Tamiflu 75 mg capsule RxNorm: 130817 1 Capsule(s) PO BID 11/16/2012 11/20/2012 Inactive esterified estrogens -methyltestosterone 1.25 mg-2.5 mg tablet RxNorm: 172491 1 Tablet(s) PO every other day 10/29/2012 06/23/2017 Inactive amitriptyline 50 mg tablet RxNorm: 684154 1 Tablet(s) PO daily 10/29/2012 03/21/2013 Inactive TAKE ONE TABLET BY MOUTH TWICE DAILY Topamax 50 mg tablet RxNorm: 934492 1 Tablet(s) PO BID 10/29/2012 01/26/2013 Inactive Vitamin B-12 1,000 m cg/mL injection solution RxNorm: 107222 1 Milliliter(s) Inj Q 2weeks INJECT 1ML TWICE A MONTH 10/29/2012 12/20/2013 Inactive takes 2 times monthly. ok to give multidose vial if available. if not please give 3 month supply of single dose vials Vitamin B-12 1,000 m cg/mL Injection RxNorm: 704185 Solution Inj INJECT 1 ML TWICE A MONTH 10/26/2012 10/28/2012 Inactive Topamax 25 mg tablet RxNorm: 262995 1 Tablet(s) PO BID 10/13/2012 03/10/2013 Inactive Topamax 25 mg tablet RxNorm: 702578 1 Tablet(s) PO as directed 09/24/2012 10/12/2012 Inactive 1 tab bid x 2 weeks1 tab daily x 1 month 1 tab qod x 1 week then stop Percocet 10 mg-325 m g tablet RxNorm: 6338035 1 Tablet(s) PO Q4 PRN 07/22/2012 11/20/2015 Inactive diazepam 5 mg tablet RxNorm: 893195 1 Tablet(s) PO TID PRN 07/22/2012 01/17/2013 Inactive amitriptyline 50 mg tablet RxNorm: 589084 Tablet(s) PO 06/17/2012 10/28/2012 Inactive TAKE ONE TABLET BY MOUTH TWICE DAILY Topamax 25 mg tablet RxNorm: 427404 1 Tablet(s) PO as directed 04/14/2012 06/01/2012 Inactive 1 tab bid x 2 weeks1 tab daily x 1 month 1 tab qod x 1 week then stop Topamax 25 mg Tab RxNorm: 511763 1 Tablet(s) PO as directed 03/16/2012 04/13/2012 Inactive 1 tab bid x 2 weeks1 tab daily x 1 month 1 tab qod x 1 week then stop pantoprazole 40 mg t ablet,delayed release RxNorm: 397656 Tablet(s) PO 02/17/2012 02/21/2013 In active TAKE ONE TABLET BY MOUTH EVERY DAY Topamax 50 mg Tab RxNorm: 062279 Tablet(s) PO 01/21/2012 03/11/2012 Inactive plea se give pt #42 of the 50mg tablets, to take bid till gone.then 25mg q am and 50 q hs x 14 days then 25 mg bid thereafter # 44 amitriptyline 50 mg tablet RxNorm: 564091 Tablet(s) PO 12/18/2011 06/16/2012 Inactive TAKE ONE TABLET BY MOUTH TWICE DAILY Percocet 10 mg-325 m g tablet RxNorm: 5513982 1 Tablet(s) PO Q4 PRN 11/13/2011 07/21/2012 Inactive Vitamin B-12 1,000 m cg/mL Injection RxNorm: 443633 1 Milliliter(s) Inj 2 x month 10/17/2011 10/16/2011 In active Vitamin B-12 1,000 m cg/mL Injection RxNorm: 396927 1 Milliliter(s) Inj 2 x month 10/17/2011 10/25/2012 In active topiramate 100 mg Tab RxNorm: 079428 1 Tablet(s) PO BID 10/17/2011 01/20/2012 Inactive TAKE ONE TABLET BY MOUTH TWICE DAILY Kenalog 40 mg/mL Lovely p for Injection RxNorm: 8143765 1 Milliliter(s) Inj 10/17/2011 10/17/2011 In active diazepam 5 mg tablet RxNorm: 425731 1 Tablet(s) PO TID PRN 09/25/2011 03/22/2012 Inactive diazepam 5 mg Tab RxNorm: 712324 1 Tablet(s) PO TID PRN 09/15/2011 09/17/2011 Inactive topiramate 100 mg Tab RxNorm: 315246 Tablet(s) PO 08/25/2011 10/16/2011 Inactive TAKE ONE TABLET BY MOUTH TWICE DAILY topiramate 100 mg Tab RxNorm: 618188 1 Tablet(s) PO BID 08/21/2011 08/24/2011 Inactive pantoprazole 40 mg T ab, Delayed Release RxNorm: 790768 1 Tablet(s) PO daily 07/19/2011 08/17/2011 In active ibuprofen 800 mg Tab RxNorm: 903927 1 Tablet(s) PO Q8 PRN No Start Date Active Vitamin D3 5,000 uni t tablet RxNorm: 130591 1 Tablet(s) PO daily No Start Date Active multivitamin capsule RxNorm: 1 Capsule(s) PO daily No Start Date Active cranberry fruit conc entrate 250 mg chewable tablet RxNorm: 4931675 1 Tablet(s) PO two to three times weekly No Start Date 04/22/2016 Inactive amitriptyline 50 mg Tab RxNorm: 849163 1 Tablet(s) PO BID No Start Date 12/17/2011 Inactive Topamax 50 mg Tab RxNorm: 086490 Tablet(s) PO No Start Date 01/20/2012 Inactive plea se give pt #42 of the 50mg tablets, to take bid till gone.then 25mg q am and 50 q hs x 14 days then 25 mg bid thereafter # 44 cranberry 1,000 mg c apsule RxNorm: 134101 3 Capsule(s) PO daily No Start Date 01/22/2016 Inactive promethazine 25 mg t ablet RxNorm: 216616 1 Tablet(s) PO Q6 PRN No Start Date 02/24/2013 Inactive Topamax 25 mg Tab RxNorm: 516514 1 Tablet(s) PO BID No Start Date 03/15/2012 Inactive Xanax 0.25 mg tablet RxNorm: 055835 1 Tablet(s) PO as needed anxiety No Start Date 10/15/2017 Inactive Frova 2.5 mg tablet RxNorm: 546524 1 Tablet(s) PO No Start Date 10/27/2013 Inactive at onset of migraine Zithromax Z-Darion 250 mg Tab RxNorm: 080073 Tablet(s) PO No Start Date 10/28/2012 Inactive Diflucan 200 mg tablet RxNorm: 825058 1 Tablet(s) PO PRN No Start Date 06/13/2013 Inactive Fish Oil 1,000 mg ca psule RxNorm: 4 Capsule(s) PO daily No Start Date 08/31/2018 Inactive esterified estrogens -methyltestosterone 1.25 mg-2.5 mg tablet RxNorm: 055496 1 Tablet(s) PO daily No Start Date 10/28/2012 Inactive Demerol (PF) 50 mg/m L Injection RxNorm: 3852770 1 Milliliter(s) Inj as doctor directed No Start Date 06/13/2013 Inactive Tessalon 200 mg Cap RxNorm: 571756 1 Capsule(s) PO Q6 PRN No Start Date 10/28/2012 Inactive Medication Administered Medication Codes Instruc tions Start Date Status promethazine 25 mg/mL Injection RxNo rm: 918276 1Milliliter 04/06/2013 N o longer Active Demerol (PF) 50 mg/mL Injection RxNo rm: 1571619 1/2Milliliter 04/06/2013 No longer Active promethazine 25 mg/mL Injection RxNo rm: 859025 2Milliliter 03/26/2013 N o longer Active Demerol (PF) 50 mg/mL Injection RxNo rm: 1199595 Milliliter 03/26/2013 No longer Active Demerol (PF) 50 mg/mL Injection RxNo rm: 7397480 1Milliliter 03/11/2013 N o longer Active promethazine 25 mg/mL Injection RxNo rm: 878054 1Milliliter 02/18/2013 N o longer Active Demerol (PF) 25 mg/0.5 mL Injection RxNorm: 449790 illiliter 02/18/2013 N o longer Active Kenalog 40 mg/mL Susp for Injection RxNorm: 9162121 1Milliliter 11/16/2012 N o longer Active Kenalog 40 mg/mL Susp for Injection RxNorm: 9326820 1Milliliter 10/17/2011 N o longer Active Immunizations No Immunization data Assessments Condition Codes Effectiv e Dates Encounter for screening mammogram for ma lignant neoplasm of breast ICD-10: Z12.31 ICD-9: V76.10 02/25/2019 Pain in right knee ICD-10: M25.561 ICD-9: 719.46 12/08/2018 Essential (primary) hypertension ICD -10: I10 ICD-9: 401.1 09/01/2018 Acute laryngopharyngitis ICD-10: J06 .0 ICD-9: 465.9 [...] Visit Reason For Visit Effective Dates Notes lower leg pain 12/08/2018 hypertension 09/01/2018 hypertension [...] Code Result Date URINALYSIS NONAUTO W/O SCOPE 07332 Specific [place] 1.005 DateTime(Free Text in Aprima) URINALYSIS NONAUTO W/O SCOPE 68070 PH 6.0 DateTime(Free Jamar t in Aprima) URINALYSIS NONAUTO W/O SCOPE 56421 GLUCOSE DateTime(Free Text i n Aprima) URINALYSIS NONAUTO W/O SCOPE 03816 Protein DateTime(Free Text i n Aprima) URINALYSIS NONAUTO W/O SCOPE 63373 Blood DateTime(Free Text i n Aprima) URINALYSIS NONAUTO W/O SCOPE 01084 Bilirubin DateTime(Free Text i n Aprima) URINALYSIS NONAUTO W/O SCOPE 86617 Ketones DateTime(Free Text i n Aprima) URINALYSIS NONAUTO W/O SCOPE 23514 Urobilinogen DateTime(Free Text in Aprima) URINALYSIS NONAUTO W/O SCOPE 00738 Nitrite DateTime(Free Text i n Aprima) URINALYSIS NONAUTO W/O SCOPE 00222 Leukocytes DateTime(Fr ee Text in Aprima) Review of Systems System Result Effective Dates Constitutional No recent illness 12/08/2018 Constitutional No [...] Result Effective Dates Notes Full Exam - Orthopedics Constitutional general appearance [...] murmurs 02/18/2013 None Full Exam - General 1995 [...] accomodation 10/29/2012 None Full Exam - General 1994 Ears/Nose/Throat [...] retractions 10/29/2012 None Full Exam - General 1995 Respiratory respiratory effort/rhythm Overall: normal rate 10/29/2012 None Full Exam - General 1995 Cardiovascular auscultation of heart Overall: regular rate 10/29/2012 None Full Exam - General 1994 Cardiovascular auscultation of heart Overall: normal heart sounds 10/29/2012 None Full Exam - General 1994 Cardiovascular auscultation of heart Overall: no murmurs 10/29/2012 None Full Exam - General 1995 [...] Date URINALYSIS NONAUTO W /O SCOPE CPT-4: 99456 06/14/2013 THER/PROPH/DIAG INJ SC/IM CPT-4: 39886 04/06/2013 PROMETHAZINE HCL INJ ECTION CPT-4: J2550 04/06/2013 THER/PROPH/DIAG INJ SC/IM CPT-4: 01244 03/26/2013 PROMETHAZINE HCL INJ ECTION CPT-4: J2550 03/26/2013 THER/PROPH/DIAG INJ SC/IM CPT-4: 62957 03/11/2013 PROMETHAZINE HCL INJ ECTION CPT-4: J2550 02/18/2013 TRIAMCINOLONE ACET I [place] NOS CPT-4: J3301 11/16/2012 THER/PROPH/DIAG INJ SC/IM CPT-4: 42117 11/16/2012 TRIAMCINOLONE ACET I [place] NOS CPT-4: J3301 10/17/2011 THER/PROPH/DIAG INJ SC/IM CPT-4: 85486 10/17/2011 Vital Signs Date Vital 12/08/2018 Blood Pressure 1: 122/74 Code: 8480-6 BMI: 36.3 Code: 36718-3 Heart Rate 1: 64 bpm Height: 5'5" SpO2: 100% Weight: 218 lbs 09/01/2018 Blood Pressure 1: 132/80 Code: 8480-6 BMI: 35.6 Code: 75098-9 Heart Rate 1: 80 bpm Height: 5'5" SpO2: 96% Weight: 214 lbs 02/26/2018 Blood Pressure 1: 126/72 Code: 8480-6 BMI: 36.1 Code: 24704-5 Heart Rate 1: 63 bpm Height: 5'5" SpO2: 98% Weight: 217 lbs 07/24/2017 Blood Pressure 1: 138/78 Code: 8480-6 BMI: 36.1 Code: 39233-6 Heart Rate 1: 78 bpm Height: 5'5" SpO2: 99% Weight: 217 lbs 07/09/2017 Blood Pressure 1: 150/84 Code: 8480-6 BMI: 36.4 Code: 09859-1 Heart Rate 1: 70 bpm Height: 5'5" SpO2: 98% Weight: 219 lbs 06/24/2017 Blood Pressure 1: 154/80 Code: 8480-6 BMI: 36.9 Code: 44384-1 Heart Rate 1: 68 bpm Height: 5'5" SpO2: 98% Weight: 222 lbs 04/23/2016 Blood Pressure 1: 136/78 Code: 8480-6 BMI: 38.4 Code: 32372-8 Heart Rate 1: 76 bpm Height: 5'5" SpO2: 98% Weight: 231 lbs 01/23/2016 Blood Pressure 1: 148/82 Code: 8480-6 BMI: 39.6 Code: 11579-5 Heart Rate 1: 76 bpm Height: 5'5" SpO2: 98% Weight: 238 lbs 11/21/2015 Blood Pressure 1: 140/80 Code: 8480-6 BMI: 38.9 Code: 37344-5 Heart Rate 1: 89 bpm Height: 5'5" SpO2: 98% Weight: 233 lbs 8 oz 08/23/2014 Blood Pressure 1: 140/72 Code: 8480-6 BMI: 38.1 Code: 34580-5 Height: 5'5" Weight: 229 lbs 03/01/2014 Blood [...] Name Status Resu lt Effective Date Notes Location on the right 12/08/2018 None Quality [...] States she 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 PATIENT, LEVEL III Diagnosis: Pain in right knee[ICD10: M25.561] Claritza Collins MD, [facility] CPT-4: 49307 12/08/2018 ([id number]) 30327 EST. P ATIENT, LEVEL IV Diagnosis: Essential (primary) hypertension[ICD10: I10] Diagnosis: Acute laryngopharyngitis[ICD10: J06.0] Diagnosis: Other insomnia[ICD10: G47.09] Ling Collins MD, [facility] CPT-4: 90467 09/01/2018 ([id number]) 49866 EST. [facility] Diagnosis: Gastro-esophageal reflux disease without esophagitis[ICD10: K21.9] Diagnosis: Essential (primary) hypertension[ICD10: I10] Ling Collins MD, [facility] CPT-4: 87266 02/26/2018 ([id number]) 75132 EST. P ATIENT, LEVEL III Diagnosis: Other specified noninfective gastroenteritis and colitis[ICD10: K52.89] Diagnosis: Epigastric pain[ICD10: R10.13] Diagnosis: Generalized abdominal pain[ICD10: R10.84] Ling Collins [facility] CPT-4: 95088 07/24/2017 [id number] EST. PATIENT, LEVEL IV Diagnosis: Gastro-esophageal reflux disease without esophagitis[ICD10: K21.9] Claritza Collins MD, [facility] CPT-4: 33543 07/09/2017 ([id number]) PREV VISIT E ST AGE 40-64 Diagnosis: Encounter for general adult medical examination with abnormal findings[ICD10: Z00.01] Ling Collins MD, [facility] CPT-4: 99713 06/24/2017 ([id number]) 12546 EST. P ATIENT, LEVEL III Diagnosis: Gastro-esophageal reflux disease with esophagitis[ICD10: K21.0] [facility] CPT-4: 54561 04/23/2016 ([id number]) 78034 EST. P ATIENT, LEVEL IV Diagnosis: Gastro-esophageal reflux disease with esophagitis[ICD10: K21.0] Diagnosis: Morbid (severe) obesity due to excess calories[ICD10: E66.01] Diagnosis: Urge incontinence[ICD10: N39.41] [facility] CPT-4: 96608 01/23/2016 ([id number]) 91842 EST. P ATIENT, LEVEL IV Diagnosis: Metatarsalgia, right foot[ICD10: M77.41] Diagnosis: Achilles tendinitis, right leg[ICD10: M76.61] Diagnosis: Gastro-esophageal reflux disease with esophagitis[ICD10: K21.0] Ling Collins MD, [facility] CPT-4: 49828 11/21/2015 ([id number]) 37679 EST. P ATIENT, LEVEL III Diagnosis: Biceps tendonitis[ICD9: 726.12] Diagnosis: Encounter for long-term (current) use of other medications[ICD9: V58.69] [facility] CPT-4: 56341 08/23/2014 ([id number]) 46923 EST. P ATIENT, LEVEL III Diagnosis: Anxiety, generalized[ICD9: 300.02] Diagnosis: Pain, lower leg[ICD9: 729.5] [facility] CPT-4: 21310 03/01/2014 ([id number]) 63885 EST. P ATIENT, LEVEL III Diagnosis: MIGRAINE NOS/NOT INTRCBL[ICD9: 346.90] [facility] CPT-4: 27940 06/14/2013 ([id number]) 90739 EST. P ATIENT, LEVEL III Diagnosis: MIGRAINE NOS/NOT INTRCBL[ICD9: 346.90] Diagnosis: NAUSEA ALONE[ICD9: 787.02] Ling Collins MD, [facility] CPT-4: 90348 03/10/2013 ([id number]) 83828 EST. P ATIENT, LEVEL III Diagnosis: Intractable migraine with aura without status migrainosus[ICD9: 346.01] Diagnosis: Nausea[ICD9: 787.02] Yennifer Collins MD, [facility] CPT-4: 89743 02/18/2013 ([id number]) 64892 EST. P ATIENT, LEVEL III Diagnosis: BACTERIAL PNEUMONIA[ICD9: 482.9] Diagnosis: Dyspnea[ICD9: 786.09] Ling Collins MD, [facility] CPT-4: 61536 11/16/2012 ([id number]) 07907 EST. [facility] Diagnosis: MIGRAINE NOS/NOT INTRCBL[ICD9: 346.90] Diagnosis: ANXIETY STATE[ICD9: 300.00] Ling Collins MD, [facility] CPT-4: 52343 10/29/2012 ([id number]) 53802 EST. P ATIENT, LEVEL IV Diagnosis: MIGRAINE NOS/NOT INTRCBL[ICD9: 346.90] Diagnosis: JOINT PAIN-SHLDER[ICD9: 719.41] Diagnosis: OBESITY[ICD9: 278.00] Ling Collins MD, [facility] CPT-4: 92956 03/12/2012 ([id number]) 26863 EST. [facility]: Rotator cuff disorder[ICD9: 726.10] Diagnosis: Shoulder pain, acute[ICD9: 719.41] Diagnosis: Knee pain[ICD9: 719.46] Ling Collins MD, [facility] CPT-4: 27487 01/28/2012 ([id number]) [id number] EST. P ATIENT, LEVEL IV Diagnosis: Migraine[ICD9: 346.90] Diagnosis: Anxiety[ICD9: 300.00] Ling Collins MD, [facility] CPT-4: 37558 01/09/2012 [id number] EST. PATIENT, LEVEL III Diagnosis: ACUTE URI[ICD9: 465.9] Diagnosis: Cough[ICD9: 786.2] Yennifer Collins MD, [facility] CPT-4: 37166 10/17/2011 Plan of Care Planned Activity Notes C odes Status Date Patient Education: Patient Medication Summary Completed 02/25/2019 Care Plan: SCREENINGMAMMOGRAPHYDIGITAL LOINC : 55308-4 Pending 02/25/2019 Visit Plan: Right knee pain - the p atient was instructed in appropriate posture, need for weight loss to alleviate abdominal obesity that is worsening the patient's pain.. The pt is to use prn antiinflammatories to manage acute pain. The patient is to call the office if the pain is worsening or does not improve. 12/08/2018 Appointment: Claritza Russell WPtel: [facility] (15 min) Moderate 12/08/2018 Patient Education: Patient [...] 10mg nightly. 09/01/2018 Appointment: Ling Collins WPtel: [facility] (15 min) Moderate 09/01/2018 Patient [...] not improving. 02/26/2018 Appointment: Ling Collins WPtel: [phone] [facility] (15 min) Moderate 02/26/2018 Patient Education: Patient Medication Summary Completed 02/26/2018 Appointment: Ling Collins WPtel: [facility] [place] (15 min) Moderate 08/11/2017 Visit Plan: Abdominal pain, Colitis - advised liquid diet x 2-3 days, then advance to bland diet. If at any time her symptoms worsen, she is to go to the emergency department. Pt given order for EGD/Colonoscopy at [address] Garcia. 07/24/2017 Appointment: Ling Collins WPtel: [facility]5 [facility] (15 min) Moderate 07/24/2017 Patient Education: Patient [...] through their insurance - Fax number - [phone] phone number - [phone]. 07/09/2017 Visit Plan: Esophageal Reflux - Sev [...] through their insurance - Fax number - [phone] phone number - [phone]. 07/09/2017 App[facility]ment: [phone] (30 min) Complex 07/09/2017 Patient Education: Patient Medication Summary Completed 07/09/2017 Care Plan: Referral Order SNOMED-CT : [id number] Pending 07/09/2017 Visit Plan: Well Adult - [...] concerns. 06/24/2017 Appointment: [phone] (15 min) Moderate 06/24/2017 Patient Education: Patient [...] start her on diet medication. 01/23/2016 Appointment: Dennis Ling [facility]el[phone] (15 min) Moderate 01/23/2016 Patient Education: Patient [...] 11/21/2015 Care Plan: Referral Order SNOMED-CT : [id number] Ordered 11/21/2015 Visit Plan: Biceps tendonitis - [...] 1tab AM & 2 at hs x2wks, [id number] x2wks, then 1/2 am & 1hs x1wk, then 1/2 bidx 1wk, then 1/2 at hs x1wk then stop 08/23/2014 Appointment: DennisFlorinday [facility]Ptel[phone] S[place] 08/23/2014 Patient Education: Patient Medication Summary Completed 08/23/2014 Visit Plan: Chronic migraine headac hes - recommended for pt to keep appt with the specialist in [place] for migraine surgery. Topical pain in legs - recommended pt to start on iron, monitor as pt weans off of the topamax post surgically. 03/01/2014 Appointment: Lnig Collins WPtel: [phone] [facility] [place] Follow up 03/01/2014 Patient Education: Patient Medication Summary Completed 03/01/2014 Visit Plan: Migraine headaches - pt has not yet had an intractible migraine since she had her botox injections. She is to follow up with her Neurologist about her migraine headaches.. 06/14/2013 Appointment: Ling Collins WPtel: [phone] [facility] Follow up 06/14/2013 Patient Education: Patient Medication [...] bid. 03/10/2013 Appointment: Ling Collins WPtel: [phone] [facility] Other 03/10/2013 Patient Education: Patient Medication Summary [...] IM. 02/18/2013 Appointment: Yennifer Field [facility]Ptel[phone] Other 02/18/2013 Patient Education: Patient Medication Summary [...] positive children. 11/16/2012 Appointment: Ling Collins WPtel: [facility] Sick 11/16/2012 Patient Education: Patient Medication Summary [...] migraines. 10/29/2012 Appointment: Ling Collins WPtel: [phone] [facility] Other 10/29/2012 Patient Education: Patient Medication Summary [...] Dr. Judge. 03/12/2012 Appointment: Ling Collins WPtel: [address] [place] [address] Other 03/12/2012 Patient Education: Patient Medication Summary Completed 03/12/2012 Visit Plan: mri of keft shoulder - rotator cuff instability kenalog shot referal to orthopedic surgeon for eval of left shoulder and right knee 01/28/2012 Appointment: Ling Collins WPtel: [address] [place] [address] Other 01/28/2012 Patient Education: Patient Medication Summary [...] this time. 01/09/2012 Appointment: Ling Collins WPtel: [address] [place] [address] Other 01/09/2012 Patient Education: Patient Medication Summary [...] any worse. 10/17/2011 Appointment: Yennifer Field WPtel: [facility] Other 10/17/2011 Patient Education: Patient Medication Summary Completed 10/17/2011 Referral: Eric Ramirez Referral Completed Referral: External, Ordering Provider Referral Initiated Referral: Eric Ramirez Referral Appointment Requested Instructions [...] through their insurance - Fax number - [phone]; phone number - [phone]. Carafate - with meal s and at [...] through their insurance - Fax number - [phone]; phone number - [phone]. topamax 25mg tablet to be tapered as follows: 1tab AM & 2 at hs x2wks, [id number] x2wks, then 1/2 am & 1hs x1wk, [...] 1tab AM & 2 at hs x2wks, [id number] x2wks, then 1/2 am & 1hs x1wk, [...] Pt given order for EGD/Colonoscopy at [address] Garcia. . Pneumonia - [...] to keep appt with the specialist in [place] for migraine surgery. Topical pain in legs [...]
--- OUTSIDE RECORDS SUMMARY | 2020-03-15 06:38 | XMS REPORT | CCD ---
Author Author Shannon Field Organization Ling Collins MD, [facility] Address [address] [place] [address] Phone Care Team Providers Care Gig Tender Name Role Phone PP Unavailable CCM Unavailable Summary Purpose Interface Exchange Insurance Providers Payer name Policy type / Coverage type Covered republican ID Effective Begin Date Effective End Date [employer] [facility] [facility] Insurance [id number] Unkno wn Family history Mother Diagnosis Age [...] a daycare 10/17/[address]: 521645656 Nonsmoker 10/17/[address]: 627118247 Never drinks alcohol 10/17/2011 Allergies, Adverse Reactions, Alerts Substance Reaction Codes Entered Date Inactivated Date Status doxycycline hyclate RxNorm: 3640 10/17/2011 No Inactive Date Active cephalexin RxNorm: 2231 11/21/2015 No Inactive Date Active NIACIN PREPARATIONS pruritis Unknown 08/23/2014 No Inactive Date Active SULFA (SULFONAMIDE A NTIBIOTICS) Unknown 10/17/2011 No Inactive Date Active Past Medical History Illness Codes Condition Status Onset Date Resolved Date Pain in right knee ICD- 9: 719.46 [...] Condition Codes Effectiv e Dates Condition Status Pain in right knee ICD- 9: 719.46 [...] Date Stop Date Sta tus Fill Instructions oxybutynin chloride ER 5 mg tablet,extended release 24 hr RxNorm: 964067 TAKE 1 TABLET BY MOUTH ONCE DAILY 12/21/2018 No Stop Date Active Protonix 40 mg table t,delayed release RxNorm: 217697 TAKE 1 TABLET BY MOUT H ONCE DAILY 12/21/2018 No Stop Date Active Zorvolex 35 mg capsule RxNorm: 9475625 1 Capsule(s) PO TID 12/09/2018 No Stop Date Active oxybutynin chloride ER 5 mg tablet,extended release 24 hr RxNorm: 148593 TAKE 1 TABLET BY MOUTH ONCE DAILY 10/21/2018 12/20/2018 Inactive Protonix 40 mg table t,delayed release RxNorm: 405078 TAKE 1 TABLET BY MOUT H ONCE DAILY 10/21/2018 12/20/2018 Inactive oxybutynin chloride ER 5 mg tablet,extended release 24 hr RxNorm: 715175 TAKE 1 TABLET BY MOUTH ONCE DAILY 07/20/2018 10/20/2018 Inactive Protonix 40 mg table t,delayed release RxNorm: 035065 TAKE 1 TABLET BY MOUT H ONCE DAILY 07/20/2018 10/20/2018 Inactive Xanax 0.25 mg tablet RxNorm: 714468 1 Tablet(s) PO Q8 as needed anxiety 02/17/2018 03/18/2018 In active oxybutynin chloride ER 5 mg tablet,extended release 24 hr RxNorm: 394483 TAKE ONE TABLET BY MOUTH ONCE DAILY 02/17/2018 07/19/2018 Inactive Protonix 40 mg table t,delayed release RxNorm: 702284 TAKE ONE TABLET BY MO UTH ONCE DAILY 02/17/2018 07/19/2018 Inactive Xanax 0.25 mg tablet RxNorm: 793556 1 Tablet(s) PO Q8 as needed anxiety 10/16/2017 11/12/2017 In active Zantac 150 mg tablet RxNorm: 637201 1 Tablet(s) PO daily 09/15/2017 03/13/2018 Inactive Carafate 1 gram tablet RxNorm: 640686 1 Tablet(s) PO AC & HS 09/15/2017 03/13/2018 Inactive oxybutynin chloride ER 5 mg tablet,extended release 24 hr RxNorm: 392766 TAKE ONE TABLET BY MOUTH ONCE DAILY 08/18/2017 02/13/2018 Inactive Protonix 40 mg table t,delayed release RxNorm: 176302 TAKE ONE TABLET BY MO UTH ONCE DAILY 08/18/2017 02/13/2018 Inactive Carafate 1 gram tablet RxNorm: 406585 1 Tablet(s) PO AC & HS 07/09/2017 08/07/2017 Inactive Protonix 40 mg table t,delayed release RxNorm: 980825 1 Tablet(s) PO daily 07/09/2017 08/07/2017 In active Zofran 4 mg tablet RxNorm: 449511 1 Tablet(s) PO TID as needed nausea 07/09/2017 07/13/2017 In active Zantac 150 mg tablet RxNorm: 807050 1 Tablet(s) PO daily 07/09/2017 08/07/2017 Inactive losartan 25 mg tablet RxNorm: 495211 1 Tablet(s) PO daily 06/24/2017 10/21/2017 Inactive oxybutynin chloride ER 5 mg tablet,extended release 24 hr RxNorm: 515229 TAKE ONE TABLET BY MOUTH ONCE DAILY 05/15/2017 08/12/2017 Inactive oxybutynin chloride ER 5 mg tablet,extended release 24 hr RxNorm: 328676 TAKE ONE TABLET BY MOUTH ONCE DAILY 02/07/2017 05/07/2017 Inactive oxybutynin chloride ER 5 mg tablet,extended release 24 hr RxNorm: 475439 TAKE ONE TABLET BY MOUTH ONCE DAILY 10/01/2016 01/28/2017 Inactive oxybutynin chloride ER 5 mg tablet,extended release 24 hr RxNorm: 662833 TAKE ONE TABLET BY MOUTH ONCE DAILY 05/27/2016 09/23/2016 Inactive cranberry fruit conc entrate 500 mg capsule RxNorm: 504026 1 Capsule(s) PO two t o three times weekly 04/23/2016 No Stop Date Active Nexium 40 mg capsule ,delayed release RxNorm: 717855 1 Capsule(s) PO BID 04/23/2016 07/23/2017 In active oxybutynin chloride ER 5 mg tablet,extended release 24 hr RxNorm: 946112 1 Tablet(s) PO daily 01/23/2016 05/21/2016 Inactive pantoprazole 40 mg t ablet,delayed release RxNorm: 693604 1 Tablet(s) PO BID TA KE ONE TABLET BY MOUTH EVERY DAY 12/12/2015 12/11/2015 Inactive pantoprazole 40 mg t ablet,delayed release RxNorm: 921855 1 Tablet(s) PO BID TA KE ONE TABLET BY MOUTH TWICE EVERY DAY 12/12/2015 04/22/2016 Inactive Vesicare 5 mg tablet RxNorm: 892058 1 Tablet(s) PO QPM 11/21/2015 01/21/2016 Inactive Carafate 1 gram tablet RxNorm: 600068 1 Tablet(s) PO QID dissolve in 10mL of w ater 11/21/2015 04/22/2016 Inactive pantoprazole 40 mg t ablet,delayed release RxNorm: 883312 1 Tablet(s) PO daily TAKE ONE TABLET BY MOUTH EVERY DAY 04/05/2015 12/11/2015 Inactive Topamax 100 mg tablet RxNorm: 708508 1 Tablet(s) UD 1tab AM & 2 at hs x2wks, [id number] x2wks, then 1/2 am & 1hs x1wk, then 1/2 bidx 1wk, then 1/2 at hs x1wk then stop 08/23/2014 01/19/2015 Inactive Vitamin B-12 1,000 m cg/mL injection solution RxNorm: 704885 2x per month Millilit er(s) Inj INJECT 1ML EVERY 2 WEEKS 08/23/2014 11/20/2015 Inactive amitriptyline 50 mg tablet RxNorm: 261742 1 Tablet(s) QPM 08/23/2014 11/20/2015 Inactive amitriptyline 50 mg tablet RxNorm: 211701 TAKE ONE TABLET BY MO UT TWICE DAILY 08/18/2014 08/22/2014 In active amitriptyline 50 mg tablet RxNorm: 214021 TAKE ONE TABLET BY MO UT TWICE DAILY 05/27/2014 08/17/2014 In active Topamax 100 mg tablet RxNorm: 830750 TAKE ONE TABLET BY MOUTH TWICE DAILY 05/27/2014 08/22/2014 In active Topamax 100 mg tablet RxNorm: 400241 Tablet(s) PO TAKE ONE TABLET BY MOUTH TW ICE DAILY 03/24/2014 05/26/2014 Inactive pantoprazole 40 mg t ablet,delayed release RxNorm: 358270 1 Tablet(s) PO daily TAKE ONE TABLET BY MOUTH EVERY DAY 03/18/2014 03/12/2015 Inactive nystatin 100,000 uni t/mL oral suspension RxNorm: 045605 5 Milliliter(s) PO QI D 03/07/2014 03/06/2014 In active nystatin 100,000 uni t/mL oral suspension RxNorm: 839347 5 Milliliter(s) PO QI D 03/07/2014 03/16/2014 In active Topamax 100 mg tablet RxNorm: 381095 Tablet(s) PO TAKE ONE TABLET BY MOUTH TW ICE DAILY 02/21/2014 03/23/2014 Inactive Vitamin B-12 1,000 m cg/mL injection solution RxNorm: 418477 solution Inj INJECT 1 ML EVERY 2 WEEKS 12/21/2013 08/22/2014 Inactive Frova 2.5 mg tablet RxNorm: 115117 1 Tablet(s) PO 12/20/2013 11/20/2015 Inactive at o nset of migraine Frova 2.5 mg tablet RxNorm: 457286 1 Tablet(s) PO 10/28/2013 12/19/2013 Inactive at o nset of migraine Topamax 100 mg tablet RxNorm: 141051 Tablet(s) PO TAKE ONE TABLET BY MOUTH TW ICE DAILY 10/21/2013 2014 Inactive Topamax 100 mg tablet RxNorm: 820667 Tablet(s) PO TAKE ONE TABLET BY MOUTH TW ICE DAILY 08/23/2013 10/20/2013 Inactive Topamax 100 mg tablet RxNorm: 754460 1 Tablet(s) PO BID TAKE ONE TABLET BY MO UT TWICE DAILY 05/24/2013 08/22/2013 Inactive Demerol (PF) 50 mg/m L Injection RxNorm: 168541 1/2 Milliliter(s) Inj 04/06/2013 04/06/2013 Inactive promethazine 25 mg/m L Injection RxNorm: 554557 1 Milliliter(s) Inj 04/06/2013 04/06/2013 Inactive promethazine 25 mg/m L Injection RxNorm: 206988 2 Milliliter(s) Inj 03/26/2013 03/26/2013 Inactive Demerol (PF) 50 mg/m L Injection RxNorm: 993457 Milliliter(s) Inj 03/26/2013 03/26/2013 Inactive amitriptyline 50 mg tablet RxNorm: 114888 Tablet(s) PO TAKE ONE TABLET BY MOUTH TWICE DAILY 03/22/2013 05/26/2014 Inactive Topamax 100 mg tablet RxNorm: 879350 1 Tablet(s) PO BID 03/19/2013 03/18/2013 Inactive Topamax 100 mg tablet RxNorm: 047634 1 Tablet(s) PO BID 03/19/2013 05/24/2013 Inactive Demerol (PF) 50 mg/m L Injection RxNorm: 719671 1 Milliliter(s) Inj 03/11/2013 03/11/2013 Inactive Topamax 50 mg tablet RxNorm: 533593 1.5 Tablet(s) PO BID 03/10/2013 03/18/2013 Inactive promethazine 25 mg t ablet RxNorm: 849914 1 Tablet(s) PO Q6 PRN 02/25/2013 11/20/2015 Inactive pantoprazole 40 mg t ablet,delayed release RxNorm: 293632 Tablet(s) PO TAKE ONE TABLET BY MOUTH EVERY DAY 02/22/2013 03/17/2014 Inactive promethazine 25 mg/m L Injection RxNorm: 025749 1 Milliliter(s) Inj 02/18/2013 02/18/2013 Inactive Demerol (PF) 25 mg/0 .5 mL Injection RxNorm: 066975 1 Milliliter(s) Inj 02/18/2013 02/18/2013 In active total of 50mg given IM Topamax 50 mg tablet RxNorm: 200026 Tablet(s) PO TAKE ONE TABLET BY MOUTH TW ICE DAILY 02/04/2013 03/09/2013 Inactive prednisone 20 mg tablet RxNorm: 112268 3 Tablet(s) PO daily 11/16/2012 11/20/2012 Inactive ciprofloxacin 500 mg tablet RxNorm: 248327 1 Tablet(s) PO BID 11/16/2012 11/22/2012 Inactive Kenalog 40 mg/mL Lovely p for Injection RxNorm: 4264791 1 Milliliter(s) Inj 11/16/2012 11/16/2012 In active Tamiflu 75 mg capsule RxNorm: 211047 1 Capsule(s) PO BID 11/16/2012 11/20/2012 Inactive esterified estrogens -methyltestosterone 1.25 mg-2.5 mg tablet RxNorm: 697158 1 Tablet(s) PO every other day 10/29/2012 06/23/2017 Inactive amitriptyline 50 mg tablet RxNorm: 258007 1 Tablet(s) PO daily 10/29/2012 03/21/2013 Inactive TAKE ONE TABLET BY MOUTH TWICE DAILY Topamax 50 mg tablet RxNorm: 942650 1 Tablet(s) PO BID 10/29/2012 01/26/2013 Inactive Vitamin B-12 1,000 m cg/mL injection solution RxNorm: 536921 1 Milliliter(s) Inj Q 2weeks INJECT 1ML TWICE A MONTH 10/29/2012 12/20/2013 Inactive takes 2 times monthly. ok to give multidose vial if available. if not please give 3 month supply of single dose vials Vitamin B-12 1,000 m cg/mL Injection RxNorm: 906569 Solution Inj INJECT 1 ML TWICE A MONTH 10/26/2012 10/28/2012 Inactive Topamax 25 mg tablet RxNorm: 557433 1 Tablet(s) PO BID 10/13/2012 03/10/2013 Inactive Topamax 25 mg tablet RxNorm: 661919 1 Tablet(s) PO as directed 09/24/2012 10/12/2012 Inactive 1 tab bid x 2 weeks1 tab daily x 1 month 1 tab qod x 1 week then stop Percocet 10 mg-325 m g tablet RxNorm: 7703375 1 Tablet(s) PO Q4 PRN 07/22/2012 11/20/2015 Inactive diazepam 5 mg tablet RxNorm: 787523 1 Tablet(s) PO TID PRN 07/22/2012 01/17/2013 Inactive amitriptyline 50 mg tablet RxNorm: 311551 Tablet(s) PO 06/17/2012 10/28/2012 Inactive TAKE ONE TABLET BY MOUTH TWICE DAILY Topamax 25 mg tablet RxNorm: 838605 1 Tablet(s) PO as directed 04/14/2012 06/01/2012 Inactive 1 tab bid x 2 weeks1 tab daily x 1 month 1 tab qod x 1 week then stop Topamax 25 mg Tab RxNorm: 065770 1 Tablet(s) PO as directed 03/16/2012 04/13/2012 Inactive 1 tab bid x 2 weeks1 tab daily x 1 month 1 tab qod x 1 week then stop pantoprazole 40 mg t ablet,delayed release RxNorm: 711198 Tablet(s) PO 02/17/2012 02/21/2013 In active TAKE ONE TABLET BY MOUTH EVERY DAY Topamax 50 mg Tab RxNorm: 196443 Tablet(s) PO 01/21/2012 03/11/2012 Inactive plea se give pt #42 of the 50mg tablets, to take bid till gone.then 25mg q am and 50 q hs x 14 days then 25 mg bid thereafter # 44 amitriptyline 50 mg tablet RxNorm: 215317 Tablet(s) PO 12/18/2011 06/16/2012 Inactive TAKE ONE TABLET BY MOUTH TWICE DAILY Percocet 10 mg-325 m g tablet RxNorm: 3253087 1 Tablet(s) PO Q4 PRN 11/13/2011 07/21/2012 Inactive Vitamin B-12 1,000 m cg/mL Injection RxNorm: 885840 1 Milliliter(s) Inj 2 x month 10/17/2011 10/16/2011 In active Vitamin B-12 1,000 m cg/mL Injection RxNorm: 414474 1 Milliliter(s) Inj 2 x month 10/17/2011 10/25/2012 In active topiramate 100 mg Tab RxNorm: 493618 1 Tablet(s) PO BID 10/17/2011 01/20/2012 Inactive TAKE ONE TABLET BY MOUTH TWICE DAILY Kenalog 40 mg/mL Lovely p for Injection RxNorm: 0203660 1 Milliliter(s) Inj 10/17/2011 10/17/2011 In active diazepam 5 mg tablet RxNorm: 608608 1 Tablet(s) PO TID PRN 09/25/2011 03/22/2012 Inactive diazepam 5 mg Tab RxNorm: 046740 1 Tablet(s) PO TID PRN 09/15/2011 09/17/2011 Inactive topiramate 100 mg Tab RxNorm: 919444 Tablet(s) PO 08/25/2011 10/16/2011 Inactive TAKE ONE TABLET BY MOUTH TWICE DAILY topiramate 100 mg Tab RxNorm: 244618 1 Tablet(s) PO BID 08/21/2011 08/24/2011 Inactive pantoprazole 40 mg T ab, Delayed Release RxNorm: 665570 1 Tablet(s) PO daily 07/19/2011 08/17/2011 In active ibuprofen 800 mg Tab RxNorm: 577446 1 Tablet(s) PO Q8 PRN No Start Date Active Vitamin D3 5,000 uni t tablet RxNorm: 845837 1 Tablet(s) PO daily No Start Date Active multivitamin capsule RxNorm: 1 Capsule(s) PO daily No Start Date Active cranberry fruit conc entrate 250 mg chewable tablet RxNorm: 1290211 1 Tablet(s) PO two to three times weekly No Start Date 04/22/2016 Inactive amitriptyline 50 mg Tab RxNorm: 308199 1 Tablet(s) PO BID No Start Date 12/17/2011 Inactive Topamax 50 mg Tab RxNorm: 650368 Tablet(s) PO No Start Date 01/20/2012 Inactive plea se give pt #42 of the 50mg tablets, to take bid till gone.then 25mg q am and 50 q hs x 14 days then 25 mg bid thereafter # 44 cranberry 1,000 mg c apsule RxNorm: 992662 3 Capsule(s) PO daily No Start Date 01/22/2016 Inactive promethazine 25 mg t ablet RxNorm: 616346 1 Tablet(s) PO Q6 PRN No Start Date 02/24/2013 Inactive Topamax 25 mg Tab RxNorm: 044585 1 Tablet(s) PO BID No Start Date 03/15/2012 Inactive Xanax 0.25 mg tablet RxNorm: 479220 1 Tablet(s) PO as needed anxiety No Start Date 10/15/2017 Inactive Frova 2.5 mg tablet RxNorm: 885501 1 Tablet(s) PO No Start Date 10/27/2013 Inactive at onset of migraine Zithromax Z-Darion 250 mg Tab RxNorm: 619216 Tablet(s) PO No Start Date 10/28/2012 Inactive Diflucan 200 mg tablet RxNorm: 762636 1 Tablet(s) PO PRN No Start Date 06/13/2013 Inactive Fish Oil 1,000 mg ca psule RxNorm: 4 Capsule(s) PO daily No Start Date 08/31/2018 Inactive esterified estrogens -methyltestosterone 1.25 mg-2.5 mg tablet RxNorm: 567868 1 Tablet(s) PO daily No Start Date 10/28/2012 Inactive Demerol (PF) 50 mg/m L Injection RxNorm: 436275 1 Milliliter(s) Inj a s doctor directed No Start Date 06/13/2013 Inactive Tessalon 200 mg Cap RxNorm: 740166 1 Capsule(s) PO Q6 PRN No Start Date 10/28/2012 Inactive Medication Administered Medication Codes Instruc tions Start Date Status Demerol (PF) 50 mg/mL Injection RxNo rm: 270083 1/2Milliliter 04/06/2013 No longer Active promethazine 25 mg/mL Injection RxNo rm: 311925 1Milliliter 04/06/2013 N o longer Active promethazine 25 mg/mL Injection RxNo rm: 192040 2Milliliter 03/26/2013 N o longer Active Demerol (PF) 50 mg/mL Injection RxNo rm: 014604 Milliliter 03/26/2013 No longer Active Demerol (PF) 50 mg/mL Injection RxNo rm: 644635 1Milliliter 03/11/2013 N o longer Active Demerol (PF) 25 mg/0.5 mL Injection RxNorm: 126401 1Milliliter 02/18/2013 N o longer Active promethazine 25 mg/mL Injection RxNo rm: 718847 illiliter 02/18/2013 N o longer Active Kenalog 40 mg/mL Susp for Injection RxNorm: 5400031 1Milliliter 11/16/2012 N o longer Active Kenalog 40 mg/mL Susp for Injection RxNorm: 3960891 1Milliliter 10/17/2011 N o longer Active Immunizations No Immunization data Assessments Condition Codes Effectiv e Dates Pain in right knee ICD-10: M25.561 ICD-9: [...] Code Result Date URINALYSIS NONAUTO W/O SCOPE 38694 Specific Redfox 1.005 DateTime(Free Text in Aprima) URINALYSIS NONAUTO W/O SCOPE 53573 PH 6.0 DateTime(Free Jamar t in Aprima) URINALYSIS NONAUTO W/O SCOPE 69818 GLUCOSE DateTime(Free Text i n Aprima) URINALYSIS NONAUTO W/O SCOPE 76835 Protein DateTime(Free Text i n Aprima) URINALYSIS NONAUTO W/O SCOPE 69268 Blood DateTime(Free Text i n Aprima) URINALYSIS NONAUTO W/O SCOPE 84580 Bilirubin DateTime(Free Text i n Aprima) URINALYSIS NONAUTO W/O SCOPE 97919 Ketones DateTime(Free Text i n Aprima) URINALYSIS NONAUTO W/O SCOPE 58826 Urobilinogen DateTime(Free Text in Aprima) URINALYSIS NONAUTO W/O SCOPE 25565 Nitrite DateTime(Free Text i n Aprima) URINALYSIS NONAUTO W/O SCOPE 27345 Leukocytes DateTime(Fr ee Text in Aprima) Review [...] distress 02/18/2013 None Full Exam - General 1995 Constitutional general appearance Overall: well nourished 02/18/2013 [...] clear 10/29/2012 None Full Exam - General 1994 [...] benign 01/09/2012 None Full Exam - General 1995 Musculoskeletal [...] Date URINALYSIS NONAUTO W /O SCOPE CPT-4: 37682 06/14/2013 THER/PROPH/DIAG INJ SC/IM CPT-4: 80816 04/06/2013 PROMETHAZINE HCL INJ ECTION CPT-4: J2550 04/06/2013 THER/PROPH/DIAG INJ SC/IM CPT-4: 87436 03/26/2013 PROMETHAZINE HCL INJ ECTION CPT-4: J2550 03/26/2013 THER/PROPH/DIAG INJ SC/IM CPT-4: 75076 03/11/2013 PROMETHAZINE HCL INJ ECTION CPT-4: J2550 02/18/2013 TRIAMCINOLONE ACET I [place] NOS CPT-4: J3301 11/16/2012 THER/PROPH/DIAG INJ SC/IM CPT-4: 14149 11/16/2012 TRIAMCINOLONE ACET I [place] NOS CPT-4: J3301 10/17/2011 THER/PROPH/DIAG INJ SC/IM CPT-4: 05592 10/17/2011 Vital Signs Date Vital 12/08/2018 Blood Pressure 1: 122/74 Code: 8480-6 BMI: 36.3 Code: 76723-5 Heart Rate 1: 64 bpm Height: 5'5" SpO2: 100% Weight: 218 lbs 09/01/2018 Blood Pressure 1: 132/80 Code: 8480-6 BMI: 35.6 Code: 86651-2 Heart Rate 1: 80 bpm Height: 5'5" SpO2: 96% Weight: 214 lbs 02/26/2018 Blood Pressure 1: 126/72 Code: 8480-6 BMI: 36.1 Code: 26241-8 Heart Rate 1: 63 bpm Height: 5'5" SpO2: 98% Weight: 217 lbs 07/24/2017 Blood Pressure 1: 138/78 Code: 8480-6 BMI: 36.1 Code: 40151-1 Heart Rate 1: 78 bpm Height: 5'5" SpO2: 99% Weight: 217 lbs 07/09/2017 Blood Pressure 1: 150/84 Code: 8480-6 BMI: 36.4 Code: 74936-1 Heart Rate 1: 70 bpm Height: 5'5" SpO2: 98% Weight: 219 lbs 06/24/2017 Blood Pressure 1: 154/80 Code: 8480-6 BMI: 36.9 Code: 57287-0 Heart Rate 1: 68 bpm Height: 5'5" SpO2: 98% Weight: 222 lbs 04/23/2016 Blood Pressure 1: 136/78 Code: 8480-6 BMI: 38.4 Code: 07815-5 Heart Rate 1: 76 bpm Height: 5'5" SpO2: 98% Weight: 231 lbs 01/23/2016 Blood Pressure 1: 148/82 Code: 8480-6 BMI: 39.6 Code: 59729-7 Heart Rate 1: 76 bpm Height: 5'5" SpO2: 98% Weight: 238 lbs 11/21/2015 Blood Pressure 1: 140/80 Code: 8480-6 BMI: 38.9 Code: 22947-3 Heart Rate 1: 89 bpm Height: 5'5" SpO2: 98% Weight: 233 lbs 8 oz 08/23/2014 Blood Pressure 1: 140/72 Code: 8480-6 BMI: 38.1 Code: 79900-4 Height: 5'5" Weight: 229 lbs 03/01/2014 Blood [...] States she has been doing body by [facility] for about 3 months but is not [...] shoulder 01/28/2012 None shoulder pain [facility] [place] 01/28/2012 None shoulder pain Quality th robbing [...] in right knee[ICD10: M25.561] Claritza Collins MD, [facility] CPT-4: 31312 12/08/2018 ([id number]) 68593 EST. P ATIENT, LEVEL IV Diagnosis: Essential (primary) hypertension[ICD10: I10] Diagnosis: Acute laryngopharyngitis[ICD10: J06.0] Diagnosis: Other insomnia[ICD10: G47.09] Ling Collins MD, [facility] CPT-4: 25379 09/01/2018 ([id number]) 88911 EST. P ATIENT, LEVEL III Diagnosis: Gastro-esophageal reflux disease without esophagitis[ICD10: K21.9] Diagnosis: Essential (primary) hypertension[ICD10: I10] Ling Collins MD, [facility] CPT-4: 09393 02/26/2018 ([id number]) 11493 EST. P ATIENT, LEVEL III Diagnosis: Other specified noninfective gastroenteritis and colitis[ICD10: K52.89] Diagnosis: Epigastric pain[ICD10: R10.13] Diagnosis: Generalized abdominal pain[ICD10: R10.84] Ling Collins MD, C CPT-4: 61216 07/24/2017 15019 EST. PATIENT, LEVEL IV Diagnosis: Gastro-esophageal reflux disease without esophagitis[ICD10: K21.9] Claritza Collins MD, [facility] CPT-4: 60332 07/09/2017 ([id number]) PREV VISIT E ST AGE 40-64 Diagnosis: Encounter for general adult medical examination with abnormal findings[ICD10: Z00.01] Ling Collins MD, [facility] CPT-4: 83950 06/24/2017 ([id number]) 14711 EST. [facility] Diagnosis: Gastro-esophageal reflux disease with esophagitis[ICD10: K21.0] Ling Collins MD, [facility] CPT-4: 81369 04/23/2016 ([id number]) 24977 EST. P ATIENT, LEVEL IV Diagnosis: Gastro-esophageal reflux disease with esophagitis[ICD10: K21.0] Diagnosis: Morbid (severe) obesity due to excess calories[ICD10: E66.01] Diagnosis: Urge incontinence[ICD10: N39.41] Ling Collins MD, [facility] CPT-4: 64579 01/23/2016 ([id number]) 93052 EST. P ATIENT, LEVEL IV Diagnosis: Metatarsalgia, right foot[ICD10: M77.41] Diagnosis: Achilles tendinitis, right leg[ICD10: M76.61] Diagnosis: Gastro-esophageal reflux disease with esophagitis[ICD10: K21.0] Ling Collins MD, [facility] CPT-4: 34391 11/21/2015 ([id number]) 24113 EST. P ATIENT, LEVEL III Diagnosis: Biceps tendonitis[ICD9: 726.12] Diagnosis: Encounter for long-term (current) use of other medications[ICD9: V58.69] Ling Collins MD, [facility] CPT-4: 45880 08/23/2014 ([id number]) 05251 EST. P ATIENT, LEVEL III Diagnosis: Anxiety, generalized[ICD9: 300.02] Diagnosis: Pain, lower leg[ICD9: 729.5] Ling Collins MD, [facility] CPT-4: 31963 03/01/2014 ([id number]) 22451 EST. P ATIENT, LEVEL III Diagnosis: MIGRAINE NOS/NOT INTRCBL[ICD9: 346.90] Ling Collins MD, [facility] CPT-4: 09026 06/14/2013 ([id number]) 65690 EST. P ATIENT, LEVEL III Diagnosis: MIGRAINE NOS/NOT INTRCBL[ICD9: 346.90] Diagnosis: NAUSEA ALONE[ICD9: 787.02] Ling Collins MD, [facility] CPT-4: 45389 03/10/2013 ([id number]) 83249 EST. P ATIENT, LEVEL III Diagnosis: Intractable migraine with aura without status migrainosus[ICD9: 346.01] Diagnosis: Nausea[ICD9: 787.02] Yennifer Collins MD, [facility] CPT-4: 60606 02/18/2013 ([id number]) 14693 EST. P ATIENT, LEVEL III Diagnosis: BACTERIAL PNEUMONIA[ICD9: 482.9] Diagnosis: Dyspnea[ICD9: 786.09] Ling Collins MD, [facility] CPT-4: 26616 11/16/2012 ([id number]) 22344 EST. P ATIENT, LEVEL III Diagnosis: MIGRAINE NOS/NOT INTRCBL[ICD9: 346.90] Diagnosis: ANXIETY STATE[ICD9: 300.00] Ling Collins MD, [facility] CPT-4: 42273 10/29/2012 ([id number]) 31253 EST. P ATIENT, LEVEL IV Diagnosis: MIGRAINE NOS/NOT INTRCBL[ICD9: 346.90] Diagnosis: JOINT PAIN-SHLDER[ICD9: 719.41] Diagnosis: OBESITY[ICD9: 278.00] Ling Collins MD, [facility] CPT-4: 15979 03/12/2012 ([id number]) 15286 EST. P ATIENT, LEVEL IV Diagnosis: Rotator cuff disorder[ICD9: 726.10] Diagnosis: Shoulder pain, acute[ICD9: 719.41] Diagnosis: Knee pain[ICD9: 719.46] Ling Collins MD, [facility] CPT-4: 10909 01/28/2012 ([id number]) 03269 EST. P ATIENT, LEVEL IV Diagnosis: Migraine[ICD9: 346.90] Diagnosis: Anxiety[ICD9: 300.00] Ling Collins MD, [facility] CPT-4: 87420 01/09/2012 11290 EST. PATIENT, LEVEL III Diagnosis: ACUTE URI[ICD9: 465.9] Diagnosis: Cough[ICD9: 786.2] Yennifer Collins MD, [facility] CPT-4: 52845 10/17/2011 Plan of Care Planned Activity Notes C odes Status Date Visit Plan: Right knee pain - the p atient was instructed in appropriate posture, need for weight loss to alleviate abdominal obesity that is worsening the patient's pain.. The pt is to use prn antiinflammatories to manage acute pain. The patient is to call the office if the pain is worsening or does not improve. 12/08/2018 Appointment[facility] [phone] [facility] (15 min) Moderate 12/08/2018 Patient Education: Patient [...] 10mg nightly. 09/01/2018 [facility]ment[phone] [facility] (15 min) Moderate 09/01/2018 Patient Education: Patient [...] not improving. 02/26/2018 Appointment: Ling Collins WPtel: [facility] [place] (15 min) Moderate 02/26/2018 Patient Education: Patient Medication Summary Completed 02/26/2018 Appointment: Ling Collins WPtel: [phone] [facility] (15 min) Moderate 08/11/2017 Visit Plan: Abdominal pain, Colitis - advised liquid diet x 2-3 days, then advance to bland diet. If at any time her symptoms worsen, she is to go to the emergency department. Pt given order for EGD/Colonoscopy at [address] Garcia. 07/24/2017 Appointment: DennisLing WPtel: [phone] [facility] [id number] (15 min) Moderate 07/24/2017 Patient Education: Patient [...] through their insurance - Fax number - [phone] phone number - [phone]. 07/09/2017 Visit Plan: Esophageal Reflux - Sev [...] through their insurance - Fax number - [phone] phone number - [phone]. 07/09/2017 Appointment: Claritza Russell [facility]el[facility] [phone] [facility] [place] (30 min) Complex 07/09/2017 Patient Education: Patient Medication Summary Completed 07/09/2017 Care Plan: Referral Order SNOMED-CT : [id number] Pending 07/09/2017 Visit Plan: Well Adult - [...] concerns. 06/24/2017 Appointment: Ling Collins WPtel: [phone] [id number] (15 min) Moderate 06/24/2017 Patient Education: Patient [...] diet medication. 01/23/2016 Appointment: Ling Collins WPtel: [phone] [facility] (15 min) Moderate 01/23/2016 Patient Education: Patient [...] 11/21/2015 Care Plan: Referral Order SNOMED-CT : [id number] Ordered 11/21/2015 Visit Plan: Biceps tendonitis - [...] 1tab AM & 2 at hs x2wks, [id number] x2wks, then 1/2 am & 1hs x1wk, then 1/2 bidx 1wk, then 1/2 at hs x1wk then stop 08/23/2014 Appointment: Ling Collins WPtel: [address] [place], [place] [phone] [facility] 08/23/2014 Patient Education: Patient Medication Summary Completed 08/23/2014 Visit Plan: Chronic migraine headac hes - recommended for pt to keep appt with the specialist in [place] for migraine surgery. Topical pain in legs - recommended pt to start on iron, monitor as pt weans off of the topamax post surgically. 03/01/2014 Appointment: Ling Collins WPtel: [address] [place], [place] [phone] Follow up 03/01/2014 Patient Education: Patient Medication Summary Completed 03/01/2014 Visit Plan: Migraine headaches - pt has not yet had an intractible migraine since she had her botox injections. She is to follow up with her Neurologist about her migraine headaches.. 06/14/2013 Appointment: Ling Collins WPtel: [phone] [facility] Follow up 06/14/2013 Patient Education: Patient Medication [...] bid. 03/10/2013 Appointment: Ling Collins WPtel: [phone] [facility] Other 03/10/2013 Patient Education: Patient Medication Summary Completed 03/10/2013 Visit Plan: Acute Migraine - pt has chronic migraine headaches, but comes into clinic today complaining of intractible migraine headache symptoms. I have recommended changes to the chronic symptoms management and the pt has been given the following acute treatment in clinic today: Demerol 50mg IM (RX written and patient's picked up medication from [facility] pharmacy and we administered) and Phenergan 25mg IM. 02/18/2013 Appointment: Yennifer Field WPtel: [phone] [id number] Other 02/18/2013 Patient Education: Patient Medication Summary [...] positive children. 11/16/2012 Appointment: Ling Collins WPtel: [facility] Sick 11/16/2012 Patient Education: Patient Medication Summary [...] her migraines. 10/29/2012 Appointment: Ling Collins WPtel: [facility] Other 10/29/2012 Patient Education: Patient Medication Summary [...] Dr. Judge. 03/12/2012 Appointment: Ling Collins WPtel: [facility] Other 03/12/2012 Patient Education: Patient Medication Summary Completed 03/12/2012 Visit Plan: mri of keft shoulder - rotator cuff instability kenalog shot referal to orthopedic surgeon for eval of left shoulder and right knee 01/28/2012 Appointment: Ling Collins WPtel: [address] [place], [place] [phone] Other 01/28/2012 Patient Education: Patient Medication Summary [...] this time. 01/09/2012 Appointment: Ling Collins WPtel: [address] [place] [address] Other 01/09/2012 Patient Education: Patient Medication Summary [...] any worse. 10/17/2011 Appointment: Yennifer Field WPtel: [address] [place], [place] [id number] [[email or web address] Other 10/17/2011 Patient Education: Patient Medication Summary [...] through their insurance - Fax number - [phone]; phone number - [phone]. Carafate - with meal s and at [...] through their insurance - Fax number - [phone]; phone number - [phone]. topamax 25mg tablet to be tapered as follows: 1tab AM & 2 at hs x2wks, [id number] x2wks, then 1/2 am & 1hs x1wk, [...] 1tab AM & 2 at hs x2wks, [id number] x2wks, then 1/2 am & 1hs x1wk, [...] the symptoms are not improving. referral to [facility] Urge incontinence -Pt has urge [...] department. Pt given order for EGD/Colonoscopy at [address] Garcia[address] . Pneumonia - [...] written and patient's picked up medication from [facility] pharmacy and we administered) and Phenergan [...] to keep appt with the specialist in [place] for migraine surgery. Topical pain in legs [...]
--- OUTSIDE RECORDS SUMMARY | 2020-03-15 06:39 | XMS REPORT | CCD ---
Author Author Shannon Field Organization Ling Collins MD, [facility] Address [address] [place] [address] Phone Care Team Providers Care Cutter Down Name Role Phone PP Unavailable CCM Unavailable Summary Purpose Interface Exchange Insurance Providers Payer name Policy type / Coverage type Covered green party ID Effective Begin Date Effective End Date [employer] [facility] [facility] Insurance [id number] Unkno wn Family history Mother Diagnosis Age [...] a daycare 10/17/[address]: 663985229 Nonsmoker 10/17/[address]: 766819103 Never drinks alcohol 10/17/2011 Allergies, Adverse Reactions, [...] Protonix 40 mg table t,delayed release RxNorm: 191210 TAKE 1 TABLET BY MOUT H ONCE DAILY 12/21/2018 No Stop Date Active Zorvolex 35 mg capsule RxNorm: 0129960 1 Capsule(s) PO TID 12/09/2018 No Stop Date Active oxybutynin chloride ER 5 mg tablet,extended release 24 hr RxNorm: 707447 TAKE 1 TABLET BY MOUTH ONCE DAILY 10/21/2018 No Stop Date Active Protonix 40 mg table t,delayed release RxNorm: 198084 TAKE 1 TABLET BY MOUT H ONCE DAILY 10/21/2018 12/20/2018 Inactive oxybutynin chloride ER 5 mg tablet,extended release 24 hr RxNorm: 688704 TAKE 1 TABLET BY MOUTH ONCE DAILY 07/20/2018 10/20/2018 Inactive Protonix 40 mg table t,delayed release RxNorm: 990291 TAKE 1 TABLET BY MOUT H ONCE DAILY 07/20/2018 10/20/2018 Inactive Xanax 0.25 mg tablet RxNorm: 913586 1 Tablet(s) PO Q8 as needed anxiety 02/17/2018 03/18/2018 In active oxybutynin chloride ER 5 mg tablet,extended release 24 hr RxNorm: 292157 TAKE ONE TABLET BY MOUTH ONCE DAILY 02/17/2018 07/19/2018 Inactive Protonix 40 mg table t,delayed release RxNorm: 465804 TAKE ONE TABLET BY MO UTH ONCE DAILY 02/17/2018 07/19/2018 Inactive Xanax 0.25 mg tablet RxNorm: 241230 1 Tablet(s) PO Q8 as needed anxiety 10/16/2017 11/12/2017 In active Zantac 150 mg tablet RxNorm: 088452 1 Tablet(s) PO daily 09/15/2017 03/13/2018 Inactive Carafate 1 gram tablet RxNorm: 949830 1 Tablet(s) PO AC & HS 09/15/2017 03/13/2018 Inactive oxybutynin chloride ER 5 mg tablet,extended release 24 hr RxNorm: 758283 TAKE ONE TABLET BY MOUTH ONCE DAILY 08/18/2017 02/13/2018 Inactive Protonix 40 mg table t,delayed release RxNorm: 569327 TAKE ONE TABLET BY MO UTH ONCE DAILY 08/18/2017 02/13/2018 Inactive Carafate 1 gram tablet RxNorm: 002272 1 Tablet(s) PO AC & HS 07/09/2017 08/07/2017 Inactive Protonix 40 mg table t,delayed release RxNorm: 233240 1 Tablet(s) PO daily 07/09/2017 08/07/2017 In active Zofran 4 mg tablet RxNorm: 208064 1 Tablet(s) PO TID as needed nausea 07/09/2017 07/13/2017 In active Zantac 150 mg tablet RxNorm: 689835 1 Tablet(s) PO daily 07/09/2017 08/07/2017 Inactive losartan 25 mg tablet RxNorm: 990678 1 Tablet(s) PO daily 06/24/2017 10/21/2017 Inactive oxybutynin chloride ER 5 mg tablet,extended release 24 hr RxNorm: 005668 TAKE ONE TABLET BY MOUTH ONCE DAILY 05/15/2017 08/12/2017 Inactive oxybutynin chloride ER 5 mg tablet,extended release 24 hr RxNorm: 313661 TAKE ONE TABLET BY MOUTH ONCE DAILY 02/07/2017 05/07/2017 Inactive oxybutynin chloride ER 5 mg tablet,extended release 24 hr RxNorm: 604654 TAKE ONE TABLET BY MOUTH ONCE DAILY 10/01/2016 01/28/2017 Inactive oxybutynin chloride ER 5 mg tablet,extended release 24 hr RxNorm: 294215 TAKE ONE TABLET BY MOUTH ONCE DAILY 05/27/2016 09/23/2016 Inactive cranberry fruit conc entrate 500 mg capsule RxNorm: 528216 1 Capsule(s) PO two t o three times weekly 04/23/2016 No Stop Date Active Nexium 40 mg capsule ,delayed release RxNorm: 123701 1 Capsule(s) PO BID 04/23/2016 07/23/2017 In active oxybutynin chloride ER 5 mg tablet,extended release 24 hr RxNorm: 889752 1 Tablet(s) PO daily 01/23/2016 05/21/2016 Inactive pantoprazole 40 mg t ablet,delayed release RxNorm: 227706 1 Tablet(s) PO BID TA KE ONE TABLET BY MOUTH EVERY DAY 12/12/2015 12/11/2015 Inactive pantoprazole 40 mg t ablet,delayed release RxNorm: 391954 1 Tablet(s) PO BID TA KE ONE TABLET BY MOUTH TWICE EVERY DAY 12/12/2015 04/22/2016 Inactive Vesicare 5 mg tablet RxNorm: 844743 1 Tablet(s) PO QPM 11/21/2015 01/21/2016 Inactive Carafate 1 gram tablet RxNorm: 992713 1 Tablet(s) PO QID dissolve in 10mL of w ater 11/21/2015 04/22/2016 Inactive pantoprazole 40 mg t ablet,delayed release RxNorm: 381411 1 Tablet(s) PO daily TAKE ONE TABLET BY MOUTH EVERY DAY 04/05/2015 12/11/2015 Inactive Topamax 100 mg tablet RxNorm: 290163 1 Tablet(s) UD 1tab AM & 2 at hs x2wks, [id number] x2wks, then 1/2 am & 1hs x1wk, then 1/2 bidx 1wk, then 1/2 at hs x1wk then stop 08/23/2014 01/19/2015 Inactive Vitamin B-12 1,000 m cg/mL injection solution RxNorm: 924054 2x per month Millilit er(s) Inj INJECT 1ML EVERY 2 WEEKS 08/23/2014 11/20/2015 Inactive amitriptyline 50 mg tablet RxNorm: 375549 1 Tablet(s) QPM 08/23/2014 11/20/2015 Inactive amitriptyline 50 mg tablet RxNorm: 119037 TAKE ONE TABLET BY MO UT TWICE DAILY 08/18/2014 08/22/2014 In active amitriptyline 50 mg tablet RxNorm: 953346 TAKE ONE TABLET BY MO UT TWICE DAILY 05/27/2014 08/17/2014 In active Topamax 100 mg tablet RxNorm: 715943 TAKE ONE TABLET BY MOUTH TWICE DAILY 05/27/2014 08/22/2014 In active Topamax 100 mg tablet RxNorm: 432188 Tablet(s) PO TAKE ONE TABLET BY MOUTH TW ICE DAILY 03/24/2014 05/26/2014 Inactive pantoprazole 40 mg t ablet,delayed release RxNorm: 661914 1 Tablet(s) PO daily TAKE ONE TABLET BY MOUTH EVERY DAY 03/18/2014 03/12/2015 Inactive nystatin 100,000 uni t/mL oral suspension RxNorm: 819740 5 Milliliter(s) PO QI D 03/07/2014 03/06/2014 In active nystatin 100,000 uni t/mL oral suspension RxNorm: 578362 5 Milliliter(s) PO QI D 03/07/2014 03/16/2014 In active Topamax 100 mg tablet RxNorm: 677633 Tablet(s) PO TAKE ONE TABLET BY MOUTH TW ICE DAILY 02/21/2014 03/23/2014 Inactive Vitamin B-12 1,000 m cg/mL injection solution RxNorm: 048531 solution Inj INJECT 1 ML EVERY 2 WEEKS 12/21/2013 08/22/2014 Inactive Frova 2.5 mg tablet RxNorm: 816054 1 Tablet(s) PO 12/20/2013 11/20/2015 Inactive at o nset of migraine Frova 2.5 mg tablet RxNorm: 355373 1 Tablet(s) PO 10/28/2013 12/19/2013 Inactive at o nset of migraine Topamax 100 mg tablet RxNorm: 291415 Tablet(s) PO TAKE ONE TABLET BY MOUTH TW ICE DAILY 10/21/2013 2014 Inactive Topamax 100 mg tablet RxNorm: 075846 Tablet(s) PO TAKE ONE TABLET BY MOUTH TW ICE DAILY 08/23/2013 10/20/2013 Inactive Topamax 100 mg tablet RxNorm: 836047 1 Tablet(s) PO BID TAKE ONE TABLET BY MO UTH TWICE DAILY 05/24/2013 08/22/2013 Inactive Demerol (PF) 50 mg/m L Injection RxNorm: 480622 1/2 Milliliter(s) Inj 04/06/2013 04/06/2013 Inactive promethazine 25 mg/m L Injection RxNorm: 444248 1 Milliliter(s) Inj 04/06/2013 04/06/2013 Inactive promethazine 25 mg/m L Injection RxNorm: 882810 2 Milliliter(s) Inj 03/26/2013 03/26/2013 Inactive Demerol (PF) 50 mg/m L Injection RxNorm: 003489 Milliliter(s) Inj 03/26/2013 03/26/2013 Inactive amitriptyline 50 mg tablet RxNorm: 051137 Tablet(s) PO TAKE ONE TABLET BY MOUTH TWICE DAILY 03/22/2013 05/26/2014 Inactive Topamax 100 mg tablet RxNorm: 383001 1 Tablet(s) PO BID 03/19/2013 03/18/2013 Inactive Topamax 100 mg tablet RxNorm: 745718 1 Tablet(s) PO BID 03/19/2013 05/24/2013 Inactive Demerol (PF) 50 mg/m L Injection RxNorm: 237124 1 Milliliter(s) Inj 03/11/2013 03/11/2013 Inactive Topamax 50 mg tablet RxNorm: 092992 1.5 Tablet(s) PO BID 03/10/2013 03/18/2013 Inactive promethazine 25 mg t ablet RxNorm: 325095 1 Tablet(s) PO Q6 PRN 02/25/2013 11/20/2015 Inactive pantoprazole 40 mg t ablet,delayed release RxNorm: 957451 Tablet(s) PO TAKE ONE TABLET BY MOUTH EVERY DAY 02/22/2013 03/17/2014 Inactive promethazine 25 mg/m L Injection RxNorm: 914854 1 Milliliter(s) Inj 02/18/2013 02/18/2013 Inactive Demerol (PF) 25 mg/0 .5 mL Injection RxNorm: 605956 1 Milliliter(s) Inj 02/18/2013 02/18/2013 In active total of 50mg given IM Topamax 50 mg tablet RxNorm: 686938 Tablet(s) PO TAKE ONE TABLET BY MOUTH TW ICE DAILY 02/04/2013 03/09/2013 Inactive prednisone 20 mg tablet RxNorm: 967229 3 Tablet(s) PO daily 11/16/2012 11/20/2012 Inactive ciprofloxacin 500 mg tablet RxNorm: 709066 1 Tablet(s) PO BID 11/16/2012 11/22/2012 Inactive Kenalog 40 mg/mL Lovely p for Injection RxNorm: 8760500 1 Milliliter(s) Inj 11/16/2012 11/16/2012 In active Tamiflu 75 mg capsule RxNorm: 450866 1 Capsule(s) PO BID 11/16/2012 11/20/2012 Inactive esterified estrogens -methyltestosterone 1.25 mg-2.5 mg tablet RxNorm: 139115 1 Tablet(s) PO every other day 10/29/2012 06/23/2017 Inactive amitriptyline 50 mg tablet RxNorm: 028770 1 Tablet(s) PO daily 10/29/2012 03/21/2013 Inactive TAKE ONE TABLET BY MOUTH TWICE DAILY Topamax 50 mg tablet RxNorm: 429856 1 Tablet(s) PO BID 10/29/2012 01/26/2013 Inactive Vitamin B-12 1,000 m cg/mL injection solution RxNorm: 380925 1 Milliliter(s) Inj Q 2weeks INJECT 1ML TWICE A MONTH 10/29/2012 12/20/2013 Inactive takes 2 times monthly. ok to give multidose vial if available. if not please give 3 month supply of single dose vials Vitamin B-12 1,000 m cg/mL Injection RxNorm: 388571 Solution Inj INJECT 1 ML TWICE A MONTH 10/26/2012 10/28/2012 Inactive Topamax 25 mg tablet RxNorm: 173469 1 Tablet(s) PO BID 10/13/2012 03/10/2013 Inactive Topamax 25 mg tablet RxNorm: 019709 1 Tablet(s) PO as directed 09/24/2012 10/12/2012 Inactive 1 tab bid x 2 weeks1 tab daily x 1 month 1 tab qod x 1 week then stop Percocet 10 mg-325 m g tablet RxNorm: 0091330 1 Tablet(s) PO Q4 PRN 07/22/2012 11/20/2015 Inactive diazepam 5 mg tablet RxNorm: 274484 1 Tablet(s) PO TID PRN 07/22/2012 01/17/2013 Inactive amitriptyline 50 mg tablet RxNorm: 478138 Tablet(s) PO 06/17/2012 10/28/2012 Inactive TAKE ONE TABLET BY MOUTH TWICE DAILY Topamax 25 mg tablet RxNorm: 244694 1 Tablet(s) PO as directed 04/14/2012 06/01/2012 Inactive 1 tab bid x 2 weeks1 tab daily x 1 month 1 tab qod x 1 week then stop Topamax 25 mg Tab RxNorm: 275834 1 Tablet(s) PO as directed 03/16/2012 04/13/2012 Inactive 1 tab bid x 2 weeks1 tab daily x 1 month 1 tab qod x 1 week then stop pantoprazole 40 mg t ablet,delayed release RxNorm: 248112 Tablet(s) PO 02/17/2012 02/21/2013 In active TAKE ONE TABLET BY MOUTH EVERY DAY Topamax 50 mg Tab RxNorm: 741743 Tablet(s) PO 01/21/2012 03/11/2012 Inactive plea se give pt #42 of the 50mg tablets, to take bid till gone.then 25mg q am and 50 q hs x 14 days then 25 mg bid thereafter # 44 amitriptyline 50 mg tablet RxNorm: 917942 Tablet(s) PO 12/18/2011 06/16/2012 Inactive TAKE ONE TABLET BY MOUTH TWICE DAILY Percocet 10 mg-325 m g tablet RxNorm: 0428662 1 Tablet(s) PO Q4 PRN 11/13/2011 07/21/2012 Inactive Vitamin B-12 1,000 m cg/mL Injection RxNorm: 222129 1 Milliliter(s) Inj 2 x month 10/17/2011 10/16/2011 In active Vitamin B-12 1,000 m cg/mL Injection RxNorm: 639733 1 Milliliter(s) Inj 2 x month 10/17/2011 10/25/2012 In active topiramate 100 mg Tab RxNorm: 039495 1 Tablet(s) PO BID 10/17/2011 01/20/2012 Inactive TAKE ONE TABLET BY MOUTH TWICE DAILY Kenalog 40 mg/mL Lovely p for Injection RxNorm: 4579049 1 Milliliter(s) Inj 10/17/2011 10/17/2011 In active diazepam 5 mg tablet RxNorm: 684007 1 Tablet(s) PO TID PRN 09/25/2011 03/22/2012 Inactive diazepam 5 mg Tab RxNorm: 860275 1 Tablet(s) PO TID PRN 09/15/2011 09/17/2011 Inactive topiramate 100 mg Tab RxNorm: 177353 Tablet(s) PO 08/25/2011 10/16/2011 Inactive TAKE ONE TABLET BY MOUTH TWICE DAILY topiramate 100 mg Tab RxNorm: 694700 1 Tablet(s) PO BID 08/21/2011 08/24/2011 Inactive pantoprazole 40 mg T ab, Delayed Release RxNorm: 333813 1 Tablet(s) PO daily 07/19/2011 08/17/2011 In active ibuprofen 800 mg Tab RxNorm: 925842 1 Tablet(s) PO Q8 PRN No Start Date Active Vitamin D3 5,000 uni t tablet RxNorm: 553745 1 Tablet(s) PO daily No Start Date Active multivitamin capsule RxNorm: 1 Capsule(s) PO daily No Start Date Active cranberry fruit conc entrate 250 mg chewable tablet RxNorm: 4268909 1 Tablet(s) PO two to three times weekly No Start Date 04/22/2016 Inactive amitriptyline 50 mg Tab RxNorm: 958112 1 Tablet(s) PO BID No Start Date 12/17/2011 Inactive Topamax 50 mg Tab RxNorm: 339532 Tablet(s) PO No Start Date 01/20/2012 Inactive plea se give pt #42 of the 50mg tablets, to take bid till gone.then 25mg q am and 50 q hs x 14 days then 25 mg bid thereafter # 44 cranberry 1,000 mg c apsule RxNorm: 789940 3 Capsule(s) PO daily No Start Date 01/22/2016 Inactive promethazine 25 mg t ablet RxNorm: 579436 1 Tablet(s) PO Q6 PRN No Start Date 02/24/2013 Inactive Topamax 25 mg Tab RxNorm: 191048 1 Tablet(s) PO BID No Start Date 03/15/2012 Inactive Xanax 0.25 mg tablet RxNorm: 934973 1 Tablet(s) PO as needed anxiety No Start Date 10/15/2017 Inactive Frova 2.5 mg tablet RxNorm: 621118 1 Tablet(s) PO No Start Date 10/27/2013 Inactive at onset of migraine Zithromax Z-Darion 250 mg Tab RxNorm: 963498 Tablet(s) PO No Start Date 10/28/2012 Inactive Diflucan 200 mg tablet RxNorm: 480571 1 Tablet(s) PO PRN No Start Date 06/13/2013 Inactive Fish Oil 1,000 mg ca psule RxNorm: 4 Capsule(s) PO daily No Start Date 08/31/2018 Inactive esterified estrogens -methyltestosterone 1.25 mg-2.5 mg tablet RxNorm: 232298 1 Tablet(s) PO daily No Start Date 10/28/2012 Inactive Demerol (PF) 50 mg/m L Injection RxNorm: 511711 1 Milliliter(s) Inj a s doctor directed No Start Date 06/13/2013 Inactive Tessalon 200 mg Cap RxNorm: 719251 1 Capsule(s) PO Q6 PRN No Start Date 10/28/2012 Inactive Medication Administered Medication Codes Instruc tions Start Date Status Demerol (PF) 50 mg/mL Injection RxNo rm: 647170 1/2Milliliter 04/06/2013 No longer Active promethazine 25 mg/mL Injection RxNo rm: 330409 1Milliliter 04/06/2013 N o longer Active promethazine 25 mg/mL Injection RxNo rm: 725448 2Milliliter 03/26/2013 N o longer Active Demerol (PF) 50 mg/mL Injection RxNo rm: 866922 Milliliter 03/26/2013 No longer Active Demerol (PF) 50 mg/mL Injection RxNo rm: 684625 1Milliliter 03/11/2013 N o longer Active Demerol (PF) 25 mg/0.5 mL Injection RxNorm: 944377 1Milliliter 02/18/2013 N o longer Active promethazine 25 mg/mL Injection RxNo rm: 586248 1Milliliter 02/18/2013 N o longer Active Kenalog 40 mg/mL Susp for Injection RxNorm: 6628022 1Milliliter 11/16/2012 N o longer Active Kenalog 40 mg/mL Susp for Injection RxNorm: 1557946 1Milliliter 10/17/2011 N o longer Active Immunizations [...] Code Result Date URINALYSIS NONAUTO W/O SCOPE 03330 Specific [place] 1.005 DateTime(Free Text in Aprima) URINALYSIS NONAUTO W/O SCOPE 28621 PH 6.0 DateTime(Free Jamar t in ) URINALYSIS NONAUTO W/O SCOPE 96977 GLUCOSE DateTime(Free Text i n Aprima) URINALYSIS NONAUTO W/O SCOPE 77509 Protein DateTime(Free Text i n Aprima) URINALYSIS NONAUTO W/O SCOPE 86567 Blood DateTime(Free Text i n Aprima) URINALYSIS NONAUTO W/O SCOPE 51675 Bilirubin DateTime(Free Text i n Aprima) URINALYSIS NONAUTO W/O SCOPE 13448 Ketones DateTime(Free Text i n Aprima) URINALYSIS NONAUTO W/O SCOPE 28302 Urobilinogen DateTime(Free Text in ) URINALYSIS NONAUTO W/O SCOPE 20910 Nitrite DateTime(Free Text i n Janima) URINALYSIS NONAUTO W/O SCOPE 25949 Leukocytes DateTime(Fr ee Text in ) Review [...] accomodation 06/14/2013 None Full Exam - General 1995 [...] 1995 Ears/Nose/Throat oral cavity/pharynx/larynx Overall: no masses 06/14/2013 [...] happy 03/10/2013 None Full Exam - General 1995 Ears/Nose/Throat [...] exam 03/12/2012 None Full Exam - General 1995 Musculoskeletal [...] Date URINALYSIS NONAUTO W /O SCOPE CPT-4: 77445 06/14/2013 THER/PROPH/DIAG INJ SC/IM CPT-4: 37126 04/06/2013 PROMETHAZINE HCL INJ ECTION CPT-4: J2550 04/06/2013 THER/PROPH/DIAG INJ SC/IM CPT-4: 94792 03/26/2013 PROMETHAZINE HCL INJ ECTION CPT-4: J2550 03/26/2013 THER/PROPH/DIAG INJ SC/IM CPT-4: 91170 03/11/2013 PROMETHAZINE HCL INJ ECTION CPT-4: J2550 02/18/2013 TRIAMCINOLONE ACET I [place] NOS CPT-4: J3301 11/16/2012 THER/PROPH/DIAG INJ SC/IM CPT-4: 79597 11/16/2012 TRIAMCINOLONE ACET I [place] NOS CPT-4: J3301 10/17/2011 THER/PROPH/DIAG INJ SC/IM CPT-4: 19621 10/17/2011 Vital Signs Date Vital 12/08/2018 Blood Pressure 1: 122/74 Code: 8480-6 BMI: 36.3 Code: 75078-0 Heart Rate 1: 64 bpm Height: 5'5" SpO2: 100% Weight: 218 lbs 09/01/2018 Blood Pressure 1: 132/80 Code: 8480-6 BMI: 35.6 Code: 51372-9 Heart Rate 1: 80 bpm Height: 5'5" SpO2: 96% Weight: 214 lbs 02/26/2018 Blood Pressure 1: 126/72 Code: 8480-6 BMI: 36.1 Code: 35807-0 Heart Rate 1: 63 bpm Height: 5'5" SpO2: 98% Weight: 217 lbs 07/24/2017 Blood Pressure 1: 138/78 Code: 8480-6 BMI: 36.1 Code: 32632-2 Heart Rate 1: 78 bpm Height: 5'5" SpO2: 99% Weight: 217 lbs 07/09/2017 Blood Pressure 1: 150/84 Code: 8480-6 BMI: 36.4 Code: 38005-6 Heart Rate 1: 70 bpm Height: 5'5" SpO2: 98% Weight: 219 lbs 06/24/2017 Blood Pressure 1: 154/80 Code: 8480-6 BMI: 36.9 Code: 29835-0 Heart Rate 1: 68 bpm Height: 5'5" SpO2: 98% Weight: 222 lbs 04/23/2016 Blood Pressure 1: 136/78 Code: 8480-6 BMI: 38.4 Code: 17433-0 Heart Rate 1: 76 bpm Height: 5'5" SpO2: 98% Weight: 231 lbs 01/23/2016 Blood Pressure 1: 148/82 Code: 8480-6 BMI: 39.6 Code: 57530-7 Heart Rate 1: 76 bpm Height: 5'5" SpO2: 98% Weight: 238 lbs 11/21/2015 Blood Pressure 1: 140/80 Code: 8480-6 BMI: 38.9 Code: 36150-7 Heart Rate 1: 89 bpm Height: 5'5" SpO2: 98% Weight: 233 lbs 8 oz 08/23/2014 Blood Pressure 1: 140/72 Code: 8480-6 BMI: 38.1 Code: 39145-5 Height: 5'5" Weight: 229 lbs 03/01/2014 Blood [...] States she has been doing body by [employer] for about 3 months but is not [...] shoulder 01/28/2012 None shoulder pain Quality ac [place] 01/28/2012 None shoulder pain Quality th [place] [...] Encounters Encounter Performer Loca tion Codes Date 42460 EST. PATIENT, LEVEL III Diagnosis: Pain in right knee[ICD10: M25.561] Claritza Collins MD, [facility] CPT-4: 69895 12/08/2018 ([id number]) 02405 EST. P ATIENT, LEVEL IV Diagnosis: Essential (primary) hypertension[ICD10: I10] Diagnosis: Acute laryngopharyngitis[ICD10: J06.0] Diagnosis: Other insomnia[ICD10: G47.09] Ling Collins MD, [facility] CPT-4: 87071 09/01/2018 ([id number]) 25547 EST. P ATIENT, LEVEL III Diagnosis: Gastro-esophageal reflux disease without esophagitis[ICD10: K21.9] Diagnosis: Essential (primary) hypertension[ICD10: I10] Ling Collins MD, [facility] CPT-4: 45940 02/26/2018 ([id number]) 91382 EST. P ATIENT, LEVEL III Diagnosis: Other specified noninfective gastroenteritis and colitis[ICD10: K52.89] Diagnosis: Epigastric pain[ICD10: R10.13] Diagnosis: Generalized abdominal pain[ICD10: R10.84] Ling Collins MD, [facility] CPT-4: 65198 07/24/2017 [id number] EST. PATIENT, LEVEL IV Diagnosis: Gastro-esophageal reflux disease without esophagitis[ICD10: K21.9] Claritza Collins MD, [facility] CPT-4: 64968 07/09/2017 ([id number]) PREV VISIT E ST AGE 40-64 Diagnosis: Encounter for general adult medical examination with abnormal findings[ICD10: Z00.01] Ling Collins MD, [facility] CPT-4: 15232 06/24/2017 ([id number]) 45869 EST. P ATIENT, LEVEL III Diagnosis: Gastro-esophageal reflux disease with esophagitis[ICD10: K21.0] Ling Collins MD, [facility] CPT-4: 53707 04/23/2016 ([id number]) 11879 EST. P ATIENT, LEVEL IV Diagnosis: Gastro-esophageal reflux disease with esophagitis[ICD10: K21.0] Diagnosis: Morbid (severe) obesity due to excess calories[ICD10: E66.01] Diagnosis: Urge incontinence[ICD10: N39.41] Ling Collins MD, [facility] CPT-4: 32570 01/23/2016 ([id number]) 83244 EST. P ATIENT, LEVEL IV Diagnosis: Metatarsalgia, right foot[ICD10: M77.41] Diagnosis: Achilles tendinitis, right leg[ICD10: M76.61] Diagnosis: Gastro-esophageal reflux disease with esophagitis[ICD10: K21.0] Ling Collins MD, [facility] CPT-4: 95717 11/21/2015 ([id number]) 75522 EST. P ATIENT, LEVEL III Diagnosis: Biceps tendonitis[ICD9: 726.12] Diagnosis: Encounter for long-term (current) use of other medications[ICD9: V58.69] Ling Collins MD, [facility] CPT-4: 81944 08/23/2014 ([id number]) 91999 EST. P ATIENT, LEVEL III Diagnosis: Anxiety, generalized[ICD9: 300.02] Diagnosis: Pain, lower leg[ICD9: 729.5] Ling Collins MD, [facility] CPT-4: 72119 03/01/2014 ([id number]) 98648 EST. [facility], [facility] Diagnosis: MIGRAINE NOS/NOT INTRCBL[ICD9: 346.90] Ling Collins MD, [facility] CPT-4: 78889 06/14/2013 ([id number]) 41068 EST. P ATIENT, LEVEL III Diagnosis: MIGRAINE NOS/NOT INTRCBL[ICD9: 346.90] Diagnosis: NAUSEA ALONE[ICD9: 787.02] Ling Collins MD, [facility] CPT-4: 09102 03/10/2013 ([id number]) 41498 EST. P ATIENT, LEVEL III Diagnosis: Intractable migraine with aura without status migrainosus[ICD9: 346.01] Diagnosis: Nausea[ICD9: 787.02] Yennifer Collins MD, [facility] CPT-4: 07756 02/18/2013 ([id number]) 95891 EST. P ATIENT, LEVEL III Diagnosis: BACTERIAL PNEUMONIA[ICD9: 482.9] Diagnosis: Dyspnea[ICD9: 786.09] Ling Collins MD, [facility] CPT-4: 56451 11/16/2012 ([id number]) 28777 EST. P ATIENT, LEVEL III Diagnosis: MIGRAINE NOS/NOT INTRCBL[ICD9: 346.90] Diagnosis: ANXIETY STATE[ICD9: 300.00] Ling Collins MD, [facility] CPT-4: 17428 10/29/2012 ([id number]) 21374 EST. P ATIENT, LEVEL IV Diagnosis: MIGRAINE NOS/NOT INTRCBL[ICD9: 346.90] Diagnosis: JOINT PAIN-SHLDER[ICD9: 719.41] Diagnosis: OBESITY[ICD9: 278.00] Ling Collins MD, [facility] CPT-4: 54403 03/12/2012 ([id number]) 59391 EST. P ATIENT, LEVEL IV Diagnosis: Rotator cuff disorder[ICD9: 726.10] Diagnosis: Shoulder pain, acute[ICD9: 719.41] Diagnosis: Knee pain[ICD9: 719.46] Ling Collins MD, [facility] CPT-4: 08314 01/28/2012 ([id number]) 51930 EST. P ATIENT, LEVEL IV Diagnosis: Migraine[ICD9: 346.90] Diagnosis: Anxiety[ICD9: 300.00] Ling Collins MD, [facility] CPT-4: 91430 01/09/2012 07593 EST. PATIENT, LEVEL III Diagnosis: ACUTE URI[ICD9: 465.9] Diagnosis: Cough[ICD9: 786.2] Yennifer Collins MD, [facility] CPT-4: 77964 10/17/2011 Plan of Care Planned Activity Notes [...] not improve. 12/08/2018 [id number] ([facility] Moderate 12/08/2018 Patient Education: [...] 10mg nightly. 09/01/2018 Appointment: Ling Collins WPtel: [phone] [id number] (15 min) Moderate 09/01/2018 Patient Education: [...] not improving. 02/26/2018 [phone] ([facility]) Moderate 02/26/2018 Patient Education: Patient Medication Summary Completed 02/26/2018 Appointment: Ling Collins WPtel: [phone] [id number] (15 min) Moderate 08/11/2017 Visit Plan: Abdominal pain, Colitis - advised liquid diet x 2-3 days, then advance to bland diet. If at any time her symptoms worsen, she is to go to the emergency department. Pt given order for EGD/Colonoscopy at [facility] [address] Garcia. 07/24/2017 [facility]ment: [id number] (15 min) Moderate 07/24/2017 Patient Education: Patient [...] through their insurance - Fax number - [phone] phone number - [phone]. 07/09/2017 Visit Plan: Esophageal Reflux - Sev [...] through their insurance - Fax number - [phone] phone number - [phone]. 07/09/2017 [facility]ment: [facility] [phone] [id number] ([facility]) Complex 07/09/2017 Patient Education: Patient Medication Summary Completed 07/09/2017 Care Plan: Referral Order SNOMED-CT : [id number] Pending 07/09/2017 Visit Plan: Well Adult - [...] acute concerns. 06/24/2017 [facility]ment: [facility] [phone] [id number] (15 min) Moderate 06/24/2017 Patient Education: Patient [...] diet medication. 01/23/2016 [facility]ment: [phone] [id number] ([facility] min) Moderate 01/23/2016 Patient Education: Patient [...] 11/21/2015 Care Plan: Referral Order SNOMED-CT : [id number] Ordered 11/21/2015 Visit Plan: Biceps tendonitis - [...] 1tab AM & 2 at hs x2wks, udfv2mpa x2wks, then 1/2 am & 1hs x1wk, then 1/2 bidx 1wk, then 1/2 at hs x1wk then stop 08/23/2014 Appointment: Ling Collins WPtel: [address] [place], [place] [phone] Sick 08/23/2014 Patient Education: Patient Medication Summary Completed 08/23/2014 Visit Plan: Chronic migraine headac hes - recommended for pt to keep appt with the specialist in [place] for migraine surgery. Topical pain in legs - recommended pt to start on iron, monitor as pt weans off of the topamax post surgically. 03/01/2014 Appointment: Ling Collins WPtel: [address] [place], [place] [id number] Follow up 03/01/2014 Patient Education: Patient Medication Summary Completed 03/01/2014 Visit Plan: Migraine headaches - pt has not yet had an intractible migraine since she had her botox injections. She is to follow up with her Neurologist about her migraine headaches.. 06/14/2013 Appointment: Ling Collins WPtel: [id number] Follow up 06/14/2013 Patient Education: Patient [...] bid. 03/10/2013 Appointment: [phone] [id number] [place] Other 03/10/2013 Patient Education: Patient Medication [...] written and patient's picked up medication from [facility] pharmacy and we administered) and Phenergan 25mg IM. 02/18/2013 [facility]ment[phone] [phone] [place] Other 02/18/2013 Patient Education: Patient [...] positive children. 11/16/2012 Appointment: Ling Collins WPtel: [facility] [address] 11/16/2012 Patient Education: Patient Medication Summary Completed [...] her migraines. 10/29/2012 Appointment: Ling Collins WPtel: [facility] [address] Other 10/29/2012 Patient Education: Patient Medication [...] Dr. Judge. 03/12/2012 Appointment: Ling Collins WPtel: [facility] [address] Other 03/12/2012 Patient Education: Patient Medication Summary Completed 03/12/2012 Visit Plan: mri of keft shoulder - rotator cuff instability kenalog shot referal to orthopedic surgeon for eval of left shoulder and right knee 01/28/2012 Appointment: iLng Collins WPtel: [phone] Other 01/28/2012 Patient Education: Patient Medication Summary [...] this time. 01/09/2012 Appointment: Ling Collins WPtel: [address] [place] [address] Other 01/09/2012 Patient Education: Patient Medication Summary [...] any worse. 10/17/2011 Appointment: Yennifer Field WPtel: [id number] Other 10/17/2011 Patient Education: Patient Medication Summary [...] through their insurance - Fax number - [phone]; phone number - [phone]. Carafate - with meal s and at [...] through their insurance - Fax number - [phone]; phone number - [phone]. topamax 25mg tablet to be tapered as follows: 1tab AM & 2 at hs x2wks, mkgb0vof x2wks, then 1/2 am & 1hs x1wk, [...] 1tab AM & 2 at hs x2wks, cvaa2tie x2wks, then 1/2 am & 1hs x1wk, [...] department. Pt given order for EGD/Colonoscopy at [address] Garcia. . Pneumonia - [...] written and patient's picked up medication from [facility] pharmacy and we administered) and Phenergan [...] to keep appt with the specialist in [place] for migraine surgery. Topical pain in legs [...]
--- OUTSIDE RECORDS SUMMARY | 2020-03-15 06:40 | XMS REPORT | CCD ---
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 10/17/[address]: 891694024 Nonsmoker 10/17/[address]: 569981552 Never drinks alcohol 10/17/2011 Allergies, Adverse Reactions, [...] Date Stop Date Sta tus Fill Instructions Zorvolex 35 mg capsule RxNorm: 2502510 1 Capsule(s) PO TID 12/09/2018 No Stop Date Active oxybutynin chloride ER 5 mg tablet,extended release 24 hr RxNorm: 904488 TAKE 1 TABLET BY MOUTH ONCE DAILY 10/21/2018 No Stop Date Active Protonix 40 mg table t,delayed release RxNorm: 109650 TAKE 1 TABLET BY MOUT H ONCE DAILY 10/21/2018 No Stop Date Active oxybutynin chloride ER 5 mg tablet,extended release 24 hr RxNorm: 059235 TAKE 1 TABLET BY MOUTH ONCE DAILY 07/20/2018 10/20/2018 Inactive Protonix 40 mg table t,delayed release RxNorm: 574518 TAKE 1 TABLET BY MOUT H ONCE DAILY 07/20/2018 10/20/2018 Inactive Xanax 0.25 mg tablet RxNorm: 126997 1 Tablet(s) PO Q8 as needed anxiety 02/17/2018 03/18/2018 In active oxybutynin chloride ER 5 mg tablet,extended release 24 hr RxNorm: 606736 TAKE ONE TABLET BY MOUTH ONCE DAILY 02/17/2018 07/19/2018 Inactive Protonix 40 mg table t,delayed release RxNorm: 716718 TAKE ONE TABLET BY MO UTH ONCE DAILY 02/17/2018 07/19/2018 Inactive Xanax 0.25 mg tablet RxNorm: 869209 1 Tablet(s) PO Q8 as needed anxiety 10/16/2017 11/12/2017 In active Zantac 150 mg tablet RxNorm: 462275 1 Tablet(s) PO daily 09/15/2017 03/13/2018 Inactive Carafate 1 gram tablet RxNorm: 805643 1 Tablet(s) PO AC & HS 09/15/2017 03/13/2018 Inactive oxybutynin chloride ER 5 mg tablet,extended release 24 hr RxNorm: 365230 TAKE ONE TABLET BY MOUTH ONCE DAILY 08/18/2017 02/13/2018 Inactive Protonix 40 mg table t,delayed release RxNorm: 345797 TAKE ONE TABLET BY MO UTH ONCE DAILY 08/18/2017 02/13/2018 Inactive Carafate 1 gram tablet RxNorm: 120210 1 Tablet(s) PO AC & HS 07/09/2017 08/07/2017 Inactive Protonix 40 mg table t,delayed release RxNorm: 353853 1 Tablet(s) PO daily 07/09/2017 08/07/2017 In active Zofran 4 mg tablet RxNorm: 804678 1 Tablet(s) PO TID as needed nausea 07/09/2017 07/13/2017 In active Zantac 150 mg tablet RxNorm: 937627 1 Tablet(s) PO daily 07/09/2017 08/07/2017 Inactive losartan 25 mg tablet RxNorm: 779688 1 Tablet(s) PO daily 06/24/2017 10/21/2017 Inactive oxybutynin chloride ER 5 mg tablet,extended release 24 hr RxNorm: 715795 TAKE ONE TABLET BY MOUTH ONCE DAILY 05/15/2017 08/12/2017 Inactive oxybutynin chloride ER 5 mg tablet,extended release 24 hr RxNorm: 794828 TAKE ONE TABLET BY MOUTH ONCE DAILY 02/07/2017 05/07/2017 Inactive oxybutynin chloride ER 5 mg tablet,extended release 24 hr RxNorm: 031277 TAKE ONE TABLET BY MOUTH ONCE DAILY 10/01/2016 01/28/2017 Inactive oxybutynin chloride ER 5 mg tablet,extended release 24 hr RxNorm: 227593 TAKE ONE TABLET BY MOUTH ONCE DAILY 05/27/2016 09/23/2016 Inactive cranberry fruit conc entrate 500 mg capsule RxNorm: 955596 1 Capsule(s) PO two t o three times weekly 04/23/2016 No Stop Date Active Nexium 40 mg capsule ,delayed release RxNorm: 197470 1 Capsule(s) PO BID 04/23/2016 07/23/2017 In active oxybutynin chloride ER 5 mg tablet,extended release 24 hr RxNorm: 045223 1 Tablet(s) PO daily 01/23/2016 05/21/2016 Inactive pantoprazole 40 mg t ablet,delayed release RxNorm: 020953 1 Tablet(s) PO BID TA KE ONE TABLET BY MOUTH EVERY DAY 12/12/2015 12/11/2015 Inactive pantoprazole 40 mg t ablet,delayed release RxNorm: 633289 1 Tablet(s) PO BID TA KE ONE TABLET BY MOUTH TWICE EVERY DAY 12/12/2015 04/22/2016 Inactive Vesicare 5 mg tablet RxNorm: 970277 1 Tablet(s) PO QPM 11/21/2015 01/21/2016 Inactive Carafate 1 gram tablet RxNorm: 316271 1 Tablet(s) PO QID dissolve in 10mL of w ater 11/21/2015 04/22/2016 Inactive pantoprazole 40 mg t ablet,delayed release RxNorm: 018138 1 Tablet(s) PO daily TAKE ONE TABLET BY MOUTH EVERY DAY 04/05/2015 12/11/2015 Inactive Topamax 100 mg tablet RxNorm: 019989 1 Tablet(s) UD 1tab AM & 2 at hs x2wks, udiz7wxc x2wks, then 1/2 am & 1hs x1wk, then 1/2 bidx 1wk, then 1/2 at hs x1wk then stop 08/23/2014 01/19/2015 Inactive Vitamin B-12 1,000 m cg/mL injection solution RxNorm: 832741 2x per month Millilit er(s) Inj INJECT 1ML EVERY 2 WEEKS 08/23/2014 11/20/2015 Inactive amitriptyline 50 mg tablet RxNorm: 889006 1 Tablet(s) QPM 08/23/2014 11/20/2015 Inactive amitriptyline 50 mg tablet RxNorm: 240944 TAKE ONE TABLET BY MO UTH TWICE DAILY 08/18/2014 08/22/2014 In active amitriptyline 50 mg tablet RxNorm: 730477 TAKE ONE TABLET BY MO UTH TWICE DAILY 05/27/2014 08/17/2014 In active Topamax 100 mg tablet RxNorm: 232111 TAKE ONE TABLET BY MOUTH TWICE DAILY 05/27/2014 08/22/2014 In active Topamax 100 mg tablet RxNorm: 504567 Tablet(s) PO TAKE ONE TABLET BY MOUTH TW ICE DAILY 03/24/2014 05/26/2014 Inactive pantoprazole 40 mg t ablet,delayed release RxNorm: 395785 1 Tablet(s) PO daily TAKE ONE TABLET BY MOUTH EVERY DAY 03/18/2014 03/12/2015 Inactive nystatin 100,000 uni t/mL oral suspension RxNorm: 210693 5 Milliliter(s) PO QI D 03/07/2014 03/06/2014 In active nystatin 100,000 uni t/mL oral suspension RxNorm: 873195 5 Milliliter(s) PO QI D 03/07/2014 03/16/2014 In active Topamax 100 mg tablet RxNorm: 252664 Tablet(s) PO TAKE ONE TABLET BY MOUTH TW ICE DAILY 02/21/2014 03/23/2014 Inactive Vitamin B-12 1,000 m cg/mL injection solution RxNorm: 166955 solution Inj INJECT 1 ML EVERY 2 WEEKS 12/21/2013 08/22/2014 Inactive Frova 2.5 mg tablet RxNorm: 714308 1 Tablet(s) PO 12/20/2013 11/20/2015 Inactive at o nset of migraine Frova 2.5 mg tablet RxNorm: 585854 1 Tablet(s) PO 10/28/2013 12/19/2013 Inactive at o nset of migraine Topamax 100 mg tablet RxNorm: 461429 Tablet(s) PO TAKE ONE TABLET BY MOUTH TW ICE DAILY 10/21/2013 2014 Inactive Topamax 100 mg tablet RxNorm: 904466 Tablet(s) PO TAKE ONE TABLET BY MOUTH TW ICE DAILY 08/23/2013 10/20/2013 Inactive Topamax 100 mg tablet RxNorm: 209429 1 Tablet(s) PO BID TAKE ONE TABLET BY MO UTH TWICE DAILY 05/24/2013 08/22/2013 Inactive Demerol (PF) 50 mg/m L Injection RxNorm: 375029 1/2 Milliliter(s) Inj 04/06/2013 04/06/2013 Inactive promethazine 25 mg/m L Injection RxNorm: 327795 1 Milliliter(s) Inj 04/06/2013 04/06/2013 Inactive promethazine 25 mg/m L Injection RxNorm: 254289 2 Milliliter(s) Inj 03/26/2013 03/26/2013 Inactive Demerol (PF) 50 mg/m L Injection RxNorm: 509750 Milliliter(s) Inj 03/26/2013 03/26/2013 Inactive amitriptyline 50 mg tablet RxNorm: 131380 Tablet(s) PO TAKE ONE TABLET BY MOUTH TWICE DAILY 03/22/2013 05/26/2014 Inactive Topamax 100 mg tablet RxNorm: 863204 1 Tablet(s) PO BID 03/19/2013 03/18/2013 Inactive Topamax 100 mg tablet RxNorm: 748476 1 Tablet(s) PO BID 03/19/2013 05/24/2013 Inactive Demerol (PF) 50 mg/m L Injection RxNorm: 284689 1 Milliliter(s) Inj 03/11/2013 03/11/2013 Inactive Topamax 50 mg tablet RxNorm: 537687 1.5 Tablet(s) PO BID 03/10/2013 03/18/2013 Inactive promethazine 25 mg t ablet RxNorm: 278348 1 Tablet(s) PO Q6 PRN 02/25/2013 11/20/2015 Inactive pantoprazole 40 mg t ablet,delayed release RxNorm: 687704 Tablet(s) PO TAKE ONE TABLET BY MOUTH EVERY DAY 02/22/2013 03/17/2014 Inactive promethazine 25 mg/m L Injection RxNorm: 206425 1 Milliliter(s) Inj 02/18/2013 02/18/2013 Inactive Demerol (PF) 25 mg/0 .5 mL Injection RxNorm: 360873 1 Milliliter(s) Inj 02/18/2013 02/18/2013 In active total of 50mg given IM Topamax 50 mg tablet RxNorm: 367002 Tablet(s) PO TAKE ONE TABLET BY MOUTH TW ICE DAILY 02/04/2013 03/09/2013 Inactive prednisone 20 mg tablet RxNorm: 696678 3 Tablet(s) PO daily 11/16/2012 11/20/2012 Inactive ciprofloxacin 500 mg tablet RxNorm: 287817 1 Tablet(s) PO BID 11/16/2012 11/22/2012 Inactive Kenalog 40 mg/mL Lovely p for Injection RxNorm: 7566305 1 Milliliter(s) Inj 11/16/2012 11/16/2012 In active Tamiflu 75 mg capsule RxNorm: 383268 1 Capsule(s) PO BID 11/16/2012 11/20/2012 Inactive esterified estrogens -methyltestosterone 1.25 mg-2.5 mg tablet RxNorm: 900835 1 Tablet(s) PO every other day 10/29/2012 06/23/2017 Inactive amitriptyline 50 mg tablet RxNorm: 334184 1 Tablet(s) PO daily 10/29/2012 03/21/2013 Inactive TAKE ONE TABLET BY MOUTH TWICE DAILY Topamax 50 mg tablet RxNorm: 861257 1 Tablet(s) PO BID 10/29/2012 01/26/2013 Inactive Vitamin B-12 1,000 m cg/mL injection solution RxNorm: 565129 1 Milliliter(s) Inj Q 2weeks INJECT 1ML TWICE A MONTH 10/29/2012 12/20/2013 Inactive takes 2 times monthly. ok to give multidose vial if available. if not please give 3 month supply of single dose vials Vitamin B-12 1,000 m cg/mL Injection RxNorm: 121600 Solution Inj INJECT 1 ML TWICE A MONTH 10/26/2012 10/28/2012 Inactive Topamax 25 mg tablet RxNorm: 616906 1 Tablet(s) PO BID 10/13/2012 03/10/2013 Inactive Topamax 25 mg tablet RxNorm: 765578 1 Tablet(s) PO as directed 09/24/2012 10/12/2012 Inactive 1 tab bid x 2 weeks1 tab daily x 1 month 1 tab qod x 1 week then stop Percocet 10 mg-325 m g tablet RxNorm: 8909044 1 Tablet(s) PO Q4 PRN 07/22/2012 11/20/2015 Inactive diazepam 5 mg tablet RxNorm: 036255 1 Tablet(s) PO TID PRN 07/22/2012 01/17/2013 Inactive amitriptyline 50 mg tablet RxNorm: 441450 Tablet(s) PO 06/17/2012 10/28/2012 Inactive TAKE ONE TABLET BY MOUTH TWICE DAILY Topamax 25 mg tablet RxNorm: 270003 1 Tablet(s) PO as directed 04/14/2012 06/01/2012 Inactive 1 tab bid x 2 weeks1 tab daily x 1 month 1 tab qod x 1 week then stop Topamax 25 mg Tab RxNorm: 755653 1 Tablet(s) PO as directed 03/16/2012 04/13/2012 Inactive 1 tab bid x 2 weeks1 tab daily x 1 month 1 tab qod x 1 week then stop pantoprazole 40 mg t ablet,delayed release RxNorm: 191612 Tablet(s) PO 02/17/2012 02/21/2013 In active TAKE ONE TABLET BY MOUTH EVERY DAY Topamax 50 mg Tab RxNorm: 972231 Tablet(s) PO 01/21/2012 03/11/2012 Inactive plea se give pt #42 of the 50mg tablets, to take bid till gone.then 25mg q am and 50 q hs x 14 days then 25 mg bid thereafter # 44 amitriptyline 50 mg tablet RxNorm: 155298 Tablet(s) PO 12/18/2011 06/16/2012 Inactive TAKE ONE TABLET BY MOUTH TWICE DAILY Percocet 10 mg-325 m g tablet RxNorm: 4964303 1 Tablet(s) PO Q4 PRN 11/13/2011 07/21/2012 Inactive Vitamin B-12 1,000 m cg/mL Injection RxNorm: 387820 1 Milliliter(s) Inj 2 x month 10/17/2011 10/16/2011 In active Vitamin B-12 1,000 m cg/mL Injection RxNorm: 916576 1 Milliliter(s) Inj 2 x month 10/17/2011 10/25/2012 In active topiramate 100 mg Tab RxNorm: 718426 1 Tablet(s) PO BID 10/17/2011 01/20/2012 Inactive TAKE ONE TABLET BY MOUTH TWICE DAILY Kenalog 40 mg/mL Lovely p for Injection RxNorm: 2218696 1 Milliliter(s) Inj 10/17/2011 10/17/2011 In active diazepam 5 mg tablet RxNorm: 145908 1 Tablet(s) PO TID PRN 09/25/2011 03/22/2012 Inactive diazepam 5 mg Tab RxNorm: 756824 1 Tablet(s) PO TID PRN 09/15/2011 09/17/2011 Inactive topiramate 100 mg Tab RxNorm: 918048 Tablet(s) PO 08/25/2011 10/16/2011 Inactive TAKE ONE TABLET BY MOUTH TWICE DAILY topiramate 100 mg Tab RxNorm: 862921 1 Tablet(s) PO BID 08/21/2011 08/24/2011 Inactive pantoprazole 40 mg T ab, Delayed Release RxNorm: 322135 1 Tablet(s) PO daily 07/19/2011 08/17/2011 In active ibuprofen 800 mg Tab RxNorm: 371645 1 Tablet(s) PO Q8 PRN No Start Date Active Vitamin D3 5,000 uni t tablet RxNorm: 417567 1 Tablet(s) PO daily No Start Date Active multivitamin capsule RxNorm: 1 Capsule(s) PO daily No Start Date Active cranberry fruit conc entrate 250 mg chewable tablet RxNorm: 7073746 1 Tablet(s) PO two to three times weekly No Start Date 04/22/2016 Inactive amitriptyline 50 mg Tab RxNorm: 550943 1 Tablet(s) PO BID No Start Date 12/17/2011 Inactive Topamax 50 mg Tab RxNorm: 466120 Tablet(s) PO No Start Date 01/20/2012 Inactive plea se give pt #42 of the 50mg tablets, to take bid till gone.then 25mg q am and 50 q hs x 14 days then 25 mg bid thereafter # 44 cranberry 1,000 mg c apsule RxNorm: 048605 3 Capsule(s) PO daily No Start Date 01/22/2016 Inactive promethazine 25 mg t ablet RxNorm: 464569 1 Tablet(s) PO Q6 PRN No Start Date 02/24/2013 Inactive Topamax 25 mg Tab RxNorm: 542037 1 Tablet(s) PO BID No Start Date 03/15/2012 Inactive Xanax 0.25 mg tablet RxNorm: 375662 1 Tablet(s) PO as needed anxiety No Start Date 10/15/2017 Inactive Frova 2.5 mg tablet RxNorm: 026532 1 Tablet(s) PO No Start Date 10/27/2013 Inactive at onset of migraine Zithromax Z-Darion 250 mg Tab RxNorm: 624138 Tablet(s) PO No Start Date 10/28/2012 Inactive Diflucan 200 mg tablet RxNorm: 773389 1 Tablet(s) PO PRN No Start Date 06/13/2013 Inactive Fish Oil 1,000 mg ca psule RxNorm: 4 Capsule(s) PO daily No Start Date 08/31/2018 Inactive esterified estrogens -methyltestosterone 1.25 mg-2.5 mg tablet RxNorm: 338289 1 Tablet(s) PO daily No Start Date 10/28/2012 Inactive Demerol (PF) 50 mg/m L Injection RxNorm: 410907 1 Milliliter(s) Inj a s doctor directed No Start Date 06/13/2013 Inactive Tessalon 200 mg Cap RxNorm: 681033 1 Capsule(s) PO Q6 PRN No Start Date 10/28/2012 Inactive Medication Administered Medication Codes Instruc tions Start Date Status Demerol (PF) 50 mg/mL Injection RxNo rm: 316676 1/2Milliliter 04/06/2013 No longer Active promethazine 25 mg/mL Injection RxNo rm: 491503 1Milliliter 04/06/2013 N o longer Active promethazine 25 mg/mL Injection RxNo rm: 694843 2Milliliter 03/26/2013 N o longer Active Demerol (PF) 50 mg/mL Injection RxNo rm: 996944 Milliliter 03/26/2013 No longer Active Demerol (PF) 50 mg/mL Injection RxNo rm: 243347 1Milliliter 03/11/2013 N o longer Active Demerol (PF) 25 mg/0.5 mL Injection RxNorm: 416510 1Milliliter 02/18/2013 N o longer Active promethazine 25 mg/mL Injection RxNo rm: 173896 1Milliliter 02/18/2013 N o longer Active Kenalog 40 mg/mL Susp for Injection RxNorm: 8991836 1Milliliter 11/16/2012 N o longer Active Kenalog 40 mg/mL Susp for Injection RxNorm: 4270600 1Milliliter 10/17/2011 N o longer Active Immunizations [...] Code Result Date URINALYSIS NONAUTO W/O SCOPE 88673 Specific [place] 1.005 DateTime(Free Text in Aprima) URINALYSIS NONAUTO W/O SCOPE 99351 PH 6.0 DateTime(Free Jamar t in Aprima) URINALYSIS NONAUTO W/O SCOPE 97974 GLUCOSE DateTime(Free Text i n Aprima) URINALYSIS NONAUTO W/O SCOPE 21521 Protein DateTime(Free Text i n Aprima) URINALYSIS NONAUTO W/O SCOPE 27528 Blood DateTime(Free Text i n Aprima) URINALYSIS NONAUTO W/O SCOPE 02318 Bilirubin DateTime(Free Text i n Aprima) URINALYSIS NONAUTO W/O SCOPE 01312 Ketones DateTime(Free Text i n Aprima) URINALYSIS NONAUTO W/O SCOPE 14051 Urobilinogen DateTime(Free Text in Aprima) URINALYSIS NONAUTO W/O SCOPE 09246 Nitrite DateTime(Free Text i n Aprima) URINALYSIS NONAUTO W/O SCOPE 08956 Leukocytes DateTime(Fr ee Text in ) Review [...] 1995 Ears/Nose/Throat oral cavity/pharynx/larynx Overall: no masses 02/18/2013 [...] 1994 Ears/Nose/Throat oral cavity/pharynx/larynx Overall: no masses 10/29/2012 [...] General 1995 Cardiovascular auscultation of heart Overall: normal heart sounds 10/29/2012 None Full Exam - General 1995 Cardiovascular auscultation of heart Overall: no murmurs [...] affect 10/29/2012 None Full Exam - General 1995 Psychiatric mood and affect Mood: happy 10/29/2012 [...] Date URINALYSIS NONAUTO W /O SCOPE CPT-4: 29508 06/14/2013 THER/PROPH/DIAG INJ SC/IM CPT-4: 16088 04/06/2013 PROMETHAZINE HCL INJ ECTION CPT-4: J2550 04/06/2013 THER/PROPH/DIAG INJ SC/IM CPT-4: 26450 03/26/2013 PROMETHAZINE HCL INJ ECTION CPT-4: J2550 03/26/2013 THER/PROPH/DIAG INJ SC/IM CPT-4: 16527 03/11/2013 PROMETHAZINE HCL INJ ECTION CPT-4: J2550 02/18/2013 TRIAMCINOLONE ACET I [place] NOS CPT-4: J3301 11/16/2012 THER/PROPH/DIAG INJ SC/IM CPT-4: 18430 11/16/2012 TRIAMCINOLONE ACET I [place] NOS CPT-4: J3301 10/17/2011 THER/PROPH/DIAG INJ SC/IM CPT-4: 87881 10/17/2011 Vital Signs Date Vital 12/08/2018 Blood Pressure 1: 122/74 Code: 8480-6 BMI: 36.3 Code: 06900-5 Heart Rate 1: 64 bpm Height: 5'5" SpO2: 100% Weight: 218 lbs 09/01/2018 Blood Pressure 1: 132/80 Code: 8480-6 BMI: 35.6 Code: 96701-3 Heart Rate 1: 80 bpm Height: 5'5" SpO2: 96% Weight: 214 lbs 02/26/2018 Blood Pressure 1: 126/72 Code: 8480-6 BMI: 36.1 Code: 16526-3 Heart Rate 1: 63 bpm Height: 5'5" SpO2: 98% Weight: 217 lbs 07/24/2017 Blood Pressure 1: 138/78 Code: 8480-6 BMI: 36.1 Code: 43660-7 Heart Rate 1: 78 bpm Height: 5'5" SpO2: 99% Weight: 217 lbs 07/09/2017 Blood Pressure 1: 150/84 Code: 8480-6 BMI: 36.4 Code: 83848-9 Heart Rate 1: 70 bpm Height: 5'5" SpO2: 98% Weight: 219 lbs 06/24/2017 Blood Pressure 1: 154/80 Code: 8480-6 BMI: 36.9 Code: 07595-7 Heart Rate 1: 68 bpm Height: 5'5" SpO2: 98% Weight: 222 lbs 04/23/2016 Blood Pressure 1: 136/78 Code: 8480-6 BMI: 38.4 Code: 90137-9 Heart Rate 1: 76 bpm Height: 5'5" SpO2: 98% Weight: 231 lbs 01/23/2016 Blood Pressure 1: 148/82 Code: 8480-6 BMI: 39.6 Code: 81260-9 Heart Rate 1: 76 bpm Height: 5'5" SpO2: 98% Weight: 238 lbs 11/21/2015 Blood Pressure 1: 140/80 Code: 8480-6 BMI: 38.9 Code: 09165-9 Heart Rate 1: 89 bpm Height: 5'5" SpO2: 98% Weight: 233 lbs 8 oz 08/23/2014 Blood Pressure 1: 140/72 Code: 8480-6 BMI: 38.1 Code: 28064-1 Height: 5'5" Weight: 229 lbs 03/01/2014 Blood [...] States she has been doing body by [employer] for about 3 months but is not [...] shoulder 01/28/2012 None shoulder pain Quality [place] 01/28/2012 None shoulder pain Quality th [place] [...] Encounters Encounter Performer Loca tion Codes Date 06188 EST. PATIENT, LEVEL III Diagnosis: Pain in right knee[ICD10: M25.561] Claritza Collins MD, [facility] CPT-4: 80445 12/08/2018 ([id number]) 73708 EST. P ATIENT, LEVEL IV Diagnosis: Essential (primary) hypertension[ICD10: I10] Diagnosis: Acute laryngopharyngitis[ICD10: J06.0] Diagnosis: Other insomnia[ICD10: G47.09] Ling Collins MD, [facility] CPT-4: 48682 09/01/2018 ([id number]) 77604 EST. P ATIENT, LEVEL III Diagnosis: Gastro-esophageal reflux disease without esophagitis[ICD10: K21.9] Diagnosis: Essential (primary) hypertension[ICD10: I10] Ling Collins MD, [facility] CPT-4: 77862 02/26/2018 ([id number]) 11843 EST. P ATIENT, LEVEL III Diagnosis: Other specified noninfective gastroenteritis and colitis[ICD10: K52.89] Diagnosis: Epigastric pain[ICD10: R10.13] Diagnosis: Generalized abdominal pain[ICD10: R10.84] Ling Collins MD, [facility] CPT-4: 49194 07/24/2017 55950 EST. PATIENT, LEVEL IV Diagnosis: Gastro-esophageal reflux disease without esophagitis[ICD10: K21.9] Claritza Collins MD, [facility] CPT-4: 82333 07/09/2017 ([id number]) PREV VISIT E ST AGE 40-64 Diagnosis: Encounter for general adult medical examination with abnormal findings[ICD10: Z00.01] Ling Collins MD, [facility] CPT-4: 07856 06/24/2017 ([id number]) 07357 EST. P ATIENT, LEVEL III Diagnosis: Gastro-esophageal reflux disease with esophagitis[ICD10: K21.0] Ling Collins MD, [facility] CPT-4: 48472 04/23/2016 ([id number]) 36293 EST. P ATIENT, LEVEL IV Diagnosis: Gastro-esophageal reflux disease with esophagitis[ICD10: K21.0] Diagnosis: Morbid (severe) obesity due to excess calories[ICD10: E66.01] Diagnosis: Urge incontinence[ICD10: N39.41] Ling Collins MD, [facility] CPT-4: 92939 01/23/2016 ([id number]) 41629 EST. P ATIENT, LEVEL IV Diagnosis: Metatarsalgia, right foot[ICD10: M77.41] Diagnosis: Achilles tendinitis, right leg[ICD10: M76.61] Diagnosis: Gastro-esophageal reflux disease with esophagitis[ICD10: K21.0] Ling Collins MD, [facility] CPT-4: 82654 11/21/2015 ([id number]) 06786 EST. P ATIENT, LEVEL III Diagnosis: Biceps tendonitis[ICD9: 726.12] Diagnosis: Encounter for long-term (current) use of other medications[ICD9: V58.69] Ling Collins MD, [facility] CPT-4: 16768 08/23/2014 ([id number]) 96869 EST. P ATIENT, LEVEL III Diagnosis: Anxiety, generalized[ICD9: 300.02] Diagnosis: Pain, lower leg[ICD9: 729.5] Ling Collins MD, [facility] CPT-4: 81492 03/01/2014 ([id number]) 81527 EST. P ATIENT, LEVEL III Diagnosis: MIGRAINE NOS/NOT INTRCBL[ICD9: 346.90] Ling Collins MD, [facility] CPT-4: 64015 06/14/2013 ([id number]) 19791 EST. P ATIENT, LEVEL III Diagnosis: MIGRAINE NOS/NOT INTRCBL[ICD9: 346.90] Diagnosis: NAUSEA ALONE[ICD9: 787.02] Ling Collins MD, [facility] CPT-4: 09536 03/10/2013 ([id number]) 48164 EST. P ATIENT, LEVEL III Diagnosis: Intractable migraine with aura without status migrainosus[ICD9: 346.01] Diagnosis: Nausea[ICD9: 787.02] Yennifer Collins MD, [facility] CPT-4: 61171 02/18/2013 ([id number]) 36131 EST. P ATIENT, LEVEL III Diagnosis: BACTERIAL PNEUMONIA[ICD9: 482.9] Diagnosis: Dyspnea[ICD9: 786.09] Ling Collins MD, [facility] CPT-4: 45394 11/16/2012 ([id number]) 93352 EST. P ATIENT, LEVEL III Diagnosis: MIGRAINE NOS/NOT INTRCBL[ICD9: 346.90] Diagnosis: ANXIETY STATE[ICD9: 300.00] Ling Collins MD, [facility] CPT-4: 55454 10/29/2012 ([id number]) 91361 EST. P ATIENT, LEVEL IV Diagnosis: MIGRAINE NOS/NOT INTRCBL[ICD9: 346.90] Diagnosis: JOINT PAIN-SHLDER[ICD9: 719.41] Diagnosis: OBESITY[ICD9: 278.00] Ling Collins MD, [facility] CPT-4: 37425 03/12/2012 ([id number]) 32780 EST. P ATIENT, LEVEL IV Diagnosis: Rotator cuff disorder[ICD9: 726.10] Diagnosis: Shoulder pain, acute[ICD9: 719.41] Diagnosis: Knee pain[ICD9: 719.46] Ling Collins MD, [facility] CPT-4: 42124 01/28/2012 ([id number]) 71680 EST. P ATIENT, LEVEL IV Diagnosis: Migraine[ICD9: 346.90] Diagnosis: Anxiety[ICD9: 300.00] Ling Collins MD, [facility] CPT-4: 67106 01/09/2012 64450 EST. PATIENT, LEVEL III Diagnosis: ACUTE URI[ICD9: 465.9] Diagnosis: Cough[ICD9: 786.2] Yennifer Collins MD, [facility] CPT-4: 16785 10/17/2011 Plan of Care Planned Activity Notes [...] not improve. 12/08/2018 Appointment: Claritza Russell WPtel: [address] [place], [place] [phone] (15 min) Moderate 12/08/2018 Patient Education: Patient [...] nightly. 09/01/2018 Appointment: Ling Collins WPtel: [phone] [facility] (15 min) Moderate 09/01/2018 Patient Education: Patient [...] improving. 02/26/2018 Appointment: Ling Collins WPtel: [phone] [facility] (15 min) Moderate 02/26/2018 Patient Education: Patient Medication Summary Completed 02/26/2018 Appointment: Ling Collins WPtel: [phone] [phone] (15 min) Moderate 08/11/2017 Visit Plan: Abdominal pain, Colitis - advised liquid diet x 2-3 days, then advance to bland diet. If at any time her symptoms worsen, she is to go to the emergency department. Pt given order for EGD/Colonoscopy at [address] Garcia. 07/24/2017 [phone] ([facility] min) Moderate 07/24/2017 Patient Education: Patient [...] through their insurance - Fax number - [phone] phone number - [phone]. 07/09/2017 Visit Plan: Esophageal Reflux - Sev [...] through their insurance - Fax number - [phone] phone number - [phone]. 07/09/2017 App[facility]ment: [phone] [id number] ([facility] min) Complex 07/09/2017 Patient Education: Patient Medication Summary Completed 07/09/2017 Care Plan: Referral Order SNOMED-CT : [id number] Pending 07/09/2017 Visit Plan: Well Adult - [...] concerns. 06/24/2017 App[facility]ment: [facility] [phone] [id number] (15 min) Moderate 06/24/2017 Patient Education: Patient [...] medication. 01/23/2016 App[facility]ment: [facility] [phone] [id number] (15 min) Moderate 01/23/2016 Patient Education: Patient [...] 11/21/2015 Care Plan: Referral Order SNOMED-CT : [id number] Ordered 11/21/2015 Visit Plan: Biceps tendonitis - [...] 1tab AM & 2 at hs x2wks, [id number] x2wks, then 1/2 am & 1hs x1wk, then 1/2 bidx 1wk, then 1/2 at hs x1wk then stop 08/23/2014 Appointment: Ling Collins WPtel: [address] [place], [place] [id number] Sick 08/23/2014 Patient Education: Patient Medication Summary Completed 08/23/2014 Visit Plan: Chronic migraine headac hes - recommended for pt to keep appt with the specialist in [place] for migraine surgery. Topical pain in legs - recommended pt to start on iron, monitor as pt weans off of the topamax post surgically. 03/01/2014 Appointment: Ling Collins WPtel: [address] [place], [place] [phone] Follow up 03/01/2014 Patient Education: Patient Medication Summary Completed 03/01/2014 Visit Plan: Migraine headaches - pt has not yet had an intractible migraine since she had her botox injections. She is to follow up with her Neurologist about her migraine headaches.. 06/14/2013 Appointment: Ling Collins WPtel: [address] [place], [place] [phone] [place] Follow up 06/14/2013 Patient Education: Patient [...] 75mg bid. 03/10/2013 Appointment: Ling Collins WPtel[facility] [place] Other 03/10/2013 Patient Education: Patient Medication [...] IM. 02/18/2013 [facility]ment[facility] [phone] [id number] [place] Other 02/18/2013 Patient Education: Patient [...] positive children. 11/16/2012 Appointment: Ling Collins WPtel: [facility] Sick 11/16/2012 Patient Education: [...] her migraines. 10/29/2012 Appointment: Ling Collins WPtel: [facility] Other 10/29/2012 Patient Education: Patient Medication [...] Dr. Judge. 03/12/2012 Appointment: Ling Collins WPtel: [address] [place], [place] [phone] Other 03/12/2012 Patient Education: Patient Medication Summary Completed 03/12/2012 Visit Plan: mri of keft shoulder - rotator cuff instability kenalog shot referal to orthopedic surgeon for eval of left shoulder and right knee 01/28/2012 Appointment: Ling Collins WPtel: [facility] Other 01/28/2012 Patient Education: Patient Medication Summary [...] time. 01/09/2012 Appointment: [facility] Collins [facility] [phone] [facility] [facility] 01/09/2012 Patient Education: Patient Medication Summary [...] any worse. 10/17/2011 Appointment: Yennifer Field WPtel: [facility] Other 10/17/2011 Patient Education: Patient Medication [...] through their insurance - Fax number - [phone]; phone number - [phone]. Carafate - with meal s and at [...] through their insurance - Fax number - [phone]; phone number - [phone]. topamax 25mg tablet to be tapered as follows: 1tab AM & 2 at hs x2wks, [id number] x2wks, then 1/2 am & 1hs x1wk, [...] 1tab AM & 2 at hs x2wks, [id number] x2wks, then 1/2 am & 1hs x1wk, [...] treatment in clinic today: . mri of kejunior should er - rotator cuff instability kenalog [...] department. Pt given order for EGD/Colonoscopy at [address] Garcia. . Pneumonia - [...] to keep appt with the specialist in [place] for migraine surgery. Topical pain in legs [...]
--- OUTSIDE RECORDS SUMMARY | 2020-03-15 06:42 | XMS REPORT | CCD ---
Author Author Shannon Field Organization Ling Collins MD, [facility] Address [address] [place] [address] Phone Care Team Providers Care Studio Musician Name Role Phone PP Unavailable CCM Unavailable Summary Purpose Interface Exchange Insurance Providers Payer name Policy type / Coverage type Covered green party ID Effective Begin Date Effective End Date [employer] [facility] [id number] Unkno wn Family history Mother Diagnosis Age [...] a daycare 10/17/[address]: 292616786 Nonsmoker 10/17/[address]: 827225597 Never drinks alcohol 10/17/2011 Allergies, Adverse Reactions, Alerts Substance Reaction Codes Entered Date Inactivated Date Status doxycycline hyclate RxNorm: 3640 10/17/2011 No Inactive Date Active cephalexin RxNorm: 2231 11/21/2015 No Inactive Date Active NIACIN PREPARATIONS pruritis Unknown 08/23/2014 No Inactive Date Active SULFA (SULFONAMIDE A NTIBIOTICS) Unknown 10/17/2011 No Inactive Date Active Past Medical History Illness Codes Condition Status Onset Date Resolved Date Acute laryngopharyng itis ICD-9: 465.9 ICD-10: J06.0 [...] Condition Codes Effectiv e Dates Condition Status Acute laryngopharyng itis ICD-9: 465.9 ICD-10: J06.0 [...] 5 mg tablet,extended release 24 hr RxNorm: 900410 TAKE 1 TABLET BY MOUTH ONCE DAILY 10/21/2018 No Stop Date Active Protonix 40 mg table t,delayed release RxNorm: 971929 TAKE 1 TABLET BY MOUT H ONCE DAILY 10/21/2018 No Stop Date Active oxybutynin chloride ER 5 mg tablet,extended release 24 hr RxNorm: 680199 TAKE 1 TABLET BY MOUTH ONCE DAILY 07/20/2018 10/20/2018 Inactive Protonix 40 mg table t,delayed release RxNorm: 764653 TAKE 1 TABLET BY MOUT H ONCE DAILY 07/20/2018 10/20/2018 Inactive Xanax 0.25 mg tablet RxNorm: 388358 1 Tablet(s) PO Q8 as needed anxiety 02/17/2018 03/18/2018 In active oxybutynin chloride ER 5 mg tablet,extended release 24 hr RxNorm: 122984 TAKE ONE TABLET BY MOUTH ONCE DAILY 02/17/2018 07/19/2018 Inactive Protonix 40 mg table t,delayed release RxNorm: 707837 TAKE ONE TABLET BY [facility] ONCE DAILY 02/17/2018 07/19/2018 Inactive Xanax 0.25 mg tablet RxNorm: 586109 1 Tablet(s) PO Q8 as needed anxiety 10/16/2017 11/12/2017 In active Zantac 150 mg tablet RxNorm: 021063 1 Tablet(s) PO daily 09/15/2017 03/13/2018 Inactive Carafate 1 gram tablet RxNorm: 491055 1 Tablet(s) PO AC & HS 09/15/2017 03/13/2018 Inactive oxybutynin chloride ER 5 mg tablet,extended release 24 hr RxNorm: 127015 TAKE ONE TABLET BY MOUTH ONCE DAILY 08/18/2017 02/13/2018 Inactive Protonix 40 mg table t,delayed release RxNorm: 463010 TAKE ONE TABLET BY [facility] ONCE DAILY 08/18/2017 02/13/2018 Inactive Carafate 1 gram tablet RxNorm: 924558 1 Tablet(s) PO AC & HS 07/09/2017 08/07/2017 Inactive Protonix 40 mg table t,delayed release RxNorm: 541439 1 Tablet(s) PO daily 07/09/2017 08/07/2017 In active Zofran 4 mg tablet RxNorm: 859952 1 Tablet(s) PO TID as needed nausea 07/09/2017 07/13/2017 In active Zantac 150 mg tablet RxNorm: 258188 1 Tablet(s) PO daily 07/09/2017 08/07/2017 Inactive losartan 25 mg tablet RxNorm: 150239 1 Tablet(s) PO daily 06/24/2017 10/21/2017 Inactive oxybutynin chloride ER 5 mg tablet,extended release 24 hr RxNorm: 463313 TAKE ONE TABLET BY MOUTH ONCE DAILY 05/15/2017 08/12/2017 Inactive oxybutynin chloride ER 5 mg tablet,extended release 24 hr RxNorm: 771765 TAKE ONE TABLET BY MOUTH ONCE DAILY 02/07/2017 05/07/2017 Inactive oxybutynin chloride ER 5 mg tablet,extended release 24 hr RxNorm: 717033 TAKE ONE TABLET BY MOUTH ONCE DAILY 10/01/2016 01/28/2017 Inactive oxybutynin chloride ER 5 mg tablet,extended release 24 hr RxNorm: 410015 TAKE ONE TABLET BY MOUTH ONCE DAILY 05/27/2016 09/23/2016 Inactive cranberry fruit conc entrate 500 mg capsule RxNorm: 249764 1 Capsule(s) PO two t o three times weekly 04/23/2016 No Stop Date Active Nexium 40 mg capsule ,delayed release RxNorm: 010229 1 Capsule(s) PO BID 04/23/2016 07/23/2017 In active oxybutynin chloride ER 5 mg tablet,extended release 24 hr RxNorm: 243235 1 Tablet(s) PO daily 01/23/2016 05/21/2016 Inactive pantoprazole 40 mg t ablet,delayed release RxNorm: 631111 1 Tablet(s) PO BID TA KE ONE TABLET BY MOUTH EVERY DAY 12/12/2015 12/11/2015 Inactive pantoprazole 40 mg t ablet,delayed release RxNorm: 504221 1 Tablet(s) PO BID TA KE ONE TABLET BY MOUTH TWICE EVERY DAY 12/12/2015 04/22/2016 Inactive Vesicare 5 mg tablet RxNorm: 818338 1 Tablet(s) PO QPM 11/21/2015 01/21/2016 Inactive Carafate 1 gram tablet RxNorm: 989372 1 Tablet(s) PO QID dissolve in 10mL of w ater 11/21/2015 04/22/2016 Inactive pantoprazole 40 mg t ablet,delayed release RxNorm: 811299 1 Tablet(s) PO daily TAKE ONE TABLET BY MOUTH EVERY DAY 04/05/2015 12/11/2015 Inactive Topamax 100 mg tablet RxNorm: 790710 1 Tablet(s) UD 1tab AM & 2 at hs x2wks, uruy4izu x2wks, then 1/2 am & 1hs x1wk, then 1/2 bidx 1wk, then 1/2 at hs x1wk then stop 08/23/2014 01/19/2015 Inactive Vitamin B-12 1,000 m cg/mL injection solution RxNorm: 008040 2x per month Millilit er(s) Inj INJECT 1ML EVERY 2 WEEKS 08/23/2014 11/20/2015 Inactive amitriptyline 50 mg tablet RxNorm: 942517 1 Tablet(s) QPM 08/23/2014 11/20/2015 Inactive amitriptyline 50 mg tablet RxNorm: 988922 TAKE ONE TABLET BY MO [facility] TWICE DAILY 08/18/2014 08/22/2014 In active amitriptyline 50 mg tablet RxNorm: 568783 TAKE ONE TABLET BY MO [facility] TWICE DAILY 05/27/2014 08/17/2014 In active Topamax 100 mg tablet RxNorm: 583127 TAKE ONE TABLET BY MOUTH TWICE DAILY 05/27/2014 08/22/2014 In active Topamax 100 mg tablet RxNorm: 315601 Tablet(s) PO TAKE ONE TABLET BY MOUTH TW ICE DAILY 03/24/2014 05/26/2014 Inactive pantoprazole 40 mg t ablet,delayed release RxNorm: 110763 1 Tablet(s) PO daily TAKE ONE TABLET BY MOUTH EVERY DAY 03/18/2014 03/12/2015 Inactive nystatin 100,000 uni t/mL oral suspension RxNorm: 237752 5 Milliliter(s) PO QI D 03/07/2014 03/06/2014 In active nystatin 100,000 uni t/mL oral suspension RxNorm: 390797 5 Milliliter(s) PO QI D 03/07/2014 03/16/2014 In active Topamax 100 mg tablet RxNorm: 872696 Tablet(s) PO TAKE ONE TABLET BY MOUTH TW ICE DAILY 02/21/2014 03/23/2014 Inactive Vitamin B-12 1,000 m cg/mL injection solution RxNorm: 833991 solution Inj INJECT 1 ML EVERY 2 WEEKS 12/21/2013 08/22/2014 Inactive Frova 2.5 mg tablet RxNorm: 844341 1 Tablet(s) PO 12/20/2013 11/20/2015 Inactive at o nset of migraine Frova 2.5 mg tablet RxNorm: 464929 1 Tablet(s) PO 10/28/2013 12/19/2013 Inactive at o nset of migraine Topamax 100 mg tablet RxNorm: 098676 Tablet(s) PO TAKE ONE TABLET BY MOUTH TW ICE DAILY 10/21/2013 2014 Inactive Topamax 100 mg tablet RxNorm: 110346 Tablet(s) PO TAKE ONE TABLET BY MOUTH TW ICE DAILY 08/23/2013 10/20/2013 Inactive Topamax 100 mg tablet RxNorm: 903028 1 Tablet(s) PO BID TAKE ONE TABLET BY [facility] TWICE DAILY 05/24/2013 08/22/2013 Inactive Demerol (PF) 50 mg/m L Injection RxNorm: 293515 1/2 Milliliter(s) Inj 04/06/2013 04/06/2013 Inactive promethazine 25 mg/m L Injection RxNorm: 337245 1 Milliliter(s) Inj 04/06/2013 04/06/2013 Inactive promethazine 25 mg/m L Injection RxNorm: 809205 2 Milliliter(s) Inj 03/26/2013 03/26/2013 Inactive Demerol (PF) 50 mg/m L Injection RxNorm: 682646 Milliliter(s) Inj 03/26/2013 03/26/2013 Inactive amitriptyline 50 mg tablet RxNorm: 044987 Tablet(s) PO TAKE ONE TABLET BY MOUTH TWICE DAILY 03/22/2013 05/26/2014 Inactive Topamax 100 mg tablet RxNorm: 277658 1 Tablet(s) PO BID 03/19/2013 03/18/2013 Inactive Topamax 100 mg tablet RxNorm: 256491 1 Tablet(s) PO BID 03/19/2013 05/24/2013 Inactive Demerol (PF) 50 mg/m L Injection RxNorm: 302607 1 Milliliter(s) Inj 03/11/2013 03/11/2013 Inactive Topamax 50 mg tablet RxNorm: 482317 1.5 Tablet(s) PO BID 03/10/2013 03/18/2013 Inactive promethazine 25 mg t ablet RxNorm: 842153 1 Tablet(s) PO Q6 PRN 02/25/2013 11/20/2015 Inactive pantoprazole 40 mg t ablet,delayed release RxNorm: 555397 Tablet(s) PO TAKE ONE TABLET BY MOUTH EVERY DAY 02/22/2013 03/17/2014 Inactive promethazine 25 mg/m L Injection RxNorm: 589284 1 Milliliter(s) Inj 02/18/2013 02/18/2013 Inactive Demerol (PF) 25 mg/0 .5 mL Injection RxNorm: 915284 1 Milliliter(s) Inj 02/18/2013 02/18/2013 In active total of 50mg given IM Topamax 50 mg tablet RxNorm: 185035 Tablet(s) PO TAKE ONE TABLET BY MOUTH TW ICE DAILY 02/04/2013 03/09/2013 Inactive prednisone 20 mg tablet RxNorm: 382421 3 Tablet(s) PO daily 11/16/2012 11/20/2012 Inactive ciprofloxacin 500 mg tablet RxNorm: 168230 1 Tablet(s) PO BID 11/16/2012 11/22/2012 Inactive Kenalog 40 mg/mL Lovely p for Injection RxNorm: 7649409 1 Milliliter(s) Inj 11/16/2012 11/16/2012 In active Tamiflu 75 mg capsule RxNorm: 660438 1 Capsule(s) PO BID 11/16/2012 11/20/2012 Inactive esterified estrogens -methyltestosterone 1.25 mg-2.5 mg tablet RxNorm: 114605 1 Tablet(s) PO every other day 10/29/2012 06/23/2017 Inactive amitriptyline 50 mg tablet RxNorm: 596686 1 Tablet(s) PO daily 10/29/2012 03/21/2013 Inactive TAKE ONE TABLET BY MOUTH TWICE DAILY Topamax 50 mg tablet RxNorm: 225994 1 Tablet(s) PO BID 10/29/2012 01/26/2013 Inactive Vitamin B-12 1,000 m cg/mL injection solution RxNorm: 705466 1 Milliliter(s) Inj Q 2weeks INJECT 1ML TWICE A MONTH 10/29/2012 12/20/2013 Inactive takes 2 times monthly. ok to give multidose vial if available. if not please give 3 month supply of single dose vials Vitamin B-12 1,000 m cg/mL Injection RxNorm: 019269 Solution Inj INJECT 1 ML TWICE A MONTH 10/26/2012 10/28/2012 Inactive Topamax 25 mg tablet RxNorm: 931953 1 Tablet(s) PO BID 10/13/2012 03/10/2013 Inactive Topamax 25 mg tablet RxNorm: 869695 1 Tablet(s) PO as directed 09/24/2012 10/12/2012 Inactive 1 tab bid x 2 weeks1 tab daily x 1 month 1 tab qod x 1 week then stop Percocet 10 mg-325 m g tablet RxNorm: 5409309 1 Tablet(s) PO Q4 PRN 07/22/2012 11/20/2015 Inactive diazepam 5 mg tablet RxNorm: 222237 1 Tablet(s) PO TID PRN 07/22/2012 01/17/2013 Inactive amitriptyline 50 mg tablet RxNorm: 522204 Tablet(s) PO 06/17/2012 10/28/2012 Inactive TAKE ONE TABLET BY MOUTH TWICE DAILY Topamax 25 mg tablet RxNorm: 886434 1 Tablet(s) PO as directed 04/14/2012 06/01/2012 Inactive 1 tab bid x 2 weeks1 tab daily x 1 month 1 tab qod x 1 week then stop Topamax 25 mg Tab RxNorm: 749870 1 Tablet(s) PO as directed 03/16/2012 04/13/2012 Inactive 1 tab bid x 2 weeks1 tab daily x 1 month 1 tab qod x 1 week then stop pantoprazole 40 mg t ablet,delayed release RxNorm: 430993 Tablet(s) PO 02/17/2012 02/21/2013 In active TAKE ONE TABLET BY MOUTH EVERY DAY Topamax 50 mg Tab RxNorm: 965166 Tablet(s) PO 01/21/2012 03/11/2012 Inactive plea se give pt #42 of the 50mg tablets, to take bid till gone.then 25mg q am and 50 q hs x 14 days then 25 mg bid thereafter # 44 amitriptyline 50 mg tablet RxNorm: 195541 Tablet(s) PO 12/18/2011 06/16/2012 Inactive TAKE ONE TABLET BY MOUTH TWICE DAILY Percocet 10 mg-325 m g tablet RxNorm: 0173667 1 Tablet(s) PO Q4 PRN 11/13/2011 07/21/2012 Inactive Vitamin B-12 1,000 m cg/mL Injection RxNorm: 221820 1 Milliliter(s) Inj 2 x month 10/17/2011 10/16/2011 In active Vitamin B-12 1,000 m cg/mL Injection RxNorm: 239822 1 Milliliter(s) Inj 2 x month 10/17/2011 10/25/2012 In active topiramate 100 mg Tab RxNorm: 937742 1 Tablet(s) PO BID 10/17/2011 01/20/2012 Inactive TAKE ONE TABLET BY MOUTH TWICE DAILY Kenalog 40 mg/mL Lovely p for Injection RxNorm: 8740372 1 Milliliter(s) Inj 10/17/2011 10/17/2011 In active diazepam 5 mg tablet RxNorm: 330188 1 Tablet(s) PO TID PRN 09/25/2011 03/22/2012 Inactive diazepam 5 mg Tab RxNorm: 675624 1 Tablet(s) PO TID PRN 09/15/2011 09/17/2011 Inactive topiramate 100 mg Tab RxNorm: 026807 Tablet(s) PO 08/25/2011 10/16/2011 Inactive TAKE ONE TABLET BY MOUTH TWICE DAILY topiramate 100 mg Tab RxNorm: 085112 1 Tablet(s) PO BID 08/21/2011 08/24/2011 Inactive pantoprazole 40 mg T ab, Delayed Release RxNorm: 185011 1 Tablet(s) PO daily 07/19/2011 08/17/2011 In active ibuprofen 800 mg Tab RxNorm: 698596 1 Tablet(s) PO Q8 PRN No Start Date Active Vitamin D3 5,000 uni t tablet RxNorm: 299754 1 Tablet(s) PO daily No Start Date Active multivitamin capsule RxNorm: 1 Capsule(s) PO daily No Start Date Active cranberry fruit conc entrate 250 mg chewable tablet RxNorm: 5655448 1 Tablet(s) PO two to three times weekly No Start Date 04/22/2016 Inactive amitriptyline 50 mg Tab RxNorm: 491777 1 Tablet(s) PO BID No Start Date 12/17/2011 Inactive Topamax 50 mg Tab RxNorm: 654378 Tablet(s) PO No Start Date 01/20/2012 Inactive plea se give pt #42 of the 50mg tablets, to take bid till gone.then 25mg q am and 50 q hs x 14 days then 25 mg bid thereafter # 44 cranberry 1,000 mg c apsule RxNorm: 634728 3 Capsule(s) PO daily No Start Date 01/22/2016 Inactive promethazine 25 mg t ablet RxNorm: 191939 1 Tablet(s) PO Q6 PRN No Start Date 02/24/2013 Inactive Topamax 25 mg Tab RxNorm: 860119 1 Tablet(s) PO BID No Start Date 03/15/2012 Inactive Xanax 0.25 mg tablet RxNorm: 055894 1 Tablet(s) PO as needed anxiety No Start Date 10/15/2017 Inactive Frova 2.5 mg tablet RxNorm: 073450 1 Tablet(s) PO No Start Date 10/27/2013 Inactive at onset of migraine Zithromax Z-Darion 250 mg Tab RxNorm: 263801 Tablet(s) PO No Start Date 10/28/2012 Inactive Diflucan 200 mg tablet RxNorm: 854026 1 Tablet(s) PO PRN No Start Date 06/13/2013 Inactive Fish Oil 1,000 mg ca psule RxNorm: 4 Capsule(s) PO daily No Start Date 08/31/2018 Inactive esterified estrogens -methyltestosterone 1.25 mg-2.5 mg tablet RxNorm: 023039 1 Tablet(s) PO daily No Start Date 10/28/2012 Inactive Demerol (PF) 50 mg/m L Injection RxNorm: 337227 1 Milliliter(s) Inj a s doctor directed No Start Date 06/13/2013 Inactive Tessalon 200 mg Cap RxNorm: 717882 1 Capsule(s) PO Q6 PRN No Start Date 10/28/2012 Inactive Medication Administered Medication Codes Instruc tions Start Date Status Demerol (PF) 50 mg/mL Injection RxNo rm: 215159 1/2Milliliter 04/06/2013 No longer Active promethazine 25 mg/mL Injection RxNo rm: 333028 1Milliliter 04/06/2013 N o longer Active promethazine 25 mg/mL Injection RxNo rm: 554073 2Milliliter 03/26/2013 N o longer Active Demerol (PF) 50 mg/mL Injection RxNo rm: 915173 Milliliter 03/26/2013 No longer Active Demerol (PF) 50 mg/mL Injection RxNo rm: 359346 1Milliliter 03/11/2013 N o longer Active Demerol (PF) 25 mg/0.5 mL Injection RxNorm: 023659 1Milliliter 02/18/2013 N o longer Active promethazine 25 mg/mL Injection RxNo rm: 357241 1Milliliter 02/18/2013 N o longer Active Kenalog 40 mg/mL Susp for Injection RxNorm: 6960531 1Milliliter 11/16/2012 N o longer Active Kenalog 40 mg/mL Susp for Injection RxNorm: 7868142 1Milliliter 10/17/2011 N o longer Active Immunizations [...] Reason For Visit Effective Dates Notes hypertension 09/01/2018 hypertension 02/26/2018 abdominal pain 07/24/2017 [...] Code Result Date URINALYSIS NONAUTO W/O SCOPE 60758 Specific [place] 1.005 DateTime(Free Text in Apr) URINALYSIS NONAUTO W/O SCOPE 11968 PH 6.0 DateTime(Free Jamar t in Apr) URINALYSIS NONAUTO W/O SCOPE 30413 GLUCOSE DateTime(Free Text i n Aprima) URINALYSIS NONAUTO W/O SCOPE 81707 Protein DateTime(Free Text i n Aprima) URINALYSIS NONAUTO W/O SCOPE 87430 Blood DateTime(Free Text i n Aprima) URINALYSIS NONAUTO W/O SCOPE 62993 Bilirubin DateTime(Free Text i n Aprima) URINALYSIS NONAUTO W/O SCOPE 31317 Ketones DateTime(Free Text i n Aprima) URINALYSIS NONAUTO W/O SCOPE 88962 Urobilinogen DateTime(Free Text in ) URINALYSIS NONAUTO W/O SCOPE 55760 Nitrite DateTime(Free Text i n ) URINALYSIS NONAUTO W/O SCOPE 88536 Leukocytes DateTime(Fr ee Text in ) Review of Systems System Result Effective Dates Constitutional No recent illness 09/01/2018 Constitutional No [...] clear 03/10/2013 None Full Exam - General 1995 Ears/Nose/Throat oral cavity/pharynx/larynx Overall: oropharyngeal mucosa clear 03/10/2013 None Full Exam - General 1995 Ears/Nose/Throat oral cavity/pharynx/larynx Overall: no masses 03/10/2013 [...] intact 02/18/2013 None Full Exam - General 1995 Psychiatric orientation/consciousness Overall: oriented to person, place and time 02/18/2013 None Full Exam - General 1995 Psychiatric mood and affect Overall: normal mood and affect 02/18/2013 None Full Exam - General 1995 Psychiatric mood and affect Mood: happy 02/18/2013 None Full Exam - General 1995 Constitutional general appearance Overall: well developed 10/29/2012 None Full Exam - General 1995 Constitutional general appearance Overall: in no acute distress 10/29/2012 None Full Exam - General 1995 Constitutional general appearance Overall: well nourished 10/29/2012 None Full Exam - General 1995 Eyes pupils and irises Overall: pupils equal, [...] Date URINALYSIS NONAUTO W /O SCOPE CPT-4: 22583 06/14/2013 THER/PROPH/DIAG INJ SC/IM CPT-4: 91244 04/06/2013 PROMETHAZINE HCL INJ ECTION CPT-4: J2550 04/06/2013 THER/PROPH/DIAG INJ SC/IM CPT-4: 24676 03/26/2013 PROMETHAZINE HCL INJ ECTION CPT-4: J2550 03/26/2013 THER/PROPH/DIAG INJ SC/IM CPT-4: 37713 03/11/2013 PROMETHAZINE HCL INJ ECTION CPT-4: J2550 02/18/2013 TRIAMCINOLONE ACET I [place] NOS CPT-4: J3301 11/16/2012 THER/PROPH/DIAG INJ SC/IM CPT-4: 76049 11/16/2012 TRIAMCINOLONE ACET I [place] NOS CPT-4: J3301 10/17/2011 THER/PROPH/DIAG INJ SC/IM CPT-4: 94147 10/17/2011 Vital Signs Date Vital 09/01/2018 Blood Pressure 1: 132/80 Code: 8480-6 BMI: 35.6 Code: 96200-0 Heart Rate 1: 80 bpm Height: 5'5" SpO2: 96% Weight: 214 lbs 02/26/2018 Blood Pressure 1: 126/72 Code: 8480-6 BMI: 36.1 Code: 86711-8 Heart Rate 1: 63 bpm Height: 5'5" SpO2: 98% Weight: 217 lbs 07/24/2017 Blood Pressure 1: 138/78 Code: 8480-6 BMI: 36.1 Code: 27010-2 Heart Rate 1: 78 bpm Height: 5'5" SpO2: 99% Weight: 217 lbs 07/09/2017 Blood Pressure 1: 150/84 Code: 8480-6 BMI: 36.4 Code: 50060-7 Heart Rate 1: 70 bpm Height: 5'5" SpO2: 98% Weight: 219 lbs 06/24/2017 Blood Pressure 1: 154/80 Code: 8480-6 BMI: 36.9 Code: 57914-5 Heart Rate 1: 68 bpm Height: 5'5" SpO2: 98% Weight: 222 lbs 04/23/2016 Blood Pressure 1: 136/78 Code: 8480-6 BMI: 38.4 Code: 09058-5 Heart Rate 1: 76 bpm Height: 5'5" SpO2: 98% Weight: 231 lbs 01/23/2016 Blood Pressure 1: 148/82 Code: 8480-6 BMI: 39.6 Code: 70777-9 Heart Rate 1: 76 bpm Height: 5'5" SpO2: 98% Weight: 238 lbs 11/21/2015 Blood Pressure 1: 140/80 Code: 8480-6 BMI: 38.9 Code: 85986-0 Heart Rate 1: 89 bpm Height: 5'5" SpO2: 98% Weight: 233 lbs 8 oz 08/23/2014 Blood Pressure 1: 140/72 Code: 8480-6 BMI: 38.1 Code: 46181-3 Height: 5'5" Weight: 229 lbs 03/01/2014 Blood [...] Name Status Resu lt Effective Date Notes hypertension Onset and Resolution ongoing 09/01/2018 None [...] States she has been doing body by [employer] for about 3 months but is not losing weight. States she is trying to lose weight. shoulder pain Location o n the left shoulder 03/12/2012 Dr. Judge told her she h ad a frozen shoulder. Trying non-surgical treatments first. shoulder pain Quality ch ronic 03/12/2012 None shoulder pain Onset and Resolution ongoing 03/12/2012 Dr. Judge injected her s houlder last week. He told her to take [...] Encounters Encounter Performer Loca tion Codes Date ([id number]) 81691 EST. P ATIENT, LEVEL IV Diagnosis: Essential (primary) hypertension[ICD10: I10] Diagnosis: Acute laryngopharyngitis[ICD10: J06.0] Diagnosis: Other insomnia[ICD10: G47.09] Ling Collins MD, [facility] CPT-4: 17558 09/01/2018 ([id number]) 52045 EST. [facility] Diagnosis: Gastro-esophageal reflux disease without esophagitis[ICD10: K21.9] Diagnosis: Essential (primary) hypertension[ICD10: I10] Ling Collins MD, [facility] CPT-4: 29503 02/26/2018 ([id number]) 02916 EST. P ATIENT, LEVEL III Diagnosis: Other specified noninfective gastroenteritis and colitis[ICD10: K52.89] Diagnosis: Epigastric pain[ICD10: R10.13] Diagnosis: Generalized abdominal pain[ICD10: R10.84] iLng Collins MD, [facility] CPT-4: 92422 07/24/2017 [id number] EST. PATIENT, LEVEL IV Diagnosis: Gastro-esophageal reflux disease without esophagitis[ICD10: K21.9] Claritza Collins MD, [facility] CPT-4: 39906 07/09/2017 ([id number]) PREV VISIT E ST AGE 40-64 Diagnosis: Encounter for general adult medical examination with abnormal findings[ICD10: Z00.01] Ling Collins MD, [facility] CPT-4: 19103 06/24/2017 ([id number]) 52438 EST. P ATIENT, LEVEL III Diagnosis: Gastro-esophageal reflux disease with esophagitis[ICD10: K21.0] [facility] CPT-4: 89475 04/23/2016 ([id number]) 87236 EST. P ATIENT, LEVEL IV Diagnosis: Gastro-esophageal reflux disease with esophagitis[ICD10: K21.0] Diagnosis: Morbid (severe) obesity due to excess calories[ICD10: E66.01] Diagnosis: Urge incontinence[ICD10: N39.41] [facility] CPT-4: 48190 01/23/2016 ([id number]) 34345 EST. P ATIENT, LEVEL IV Diagnosis: Metatarsalgia, right foot[ICD10: M77.41] Diagnosis: Achilles tendinitis, right leg[ICD10: M76.61] Diagnosis: Gastro-esophageal reflux disease with esophagitis[ICD10: K21.0] Ling Collins MD, [facility] CPT-4: 20965 11/21/2015 ([id number]) 09063 EST. [facility] Diagnosis: Biceps tendonitis[ICD9: 726.12] Diagnosis: Encounter for long-term (current) use of other medications[ICD9: V58.69] [facility] CPT-4: 51714 08/23/2014 ([id number]) 85500 EST. [facility] Diagnosis: Anxiety, generalized[ICD9: 300.02] Diagnosis: Pain, lower leg[ICD9: 729.5] [facility] CPT-4: 48519 03/01/2014 ([id number]) 09405 EST. [facility] Diagnosis: MIGRAINE NOS/NOT INTRCBL[ICD9: 346.90] [facility] CPT-4: 21846 06/14/2013 ([id number]) 68617 EST. P ATIENT, LEVEL III Diagnosis: MIGRAINE NOS/NOT INTRCBL[ICD9: 346.90] Diagnosis: NAUSEA ALONE[ICD9: 787.02] Ling Collins MD, [facility] CPT-4: 33710 03/10/2013 ([id number]) 49855 EST. P ATIENT, LEVEL III Diagnosis: Intractable migraine with aura without status migrainosus[ICD9: 346.01] Diagnosis: Nausea[ICD9: 787.02] Yennifer Collins MD, [facility] CPT-4: 68342 02/18/2013 ([id number]) 94777 EST. P ATIENT, LEVEL III Diagnosis: BACTERIAL PNEUMONIA[ICD9: 482.9] Diagnosis: Dyspnea[ICD9: 786.09] Ling Collins MD, [facility] CPT-4: 92361 11/16/2012 ([id number]) 98562 EST. P ATIENT, LEVEL III Diagnosis: MIGRAINE NOS/NOT INTRCBL[ICD9: 346.90] Diagnosis: ANXIETY STATE[ICD9: 300.00] Ling Collins MD, [facility] CPT-4: 76003 10/29/2012 ([id number]) 58602 EST. P ATIENT, LEVEL IV Diagnosis: MIGRAINE NOS/NOT INTRCBL[ICD9: 346.90] Diagnosis: JOINT PAIN-SHLDER[ICD9: 719.41] Diagnosis: OBESITY[ICD9: 278.00] Ling Collins MD, [facility] CPT-4: 19253 03/12/2012 ([id number]) 32960 EST. P ATIENT, LEVEL IV Diagnosis: Rotator cuff disorder[ICD9: 726.10] Diagnosis: Shoulder pain, acute[ICD9: 719.41] Diagnosis: Knee pain[ICD9: 719.46] Ling Collins MD, [facility] CPT-4: 58466 01/28/2012 ([id number]) 54937 EST. P ATIENT, LEVEL IV Diagnosis: Migraine[ICD9: 346.90] Diagnosis: Anxiety[ICD9: 300.00] Ling Collins MD, [facility] CPT-4: 17271 01/09/2012 50909 EST. PATIENT, LEVEL III Diagnosis: ACUTE URI[ICD9: 465.9] Diagnosis: Cough[ICD9: 786.2] Yennifer Collins MD, [facility] CPT-4: 58319 10/17/2011 Plan of Care Planned Activity Notes C odes Status Date Visit Plan: Hypertension - well con trolled [...] 10mg nightly. 09/01/2018 Appointment: [facility] (15 min) Moderate 09/01/2018 [...] not improving. 02/26/2018 Appointment: Ling Collins [facility]Ptel: [facility] (15 min) Moderate 02/26/2018 Patient Education: Patient Medication Summary Completed 02/26/2018 Appointment: [facility] [phone] [facility] (15 min) Moderate 08/11/2017 Visit Plan: Abdominal pain, Colitis - advised liquid diet x 2-3 days, then advance to bland diet. If at any time her symptoms worsen, she is to go to the emergency department. Pt given order for EGD/Colonoscopy at [facility] [address] Garcia. 07/24/2017 Appointment: [facility] [phone] [facility] (15 min) Moderate 07/24/2017 [...] through their insurance - Fax number - [phone] phone number - [phone]. 07/09/2017 Visit Plan: Esophageal Reflux - Sev [...] through their insurance - Fax number - [phone] phone number - [phone]. 07/09/2017 Appointment: Claritza Russell [facility]Ptel[facility] ([facility] min[facility] Complex 07/09/2017 Patient Education: Patient Medication Summary Completed 07/09/2017 Care Plan: Referral Order SNOMED-CT : [id number] Pending 07/09/2017 Visit Plan: Well Adult - [...] medication. 01/23/2016 App[facility]ment[phone] [facility] (15 min) Moderate 01/23/2016 [...] 11/21/2015 Care Plan: Referral Order SNOMED-CT : [id number] Ordered 11/21/2015 Visit Plan: Biceps tendonitis - [...] 1tab AM & 2 at hs x2wks, [id number] x2wks, then 1/2 am & 1hs x1wk, then 1/2 bidx 1wk, then 1/2 at hs x1wk then stop 08/23/2014 Appointment: Ling Collins WPtel: [address] [place], [place] [id number] Sick 08/23/2014 Patient Education: Patient Medication Summary Completed 08/23/2014 Visit Plan: Chronic migraine headac hes - recommended for pt to keep appt with the specialist in [place] for migraine surgery. Topical pain in legs - recommended pt to start on iron, monitor as pt weans off of the topamax post surgically. 03/01/2014 Appointment: Ling Collins WPtel: [facility] Follow up 03/01/2014 Patient Education: Patient Medication Summary Completed 03/01/2014 Visit Plan: Migraine headaches - pt has not yet had an intractible migraine since she had her botox injections. She is to follow up with her Neurologist about her migraine headaches.. 06/14/2013 Appointment: Ling Collins [facility]el[phone] [facility] [place] Follow up 06/14/2013 Patient Education: Patient [...] [facility]el[phone] [facility] [place] Other 03/10/2013 Patient Education: Patient Medication [...] IM. 02/18/2013 Appointment: [facility]enn[phone] [facility] [place] Other 02/18/2013 Patient Education: Patient [...] positive children. 11/16/2012 Appointment: Ling Collins WPtel: [facility] 11/16/2012 Patient Education: Patient Medication Summary [...] her migraines. 10/29/2012 Appointment: Ling Collins WPtel: [facility] Other 10/29/2012 Patient Education: Patient Medication [...] Dr. Judge. 03/12/2012 Appointment: Ling Collins WPtel: [phone] [facility] Other 03/12/2012 Patient Education: Patient Medication Summary Completed 03/12/2012 Visit Plan: mri of keft shoulder - rotator cuff instability kenalog shot referal to orthopedic surgeon for eval of left shoulder and right knee 01/28/2012 Appointment: Ling Collins WPtel: [facility] Other 01/28/2012 Patient Education: Patient Medication Summary [...] this time. 01/09/2012 Appointment: Ling Collins WPtel: [address] [place] [address] Other 01/09/2012 Patient Education: Patient Medication Summary [...] any worse. 10/17/2011 Appointment: Yennifer Field WPtel: [address] [place], [place] [id number] Other 10/17/2011 Patient Education: Patient Medication Summary [...] through their insurance - Fax number - [phone]; phone number - [phone]. Carafate - with meal s and at [...] through their insurance - Fax number - [phone]; phone number - [phone]. topamax 25mg tablet to be tapered as follows: 1tab AM & 2 at hs x2wks, [id number] x2wks, then 1/2 am & 1hs x1wk, [...] 1tab AM & 2 at hs x2wks, [id number] x2wks, then 1/2 am & 1hs x1wk, [...] department. Pt given order for EGD/Colonoscopy at [address] Garcia. . Pneumonia - [...] to keep appt with the specialist in [place] for migraine surgery. Topical pain in legs [...]
--- OUTSIDE RECORDS SUMMARY | 2020-03-15 06:43 | XMS REPORT | CCD ---
Author Author Shannon Field Organization Ling Collins MD, [facility] Address [address] [place] [address] Phone Care Team Providers Care Senior Insight Manager Name Role Phone PP Unavailable CCM Unavailable Summary Purpose Interface Exchange Insurance Providers Payer name Policy type / Coverage type Covered green party ID Effective Begin Date Effective End Date [email or web address] [facility] [employer] [id number] Unkno wn Family history Mother Diagnosis Age [...] a daycare 10/17/[address]: 200239818 Nonsmoker 10/17/[address]: 777403115 Never drinks alcohol 10/17/2011 Allergies, Adverse Reactions, [...] 5 mg tablet,extended release 24 hr RxNorm: 195698 TAKE 1 TABLET BY MOUTH ONCE DAILY 10/21/2018 No Stop Date Active Protonix 40 mg table t,delayed release RxNorm: 665398 TAKE 1 TABLET BY MOUT H ONCE DAILY 10/21/2018 No Stop Date Active oxybutynin chloride ER 5 mg tablet,extended release 24 hr RxNorm: 282746 TAKE 1 TABLET BY MOUTH ONCE DAILY 07/20/2018 10/20/2018 Inactive Protonix 40 mg table t,delayed release RxNorm: 955323 TAKE 1 TABLET BY MOUT H ONCE DAILY 07/20/2018 10/20/2018 Inactive Xanax 0.25 mg tablet RxNorm: 098100 1 Tablet(s) PO Q8 as needed anxiety 02/17/2018 03/18/2018 In active oxybutynin chloride ER 5 mg tablet,extended release 24 hr RxNorm: 764780 TAKE ONE TABLET BY MOUTH ONCE DAILY 02/17/2018 07/19/2018 Inactive Protonix 40 mg table t,delayed release RxNorm: 631547 TAKE ONE TABLET BY [facility] ONCE DAILY 02/17/2018 07/19/2018 Inactive Xanax 0.25 mg tablet RxNorm: 521644 1 Tablet(s) PO Q8 as needed anxiety 10/16/2017 11/12/2017 In active Zantac 150 mg tablet RxNorm: 364028 1 Tablet(s) PO daily 09/15/2017 03/13/2018 Inactive Carafate 1 gram tablet RxNorm: 900252 1 Tablet(s) PO AC & HS 09/15/2017 03/13/2018 Inactive oxybutynin chloride ER 5 mg tablet,extended release 24 hr RxNorm: 259931 TAKE ONE TABLET BY MOUTH ONCE DAILY 08/18/2017 02/13/2018 Inactive Protonix 40 mg table t,delayed release RxNorm: 710962 TAKE ONE TABLET BY [facility] ONCE DAILY 08/18/2017 02/13/2018 Inactive Carafate 1 gram tablet RxNorm: 426459 1 Tablet(s) PO AC & HS 07/09/2017 08/07/2017 Inactive Protonix 40 mg table t,delayed release RxNorm: 202622 1 Tablet(s) PO daily 07/09/2017 08/07/2017 In active Zofran 4 mg tablet RxNorm: 481466 1 Tablet(s) PO TID as needed nausea 07/09/2017 07/13/2017 In active Zantac 150 mg tablet RxNorm: 489801 1 Tablet(s) PO daily 07/09/2017 08/07/2017 Inactive losartan 25 mg tablet RxNorm: 124374 1 Tablet(s) PO daily 06/24/2017 10/21/2017 Inactive oxybutynin chloride ER 5 mg tablet,extended release 24 hr RxNorm: 376968 TAKE ONE TABLET BY MOUTH ONCE DAILY 05/15/2017 08/12/2017 Inactive oxybutynin chloride ER 5 mg tablet,extended release 24 hr RxNorm: 980847 TAKE ONE TABLET BY MOUTH ONCE DAILY 02/07/2017 05/07/2017 Inactive oxybutynin chloride ER 5 mg tablet,extended release 24 hr RxNorm: 421447 TAKE ONE TABLET BY MOUTH ONCE DAILY 10/01/2016 01/28/2017 Inactive oxybutynin chloride ER 5 mg tablet,extended release 24 hr RxNorm: 092049 TAKE ONE TABLET BY MOUTH ONCE DAILY 05/27/2016 09/23/2016 Inactive cranberry fruit conc entrate 500 mg capsule RxNorm: 451127 1 Capsule(s) PO two t o three times weekly 04/23/2016 No Stop Date Active Nexium 40 mg capsule ,delayed release RxNorm: 606418 1 Capsule(s) PO BID 04/23/2016 07/23/2017 In active oxybutynin chloride ER 5 mg tablet,extended release 24 hr RxNorm: 266896 1 Tablet(s) PO daily 01/23/2016 05/21/2016 Inactive pantoprazole 40 mg t ablet,delayed release RxNorm: 384214 1 Tablet(s) PO BID TA KE ONE TABLET BY MOUTH EVERY DAY 12/12/2015 12/11/2015 Inactive pantoprazole 40 mg t ablet,delayed release RxNorm: 669619 1 Tablet(s) PO BID TA KE ONE TABLET BY MOUTH TWICE EVERY DAY 12/12/2015 04/22/2016 Inactive Vesicare 5 mg tablet RxNorm: 809212 1 Tablet(s) PO QPM 11/21/2015 01/21/2016 Inactive Carafate 1 gram tablet RxNorm: 495249 1 Tablet(s) PO QID dissolve in 10mL of w ater 11/21/2015 04/22/2016 Inactive pantoprazole 40 mg t ablet,delayed release RxNorm: 473265 1 Tablet(s) PO daily TAKE ONE TABLET BY MOUTH EVERY DAY 04/05/2015 12/11/2015 Inactive Topamax 100 mg tablet RxNorm: 646290 1 Tablet(s) UD 1tab AM & 2 at hs x2wks, [id number] x2wks, then 1/2 am & 1hs x1wk, then 1/2 bidx 1wk, then 1/2 at hs x1wk then stop 08/23/2014 01/19/2015 Inactive Vitamin B-12 1,000 m cg/mL injection solution RxNorm: 438625 2x per month Millilit er(s) Inj INJECT 1ML EVERY 2 WEEKS 08/23/2014 11/20/2015 Inactive amitriptyline 50 mg tablet RxNorm: 450563 1 Tablet(s) QPM 08/23/2014 11/20/2015 Inactive amitriptyline 50 mg tablet RxNorm: 022614 TAKE ONE TABLET BY MO [place] TWICE DAILY 08/18/2014 08/22/2014 In active amitriptyline 50 mg tablet RxNorm: 695584 TAKE ONE TABLET BY MO [facility] TWICE DAILY 05/27/2014 08/17/2014 In active Topamax 100 mg tablet RxNorm: 906121 TAKE ONE TABLET BY MOUTH TWICE DAILY 05/27/2014 08/22/2014 In active Topamax 100 mg tablet RxNorm: 526160 Tablet(s) PO TAKE ONE TABLET BY MOUTH TW ICE DAILY 03/24/2014 05/26/2014 Inactive pantoprazole 40 mg t ablet,delayed release RxNorm: 224179 1 Tablet(s) PO daily TAKE ONE TABLET BY MOUTH EVERY DAY 03/18/2014 03/12/2015 Inactive nystatin 100,000 uni t/mL oral suspension RxNorm: 124197 5 Milliliter(s) PO QI D 03/07/2014 03/06/2014 In active nystatin 100,000 uni t/mL oral suspension RxNorm: 655610 5 Milliliter(s) PO QI D 03/07/2014 03/16/2014 In active Topamax 100 mg tablet RxNorm: 372933 Tablet(s) PO TAKE ONE TABLET BY MOUTH TW ICE DAILY 02/21/2014 03/23/2014 Inactive Vitamin B-12 1,000 m cg/mL injection solution RxNorm: 429528 solution Inj INJECT 1 ML EVERY 2 WEEKS 12/21/2013 08/22/2014 Inactive Frova 2.5 mg tablet RxNorm: 041737 1 Tablet(s) PO 12/20/2013 11/20/2015 Inactive at o nset of migraine Frova 2.5 mg tablet RxNorm: 286999 1 Tablet(s) PO 10/28/2013 12/19/2013 Inactive at o nset of migraine Topamax 100 mg tablet RxNorm: 906130 Tablet(s) PO TAKE ONE TABLET BY MOUTH TW ICE DAILY 10/21/2013 2014 Inactive Topamax 100 mg tablet RxNorm: 408888 Tablet(s) PO TAKE ONE TABLET BY MOUTH TW ICE DAILY 08/23/2013 10/20/2013 Inactive Topamax 100 mg tablet RxNorm: 304071 1 Tablet(s) PO BID TAKE ONE TABLET BY [facility] TWICE DAILY 05/24/2013 08/22/2013 Inactive Demerol (PF) 50 mg/m L Injection RxNorm: 255695 1/2 Milliliter(s) Inj 04/06/2013 04/06/2013 Inactive promethazine 25 mg/m L Injection RxNorm: 276037 1 Milliliter(s) Inj 04/06/2013 04/06/2013 Inactive promethazine 25 mg/m L Injection RxNorm: 779125 2 Milliliter(s) Inj 03/26/2013 03/26/2013 Inactive Demerol (PF) 50 mg/m L Injection RxNorm: 349312 Milliliter(s) Inj 03/26/2013 03/26/2013 Inactive amitriptyline 50 mg tablet RxNorm: 580259 Tablet(s) PO TAKE ONE TABLET BY MOUTH TWICE DAILY 03/22/2013 05/26/2014 Inactive Topamax 100 mg tablet RxNorm: 951545 1 Tablet(s) PO BID 03/19/2013 03/18/2013 Inactive Topamax 100 mg tablet RxNorm: 162286 1 Tablet(s) PO BID 03/19/2013 05/24/2013 Inactive Demerol (PF) 50 mg/m L Injection RxNorm: 771320 1 Milliliter(s) Inj 03/11/2013 03/11/2013 Inactive Topamax 50 mg tablet RxNorm: 193699 1.5 Tablet(s) PO BID 03/10/2013 03/18/2013 Inactive promethazine 25 mg t ablet RxNorm: 124239 1 Tablet(s) PO Q6 PRN 02/25/2013 11/20/2015 Inactive pantoprazole 40 mg t ablet,delayed release RxNorm: 520809 Tablet(s) PO TAKE ONE TABLET BY MOUTH EVERY DAY 02/22/2013 03/17/2014 Inactive promethazine 25 mg/m L Injection RxNorm: 795580 1 Milliliter(s) Inj 02/18/2013 02/18/2013 Inactive Demerol (PF) 25 mg/0 .5 mL Injection RxNorm: 707921 1 Milliliter(s) Inj 02/18/2013 02/18/2013 In active total of 50mg given IM Topamax 50 mg tablet RxNorm: 647051 Tablet(s) PO TAKE ONE TABLET BY MOUTH TW ICE DAILY 02/04/2013 03/09/2013 Inactive prednisone 20 mg tablet RxNorm: 183685 3 Tablet(s) PO daily 11/16/2012 11/20/2012 Inactive ciprofloxacin 500 mg tablet RxNorm: 234954 1 Tablet(s) PO BID 11/16/2012 11/22/2012 Inactive Kenalog 40 mg/mL Lovely p for Injection RxNorm: 2329378 1 Milliliter(s) Inj 11/16/2012 11/16/2012 In active Tamiflu 75 mg capsule RxNorm: 856527 1 Capsule(s) PO BID 11/16/2012 11/20/2012 Inactive esterified estrogens -methyltestosterone 1.25 mg-2.5 mg tablet RxNorm: 519781 1 Tablet(s) PO every other day 10/29/2012 06/23/2017 Inactive amitriptyline 50 mg tablet RxNorm: 583500 1 Tablet(s) PO daily 10/29/2012 03/21/2013 Inactive TAKE ONE TABLET BY MOUTH TWICE DAILY Topamax 50 mg tablet RxNorm: 837154 1 Tablet(s) PO BID 10/29/2012 01/26/2013 Inactive Vitamin B-12 1,000 m cg/mL injection solution RxNorm: 489207 1 Milliliter(s) Inj Q 2weeks INJECT 1ML TWICE A MONTH 10/29/2012 12/20/2013 Inactive takes 2 times monthly. ok to give multidose vial if available. if not please give 3 month supply of single dose vials Vitamin B-12 1,000 m cg/mL Injection RxNorm: 271040 Solution Inj INJECT 1 ML TWICE A MONTH 10/26/2012 10/28/2012 Inactive Topamax 25 mg tablet RxNorm: 892928 1 Tablet(s) PO BID 10/13/2012 03/10/2013 Inactive Topamax 25 mg tablet RxNorm: 918612 1 Tablet(s) PO as directed 09/24/2012 10/12/2012 Inactive 1 tab bid x 2 weeks1 tab daily x 1 month 1 tab qod x 1 week then stop Percocet 10 mg-325 m g tablet RxNorm: 7378350 1 Tablet(s) PO Q4 PRN 07/22/2012 11/20/2015 Inactive diazepam 5 mg tablet RxNorm: 022287 1 Tablet(s) PO TID PRN 07/22/2012 01/17/2013 Inactive amitriptyline 50 mg tablet RxNorm: 313254 Tablet(s) PO 06/17/2012 10/28/2012 Inactive TAKE ONE TABLET BY MOUTH TWICE DAILY Topamax 25 mg tablet RxNorm: 197771 1 Tablet(s) PO as directed 04/14/2012 06/01/2012 Inactive 1 tab bid x 2 weeks1 tab daily x 1 month 1 tab qod x 1 week then stop Topamax 25 mg Tab RxNorm: 199499 1 Tablet(s) PO as directed 03/16/2012 04/13/2012 Inactive 1 tab bid x 2 weeks1 tab daily x 1 month 1 tab qod x 1 week then stop pantoprazole 40 mg t ablet,delayed release RxNorm: 021802 Tablet(s) PO 02/17/2012 02/21/2013 In active TAKE ONE TABLET BY MOUTH EVERY DAY Topamax 50 mg Tab RxNorm: 786300 Tablet(s) PO 01/21/2012 03/11/2012 Inactive plea se give pt #42 of the 50mg tablets, to take bid till gone.then 25mg q am and 50 q hs x 14 days then 25 mg bid thereafter # 44 amitriptyline 50 mg tablet RxNorm: 499651 Tablet(s) PO 12/18/2011 06/16/2012 Inactive TAKE ONE TABLET BY MOUTH TWICE DAILY Percocet 10 mg-325 m g tablet RxNorm: 0234458 1 Tablet(s) PO Q4 PRN 11/13/2011 07/21/2012 Inactive Vitamin B-12 1,000 m cg/mL Injection RxNorm: 787317 1 Milliliter(s) Inj 2 x month 10/17/2011 10/16/2011 In active Vitamin B-12 1,000 m cg/mL Injection RxNorm: 242822 1 Milliliter(s) Inj 2 x month 10/17/2011 10/25/2012 In active topiramate 100 mg Tab RxNorm: 417219 1 Tablet(s) PO BID 10/17/2011 01/20/2012 Inactive TAKE ONE TABLET BY MOUTH TWICE DAILY Kenalog 40 mg/mL Lovely p for Injection RxNorm: 5423321 1 Milliliter(s) Inj 10/17/2011 10/17/2011 In active diazepam 5 mg tablet RxNorm: 668453 1 Tablet(s) PO TID PRN 09/25/2011 03/22/2012 Inactive diazepam 5 mg Tab RxNorm: 277529 1 Tablet(s) PO TID PRN 09/15/2011 09/17/2011 Inactive topiramate 100 mg Tab RxNorm: 657074 Tablet(s) PO 08/25/2011 10/16/2011 Inactive TAKE ONE TABLET BY MOUTH TWICE DAILY topiramate 100 mg Tab RxNorm: 752669 1 Tablet(s) PO BID 08/21/2011 08/24/2011 Inactive pantoprazole 40 mg T ab, Delayed Release RxNorm: 914728 1 Tablet(s) PO daily 07/19/2011 08/17/2011 In active ibuprofen 800 mg Tab RxNorm: 497143 1 Tablet(s) PO Q8 PRN No Start Date Active Vitamin D3 5,000 uni t tablet RxNorm: 392403 1 Tablet(s) PO daily No Start Date Active multivitamin capsule RxNorm: 1 Capsule(s) PO daily No Start Date Active cranberry fruit conc entrate 250 mg chewable tablet RxNorm: 6898855 1 Tablet(s) PO two to three times weekly No Start Date 04/22/2016 Inactive amitriptyline 50 mg Tab RxNorm: 467609 1 Tablet(s) PO BID No Start Date 12/17/2011 Inactive Topamax 50 mg Tab RxNorm: 512912 Tablet(s) PO No Start Date 01/20/2012 Inactive plea se give pt #42 of the 50mg tablets, to take bid till gone.then 25mg q am and 50 q hs x 14 days then 25 mg bid thereafter # 44 cranberry 1,000 mg c apsule RxNorm: 759041 3 Capsule(s) PO daily No Start Date 01/22/2016 Inactive promethazine 25 mg t ablet RxNorm: 273153 1 Tablet(s) PO Q6 PRN No Start Date 02/24/2013 Inactive Topamax 25 mg Tab RxNorm: 154660 1 Tablet(s) PO BID No Start Date 03/15/2012 Inactive Xanax 0.25 mg tablet RxNorm: 387154 1 Tablet(s) PO as needed anxiety No Start Date 10/15/2017 Inactive Frova 2.5 mg tablet RxNorm: 651554 1 Tablet(s) PO No Start Date 10/27/2013 Inactive at onset of migraine Zithromax Z-Darion 250 mg Tab RxNorm: 442414 Tablet(s) PO No Start Date 10/28/2012 Inactive Diflucan 200 mg tablet RxNorm: 920953 1 Tablet(s) PO PRN No Start Date 06/13/2013 Inactive Fish Oil 1,000 mg ca psule RxNorm: 4 Capsule(s) PO daily No Start Date 08/31/2018 Inactive esterified estrogens -methyltestosterone 1.25 mg-2.5 mg tablet RxNorm: 837281 1 Tablet(s) PO daily No Start Date 10/28/2012 Inactive Demerol (PF) 50 mg/m L Injection RxNorm: 691623 1 Milliliter(s) Inj a s doctor directed No Start Date 06/13/2013 Inactive Tessalon 200 mg Cap RxNorm: 714548 1 Capsule(s) PO Q6 PRN No Start Date 10/28/2012 Inactive Medication Administered Medication Codes Instruc tions Start Date Status Demerol (PF) 50 mg/mL Injection RxNo rm: 866389 1/2Milliliter 04/06/2013 No longer Active promethazine 25 mg/mL Injection RxNo rm: 213556 1Milliliter 04/06/2013 N o longer Active promethazine 25 mg/mL Injection RxNo rm: 689132 2Milliliter 03/26/2013 N o longer Active Demerol (PF) 50 mg/mL Injection RxNo rm: 941315 Milliliter 03/26/2013 No longer Active Demerol (PF) 50 mg/mL Injection RxNo rm: 846902 1Milliliter 03/11/2013 N o longer Active Demerol (PF) 25 mg/0.5 mL Injection RxNorm: 735077 1Milliliter 02/18/2013 N o longer Active promethazine 25 mg/mL Injection RxNo rm: 693775 1Milliliter 02/18/2013 N o longer Active Kenalog 40 mg/mL Susp for Injection RxNorm: 6162332 1Milliliter 11/16/2012 N o longer Active Kenalog 40 mg/mL Susp for Injection RxNorm: 8920555 1Milliliter 10/17/2011 N o longer Active Immunizations [...] Code Result Date URINALYSIS NONAUTO W/O SCOPE 89779 Specific [place] 1.005 DateTime(Free Text in Apr) URINALYSIS NONAUTO W/O SCOPE 39814 PH 6.0 DateTime(Free Jamar t in Apr) URINALYSIS NONAUTO W/O SCOPE 98579 GLUCOSE DateTime(Free Text i n Aprima) URINALYSIS NONAUTO W/O SCOPE 16734 Protein DateTime(Free Text i n Aprima) URINALYSIS NONAUTO W/O SCOPE 04944 Blood DateTime(Free Text i n Aprima) URINALYSIS NONAUTO W/O SCOPE 79349 Bilirubin DateTime(Free Text i n Aprima) URINALYSIS NONAUTO W/O SCOPE 40996 Ketones DateTime(Free Text i n Aprima) URINALYSIS NONAUTO W/O SCOPE 13315 Urobilinogen DateTime(Free Text in ) URINALYSIS NONAUTO W/O SCOPE 89530 Nitrite DateTime(Free Text i n ) URINALYSIS NONAUTO W/O SCOPE 53681 Leukocytes DateTime(Fr ee Text in ) Review [...] Date URINALYSIS NONAUTO W /O SCOPE CPT-4: 46479 06/14/2013 THER/PROPH/DIAG INJ SC/IM CPT-4: 93314 04/06/2013 PROMETHAZINE HCL INJ ECTION CPT-4: J2550 04/06/2013 THER/PROPH/DIAG INJ SC/IM CPT-4: 32310 03/26/2013 PROMETHAZINE HCL INJ ECTION CPT-4: J2550 03/26/2013 THER/PROPH/DIAG INJ SC/IM CPT-4: 34535 03/11/2013 PROMETHAZINE HCL INJ ECTION CPT-4: J2550 02/18/2013 TRIAMCINOLONE ACET I [place] NOS CPT-4: J3301 11/16/2012 THER/PROPH/DIAG INJ SC/IM CPT-4: 94444 11/16/2012 TRIAMCINOLONE ACET I [place] NOS CPT-4: J3301 10/17/2011 THER/PROPH/DIAG INJ SC/IM CPT-4: 71051 10/17/2011 Vital Signs Date Vital 09/01/2018 Blood Pressure 1: 132/80 Code: 8480-6 BMI: 35.6 Code: 86504-4 Heart Rate 1: 80 bpm Height: 5'5" SpO2: 96% Weight: 214 lbs 02/26/2018 Blood Pressure 1: 126/72 Code: 8480-6 BMI: 36.1 Code: 87713-4 Heart Rate 1: 63 bpm Height: 5'5" SpO2: 98% Weight: 217 lbs 07/24/2017 Blood Pressure 1: 138/78 Code: 8480-6 BMI: 36.1 Code: 89400-1 Heart Rate 1: 78 bpm Height: 5'5" SpO2: 99% Weight: 217 lbs 07/09/2017 Blood Pressure 1: 150/84 Code: 8480-6 BMI: 36.4 Code: 65868-8 Heart Rate 1: 70 bpm Height: 5'5" SpO2: 98% Weight: 219 lbs 06/24/2017 Blood Pressure 1: 154/80 Code: 8480-6 BMI: 36.9 Code: 78629-5 Heart Rate 1: 68 bpm Height: 5'5" SpO2: 98% Weight: 222 lbs 04/23/2016 Blood Pressure 1: 136/78 Code: 8480-6 BMI: 38.4 Code: 59562-8 Heart Rate 1: 76 bpm Height: 5'5" SpO2: 98% Weight: 231 lbs 01/23/2016 Blood Pressure 1: 148/82 Code: 8480-6 BMI: 39.6 Code: 31742-5 Heart Rate 1: 76 bpm Height: 5'5" SpO2: 98% Weight: 238 lbs 11/21/2015 Blood Pressure 1: 140/80 Code: 8480-6 BMI: 38.9 Code: 58657-4 Heart Rate 1: 89 bpm Height: 5'5" SpO2: 98% Weight: 233 lbs 8 oz 08/23/2014 Blood Pressure 1: 140/72 Code: 8480-6 BMI: 38.1 Code: 56669-8 Height: 5'5" Weight: 229 lbs 03/01/2014 Blood [...] States she has been doing body by [employer] for about 3 months but is not [...] Encounters Encounter Performer Loca tion Codes Date ([id number]) 88999 EST. P ATIENT, LEVEL IV Diagnosis: Essential (primary) hypertension[ICD10: I10] Diagnosis: Acute laryngopharyngitis[ICD10: J06.0] Diagnosis: Other insomnia[ICD10: G47.09] Ling Collins MD, [facility] CPT-4: 34688 09/01/2018 ([id number]) 00607 EST. [facility] Diagnosis: Gastro-esophageal reflux disease without esophagitis[ICD10: K21.9] Diagnosis: Essential (primary) hypertension[ICD10: I10] Ling Collins MD, [facility] CPT-4: 06525 02/26/2018 ([id number]) 93240 EST. P ATIENT, LEVEL III Diagnosis: Other specified noninfective gastroenteritis and colitis[ICD10: K52.89] Diagnosis: Epigastric pain[ICD10: R10.13] Diagnosis: Generalized abdominal pain[ICD10: R10.84] Ling Collins MD, [facility] CPT-4: 74551 07/24/2017 50049 EST. PATIENT, LEVEL IV Diagnosis: Gastro-esophageal reflux disease without esophagitis[ICD10: K21.9] Claritza Collins MD, [facility] CPT-4: 94765 07/09/2017 ([id number]) PREV VISIT E ST AGE 40-64 Diagnosis: Encounter for general adult medical examination with abnormal findings[ICD10: Z00.01] Ling Collins MD, [facility] CPT-4: 03997 06/24/2017 ([id number]) 06150 EST. P ATIENT, LEVEL III Diagnosis: Gastro-esophageal reflux disease with esophagitis[ICD10: K21.0] [facility] CPT-4: 48683 04/23/2016 ([id number]) 97393 EST. P ATIENT, LEVEL IV Diagnosis: Gastro-esophageal reflux disease with esophagitis[ICD10: K21.0] Diagnosis: Morbid (severe) obesity due to excess calories[ICD10: E66.01] Diagnosis: Urge incontinence[ICD10: N39.41] [facility] CPT-4: 29368 01/23/2016 ([id number]) 08547 EST. P ATIENT, LEVEL IV Diagnosis: Metatarsalgia, right foot[ICD10: M77.41] Diagnosis: Achilles tendinitis, right leg[ICD10: M76.61] Diagnosis: Gastro-esophageal reflux disease with esophagitis[ICD10: K21.0] Ling Collins MD, [facility] CPT-4: 82728 11/21/2015 ([id number]) 29863 EST. [facility] Diagnosis: Biceps tendonitis[ICD9: 726.12] Diagnosis: Encounter for long-term (current) use of other medications[ICD9: V58.69] [facility] CPT-4: 45692 08/23/2014 ([id number]) 56981 EST. [facility] Diagnosis: Anxiety, generalized[ICD9: 300.02] Diagnosis: Pain, lower leg[ICD9: 729.5] [facility] CPT-4: 89776 03/01/2014 ([id number]) 11364 EST. [facility] Diagnosis: MIGRAINE NOS/NOT INTRCBL[ICD9: 346.90] [facility] CPT-4: 23656 06/14/2013 ([id number]) 02373 EST. P ATIENT, LEVEL III Diagnosis: MIGRAINE NOS/NOT INTRCBL[ICD9: 346.90] Diagnosis: NAUSEA ALONE[ICD9: 787.02] Ling Collins MD, [facility] CPT-4: 03258 03/10/2013 ([id number]) 14655 EST. P ATIENT, LEVEL III Diagnosis: Intractable migraine with aura without status migrainosus[ICD9: 346.01] Diagnosis: Nausea[ICD9: 787.02] Yennifer Collins MD, [facility] CPT-4: 96908 02/18/2013 ([id number]) 30846 EST. P ATIENT, LEVEL III Diagnosis: BACTERIAL PNEUMONIA[ICD9: 482.9] Diagnosis: Dyspnea[ICD9: 786.09] Ling Collins MD, [facility] CPT-4: 19516 11/16/2012 ([id number]) 50745 EST. P ATIENT, LEVEL III Diagnosis: MIGRAINE NOS/NOT INTRCBL[ICD9: 346.90] Diagnosis: ANXIETY STATE[ICD9: 300.00] Ling Collins MD, [facility] CPT-4: 16325 10/29/2012 ([id number]) 96682 EST. P ATIENT, LEVEL IV Diagnosis: MIGRAINE NOS/NOT INTRCBL[ICD9: 346.90] Diagnosis: JOINT PAIN-SHLDER[ICD9: 719.41] Diagnosis: OBESITY[ICD9: 278.00] Ling Collins MD, [facility] CPT-4: 18710 03/12/2012 ([id number]) 11766 EST. P ATIENT, LEVEL IV Diagnosis: Rotator cuff disorder[ICD9: 726.10] Diagnosis: Shoulder pain, acute[ICD9: 719.41] Diagnosis: Knee pain[ICD9: 719.46] Ling Collins MD, [facility] CPT-4: 71164 01/28/2012 ([id number]) 57549 EST. P ATIENT, LEVEL IV Diagnosis: Migraine[ICD9: 346.90] Diagnosis: Anxiety[ICD9: 300.00] Ling Collins MD, [facility] CPT-4: 04087 01/09/2012 88442 EST. PATIENT, LEVEL III Diagnosis: ACUTE URI[ICD9: 465.9] Diagnosis: Cough[ICD9: 786.2] Yennifer Collins MD, [facility] CPT-4: 46221 10/17/2011 Plan of Care Planned Activity Notes [...] 10mg nightly. 09/01/2018 Appointment: Ling Collins [facility] (15 min) Moderate 09/01/2018 Patient Education: [...] not improving. 02/26/2018 Appointment: Ling Collins WPtel: [facility] (15 min) Moderate 02/26/2018 Patient Education: Patient Medication Summary Completed 02/26/2018 [facility]ment: [facility] [phone] [facility] (15 min) Moderate 08/11/2017 Visit Plan: Abdominal pain, Colitis - advised liquid diet x 2-3 days, then advance to bland diet. If at any time her symptoms worsen, she is to go to the emergency department. Pt given order for EGD/Colonoscopy at [facility] [address] Garcia. 07/24/2017 Appointment: Ling [facility] [phone] [facility] (15 min) Moderate 07/24/2017 Patient Education: [...] through their insurance - Fax number - [phone] phone number - [phone]. 07/09/2017 Visit Plan: Esophageal Reflux - Sev [...] through their insurance - Fax number - [phone] phone number - [phone]. 07/09/2017 Appointment: Claritza Russell [facility]el[facility] ([facility] min) Complex 07/09/2017 Patient Education: Patient Medication Summary Completed 07/09/2017 Care Plan: Referral Order SNOMED-CT : [id number] Pending 07/09/2017 Visit Plan: Well Adult - [...] concerns. 06/24/2017 App[facility]ment: [facility] [phone] [facility] (15 min) Moderate 06/24/2017 Patient Education: [...] medication. 01/23/2016 [facility]ment: [facility] [phone] [facility] (15 min) Moderate 01/23/2016 Patient Education: [...] 11/21/2015 Care Plan: Referral Order SNOMED-CT : [id number] Ordered 11/21/2015 Visit Plan: Biceps tendonitis - [...] 1tab AM & 2 at hs x2wks, [id number] x2wks, then 1/2 am & 1hs x1wk, then 1/2 bidx 1wk, then 1/2 at hs x1wk then stop 08/23/2014 Appointment: Ling Collins WPtel: [address] [place], [place] [id number] Sick 08/23/2014 Patient Education: Patient Medication Summary Completed 08/23/2014 Visit Plan: Chronic migraine headac hes - recommended for pt to keep appt with the specialist in [place] for migraine surgery. Topical pain in legs - recommended pt to start on iron, monitor as pt weans off of the topamax post surgically. 03/01/2014 Appointment: Ling Collins WPtel: [id number] Follow up 03/01/2014 Patient Education: Patient Medication Summary Completed 03/01/2014 Visit Plan: Migraine headaches - pt has not yet had an intractible migraine since she had her botox injections. She is to follow up with her Neurologist about her migraine headaches.. 06/14/2013 App[facility]ment[facility] [phone] [id number] [place] Follow up 06/14/2013 Patient Education: [...] bid. 03/10/2013 Appointment: Ling Collins WPtel: [phone] [place] [id number] [place] [facility] 03/10/2013 Patient Education: Patient [...] picked up medication from [facility] pharmacy and we administered) and Phenergan 25mg IM. 02/18/2013 Appointment: [phone] [facility] [place] Other 02/18/2013 Patient Education: Patient [...] positive children. 11/16/2012 Appointment: Ling Collins WPtel: [facility] [address] 11/16/2012 Patient Education: Patient Medication Summary [...] her migraines. 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 03/12/2012 Appointment: Ling Collins WPtel: [phone] [facility] Other 03/12/2012 Patient Education: Patient Medication Summary Completed 03/12/2012 Visit Plan: mri of keft shoulder - rotator cuff instability kenalog shot referal to orthopedic surgeon for eval of left shoulder and right knee 01/28/2012 Appointment: Ling Collins WPtel: [facility] [address] Other 01/28/2012 Patient Education: Patient Medication [...] this time. 01/09/2012 Appointment: Ling Collins WPtel: [address] [place] [address] Other 01/09/2012 Patient Education: Patient Medication Summary [...] any worse. 10/17/2011 Appointment: Yennifer Field WPtel: [address] [place], [place] [id number] Other 10/17/2011 Patient Education: Patient [...] through their insurance - Fax number - [phone]; phone number - [phone]. Carafate - with meal s and at [...] through their insurance - Fax number - [phone]; phone number - [phone]. topamax 25mg tablet to be tapered as follows: 1tab AM & 2 at hs x2wks, mliq2brs x2wks, then 1/2 am & 1hs x1wk, [...] 1tab AM & 2 at hs x2wks, ozoh5cmb x2wks, then 1/2 am & 1hs x1wk, [...] department. Pt given order for EGD/Colonoscopy at [address] Garcia. . Pneumonia - [...] picked up medication from [facility] pharmacy and we administered) and Phenergan 25mg [...] to keep appt with the specialist in [place] for migraine surgery. Topical pain in legs [...]
--- OUTSIDE RECORDS SUMMARY | 2020-03-15 06:45 | XMS REPORT | Continuity of Care Document ---
Author Organization Unknown Address Unknown Phone Unavailable Allergies Active Description Code Type Severity Reaction Onset Reported/Identified Relationship to Patient Clinical Status Yes erythromycin base [id number] Drug Allergy Moderate NAUSEA 12/04/2015 Yes cephalexin [id number] Drug Allerg y Mild N/A 12/04/2015 Yes divalproex sodium [id number] Drug Allergy Mild N/A 12/04/2015 Yes niacin [id number] Drug Allergy Mild N/A 12/04/2015 Yes Sulfa (Sulfonamide Antibiotics) [id number] Drug Allergy Mild N/A 6 Yes cephalexin [id number] Drug Allerg y Mild SUNBURN 03/06/2020 Yes doxycycline [id number] Drug Aller gy Mild VOMITING 03/06/2020 Medications There is no data. Problems Date Dx Coded Attending Type Code Diagnosis Diagnosed By 10/01/2015 LESVIA CALVERT, CLARICE Jackson Ot K21. 9 GASTRO-ESOPHAGEAL REFLUX DISEASE WITHOUT 10/01/2015 LESVIA CALVERT, CLARICE Jackson Ot R07. 89 OTHER CHEST PAIN 10/01/2015 HANH CALVERT, GAUTAM Fortune Ot 793.89 10/01/2015 HANH CALVERT, GAUTAM Fortune Ot 611.72 10/01/2015 FRANNY CALVERT, DAIJA Odonnell Ot 278.00 10/01/2015 FRANNY CALVERT, DAIJA Odonnell Ot 333.94 10/01/2015 FRANNY CALVERT, DAIJA Odonnell Ot V58.69 10/01/2015 GAUTAM SCHAFER MD Ot V76.12 10/02/2015 GAUTAM SCHAFER MD Ot 793.89 10/02/2015 HANH CALVERT, GAUTAM Fortune Ot 611.72 10/02/2015 FRANNY CALVERT, DAIJA Odonnell Ot 278.00 10/02/2015 FRANNY CALVERT, DAIJA Odonnell Ot 333.94 10/02/2015 DAIJA BLANTON MD Ot V58.69 10/02/2015 GAUTAM SCHAFER MD Ot V76.12 10/16/2015 Ot 611.72 10/16/2015 Ot V76.12 10/16/2015 Ot V76.12 10/16/2015 Ot V76.12 10/16/2015 Ot 611.71 10/16/2015 Ot 718.81 10/16/2015 Ot V76.12 10/16/2015 HANH CALVERT, GAUTAM Tong Ot V76.12 10/16/2015 HANH CALVERT, GAUTAM Tong Ot Z12.31 10/16/2015 HANH CALVERT, GAUTAM Tong Ot Z12.31 12/04/2015 Ot V76.12 12/04/2015 Ot 611.71 12/04/2015 Ot 718.81 12/04/2015 Ot V76.12 12/04/2015 HANH CALVERT, GAUTAM Tong Ot V76.12 12/04/2015 HANH CALVERT, GAUTAM Tong Ot Z12.31 12/04/2015 NARESH CALVERT, JENNIFER Adam Ot K21.9 12/04/2015 NARESH CALVERT, JENNIFER Adam Ot Z01.818 12/04/2015 NARESH CALVERT, JENNIFER Adam Ot K25.9 GASTRIC ULCER, UNSP ACUTE OR CHRONIC, 12/04/2015 NARESH CALVERT, JENNIFER Adam Ot K29.70 GASTRITIS, UNSPECIFIED, WITHOUT BLEEDING 12/04/2015 NARESH CALVERT, JENNIFER Adam Ot K31.7 POLYP OF STOMACH AND DUODENUM 11/14/2016 Ot V76.12 OTH SCREEN MAMMO- MALIGN NEOPLASM OF [place] 11/14/2016 Ot 611.71 MAS TODYNIA 11/14/2016 Ot 718.81 JT DERANGMENT NEC-SHLDER 11/14/2016 Ot V76.12 OTH SCREEN MAMMO- MALIGN NEOPLASM OF [place] 11/14/2016 HANH CALVERT, GAUTAM Fortune Ot V76.12 OTH SCREEN MAMMO-MALIGN NEOPLASM OF [place] 11/14/2016 HANH CALVERT, GAUTAM Fortune Ot Z12.31 ENCNTR SCREEN MAMMOGRAM FOR MALIGNANT NE 11/14/2016 NARESH CALVERT, JENNIFER Adam Ot K21.9 GASTRO-ESOPHAGEAL REFLUX DISEASE WITHOUT 11/14/2016 NARESH CALVERT, JENNIFER Adam Ot Z01.818 ENCOUNTER FOR OTHER PREPROCEDURAL EXAMIN 11/25/2016 GAUTAM SCHAFER MD, Ot Z12.31 ENCNTR SCREEN MAMMOGRAM FOR MALIGNANT NE 02/24/2018 GAUTAM SCHAFER MD, Ot Z12.31 ENCNTR SCREEN MAMMOGRAM FOR MALIGNANT NE 12/08/2018 GAUTAM SCHAFER MD, Ot V76.12 OTH SCREEN MAMMO-MALIGN NEOPLASM OF [place] 12/08/2018 GAUTAM SCHAFER MD, Ot Z12.31 ENCNTR SCREEN MAMMOGRAM FOR MALIGNANT NE 12/08/2018 NARESH CALVERT, JENNIFER Adam Ot K21.9 GASTRO-ESOPHAGEAL REFLUX DISEASE WITHOUT 12/08/2018 NARESH CALVERT, JENNIFER Adam Ot Z01.818 ENCOUNTER FOR OTHER PREPROCEDURAL EXAMIN 12/08/2018 GAUTAM SCHAFER MD, Ot Z12.31 ENCNTR SCREEN MAMMOGRAM FOR MALIGNANT NE 12/08/2018 GAGAN CARRASCO [employer] WORK[employer] Ot R10.811 RIGHT UPPER QUADRANT ABDOMINAL TENDERNES 12/08/2018 GAGAN CARRASCO [employer] WORK[employer] Ot R79.82 ELEVATED C-REACTIVE PROTEIN (CRP) 12/08/2018 GAUTAM SCHAFER MD, Ot Z12.31 ENCNTR SCREEN MAMMOGRAM FOR MALIGNANT NE 12/08/2018 DILIP RUSSELL [employer] WORK[employer] Ot M25.461 EFFUSION, RIGHT KNEE 01/06/2019 DILIP RUSSELL [employer] WORK[employer] Ot M25.461 EFFUSION, RIGHT KNEE 12/28/2019 W m25.561 Ri ght knee pain Drew Dilip 12/28/2019 W Z01.818 Pr e-op evaluation Dilip Russell 12/31/2019 W m25.561 Ri ght knee pain Dilip Russell 12/31/2019 W Z01.818 Pr e-op evaluation Dilip Russell 03/09/2020 HAN CALVERT, CECILIO Medel Ot M17.11 UNILATERAL PRIMARY OSTEOARTHRITIS, RIGHT 03/09/2020 HAN CALVERT, CECILIO Medel Ot Z01.812 ENCOUNTER FOR PREPROCEDURAL LABORATORY E 03/09/2020 HAN CALVERT, CECILIO Medel Ot Z01.818 ENCOUNTER FOR OTHER PREPROCEDURAL EXAMIN Procedures There is no data. Results Test Result Range Complete blood count (CBC) with automate d white blood cell (WBC) differential - 03/06/20 09:45 Blood leukocytes automated count (number/volume) 7.3 10*3/uL 4.3-11.0 Blood erythrocytes automated count (number/volume) 4.26 10*6/uL 4.35-5.85 Venous blood hemoglobin measurement (mass/volume) 12.9 g/dL 11.5-16.0 Blood hematocrit (volume fraction) 39 % 35-52 Automated erythrocyte mean corpuscular volume 91 [ foz_us] 80-99 Automated erythrocyte mean corpuscular h emoglobin (mass per erythrocyte) 30 pg 25-34 Automated erythrocyte mean corpuscular h emoglobin concentration measurement (mass/volume) 33 g/dL 32-36 Automated erythrocyte distribution width ratio 13. 4 % 10.0- 14.5 Automated blood platelet count (count/volume) 265 10*3/uL 130-400 Automated blood platelet mean volume measurement 10.0 [foz_us] 7.4-10.4 Automated blood neutrophils/100 leukocytes 56 % 42-75 Automated blood lymphocytes/100 leukocytes 34 % 12-44 Blood monocytes/100 leukocytes 7 % 0-12 Automated blood eosinophils/100 leukocytes 3 % 0-10 Automated blood basophils/100 leukocytes 0 % 0-10 Blood neutrophils automated count (number/volume) 4.1 10*3 1.8-7.8 Blood lymphocytes automated count (number/volume) 2.5 10*3 1.0-4.0 Blood monocytes automated count (number/volume) 0. 5 10*3 0.0-1.0 Automated eosinophil count 0.2 10*3/uL 0 .0-0.3 Automated blood basophil count (count/volume) 0.0 10*3/uL 0.0-0.1 Comprehensive metabolic panel - 03/06/20 09:45 Serum or plasma sodium measurement (moles/volume) 138 mmol/L 135-145 Serum or plasma potassium measurement (moles/volume) 4.2 mmol/L 3.6-5.0 Serum or plasma chloride measurement (moles/volume) 104 mmol/L 98-107 Carbon dioxide 23 mmol/L 21-32 Serum or plasma anion gap determination (moles/volume) 11 mmol/L 5-14 Serum or plasma urea nitrogen measurement (mass/volume ) 30 mg/dL 7-18 Serum or plasma creatinine measurement (mass/volume) 1.17 mg/dL 0.60-1.30 Serum or plasma urea nitrogen/creatinine mass ratio 26 NRG Serum or plasma creatinine measurement w ith calculation of estimated glomerular filtration rate 47 NRG Serum or plasma glucose measurement (mass/volume) 101 mg/dL 70-105 Serum or plasma calcium measurement (mass/volume) 9.3 mg/dL 8.5-10.1 Serum or plasma total bilirubin measurement (mass/volu me) 0.6 mg/dL 0.1-1.0 Serum or plasma alkaline phosphatase vee surement (enzymatic activity/volume) 77 U/L 40-136 Serum or plasma aspartate aminotransfera se measurement (enzymatic activity/volume) 23 U/L 5-34 Serum or plasma alanine aminotransferase measurement (enzymatic activity/volume) 21 U/L 0-55 Serum or plasma protein measurement (mass/volume) 7.0 g/dL 6.4-8.2 Serum or plasma albumin measurement (mass/volume) 4.3 g/dL 3.2-4.5 CALCIUM CORRECTED 9.1 mg/dL 8.5-10.1 Erythrocyte sedimentation rate by kathy gren method - 03/06/20 09:45 Erythrocyte sedimentation rate by westergren method 15 mm 0- 30 PT panel in platelet poor plasma by coag ulation assay - 03/06/20 09:45 Prothrombin time (PT) in platelet poor plasma by coagu lation assay 12.6 s 12.2-14.7 INR in platelet poor plasma or blood by coagulation as say 0.9 0.8-1.4 Blood type T Indirect antibody screen pa patrice - 03/06/20 09:45 ABO+Rh group OP NRG Blood group antibody screen NEGATIVE NR G Methicillin resistant Staphylococcus aur eus (MRSA) screening culture - 03/06/20 09:50 Methicillin resistant Staphylococcus aureus (MRSA) scr eening culture NEG NRG Complete urinalysis with reflex to cultu re - 03/06/20 09:55 Urine color determination YELLOW NRG Urine clarity determination CLEAR NR G Urine pH measurement by test strip 6.0 5-9 Specific gravity of urine by test strip 1.010 1.016-1.022 Urine protein assay by test strip, semi-quantitative NEGATIVE NEGATIVE Urine glucose detection by automated test strip NE GATIVE NEGATIVE Erythrocytes detection in urine sediment by light micr oscopy NEGATIVE NEGATIVE Urine ketones detection by automated test strip NE GATIVE NEGATIVE Urine nitrite detection by test strip NEGATIVE NEGATIVE Urine total bilirubin detection by test strip NEGA TIVE NEGATIVE Urine urobilinogen measurement by automated test strip (mass/volume) 0.2 mg/dL < = 1.0 Urine leukocyte esterase detection by dipstick 1+ NEGATIVE Automated urine sediment erythrocyte cou nt by microscopy (number/high power field) NONE NRG Automated urine sediment leukocyte count by microscopy (number/high power field) [HPF] NRG Bacteria detection in urine sediment by light microsco py TRACE NRG Crystals detection in urine sediment by light microsco py NONE NRG Casts detection in urine sediment by light microscopy NONE NRG Mucus detection in urine sediment by light microscopy NEGATIVE NRG Complete urinalysis with reflex to culture YES NRG Bacterial urine culture - 03/06/20 09:55 Bacterial urine culture [id number] NRG COLONY COUNT 20,000 CFU/ML NRG SUSCEPTIBILITY SUSCEPTIBILITY REPORTED 03/08 09:35 NRG Dirithromycin susceptibility test by dis k diffusion - 03/06/20 09:55 Gentamicin susceptibility test by minimum inhibitory c oncentration <= NRG Trimethoprim/sulfamethoxazole susceptibi lity test by minimum inhibitoryconcentration <= NRG Levofloxacin susceptibility test by minimum inhibitory concentration <= NRG Ampicillin susceptibility test by minimum inhibitory c oncentration > NRG Cefazolin susceptibility test by minimum inhibitory co ncentration 2 NRG Ceftriaxone susceptibility test by minimum inhibitory concentration <= NRG Ciprofloxacin susceptibility test by minimum inhibitor y concentration <= NRG Meropenem susceptibility test by minimum inhibitory co ncentration <= NRG Nitrofurantoin susceptibility test by mn nimum inhibitory concentration <= NRG Amoxicillin and clavulanate potassium susc MINGO = NRG Coronavirus SARS-CoV-2 SO 2018 0 13:00 Coronavirus Ab [Units/volume] in Serum Negative Negative Encounters ACCT No. Visit Date/Time Discharge Status Pt. Type Provider Facility Loc./Unit Complaint [id number] 08/28/2017 10:37:34 08/28/2017 23:59:5 9 CLS Outpatient [id number] 12/28/2019 08:53:00 Document Registration [id number] 03/10/2020 08:00:00 020 16:00:00 DIS Outpatient HAN CALVERT, CECILIO Arceo [facility] PREOP OSTEOARTHRITIS RIGHT K NEE [id number] 02/24/2019 09:33:00 019 23:59:59 CLS Outpatient GAUTAM SCHAFER MD [facility] RAD SCREENING [id number] 12/08/2018 14:35:00 019 23:59:59 CLS Outpatient DILIP RUSSELL [employer] [facility] RAD RT KNEE PAIN [id number] 02/23/2018 09:46:00 018 23:59:59 CLS Outpatient GAUTAM SCHAFER MD [facility] RAD SCREENING [id number] 09/29/2017 06:57:00 017 23:59:59 CLS Outpatient GAGAN CARRASCO [employer] [facility] RAD TENDERNESS TO RUQ, ELEV ATED CRP [id number] 11/19/2016 14:47:00 017 23:59:59 CLS Outpatient GAUTAM SCHAFER MD [facility] RAD SCREENING [id number] 12/04/2015 07:25:00 016 11:06:00 DIS Outpatient JENNIFER INFANTE MD [facility] SDC GERD,REFLEX [id number] 11/29/2015 05:35:00 016 23:59:59 CLS Outpatient JENNIFER INFANTE MD [facility] PREOP GERD,REFLEX [id number] 10/11/2015 15:22:00 015 23:59:59 CLS Outpatient GAUTAM SCHAFER MD [facility] RAD ROUTINE SCREENI NG MAMMOGRAM [id number] 10/01/2015 16:37:00 015 18:38:00 DIS Emergency LESVIA CALVERT, CLARICE Jackson [facility] ER CHEST PAIN [id number] 08/17/2014 15:08:00 014 23:59:59 CLS Outpatient GAUTAM SCHAFER MD [facility] RAD [id number] 07/04/2014 10:54:00 014 23:59:59 CLS Outpatient DAIJA BLANTON MD [facility] LAB [id number] 01/27/2014 13:28:00 23:59:59 CLS Outpatient GAUTAM SCHAFER MD [facility] RAD [id number] 01/17/2014 10:40:00 23:59:59 CLS Outpatient GAUTAM SCHAFER MD [facility] RAD [id number] 08/10/2013 15:25:00 23:59:59 CLS Outpatient GAUTAM SCHAFER MD [facility] RAD ROUTINE [id number] 03/15/2020 08:00:00 P PATT SHORT MD, CECILIO Medel OSTEOARTHRITIS RIGHT KNEE [id number] 07/30/2012 15:43:00 Document Registration [id number] 01/30/2012 10:58:00 Document Registration [id number] 10/29/2011 08:51:00 Document Registration [id number] 07/10/2011 15:13:00 Document Registration [id number] 06/12/2010 13:33:00 Document Registration [id number] 05/31/2010 14:55:00 Document Registration
--- OUTSIDE RECORDS SUMMARY | 2020-03-15 06:45 | XMS REPORT | CCD ---
Author Author Shannon Field Organization Ling Collins MD, [facility] Address [address] [place] [address] Phone Care Team Providers Care Aromatherapist Name Role Phone PP Unavailable CCM Unavailable Summary Purpose Interface Exchange Insurance Providers Payer name Policy type / Coverage type Covered alliance party ID Effective Begin Date Effective End Date [employer] [facility] [id number] Unkno wn Family history Mother Diagnosis Age [...] a daycare 10/17/[address]: 513196904 Nonsmoker 10/17/[address]: 651953458 Never drinks alcohol 10/17/2011 Allergies, Adverse Reactions, [...] 5 mg tablet,extended release 24 hr RxNorm: 267360 TAKE 1 TABLET BY MOUTH ONCE DAILY 07/20/2018 No Stop Date Active Protonix 40 mg table t,delayed release RxNorm: 243899 TAKE 1 TABLET BY MOUT H ONCE DAILY 07/20/2018 No Stop Date Active Xanax 0.25 mg tablet RxNorm: 010110 1 Tablet(s) PO Q8 as needed anxiety 02/17/2018 03/18/2018 In active oxybutynin chloride ER 5 mg tablet,extended release 24 hr RxNorm: 745640 TAKE ONE TABLET BY MOUTH ONCE DAILY 02/17/2018 07/19/2018 Inactive Protonix 40 mg table t,delayed release RxNorm: 858708 TAKE ONE TABLET BY MO [facility] ONCE DAILY 02/17/2018 07/19/2018 Inactive Xanax 0.25 mg tablet RxNorm: 558141 1 Tablet(s) PO Q8 as needed anxiety 10/16/2017 11/12/2017 In active Zantac 150 mg tablet RxNorm: 257812 1 Tablet(s) PO daily 09/15/2017 03/13/2018 Inactive Carafate 1 gram tablet RxNorm: 230570 1 Tablet(s) PO AC & HS 09/15/2017 03/13/2018 Inactive oxybutynin chloride ER 5 mg tablet,extended release 24 hr RxNorm: 481983 TAKE ONE TABLET BY MOUTH ONCE DAILY 08/18/2017 02/13/2018 Inactive Protonix 40 mg table t,delayed release RxNorm: 022707 TAKE ONE TABLET BY [facility] ONCE DAILY 08/18/2017 02/13/2018 Inactive Carafate 1 gram tablet RxNorm: 218697 1 Tablet(s) PO AC & HS 07/09/2017 08/07/2017 Inactive Protonix 40 mg table t,delayed release RxNorm: 106942 1 Tablet(s) PO daily 07/09/2017 08/07/2017 In active Zofran 4 mg tablet RxNorm: 008803 1 Tablet(s) PO TID as needed nausea 07/09/2017 07/13/2017 In active Zantac 150 mg tablet RxNorm: 102804 1 Tablet(s) PO daily 07/09/2017 08/07/2017 Inactive losartan 25 mg tablet RxNorm: 923647 1 Tablet(s) PO daily 06/24/2017 10/21/2017 Inactive oxybutynin chloride ER 5 mg tablet,extended release 24 hr RxNorm: 117640 TAKE ONE TABLET BY MOUTH ONCE DAILY 05/15/2017 08/12/2017 Inactive oxybutynin chloride ER 5 mg tablet,extended release 24 hr RxNorm: 273051 TAKE ONE TABLET BY MOUTH ONCE DAILY 02/07/2017 05/07/2017 Inactive oxybutynin chloride ER 5 mg tablet,extended release 24 hr RxNorm: 372384 TAKE ONE TABLET BY MOUTH ONCE DAILY 10/01/2016 01/28/2017 Inactive oxybutynin chloride ER 5 mg tablet,extended release 24 hr RxNorm: 793954 TAKE ONE TABLET BY MOUTH ONCE DAILY 05/27/2016 09/23/2016 Inactive cranberry fruit conc entrate 500 mg capsule RxNorm: 049565 1 Capsule(s) PO two t o three times weekly 04/23/2016 No Stop Date Active Nexium 40 mg capsule ,delayed release RxNorm: 815883 1 Capsule(s) PO BID 04/23/2016 07/23/2017 In active oxybutynin chloride ER 5 mg tablet,extended release 24 hr RxNorm: 458357 1 Tablet(s) PO daily 01/23/2016 05/21/2016 Inactive pantoprazole 40 mg t ablet,delayed release RxNorm: 668930 1 Tablet(s) PO BID TA KE ONE TABLET BY MOUTH EVERY DAY 12/12/2015 12/11/2015 Inactive pantoprazole 40 mg t ablet,delayed release RxNorm: 919648 1 Tablet(s) PO BID TA KE ONE TABLET BY MOUTH TWICE EVERY DAY 12/12/2015 04/22/2016 Inactive Vesicare 5 mg tablet RxNorm: 617984 1 Tablet(s) PO QPM 11/21/2015 01/21/2016 Inactive Carafate 1 gram tablet RxNorm: 052634 1 Tablet(s) PO QID dissolve in 10mL of w ater 11/21/2015 04/22/2016 Inactive pantoprazole 40 mg t ablet,delayed release RxNorm: 014871 1 Tablet(s) PO daily TAKE ONE TABLET BY MOUTH EVERY DAY 04/05/2015 12/11/2015 Inactive Topamax 100 mg tablet RxNorm: 915128 1 Tablet(s) UD 1tab AM & 2 at hs x2wks, eocu0sre x2wks, then 1/2 am & 1hs x1wk, then 1/2 bidx 1wk, then 1/2 at hs x1wk then stop 08/23/2014 01/19/2015 Inactive Vitamin B-12 1,000 m cg/mL injection solution RxNorm: 868530 2x per month Millilit er(s) Inj INJECT 1ML EVERY 2 WEEKS 08/23/2014 11/20/2015 Inactive amitriptyline 50 mg tablet RxNorm: 456772 1 Tablet(s) QPM 08/23/2014 11/20/2015 Inactive amitriptyline 50 mg tablet RxNorm: 160689 TAKE ONE TABLET BY [facility] TWICE DAILY 08/18/2014 08/22/2014 In active amitriptyline 50 mg tablet RxNorm: 709950 TAKE ONE TABLET BY MO [facility] TWICE DAILY 05/27/2014 08/17/2014 In active Topamax 100 mg tablet RxNorm: 645032 TAKE ONE TABLET BY MOUTH TWICE DAILY 05/27/2014 08/22/2014 In active Topamax 100 mg tablet RxNorm: 137789 Tablet(s) PO TAKE ONE TABLET BY MOUTH TW ICE DAILY 03/24/2014 05/26/2014 Inactive pantoprazole 40 mg t ablet,delayed release RxNorm: 977880 1 Tablet(s) PO daily TAKE ONE TABLET BY MOUTH EVERY DAY 03/18/2014 03/12/2015 Inactive nystatin 100,000 uni t/mL oral suspension RxNorm: 492099 5 Milliliter(s) PO QI D 03/07/2014 03/06/2014 In active nystatin 100,000 uni t/mL oral suspension RxNorm: 563633 5 Milliliter(s) PO QI D 03/07/2014 03/16/2014 In active Topamax 100 mg tablet RxNorm: 675013 Tablet(s) PO TAKE ONE TABLET BY MOUTH TW ICE DAILY 02/21/2014 03/23/2014 Inactive Vitamin B-12 1,000 m cg/mL injection solution RxNorm: 894134 solution Inj INJECT 1 ML EVERY 2 WEEKS 12/21/2013 08/22/2014 Inactive Frova 2.5 mg tablet RxNorm: 751014 1 Tablet(s) PO 12/20/2013 11/20/2015 Inactive at o nset of migraine Frova 2.5 mg tablet RxNorm: 010174 1 Tablet(s) PO 10/28/2013 12/19/2013 Inactive at o nset of migraine Topamax 100 mg tablet RxNorm: 308219 Tablet(s) PO TAKE ONE TABLET BY MOUTH TW ICE DAILY 10/21/2013 2014 Inactive Topamax 100 mg tablet RxNorm: 913641 Tablet(s) PO TAKE ONE TABLET BY MOUTH TW ICE DAILY 08/23/2013 10/20/2013 Inactive Topamax 100 mg tablet RxNorm: 988163 1 Tablet(s) PO BID TAKE ONE TABLET BY MO [facility] TWICE DAILY 05/24/2013 08/22/2013 Inactive Demerol (PF) 50 mg/m L Injection RxNorm: 360916 1/2 Milliliter(s) Inj 04/06/2013 04/06/2013 Inactive promethazine 25 mg/m L Injection RxNorm: 109144 1 Milliliter(s) Inj 04/06/2013 04/06/2013 Inactive promethazine 25 mg/m L Injection RxNorm: 636796 2 Milliliter(s) Inj 03/26/2013 03/26/2013 Inactive Demerol (PF) 50 mg/m L Injection RxNorm: 726477 Milliliter(s) Inj 03/26/2013 03/26/2013 Inactive amitriptyline 50 mg tablet RxNorm: 261759 Tablet(s) PO TAKE ONE TABLET BY MOUTH TWICE DAILY 03/22/2013 05/26/2014 Inactive Topamax 100 mg tablet RxNorm: 078879 1 Tablet(s) PO BID 03/19/2013 03/18/2013 Inactive Topamax 100 mg tablet RxNorm: 329593 1 Tablet(s) PO BID 03/19/2013 05/24/2013 Inactive Demerol (PF) 50 mg/m L Injection RxNorm: 258103 1 Milliliter(s) Inj 03/11/2013 03/11/2013 Inactive Topamax 50 mg tablet RxNorm: 731002 1.5 Tablet(s) PO BID 03/10/2013 03/18/2013 Inactive promethazine 25 mg t ablet RxNorm: 551575 1 Tablet(s) PO Q6 PRN 02/25/2013 11/20/2015 Inactive pantoprazole 40 mg t ablet,delayed release RxNorm: 449650 Tablet(s) PO TAKE ONE TABLET BY MOUTH EVERY DAY 02/22/2013 03/17/2014 Inactive promethazine 25 mg/m L Injection RxNorm: 464278 1 Milliliter(s) Inj 02/18/2013 02/18/2013 Inactive Demerol (PF) 25 mg/0 .5 mL Injection RxNorm: 295790 1 Milliliter(s) Inj 02/18/2013 02/18/2013 In active total of 50mg given IM Topamax 50 mg tablet RxNorm: 730611 Tablet(s) PO TAKE ONE TABLET BY MOUTH TW ICE DAILY 02/04/2013 03/09/2013 Inactive prednisone 20 mg tablet RxNorm: 933478 3 Tablet(s) PO daily 11/16/2012 11/20/2012 Inactive ciprofloxacin 500 mg tablet RxNorm: 350601 1 Tablet(s) PO BID 11/16/2012 11/22/2012 Inactive Kenalog 40 mg/mL Lovely p for Injection RxNorm: 3546924 1 Milliliter(s) Inj 11/16/2012 11/16/2012 In active Tamiflu 75 mg capsule RxNorm: 996806 1 Capsule(s) PO BID 11/16/2012 11/20/2012 Inactive esterified estrogens -methyltestosterone 1.25 mg-2.5 mg tablet RxNorm: 104277 1 Tablet(s) PO every other day 10/29/2012 06/23/2017 Inactive amitriptyline 50 mg tablet RxNorm: 005536 1 Tablet(s) PO daily 10/29/2012 03/21/2013 Inactive TAKE ONE TABLET BY MOUTH TWICE DAILY Topamax 50 mg tablet RxNorm: 089494 1 Tablet(s) PO BID 10/29/2012 01/26/2013 Inactive Vitamin B-12 1,000 m cg/mL injection solution RxNorm: 960824 1 Milliliter(s) Inj Q 2weeks INJECT 1ML TWICE A MONTH 10/29/2012 12/20/2013 Inactive takes 2 times monthly. ok to give multidose vial if available. if not please give 3 month supply of single dose vials Vitamin B-12 1,000 m cg/mL Injection RxNorm: 759768 Solution Inj INJECT 1 ML TWICE A MONTH 10/26/2012 10/28/2012 Inactive Topamax 25 mg tablet RxNorm: 538869 1 Tablet(s) PO BID 10/13/2012 03/10/2013 Inactive Topamax 25 mg tablet RxNorm: 922959 1 Tablet(s) PO as directed 09/24/2012 10/12/2012 Inactive 1 tab bid x 2 weeks1 tab daily x 1 month 1 tab qod x 1 week then stop Percocet 10 mg-325 m g tablet RxNorm: 7815636 1 Tablet(s) PO Q4 PRN 07/22/2012 11/20/2015 Inactive diazepam 5 mg tablet RxNorm: 522847 1 Tablet(s) PO TID PRN 07/22/2012 01/17/2013 Inactive amitriptyline 50 mg tablet RxNorm: 577016 Tablet(s) PO 06/17/2012 10/28/2012 Inactive TAKE ONE TABLET BY MOUTH TWICE DAILY Topamax 25 mg tablet RxNorm: 715866 1 Tablet(s) PO as directed 04/14/2012 06/01/2012 Inactive 1 tab bid x 2 weeks1 tab daily x 1 month 1 tab qod x 1 week then stop Topamax 25 mg Tab RxNorm: 269157 1 Tablet(s) PO as directed 03/16/2012 04/13/2012 Inactive 1 tab bid x 2 weeks1 tab daily x 1 month 1 tab qod x 1 week then stop pantoprazole 40 mg t ablet,delayed release RxNorm: 087071 Tablet(s) PO 02/17/2012 02/21/2013 In active TAKE ONE TABLET BY MOUTH EVERY DAY Topamax 50 mg Tab RxNorm: 804424 Tablet(s) PO 01/21/2012 03/11/2012 Inactive plea se give pt #42 of the 50mg tablets, to take bid till gone.then 25mg q am and 50 q hs x 14 days then 25 mg bid thereafter # 44 amitriptyline 50 mg tablet RxNorm: 311101 Tablet(s) PO 12/18/2011 06/16/2012 Inactive TAKE ONE TABLET BY MOUTH TWICE DAILY Percocet 10 mg-325 m g tablet RxNorm: 0959993 1 Tablet(s) PO Q4 PRN 11/13/2011 07/21/2012 Inactive Vitamin B-12 1,000 m cg/mL Injection RxNorm: 781678 1 Milliliter(s) Inj 2 x month 10/17/2011 10/16/2011 In active Vitamin B-12 1,000 m cg/mL Injection RxNorm: 134405 1 Milliliter(s) Inj 2 x month 10/17/2011 10/25/2012 In active topiramate 100 mg Tab RxNorm: 357978 1 Tablet(s) PO BID 10/17/2011 01/20/2012 Inactive TAKE ONE TABLET BY MOUTH TWICE DAILY Kenalog 40 mg/mL Lovely p for Injection RxNorm: 7632161 1 Milliliter(s) Inj 10/17/2011 10/17/2011 In active diazepam 5 mg tablet RxNorm: 783750 1 Tablet(s) PO TID PRN 09/25/2011 03/22/2012 Inactive diazepam 5 mg Tab RxNorm: 888461 1 Tablet(s) PO TID PRN 09/15/2011 09/17/2011 Inactive topiramate 100 mg Tab RxNorm: 209973 Tablet(s) PO 08/25/2011 10/16/2011 Inactive TAKE ONE TABLET BY MOUTH TWICE DAILY topiramate 100 mg Tab RxNorm: 742803 1 Tablet(s) PO BID 08/21/2011 08/24/2011 Inactive pantoprazole 40 mg T ab, Delayed Release RxNorm: 617214 1 Tablet(s) PO daily 07/19/2011 08/17/2011 In active ibuprofen 800 mg Tab RxNorm: 772919 1 Tablet(s) PO Q8 PRN No Start Date Active Vitamin D3 5,000 uni t tablet RxNorm: 669628 1 Tablet(s) PO daily No Start Date Active multivitamin capsule RxNorm: 1 Capsule(s) PO daily No Start Date Active cranberry fruit conc entrate 250 mg chewable tablet RxNorm: 4276794 1 Tablet(s) PO two to three times weekly No Start Date 04/22/2016 Inactive amitriptyline 50 mg Tab RxNorm: 276248 1 Tablet(s) PO BID No Start Date 12/17/2011 Inactive Topamax 50 mg Tab RxNorm: 463780 Tablet(s) PO No Start Date 01/20/2012 Inactive plea se give pt #42 of the 50mg tablets, to take bid till gone.then 25mg q am and 50 q hs x 14 days then 25 mg bid thereafter # 44 cranberry 1,000 mg c apsule RxNorm: 883741 3 Capsule(s) PO daily No Start Date 01/22/2016 Inactive promethazine 25 mg t ablet RxNorm: 472738 1 Tablet(s) PO Q6 PRN No Start Date 02/24/2013 Inactive Topamax 25 mg Tab RxNorm: 786017 1 Tablet(s) PO BID No Start Date 03/15/2012 Inactive Xanax 0.25 mg tablet RxNorm: 404277 1 Tablet(s) PO as needed anxiety No Start Date 10/15/2017 Inactive Frova 2.5 mg tablet RxNorm: 161191 1 Tablet(s) PO No Start Date 10/27/2013 Inactive at onset of migraine Zithromax Z-Darion 250 mg Tab RxNorm: 302049 Tablet(s) PO No Start Date 10/28/2012 Inactive Diflucan 200 mg tablet RxNorm: 030955 1 Tablet(s) PO PRN No Start Date 06/13/2013 Inactive Fish Oil 1,000 mg ca psule RxNorm: 4 Capsule(s) PO daily No Start Date 08/31/2018 Inactive esterified estrogens -methyltestosterone 1.25 mg-2.5 mg tablet RxNorm: 050303 1 Tablet(s) PO daily No Start Date 10/28/2012 Inactive Demerol (PF) 50 mg/m L Injection RxNorm: 586784 1 Milliliter(s) Inj a s doctor directed No Start Date 06/13/2013 Inactive Tessalon 200 mg Cap RxNorm: 560132 1 Capsule(s) PO Q6 PRN No Start Date 10/28/2012 Inactive Medication Administered Medication Codes Instruc tions Start Date Status Demerol (PF) 50 mg/mL Injection RxNo rm: 780170 1/2Milliliter 04/06/2013 No longer Active promethazine 25 mg/mL Injection RxNo rm: 966669 1Milliliter 04/06/2013 N o longer Active promethazine 25 mg/mL Injection RxNo rm: 544963 2Milliliter 03/26/2013 N o longer Active Demerol (PF) 50 mg/mL Injection RxNo rm: 521334 Milliliter 03/26/2013 No longer Active Demerol (PF) 50 mg/mL Injection RxNo rm: 819762 1Milliliter 03/11/2013 N o longer Active Demerol (PF) 25 mg/0.5 mL Injection RxNorm: 072874 1Milliliter 02/18/2013 N o longer Active promethazine 25 mg/mL Injection RxNo rm: 851506 1Milliliter 02/18/2013 N o longer Active Kenalog 40 mg/mL Susp for Injection RxNorm: 1247790 1Milliliter 11/16/2012 N o longer Active Kenalog 40 mg/mL Susp for Injection RxNorm: 1074549 1Milliliter 10/17/2011 N o longer Active Immunizations [...] Code Result Date URINALYSIS NONAUTO W/O SCOPE 79577 Specific [place] 1.005 DateTime(Free Text in Aprima) URINALYSIS NONAUTO W/O SCOPE 01870 PH 6.0 DateTime(Free Jamar t in ) URINALYSIS NONAUTO W/O SCOPE 48162 GLUCOSE DateTime(Free Text i n Aprima) URINALYSIS NONAUTO W/O SCOPE 17134 Protein DateTime(Free Text i n Aprima) URINALYSIS NONAUTO W/O SCOPE 78122 Blood DateTime(Free Text i n Aprima) URINALYSIS NONAUTO W/O SCOPE 80977 Bilirubin DateTime(Free Text i n Aprima) URINALYSIS NONAUTO W/O SCOPE 22406 Ketones DateTime(Free Text i n Aprima) URINALYSIS NONAUTO W/O SCOPE 61259 Urobilinogen DateTime(Free Text in Aprima) URINALYSIS NONAUTO W/O SCOPE 67032 Nitrite DateTime(Free Text i n Aprima) URINALYSIS NONAUTO W/O SCOPE 06888 Leukocytes DateTime(Fr ee Text in Apr) Review of Systems System Result Effective Dates [...] benign 06/14/2013 None Full Exam - General 1995 Musculoskeletal spine, ribs and pelvis Overall: spine benign 06/14/2013 None Full Exam - General 1995 Musculoskeletal spine, ribs and pelvis Overall: sacroiliac joint benign 06/14/2013 None Full Exam - General 1994 Musculoskeletal spine, ribs and pelvis Overall: right hip benign 06/14/2013 None Full Exam - General 1995 [...] Date URINALYSIS NONAUTO W /O SCOPE CPT-4: 89809 06/14/2013 THER/PROPH/DIAG INJ SC/IM CPT-4: 54418 04/06/2013 PROMETHAZINE HCL INJ ECTION CPT-4: J2550 04/06/2013 THER/PROPH/DIAG INJ SC/IM CPT-4: 20281 03/26/2013 PROMETHAZINE HCL INJ ECTION CPT-4: J2550 03/26/2013 THER/PROPH/DIAG INJ SC/IM CPT-4: 07101 03/11/2013 PROMETHAZINE HCL INJ ECTION CPT-4: J2550 02/18/2013 TRIAMCINOLONE ACET I [place] NOS CPT-4: J3301 11/16/2012 THER/PROPH/DIAG INJ SC/IM CPT-4: 53572 11/16/2012 TRIAMCINOLONE ACET I [place] NOS CPT-4: J3301 10/17/2011 THER/PROPH/DIAG INJ SC/IM CPT-4: 76168 10/17/2011 Vital Signs Date Vital 09/01/2018 Blood Pressure 1: 132/80 Code: 8480-6 BMI: 35.6 Code: 29616-7 Heart Rate 1: 80 bpm Height: 5'5" SpO2: 96% Weight: 214 lbs 02/26/2018 Blood Pressure 1: 126/72 Code: 8480-6 BMI: 36.1 Code: 07875-1 Heart Rate 1: 63 bpm Height: 5'5" SpO2: 98% Weight: 217 lbs 07/24/2017 Blood Pressure 1: 138/78 Code: 8480-6 BMI: 36.1 Code: 02706-4 Heart Rate 1: 78 bpm Height: 5'5" SpO2: 99% Weight: 217 lbs 07/09/2017 Blood Pressure 1: 150/84 Code: 8480-6 BMI: 36.4 Code: 54682-4 Heart Rate 1: 70 bpm Height: 5'5" SpO2: 98% Weight: 219 lbs 06/24/2017 Blood Pressure 1: 154/80 Code: 8480-6 BMI: 36.9 Code: 91002-2 Heart Rate 1: 68 bpm Height: 5'5" SpO2: 98% Weight: 222 lbs 04/23/2016 Blood Pressure 1: 136/78 Code: 8480-6 BMI: 38.4 Code: 28780-1 Heart Rate 1: 76 bpm Height: 5'5" SpO2: 98% Weight: 231 lbs 01/23/2016 Blood Pressure 1: 148/82 Code: 8480-6 BMI: 39.6 Code: 17268-0 Heart Rate 1: 76 bpm Height: 5'5" SpO2: 98% Weight: 238 lbs 11/21/2015 Blood Pressure 1: 140/80 Code: 8480-6 BMI: 38.9 Code: 93865-2 Heart Rate 1: 89 bpm Height: 5'5" SpO2: 98% Weight: 233 lbs 8 oz 08/23/2014 Blood Pressure 1: 140/72 Code: 8480-6 BMI: 38.1 Code: 41538-7 Height: 5'5" Weight: 229 lbs 03/01/2014 Blood [...] States she has been doing body by [facility] for about 3 months but is not losing weight. States she is trying to lose weight. shoulder pain Location o n the left shoulder 03/12/2012 Dr. Judge told her she h ad a frozen shoulder. Trying non-surgical treatments first. shoulder pain Quality ch ronic 03/12/2012 None shoulder pain Onset and Resolution ongoing 03/12/2012 Dr. Judge injected her s javanulder last week. He told her to take [...] shoulder 01/28/2012 None shoulder pain Quality ac yurok 01/28/2012 None shoulder pain Quality th robbing [...] Encounters Encounter Performer Loca tion Codes Date ([id number]) 55986 EST. P ATIENT, LEVEL IV Diagnosis: Essential (primary) hypertension[ICD10: I10] Diagnosis: Acute laryngopharyngitis[ICD10: J06.0] Diagnosis: Other insomnia[ICD10: G47.09] Ling Collins MD, [facility] CPT-4: 97129 09/01/2018 ([id number]) 30317 EST. P ATIENT, LEVEL III Diagnosis: Gastro-esophageal reflux disease without esophagitis[ICD10: K21.9] Diagnosis: Essential (primary) hypertension[ICD10: I10] Ling Collins MD, C CPT-4: 09675 02/26/2018 ([id number]) 32131 EST. P ATIENT, LEVEL III Diagnosis: Other specified noninfective gastroenteritis and colitis[ICD10: K52.89] Diagnosis: Epigastric pain[ICD10: R10.13] Diagnosis: Generalized abdominal pain[ICD10: R10.84] Ling Collins MD, [facility] CPT-4: 75073 07/24/2017 00162 EST. PATIENT, LEVEL IV Diagnosis: Gastro-esophageal reflux disease without esophagitis[ICD10: K21.9] Claritza Collins MD, [facility] CPT-4: 20901 07/09/2017 ([id number]) PREV VISIT E ST AGE 40-64 Diagnosis: Encounter for general adult medical examination with abnormal findings[ICD10: Z00.01] Ling Collins MD, [facility] CPT-4: 44387 06/24/2017 ([id number]) 76051 EST. P ATIENT, LEVEL III Diagnosis: Gastro-esophageal reflux disease with esophagitis[ICD10: K21.0] Ling Collins MD, [facility] CPT-4: 78468 04/23/2016 ([id number]) 58076 EST. P [facility], [facility] Diagnosis: Gastro-esophageal reflux disease with esophagitis[ICD10: K21.0] Diagnosis: Morbid (severe) obesity due to excess calories[ICD10: E66.01] Diagnosis: Urge incontinence[ICD10: N39.41] Ling Collins MD, [facility] CPT-4: 43894 01/23/2016 ([id number]) 18152 EST. P [facility], LEVEL IV Diagnosis: Metatarsalgia, right foot[ICD10: M77.41] Diagnosis: Achilles tendinitis, right leg[ICD10: M76.61] Diagnosis: Gastro-esophageal reflux disease with esophagitis[ICD10: K21.0] Ling Collins MD, [facility] CPT-4: 56348 11/21/2015 ([id number]) 37523 EST. P [facility], LEVEL III Diagnosis: Biceps tendonitis[ICD9: 726.12] Diagnosis: Encounter for long-term (current) use of other medications[ICD9: V58.69] Ling Collins MD, [facility] CPT-4: 81620 08/23/2014 ([id number]) 72561 EST. [facility], LEV[facility] III Diagnosis: Anxiety, generalized[ICD9: 300.02] Diagnosis: Pain, lower leg[ICD9: 729.5] Ling Collins MD, [facility] CPT-4: 72182 03/01/2014 ([id number]) 03276 EST. [facility], LEV[facility] Diagnosis: MIGRAINE NOS/NOT INTRCBL[ICD9: 346.90] Ling Collins MD, [facility] CPT-4: 31017 06/14/2013 ([id number]) 06678 EST. P [facility], LEVEL III Diagnosis: MIGRAINE NOS/NOT INTRCBL[ICD9: 346.90] Diagnosis: NAUSEA ALONE[ICD9: 787.02] Ling Collins MD, [facility] CPT-4: 11783 03/10/2013 ([id number]) 58715 EST. P ATIENT, LEVEL III Diagnosis: Intractable migraine with aura without status migrainosus[ICD9: 346.01] Diagnosis: Nausea[ICD9: 787.02] Yennifer Collins MD, [facility] CPT-4: 01246 02/18/2013 ([id number]) 25359 EST. P ATIENT, LEVEL III Diagnosis: BACTERIAL PNEUMONIA[ICD9: 482.9] Diagnosis: Dyspnea[ICD9: 786.09] Ling Collins MD, [facility] CPT-4: 48658 11/16/2012 ([id number]) 11252 EST. P ATIENT, LEVEL III Diagnosis: MIGRAINE NOS/NOT INTRCBL[ICD9: 346.90] Diagnosis: ANXIETY STATE[ICD9: 300.00] Ling Collins MD, [facility] CPT-4: 16585 10/29/2012 ([id number]) 31795 EST. P ATIENT, LEVEL IV Diagnosis: MIGRAINE NOS/NOT INTRCBL[ICD9: 346.90] Diagnosis: JOINT PAIN-SHLDER[ICD9: 719.41] Diagnosis: OBESITY[ICD9: 278.00] Ling Collins MD, [facility] CPT-4: 57882 03/12/2012 ([id number]) 63112 EST. [facility], LEV[facility] IV Diagnosis: Rotator cuff disorder[ICD9: 726.10] Diagnosis: Shoulder pain, acute[ICD9: 719.41] Diagnosis: Knee pain[ICD9: 719.46] Ling Collins MD, [facility] CPT-4: 54544 01/28/2012 ([id number]) 68826 EST. P ATIENT, LEVEL IV Diagnosis: Migraine[ICD9: 346.90] Diagnosis: Anxiety[ICD9: 300.00] Ling Collins MD, [facility] CPT-4: 19926 01/09/2012 61691 EST. PATIENT, LEVEL III Diagnosis: ACUTE URI[ICD9: 465.9] Diagnosis: Cough[ICD9: 786.2] Yennifer Collins MD, [facility] CPT-4: 69247 10/17/2011 Plan of Care Planned Activity Notes [...] you starting on amitriptyline 10mg nightly. 09/01/2018 Patient Education: Patient Medication Summary Completed 09/01/2018 Visit Plan: Hypertension - well con [place] - continue with current medications, continue with [...] not improving. 02/26/2018 Appointment: Ling Collins WPtel: [facility] (15 min) Moderate 02/26/2018 Patient Education: Patient Medication Summary Completed 02/26/2018 Appointment: Ling Collins WPtel: [facility] (15 min) Moderate 08/11/2017 Visit Plan: Abdominal pain, Colitis - advised liquid diet x 2-3 days, then advance to bland diet. If at any time her symptoms worsen, she is to go to the emergency department. Pt given order for EGD/Colonoscopy at [address] Garcia. 07/24/2017 Appointment: Ling Collins WPtel: [address] [facility] (15 min) Moderate 07/24/2017 Patient Education: [...] through their insurance - Fax number - [phone] phone number - [phone]. 07/09/2017 Visit Plan: Esophageal Reflux - Sev [...] through their insurance - Fax number - [phone] phone number - [phone]. 07/09/2017 [facility] [facility] ([facility] min) Complex 07/09/2017 Patient Education: Patient Medication Summary Completed 07/09/2017 Care Plan: Referral Order SNOMED-CT : [id number] Pending 07/09/2017 Visit Plan: Well Adult - [...] concerns. 06/24/2017 [phone] [facility] ([facility] min) Moderate 06/24/2017 Patient Education: [...] diet medication. 01/23/2016 Appointment: Ling Collins WPtel: [address] [place] [address] (15 min) Moderate 01/23/2016 Patient Education: Patient [...] 11/21/2015 Care Plan: Referral Order SNOMED-CT : [id number] Ordered 11/21/2015 Visit Plan: Biceps tendonitis - [...] 1tab AM & 2 at hs x2wks, [id number] x2wks, then 1/2 am & 1hs x1wk, then 1/2 bidx 1wk, then 1/2 at hs x1wk then stop 08/23/2014 Appointment: iLng Collins WPtel: [facility] Sick 08/23/2014 Patient Education: Patient Medication Summary Completed 08/23/2014 Visit Plan: Chronic migraine headac hes - recommended for pt to keep appt with the specialist in [place] for migraine surgery. Topical pain in legs - recommended pt to start on iron, monitor as pt weans off of the topamax post surgically. 03/01/2014 Appointment: Ling Collins WPtel: [address] [place], [place] [phone] Follow up 03/01/2014 Patient Education: Patient Medication Summary Completed 03/01/2014 Visit Plan: Migraine headaches - pt has not yet had an intractible migraine since she had her botox injections. She is to follow up with her Neurologist about her migraine headaches.. 06/14/2013 Appointment: Ling Collins WPtel: [facility] Follow up 06/14/2013 Patient Education: Patient [...] bid. 03/10/2013 Appointment: Ling Collins WPtel: [phone] [facility] Other 03/10/2013 Patient Education: Patient Medication [...] written and patient's picked up medication from [facility] pharmacy and we administered) and Phenergan 25mg IM. 02/18/2013 [phone] Other 02/18/2013 Patient Education: Patient Medication Summary [...] positive children. 11/16/2012 Appointment: Ling Collins WPtel: [address] [place], [place] [phone] Sick 11/16/2012 Patient Education: Patient Medication Summary [...] her migraines. 10/29/2012 Appointment: Ling Collins WPtel: [address] [place] [address] Other 10/29/2012 Patient Education: Patient Medication Summary [...] Dr. Judge. 03/12/2012 Appointment: Ling Collins WPtel: [address] [place] [address] Other 03/12/2012 Patient Education: Patient Medication Summary Completed 03/12/2012 Visit Plan: mri of keft shoulder - rotator cuff instability kenalog shot referal to orthopedic surgeon for eval of left shoulder and right knee 01/28/2012 Appointment: Ling Collins WPtel: [address] [place] [address] Other 01/28/2012 Patient Education: Patient Medication Summary [...] this time. 01/09/2012 Appointment: Ling Collins WPtel: [address] [facility] Other 01/09/2012 Patient Education: Patient Medication Summary [...] any worse. 10/17/2011 Appointment: Yennifer Field WPtel: [phone] [facility] [place] [address] Other 10/17/2011 Patient Education: Patient Medication Summary [...] through their insurance - Fax number - [phone]; phone number - [phone]. Carafate - with meal s and at [...] through their insurance - Fax number - [phone]; phone number - [phone]. topamax 25mg tablet to be tapered as follows: 1tab AM & 2 at hs x2wks, bkjb1lpm x2wks, then 1/2 am & 1hs x1wk, [...] 1tab AM & 2 at hs x2wks, ficd6omf x2wks, then 1/2 am & 1hs x1wk, [...] khalif should er - rotator cuff instability kenwaldemar gant referal to orthopedic surgeon for eval of [...] department. Pt given order for EGD/Colonoscopy at [address] Garcia. . Pneumonia - [...] written and patient's picked up medication from [facility] pharmacy and we administered) and Phenergan 25mg [...] to keep appt with the specialist in [place] for migraine surgery. Topical pain in legs [...]
[2020-03-15] MEDS ORDERED: MIDAZOLAM 2 MG/2 ML (VERSED) VIAL ONE (06:51)
[2020-03-15] MEDS ORDERED: BUPIVACAINE 0.25% 30 ML (SENSORCAINE) VIAL ONE (06:51)
[2020-03-15] MEDS ORDERED: LIDOCAINE PF 2% 5 ML (XYLOCAINE) VIAL ONE ×2 (06:51→07:17)
--- NOTE | 2020-03-15 06:58 | Progress Note-Pre Operative ---
Pre-Operative Progress Note H&P Reviewed The H&P was reviewed, patient examined and no changes noted. Date Seen by Provider: March 15, 2020 Time Seen by Provider: 06:57 Date H&P Reviewed: March 15, 2020 Time H&P Reviewed: 06:57 Pre-Operative Diagnosis: right knee primary osteoarthritis CECILIO SHORT MD March 15, 2020 06:58
[2020-03-15] MEDS ORDERED: LACTATED RINGERS 1,000 ML IV PRN (06:59)
--- NOTE | 2020-03-15 06:59 | Progress Note-Post Operative ---
Post-Operative Progess Note Surgeon (s)/Histopathology Technician (s) Surgeon CECILIO SHORT MD Histopathology Technician: Matt Santos Pre-Operative Diagnosis right knee primary osteoarthritis Post-Operative Diagnosis right knee primary ostearthritis Procedure & Operative Findings Date of Procedure 03/15/20 Procedure Performed/Findings right total knee arthroplasty Anesthesia Type GETA Estimated Blood Loss Estimated blood loss (mL): minimal Specimens/Packing Specimens Removed none Packing: none CECILIO SHORT MD March 15, 2020 06:59
[2020-03-15] MEDS ORDERED: CEFUROXIME INJECTION 1,500 MG in WATER (STERILE) FOR INJECTION 15 ML IV ONE (07:00)
[2020-03-15] MEDS ORDERED: OXYC1TAB87 PO (07:00)
[2020-03-15] MEDS ORDERED: FAMOTIDINE 20MG/2ML IV (PEPCID) IV ONE (07:00)
[2020-03-15] MEDS ORDERED: SCOPOLAMINE 1.5 MG (TRANSDERM-SCOP) PATCH TOP ONE (07:00)
[2020-03-15] MEDS ORDERED: ONDANSETRON 4 MG/2 ML (SDV) Z0FRAN IV ONE (07:00)
--- NOTE | 2020-03-15 07:01 | D/C HH Face to Face Order ---
D/C Face to Face Orders Reconcile Patient Problems Problems Reviewed?: Yes Instructions for Patient [facility], Patient Instructions/FollowUp: three dusty Physician to follow Patient: three weeks Discharge Diet for Home: Regular Diet Patient Data-Allergies,Ht & Wt Patient Allergies: Coded Allergies: erythromycin base (Verified Allergy, Intermediate, NAUSEA, 11/29/15) Sulfa (Sulfonamide Antibiotics) (Verified Allergy, Mild, 12/04/15) cephalexin (Verified Allergy, Mild, SUNBURN, 03/06/20) divalproex sodium (Verified Allergy, Mild, 12/04/15) doxycycline (Verified Allergy, Mild, VOMITING, 03/06/20) niacin (Verified Allergy, Mild, 12/04/15) Height (Feet): 5 Height (Inches): 5.00 Weight (Pounds): 196 Weight (Ounces): 12.8 Home Health Need/Face to Face Date of Face to Face: March 15, 2020 Clinical Findings: Instability, Muscle weakness, Pain with ambulation, Unsteady gait I have seen Pt [id number]-tz-sqti: Yes Discharged To: Home Diagnosis/Conditions: right total knee arthroplasty Patient is Homebound due to: Emily fall risk due to instabilty, Muscle weakness, Pain w/ambulation Homebound Status Due to the above stated illness, injury or surgical procedure (medical condition or diagnosis) and associated clinical findings, the patient is homebound because of his/her inability to leave home except with aid of a supportive device and/or person AND leaving the home requires a considerable and taxing effort or is medically contraindicated. Pt req the following assistanc: Walker Home Health Nursing Orders Home Health Services Order: Physical Therapy-Evaluate & Treat DC right knee sheron and apply steri strips 03/29/20 Therapy Orders Therapy Orders: Physical Therapy, PT to assess for OT Therapy Specific Orders: Eval assistive deivces, Teach enviro modifications/safety, Gait training, Increase strength/endurance, Provider maintenance therapy, Restore ROM Certify Stmt I certify that this patient is under my care and that I, a nurse practitioner or a physician; a training assistant working with me, had a face to face encounter that - meets the physician face to face encounter requirements with this patient as dated. CECILIO SHORT MD March 15, 2020 07:01
[2020-03-15] MEDS ORDERED: VANCOMYCIN INJECTION 1,000 MG in NS (IVPB) 250 ML IV SCH (07:15)
[2020-03-15] MEDS ORDERED: ONDANSETRON 4 MG/2 ML (SDV) Z0FRAN ONE (07:17)
[2020-03-15] MEDS ORDERED: proPOfol 200 MG/20 ML (DIPRIVAN) VIAL IV ONE (07:17)
[2020-03-15] MEDS ORDERED: ROCURONIUM 10 MG/ML 5 ML SYRINGE IV ONE (07:17)
[2020-03-15] MEDS ORDERED: fentaNYL INJECTION 100 MCG/2 ML AMP ONE (07:17)
[2020-03-15] MEDS ORDERED: SUCCINYLCHOLINE INJ 100 MG/5 ML SYR ONE (07:17)
[2020-03-15] MEDS ORDERED: SEVOFLURANE (ULTANE) 15 ML INHAL SOLN ONE (07:23)
[2020-03-15] MEDS ORDERED: INTRA-ARTICULAR IU ONE ×5 (07:30)
[2020-03-15] MEDS ORDERED: VANCOMYCIN 1000 MG/VIAL ONE (07:30)
[2020-03-15] MEDS ORDERED: ACETAMINOPHEN 325 MG TABLET PO PRN (07:30)
[2020-03-15] MEDS ORDERED: VANCOMYCIN 2000 MG/NS 500 ML IVPB IV NR ×2 (07:36)
[2020-03-15] MEDS ORDERED: VANCOMYCIN 1 GM/NS 250 ML IVPB IV NR ×2 (07:45)
[2020-03-15] MEDS ORDERED: morphine PCA 100 MG/100 ML BAG IV PRN (07:45)
[2020-03-15] MEDS ORDERED: TRANEXAMIC ACID 100 MG/ML 10 ML INJECTION IV ONE (08:36)
[2020-03-15] MEDS ORDERED: morphine INJ 10 MG/ML 1ML (SYR OR VIAL) IVP ONE (09:15)
[2020-03-15] MEDS ORDERED: MEPERIDINE (DEMEROL) INJ 50 MG/ML IVP ONE (09:15)
[2020-03-15] MEDS ORDERED: fentaNYL INJECTION 100 MCG/2 ML AMP IVP ONE (09:15)
[2020-03-15] MEDS ORDERED: ONDANSETRON 4 MG/2 ML (SDV) Z0FRAN IVP PRN (09:15)
[2020-03-15] MEDS ORDERED: morphine INJ 10 MG/ML 1ML (SYR OR VIAL) ONE (09:16)
--- NOTE | 2020-03-15 09:58 | Diagnostic Imaging Report ---
INDICATION: Right knee replacement. Time of exam: 9:16 AM Two views of the right knee demonstrate postoperative changes of total knee arthroplasty. Prosthetic elements are in good position. No fracture or loosening is seen. There are overlying skin sheron. IMPRESSION: Satisfactory postop appearance to the right knee. Dictated by: Dictated on workstation # [id number]
[2020-03-15] MEDS ORDERED: morphine PCA 100 MG/100 ML BAG IV ONE (10:09)
[2020-03-15] MEDS ORDERED: NS IV 1000 ML 1,000 ML ONE (10:17)
[2020-03-15] MEDS: ONDANSETRON 4 MG/2 ML (SDV) Z0FRAN IVP PRN ×2 (10:40→16:27)
[2020-03-15] MEDS: NS IV 1000 ML 1,000 ML IV SCH ×2 (10:43→17:16)
--- NOTE | 2020-03-15 11:00 | NUR ---
EAGLE BRADY admitted to room 419-1, from OR post op total right knee arthroplasty , accompanied by staff .EAGLE BRADY introduced to surroundings, call light, bed controls, phone, TV, temperature control, lights, meal times, smoking policy, visitor policy, side rail policy, bathrooms and showers. Patient Rights given to patient in the handbook. EAGLE BRADY verbalizes understanding that [facility] is not responsible for the loss or damage to any personal effects or valuables that are kept in the patients posession during their hospitalization. The following Patient Care Plans and discharge were discussed with the patient. EAGLE BRADY verbalizes understanding of Interdisciplinary Patient Education. Patient was informed about the Rapid Response Team and its purpose.
--- NOTE | 2020-03-15 11:29 | Progress Note ---
Standard Progress Note Progress Notes/Assess & Plan Date Seen by a Provider: March 15, 2020 Time Seen by a Provider: 11:26 Progress/Assessment & Plan post op check no complaints radiographs--HW well positioned without fracture RLE--2 plus DP pulse with brisk cap refill. intact DF and PF of toes and ankle with intact sensation throughout s/p RTKA mobilize as able CECILIO SHORT MD March 15, 2020 11:29
[2020-03-15] MEDS: SENNA W/DOCUSATE (SENOKOT S) TABLET PO SCH ×2 (11:39→20:55)
--- NOTE | 2020-03-15 13:42 | Physical Therapy Evaluation ---
PT Evaluation-General Medical Diagnosis Admission Date March 15, 2020 at 06:21 Medical Diagnosis: right TKA Onset Date: March 15, 2020 Therapy Diagnosis Therapy Diagnosis: impaired mobility, strength, endurance, ROM Height/Weight Height (Feet): 5 Height (Inches): 5.00 Weight (Pounds): 196 Weight (Ounces): 12.8 Precautions Precautions/Isolations: Standard Precautions Weight Bear Status Right Lower Extremity: Right Weight Bearing/Tolerated Referral Physician: Caden Reason for Referral: Evaluation/Treatment Medical History Additional Medical History PAST MEDICAL HISTORY: Reflux, anxiety disorder, migraines, hypertension, insomnia, urinary incontinence. PAST SURGICAL HISTORY: Cholecystectomy, hysterectomy, tonsillectomy, right knee arthroscopy. Reviewed History: Yes Social History Home: Single Level Current Living Status: Spouse Entry Into Home: Stairs With Railing PT Steps Into Home: 4 Patient states her steps are not very tall. Prior Prior Level of Function SCALE: Activities may be completed with or without assistive devices. 9-Bidvxbfosa-silvpql completes the activity by him/herself with no assistance from a helper. 5-Set-up or Clean-up Assistance-helper sets up or cleans up; patient completes activity. [place] assists only prior to or following the activity. 4-Supervision or Touching Assistance-helper provides verbal cues and/or touching/steadying and/or contact guard assistance as patient completes activity. Assistance may be provided throughout the activity or intermittently. 3-Partial/Moderate Assistance-helper does LESS THAN HALF the effort. [place] lifts, holds or supports trunk or limbs, but provides less than half the effort. 2-Substantial/Maximal Assistance-helper does MORE THAN HALF the effort. [place] lifts or holds trunk or limbs and provides more than half the effort. 0-Gyboptfpj-qdfwbh does ALL the effort. Patient does none of the effort to complete the activity. Or, the assistance of 2 or more helpers is required for the patient to complete the activity. If activity was not attempted, code reason: 7-Patient Refused. 9-Not Applicable-not attempted and the patient did not perform the activity before the current illness, exacerbation or injury. 10-Not Attempted due to Environmental Limitations-(lack of equipment, weather restraints, etc.). 88-Not Attempted due to Medical Conditions or Safety Concerns. Bed Mobility: 6 Transfers (B,C,W/C): 6 Gait: 6 Stairs: 6 Indoor Mobility (Ambulation): Independent Stairs: Independent PT Evaluation-Current Subjective Patient on bedside commode pre tx, agrees to PT, has 8/10 pain in right knee. Pt/Family Goals to be independent at home Objective Patient Orientation: Person, Place, Situation Attachments: IV ROM/Strength ROM Lower Extremities right knee extension +20 degrees, flexion 80 degrees Sensory Vision: Wears Glasses Hearing: Functional Sensation Right Lower Extremit: Impaired Sensation Left Lower Extremity: Intact Sensation Lower Extremities patient still has some numbness in the right leg from the knee down. Transfers Roll Left to Right (QC): 6 Sit to Lying (QC): 3 Lying to Sitting/Side of Bed(Q: 3 Sit to Stand (QC): 3 Chair/Sdm-aj-Dfedc Xfer(QC): 3 Toilet Transfer (QC): 3 Patient performed a stand pivot transfer from the bedside commode to the bed. Patient's right knee buckling during transfer, requires min assist. Nurse aide reports min assist needed for transfer to bedside commode. Cues for safety and positioning. Gait Does the Patient Walk?: No and Walking Goal IS indicated Balance Sitting Static: Normal Sitting Dynamic: Normal Standing Static: Fair Standing Dynamic: Poor Treatment Supine total knee protocol x10 (AP, QS, HS, SAQ, SLR), donned CPM and set to patients leg and set to 70/-2. Assessment/Needs Patient has impaired mobility, strength, endurance, ROM. Patient's knee dea with weight bearing at this time. Patient in bed post tx with nurse call, phone, tray, CPM donned, [facility] care, SCD's. Rehab Potential: Fair PT Hydraulic Press In Operator Goals Hydraulic Press In Operator Goals PT Hydraulic Press In Operator Goals Time Frame: March 22, 2020 Roll Left & Right (QC): 6 Sit to Lying (QC): 4 Lying-Sitting on Side/Bed(QC): 4 Sit to Stand (QC): 4 Chair/Mya-nk-Zlljj Xfer(QC): 4 Walk 10 feet (QC): 4 Walk 50ft with 2 Turns (QC): 4 Walk 150 ft (QC): 4 1 Step (curb) (QC): 4 PT Plan Problem List Problem List: Activity Tolerance, Functional Strength, Safety, Balance, Gait, Transfer, Bed Mobility, ROM Treatment/Plan Treatment Plan: Continue Plan of Care Treatment Plan: Bed Mobility, Education, Functional Activity Heena, Functional Strength, Gait, Safety, Therapeutic Exercise, Transfers Treatment Duration: March 22, 2020 Frequency: 11 times per week Estimated Hrs Per Day: .25 hour per day Patient and/or Family Agrees t: Yes Safety Risks/Education Patient Education: Gait Training, Transfer Techniques, Correct Positioning, Safety Issues Teaching Recipient: Patient Teaching Methods: Demonstration, Discussion Response to Teaching: Reinforcement Needed Discharge Recommendations Plan Patient will perform bed mobility and transfer training, balance and endurance training, functional strengthening, stair training, gait training, and education, to improve functional mobility and independence at home. Therapy Discharge Recommendati: Home & Family Time/GCodes Time In: 1317 Time Out: 1332 Total Billed Treatment Time: 15 Total Billed Treatment 1 visit TERELL Hamilton' CHANI GARCÍA PT March 15, 2020 13:42
--- NOTE | 2020-03-15 14:40 | OPERATIVE REPORT ---
DATE OF SERVICE: 03/15/2020 PREOPERATIVE DIAGNOSIS: Right knee primary osteoarthritis. POSTOPERATIVE DIAGNOSIS: Right knee primary osteoarthritis. PROCEDURE: Right total knee arthroplasty. SURGEON: Deepak Short MD DIAMOND SORTER: Matt Negrete, who assisted throughout the procedure and closed the incision. ANESTHESIA: General endotracheal by Matt Wilson CRNA. TOURNIQUET TIME: Approximately 65 minutes at 300 mmHg. ESTIMATED BLOOD LOSS: Minimal. DRAINS: None. COMPLICATIONS: None. POSTOPERATIVE PLAN: Routine total knee protocol. The patient was transferred to the recovery room awake and in stable condition. MATERIALS: Microport cemented size 4 femur, cemented size 4 tibia with a 10 mm insert and cemented size 32 patellar button. STATEMENT OF MEDICAL NECESSITY: The patient is a 60-year-old female with longstanding progressive right knee pain. Radiographs revealed severe medial compartment joint space narrowing. She has undergone treatment with injections, anti-inflammatories, rest as well as arthroscopy without relief. Due to functional impairment and failure to improve with conservative measures, the patient elected to proceed with surgical intervention. DESCRIPTION OF PROCEDURE: After risks and benefits of the procedure were discussed and questions were answered, an informed consent was signed and placed on chart, the operative site was confirmed in the preoperative holding area initialed by the surgeon. The patient was then transferred to the operating room and after adequate levels of general endotracheal anesthetic were obtained, a timeout was called, confirming the operative site. The right lower extremity was prepped and draped in the usual sterile fashion with the leg elevated and the knee flexed, tourniquet inflated to 300 mmHg. A standard anterior approach was utilized. Hemostasis was obtained with cautery. A medial parapatellar arthrotomy was performed leaving 1 cm cuff on the patella for later reattachment. A portion of the fat pad was resected. A subperiosteal release was performed on the proximal medial tibia being careful to stay on the bony surface. The ACL was resected. Intramedullary guide was passed into the femur. The distal cutting block was placed. The cut was made. The femur sized to a size 4. The 4 cutting block was placed parallel to the epicondylar axis and cuts were made from posterior to anterior. Subperiosteal release was then carefully performed on both posterior distal femur being careful to stay on the bony surface. Intramedullary guide was then passed into the tibia. The cutting block was placed and the drop hannah transected the intermalleolar axis. The cut was made. The tibial baseplate was placed and again the drop hannah transected the intermalleolar axis. This was prepared with a drill and keel punch. The femoral trial was placed and trochlear cut was made. A 10 mm insert was placed. The patella was then prepared by resecting 10 mm off the undersurface. The peg guide was placed and the peg holes were drilled. The 32 trial was placed. Full extension was easily obtained under 20 degrees of flexion with gravity was easily obtained. There was no anterior/posterior or medial/lateral laxity in flexion or extension. The patella tracked well. The trials were removed. The periarticular block was placed in the posterior capsule, medial and lateral retinaculum extensor mechanism subcutaneous tissues. The joint was copiously irrigated. The bone ends were irrigated and dried and the tibial baseplate was cemented into position. Excessive cement was removed. Superior surface was irrigated and dried and the tibial insert was placed. The distal femur was irrigated and dried and the femoral prosthesis was cemented into position. The knee was brought out into full extension until cement had cured. The undersurface of patella was irrigated and dried. The patellar button was cemented into position. The joint was further irrigated. Excessive cement was removed. Once the cement had set, the knee was taken through range of motion. Full extension was easily obtained under 20 degrees of flexion with gravity was easily obtained. There was no anterior/posterior laxity in flexion or extension and no medial/lateral laxity in flexion or extension. The patella tracked well. The joint was further irrigated. The arthrotomy was closed with #2 Tevdek in tvvlfg-ka-lveep interrupted fashion. The knee was flexed. The repair was stable. The subcutaneous tissues were irrigated using a total of 6 liters throughout the procedure. A 0 Vicryl was used for deep subcutaneous tissue, 2-0 Vicryl for the superficial subcutaneous tissue, sheron used on the skin. A soft dressing was applied. The tourniquet was deflated. The patient was transferred to the recovery room awake and in stable condition. Job ID: [id number] DocumentID: [id number] Dictated Date: 03/15/2020 09:12:29 Plant Production Manager Date: 03/15/2020 14:39:51 Dictated By: DEEPAK SHORT MD
[2020-03-15] MEDS: oxyCODONE/APAP 5/325MG (PERCOCET 5) TABLET PO PRN ×2 (16:27→21:05)
[2020-03-15] MEDS: VANCOMYCIN INJECTION 1,500 MG in NS IV 500 ML 500 ML IV SCH (17:20)
[2020-03-16] VITALS (7 sets, daily range): BP systolic 104–153; BP diastolic 58–79
[2020-03-16] MEDS: oxyCODONE/APAP 5/325MG (PERCOCET 5) TABLET PO PRN ×7 (00:31→23:52)
[2020-03-16] MEDS: diphenhydrAMINE 50 MG/ML INJ (BENADRYL) IVP PRN ×2 (00:31→23:49)
[2020-03-16] MEDS: NS IV 1000 ML 1,000 ML IV SCH ×2 (02:22→16:07)
[2020-03-16 06:35] LABS: HEMOGLOBIN 10.2 G/DL (11.5-16.0)
[2020-03-16] MEDS: MULTIVIT W/MINERALS TAB (THERAGRAN M) PO SCH (06:37)
[2020-03-16] MEDS: VANCOMYCIN INJECTION 1,500 MG in NS IV 500 ML 500 ML IV SCH (06:37)
[2020-03-16] MEDS: ENOXAPARIN 30 MG/0.3 ML (LOVENOX) SYR SC SCH ×2 (06:53→20:00)
--- NOTE | 2020-03-16 07:55 | Progress Note ---
Standard Progress Note Progress Notes/Assess & Plan Date Seen by a Provider: March 16, 2020 Time Seen by a Provider: 07:53 Progress/Assessment & Plan post op check no complaints radiographs--HW well positioned without fracture RLE--2 plus DP pulse with brisk cap refill. intact DF and PF of toes and ankle with intact sensation throughout s/p RTKA mobilize as able Final Diagnosis no complaints Vital Signs Date Time Temp Pulse Resp B/P (MAP) Pulse Ox O2 Delivery O2 Flow Rate FiO2 03/16/20 06:00 36.5 67 21 126/69 (88) 100 Room Air 03/16/20 06:00 18 03/16/20 04:00 36.5 67 21 126/69 (88) 100 Room Air 03/16/20 00:00 36.3 62 18 104/58 (73) 95 Room Air 03/15/20 20:50 18 03/15/20 20:50 Room Air 03/15/20 20:39 36.5 62 20 103/61 (75) 99 Room Air 03/15/20 15:58 35.9 60 20 107/60 (76) 97 Room Air 03/15/20 12:00 37.0 68 18 135/89 (104) 100 Room Air 03/15/20 10:15 Room Air 03/15/20 10:00 36.2 71 16 136/78 (97) 97 Room Air 03/15/20 09:58 36.3 16 139/83 (101) 98 Room Air 03/15/20 09:48 14 137/96 (110) 100 OxyMask 10 03/15/20 09:40 OxyMask 10 03/15/20 09:38 14 143/72 (95) 100 OxyMask 10 03/15/20 09:28 16 166/74 (104) 99 OxyMask 10 03/15/20 09:18 20 175/103 (127) 100 OxyMask 10 03/15/20 09:08 OxyMask 10 03/15/20 09:08 36.5 16 160/88 (112) 99 OxyMask 10 I & O 03/16/20 07:00 Intake Total 4820 ml Output Total 950 ml Balance 3870 ml Laboratory Tests Test 03/16/20 06:15 Range/Units Hemoglobin 10.2 L 11.5-16.0 G/DL Hematocrit 32 L 35-52 % RLE--dressing intact. No calf tenderness. Neg Toni's NVI s/p RTKA doing well continue PT/OT CECILIO SHORT MD March 16, 2020 07:54
[2020-03-16] MEDS: ASPIRIN E.C. 81 MG (ECOTRIN) TAB PO SCH (08:14)
[2020-03-16] MEDS: SENNA W/DOCUSATE (SENOKOT S) TABLET PO SCH ×2 (08:14→20:01)
--- NOTE | 2020-03-16 08:31 | Occupational Therapy Eval ---
OT Evaluation-General/PLF Medical Diagnosis Admission Date March 15, 2020 at 06:21 Medical Diagnosis: right TKA Onset Date: March 15, 2020 Therapy Diagnosis Therapy Diagnosis: Decreased ADL status Height/Weight Height (Feet): 5 Height (Inches): 5.00 Weight (Pounds): 196 Weight (Ounces): 12.8 Precautions Precautions/Isolations: Fall Prevention, Standard Precautions Weight Bear Status Weight Bearing Restriction: Weight Bearing/Tolerated Location Restriction: R LE Referral Physician: Caden Medical History Pertinent Medical History: DM, HTN Additional Medical History HTN, Ca, DM, anxiety Current History RTKA 03/15 Reviewed History: Yes Social History Home: Single Level Current Living Status: Spouse Entry Into Home: Stairs With Railing Steps Into Home: 4 ADL-Prior Level of Function SCALE: Activities may be completed with or without assistive devices. 2-Dgdldiqnyr-dfanfeo completes the activity by him/herself with no assistance from a helper. 5-Set-up or Clean-up Assistance-helper sets up or cleans up; patient completes activity. [place] assists only prior to or following the activity. 4-Supervision or Touching Assistance-helper provides verbal cues and/or touching/steadying and/or contact guard assistance as patient completes activity. Assistance may be provided throughout the activity or intermittently. 3-Partial/Moderate Assistance-helper does LESS THAN HALF the effort. [place] lifts, holds or supports trunk or limbs, but provides less than half the effort. 2-Substantial/Maximal Assistance-helper does MORE THAN HALF the effort. [place] lifts or holds trunk or limbs and provides more than half the effort. 3-Yusdgmjew-kpwwsu does ALL the effort. Patient does none of the effort to complete the activity. Or, the assistance of 2 or more helpers is required for the patient to complete the activity. If activity was not attempted, code reason: 7-Patient Refused. 9-Not Applicable-not attempted and the patient did not perform the activity before the current illness, exacerbation or injury. 10-Not Attempted due to Environmental Limitations-(lack of equipment, weather restraints, etc.). 88-Not Attempted due to Medical Conditions or Safety Concerns. 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 Alert/ awake/ oriented. Pt agrees to OT. States "pain is there," though doesn't rate in R knee. Mental Status/Objective Patient Orientation: Normal For Age Attachments: IV, Polar Pack, SCD's Current Glasses/Contacts: Yes Hearing Aids: No Hand Dominance: Right Upper Extremity ROM WFL BUE Upper Extremity Coordination WFL BUE Upper Extremity Sensation WFL BUE Upper Extremity Strength WFL BUE ADL-Treatment Eating (QC): 6 Upper Body Dressing (QC): 6 (based on clinical judgment and ROM/ strength.) Lower Body Dressing (QC): 4 (SUP while seated on toilet.) On/Off Footwear (QC): 4 (SUP while EOB.) Toileting Hygiene (QC): 6 (Completes with IND, SUP for toilet transfer with 2WW) Other Treatments Pt completes bed mob with SUP, completes sock donning EOB. Pt sit to stnad CGA and ambulates to toilet/ good placement of walker and good safety throughout. Pt states she owns passed brother's walkers though did not utilize at home. pt states can assist if needed. Pt completes ADLs as above and oral care standing at sink with SUP. Pt returns to recliner, legs elevated, polar pack re- donned, all needs met. Pt and OT agree no OT required at this time as pt is safe and will continue to make progress at home. Education OT Patient Education: Correct positioning, Progress toward Goal/Update tx plan, Purpose of tx/functional activities, Safety issues Teaching Recipient: Patient Teaching Methods: Demonstration, Discussion Response to Teaching: Verbalize Understanding, Return Demonstration OT Fpc Goals Fpc Goals 1=Demonstrate adherence to instructed precautions during ADL tasks. 2=Patient will verbalize/demonstrate understanding of assistive devices/modifications for ADL. 3=Patient will improve strength/tolerance for activity to enable patient to perform ADL's. OT Education/Plan Problem List/Assessment Assessment: No Skilled OT Needs ID'd Discharge Recommendations Plan/Recommendations: Discharge/Goals Met Therapy Discharge Recommendati: Home & Family Treatment Plan/Plan of Care Treatment,Training & Education: Yes Patient would benefit from OT for education, treatment and training to promote independence in ADL's, mobility, safety and/or upper extremity function for ADL's. Plan of Care: OTHER (eval only) Treatment Duration: March 16, 2020 Frequency: 1 time per week (eval only) Rehab Potential: Fair Time/GCodes Start Time: 08:02 Stop Time: 08:24 Total Time Billed (hr/min): 22 Billed Treatment Time 1, EVL (22) d/c on this date. STEPH WIGGINS OTR March 16, 2020 08:31
--- NOTE | 2020-03-16 08:58 | Consultation ---
History of Present Illness History of Present Illness Patient Consulted On(disha/time) 03/16/20 08:40 Date Seen by Provider: March 16, 2020 Time Seen by Provider: 08:40 Reason for Visit: RIGHT KNEE OA History of Present Illness PT IS A 60 Y/O FEMALE WHO IS KNOWN TO ME FROM CLINIC. EAGLE HAS HX OF DEGENERATIVE ARTHRITIS WITH KNEE PAIN - SHE PRESENTED TO THE HOSPITAL FOR A PLANNED RIGHT KNEE REPLACEMENT. SHE REPORTS THAT HER PAIN HAS BEEN FAIRLY WELL CONTROLLED WITH THE USE OF THE CLINICAL PSYCHOLOGY TEACHER. SHE JUST FINISHED THERAPY AND FEELS IF SHE IS GOING TO BE ABLE TO MANAGE AT HOME WITH THERAPY. Allergies and Home Medications Allergies Coded Allergies: erythromycin base (Verified Allergy, Intermediate, NAUSEA, 11/29/15) Sulfa (Sulfonamide Antibiotics) (Verified Allergy, Mild, 12/04/15) cephalexin (Verified Allergy, Mild, [place], 03/06/20) divalproex sodium (Verified Allergy, Mild, 12/04/15) doxycycline (Verified Allergy, Mild, VOMITING, 03/06/20) niacin (Verified Allergy, Mild, 12/04/15) Home Medications Alprazolam 0.25 Mg Tablet, 0.25 MG PO HS, (Reported) Losartan Potassium 50 Mg Tablet, 50 MG PO DAILY, (Reported) Multivitamin with Minerals 1 Each Tablet, 1 EACH PO DAILY, (Reported) Naproxen 500 Mg Tablet.dr, 500 MG PO BID, (Reported) Oxybutynin Chloride 5 Mg Tablet, 5 MG PO HS, (Reported) Oxycodone HCl/Acetaminophen 1 Each Tablet, 1 TAB PO Q4H Prescribed by: CECILIO SHORT on 03/15/20 0700 Pantoprazole Sodium 40 Mg Tablet.dr, 40 MG PO DAILY, (Reported) Ropinirole HCl 0.25 Mg Tablet, 0.25 MG PO BID, (Reported) Vitamin D 10 Mcg Tablet, 2,000 UNITS PO DAILY, (Reported) Patient Home Medication List Home Medication List Reviewed: Yes Past Afpbweb-Vsqper-Kqxtts Hx Past Med/Social Hx: Reviewed Nursing Past Med/Soc Hx, Reviewed and Corrections made Patient Social History Alcohol Use: Denies Use Recreational Drug Use: No Smoking Status: Never a Smoker 2nd Hand Smoke Exposure: No Recent Foreign Travel: No Contact w/Someone Who Travel: No Recent Infectious Disease Expo: No Recent Hopitalizations: No Physical Abuse: No Sexual Abuse: No Mistreated: No Fear: No Seasonal Allergies Seasonal Allergies: Yes (MILD) Past Medical History Surgeries: Yes (R BREAST CYST,MIGRAIN SURG X3, L LUMPECTOMY, BLADDER) Gallbladder, Hysterectomy Respiratory: Yes Sleep Apnea Currently Using CPAP: Yes Cardiac: Yes (CLEAN HEART CATH 2009) Hypertension Neurological: No Reproductive Disorders: No FAMILY DAY CARE WORKER History: Hysterectomy Sexually Transmitted Disease: No HIV/AIDS: No Genitourinary: No Gastrointestinal: Yes Gastroesophageal Reflux Musculoskeletal: Yes Arthritis Endocrine: No HEENT: Yes (GLASSES) Loss of Vision: Denies Hearing Impairment: Denies Cancer: No Psychosocial: Yes (TAKES XANAX FOR SLEEP) Sleep Difficulties Integumentary: No Blood Disorders: No Adverse Reaction/Blood Tranf: No (HAS HAD BLOOD WITH NO REACTION-CHILD ) Family Medical History Heart Disease, Cancer (BROTHER FROM CANCER 2018) Review of Systems Review of Systems General: No Chills, No Night Sweats, No Fatigue, No Malaise HEENT: No Dysphasia Pulmonary: No Dyspnea, No Cough Cardiovascular: No: Chest Pain, Palpitations Gastrointestinal: No: Nausea, Abdominal Pain, Diarrhea, Constipation Genitourinary: No Dysuria, No Frequency Musculoskeletal: leg pain (RIGHT KNEE PAIN) Neurological: No: Weakness, Confusion All Other Systems Reviewed All Other Systems Reviewed: Yes Physical Exam Vital Signs Vital Signs - First Documented 03/15/20 06:25 Temp 36.6 Pulse 63 Resp 18 B/P (MAP) 132/83 Pulse Ox 99 O2 Delivery Room Air Capillary Refill : Less Than 3 SecondsLess Than 3 Seconds Height, Weight, BMI Height: 5'5.00" Weight: 196lbs. 12.8oz. 89.282123bp; 38.12 BMI Method: General Appearance: No Apparent Distress, WD/WN Eyes: Bilateral Eye Normal Inspection, Bilateral Eye PERRL, Bilateral Eye EOMI HEENT: PERRL/EOMI, Pharynx Normal Neck: Full Range of Motion, Normal Inspection, Non Tender, Supple Respiratory: Chest Non Tender, Lungs Clear, Normal Breath Sounds, No Accessory Muscle Use, No Respiratory Distress Cardiovascular: Regular Rate, Rhythm, Normal Peripheral Pulses Gastrointestinal: Normal Bowel Sounds, Non Tender, Soft Rectal: Deferred Back: Normal Inspection Extremity: Normal Capillary Refill, Non Tender, Other (RIGHT KNEE IN POLAR PACK WRAP) Skin: Normal Color, Warm/Dry, Other (SURGICAL DRESSING ON RIGHT LEG, COMPR ESSION SOCKS ON BILATERAL LOWER LEGS) Lymphatic: No Adenopathy Assessment/Plan Assessment/Plan Admission Dx OSTEOARTHRITIS RIGHT KNEE STATUS POST RIGHT KNEE REPLACEMENT HYPERTENSION URGE INCONTINENCE OSTEOARTHRITIS RIGHT KNEE AND IS STATUS POST RIGHT KNEE REPLACEMENT - DISCUSSED WITH PATIENT - PLAN IS FOR PATIENT TO HAVE HOME HEALTH FOR A SHORT TIME FOR STRENGTHENING. - DEFER TO DR. SHORT HYPERTENSION - RESUMED HOME MEDICATION. URGE INCONTINENCE - RESUME HOME OXYBUTYNIN THERAPY. Admission Status: Inpatient Order (span 2 midnights) Reason for Inpatient Admission: INPT ADMISSION FOR KNEE REPLACEMENT Clinical Quality Measures DVT/VTE Risk/Contraindication: Risk Factor Score Per Nursin RFS Level Per Nursing on Admit: 4+=Very High DAIJA BLANTON MD March 16, 2020 08:58
--- NOTE | 2020-03-16 10:28 | Physical Therapy Daily Note ---
PT Daily Note-Current Subjective Pt. up in chair, agrees to therapy. No pain rating given in the R knee. Mental Status Patient Orientation: Person, Place, Time, Situation Attachments: Polar Pack, IV Transfers SCALE: Activities may be completed with or without assistive devices. 3-Wnohqquvzi-cwvjjmq completes the activity by him/herself with no assistance from a helper. 5-Set-up or Clean-up Assistance-helper sets up or cleans up; patient completes activity. [place] assists only prior to or following the activity. 4-Supervision or Touching Assistance-helper provides verbal cues and/or touching/steadying and/or contact guard assistance as patient completes activity. Assistance may be provided throughout the activity or intermittently. 3-Partial/Moderate Assistance-helper does LESS THAN HALF the effort. [place] lifts, holds or supports trunk or limbs, but provides less than half the effort. 2-Substantial/Maximal Assistance-helper does MORE THAN HALF the effort. [place] lifts or holds trunk or limbs and provides more than half the effort. 4-Ebvijxlen-xedczy does ALL the effort. Patient does none of the effort to complete the activity. Or, the assistance of 2 or more helpers is required for the patient to complete the activity. If activity was not attempted, code reason: 7-Patient Refused. 9-Not Applicable-not attempted and the patient did not perform the activity before the current illness, exacerbation or injury. 10-Not Attempted due to Environmental Limitations-(lack of equipment, weather restraints, etc.). 88-Not Attempted due to Medical Conditions or Safety Concerns. Sit to Lying (QC): 4 Lying to Sitting/Side of Bed(Q: 4 Sit to Stand (QC): 4 Chair/Wgq-jh-Lpqok Xfer(QC): 4 Weight Bearing Right Lower Extremity: Right Weight Bearing/Tolerated Gait Training Does the Patient Walk?: Yes Distance: 50 ft Walk 10 feet (QC): 4 Walk 50 ft with 2 Turns(QC): 4 Gait Persons Needed: 1 Gait Assistive Device: FWW cues to gait pattern and to increase heel-toe on R Exercises Supine Ex: Ankle pumps, Quad Set, Short Arc Quads, Straight leg raise Supine Reps: 10 Seated Therapy Exercises: Hamstring Curls Seated Reps: 10 Treatments TKR exercises, gait Assessment Current Status: Good Progress Pt. had improved gait ability today but needs significant use of UE's during WB on R. Pt. has very poor quad activation with exercises and gait. Pt. returned to bedside chair, polar pack in place, call light and [employer] in reach and all needs met. PT Longterm Goals Jewel Bearing Driller Goals PT Jewel Bearing Driller Goals Time Frame: March 22, 2020 Roll Left & Right (QC): 6 Sit to Lying (QC): 4 Lying-Sitting on Side/Bed(QC): 4 Sit to Stand (QC): 4 Chair/Wvg-hu-Vsbnt Xfer(QC): 4 Toilet Transfer (QC): 4 Car Transfer (QC): 4 Does the Patient Walk: Yes Walk 10 feet (QC): 4 Walk 50ft with 2 Turns (QC): 4 Walk 150 ft (QC): 4 Walking 10ft on Uneven Surface: 4 1 Step (curb) (QC): 4 4 Steps (QC): 88 12 Steps (QC): 88 Picking up an Object (QC): 88 Wheel 50 feet with 2 turns (QC: 9 Wheel 150 feet: 9 PT Plan Treatment/Plan Treatment Plan: Continue Plan of Care Treatment Plan: Bed Mobility, Education, Functional Activity Heena, Functional Strength, Gait, Safety, Therapeutic Exercise, Transfers Treatment Duration: March 22, 2020 Frequency: 11 times per week Estimated Hrs Per Day: .25 hour per day Patient and/or Family Agrees t: Yes Time/GCodes Time In: 833 Time Out: 857 Total Billed Treatment Time: 24 Total Billed Treatment 1, GT 14', Ex 10' EILEEN STARKS PT March 16, 2020 10:28
[2020-03-16] MEDS: LOSARTAN 50 MG (COZAAR) TAB PO SCH (10:29)
[2020-03-16] MEDS: rOPINIRole 0.25 MG (REQUIP) TAB PO SCH ×2 (10:29→20:00)
--- NOTE | 2020-03-16 12:33 | NUR ---
BLESSING/MARY KATE visited with patient for social service consult. Plan: The patient will return home with Home Health. Home Health: [facility]. The patient was provided with a Patient Preference Form and chose [facility]; However, her insurance plan is not in Network with them. Her second choice is [facility]. BLESSING/MARY KATE contacted [facility] and the referral was made. In the home health orders it states "ok to being on Friday" due to Friday being a holiday BLESSING/MARY KATE got permission from BRAULIO Everett to have an RN change orders till Friday. The order was faxed to agency. The patient does not need a walker due to having her brothers old one. Will follow until discharge. Addendum: 03/16/20 at 1244 by [facility]ESAR [facility] MICHEL spoke to the patients [facility] Network worker Nadeem Lerma ([phone]) who faxed a sheet of in Network Home Health agencies.
--- NOTE | 2020-03-16 14:05 | Physical Therapy Daily Note ---
PT Daily Note-Current Subjective Pt. up in bedside chair and agrees to PT. Pt. c/o R knee pain but no pain rating given. Mental Status Patient Orientation: Person, Place, Time, Situation Attachments: Polar Pack, IV Transfers SCALE: Activities may be completed with or without assistive devices. 1-Atnxyjzfpo-mhvhupn completes the activity by him/herself with no assistance from a helper. 5-Set-up or Clean-up Assistance-helper sets up or cleans up; patient completes activity. [place] assists only prior to or following the activity. 4-Supervision or Touching Assistance-helper provides verbal cues and/or touching/steadying and/or contact guard assistance as patient completes activity. Assistance may be provided throughout the activity or intermittently. 3-Partial/Moderate Assistance-helper does LESS THAN HALF the effort. [place] lifts, holds or supports trunk or limbs, but provides less than half the effort. 2-Substantial/Maximal Assistance-helper does MORE THAN HALF the effort. [place] lifts or holds trunk or limbs and provides more than half the effort. 1-Hmrgizfyp-ptbgiz does ALL the effort. Patient does none of the effort to complete the activity. Or, the assistance of 2 or more helpers is required for the patient to complete the activity. If activity was not attempted, code reason: 7-Patient Refused. 9-Not Applicable-not attempted and the patient did not perform the activity before the current illness, exacerbation or injury. 10-Not Attempted due to Environmental Limitations-(lack of equipment, weather restraints, etc.). 88-Not Attempted due to Medical Conditions or Safety Concerns. Sit to Lying (QC): 4 Sit to Stand (QC): 4 Toilet Transfer (QC): 4 Weight Bearing Right Lower Extremity: Right Weight Bearing/Tolerated Gait Training Does the Patient Walk?: Yes Distance: 100 ft Walk 10 feet (QC): 4 Walk 50 ft with 2 Turns(QC): 4 Gait Persons Needed: 1 Gait Assistive Device: FWW pt. pauses every few steps to stretch the calf, otherwise improved gait sequence and heel-toe pattern Exercises Supine Ex: Ankle pumps, Quad Set, Short Arc Quads, Straight leg raise Supine Reps: 10 Seated Therapy Exercises: Hamstring Curls Seated Reps: 10 Treatments TKA exercises, gait training, toileting Assessment Current Status: Good Progress Pt. had improved gait ability this PM but slow due to frequent calf stretching. Pt. toileting (I) and had improved quad activation with exercises this PM. CPM placed R knee -2-66 deg and patient tolerated well. Pt. in bed post session with call light and all needs met. PT Event Marketing Coordinator Goals Senior Living Goals PT Senior Living Goals Time Frame: March 22, 2020 Roll Left & Right (QC): 6 Sit to Lying (QC): 4 Lying-Sitting on Side/Bed(QC): 4 Sit to Stand (QC): 4 Chair/Ujo-zm-Gonne Xfer(QC): 4 Toilet Transfer (QC): 4 Car Transfer (QC): 4 Does the Patient Walk: Yes Walk 10 feet (QC): 4 Walk 50ft with 2 Turns (QC): 4 Walk 150 ft (QC): 4 Walking 10ft on Uneven Surface: 4 1 Step (curb) (QC): 4 4 Steps (QC): 88 12 Steps (QC): 88 Picking up an Object (QC): 88 Wheel 50 feet with 2 turns (QC: 9 Wheel 150 feet: 9 PT Plan Treatment/Plan Treatment Plan: Continue Plan of Care Treatment Plan: Bed Mobility, Education, Functional Activity Heena, Functional Strength, Gait, Safety, Therapeutic Exercise, Transfers Treatment Duration: March 22, 2020 Frequency: 11 times per week Estimated Hrs Per Day: .25 hour per day Patient and/or Family Agrees t: Yes Time/GCodes Time In: 1250 Time Out: 1328 Total Billed Treatment Time: 38 Total Billed Treatment 1, GT 20', Ex 10', FA 8' EILEEN STARKS PT March 16, 2020 14:05
--- NOTE | 2020-03-16 14:23 | Anesthesia-General Post-Op ---
General Patient Condition Mental Status/LOC: Same as Preop Cardiovascular: Satisfactory Nausea/Vomiting: Absent Respiratory: Satisfactory Pain: Controlled Complications: Absent Post Op Complications Complications None Follow Up Care/Instructions Patient Instructions None needed. Anesthesia/Patient Condition Patient Condition Patient is doing well, no complaints, stable vital signs, no apparent adverse anesthesia problems. No complications reported per nursing. D/C home per [facility] Criteria: BENY So CRNA March 16, 2020 14:23
[2020-03-16] MEDS ORDERED: OXYBUTYNIN (DITROPAN) 5 MG TAB PO SCH (21:00)
[2020-03-17] VITALS: BP 161/84
--- NOTE | 2020-03-17 01:00 | DISCHARGE SUMMARY ---
DATE OF SERVICE: DIAGNOSES: 1. Right knee osteoarthritis. 2. Reflux. 3. Anxiety disorder. 4. Migraines. 5. Hypertension. 6. Insomnia. PROCEDURE: Urinary incontinence. SUMMARY: The patient is a 60-year-old female who underwent a right total knee arthroplasty on the date of admission. Postoperatively, she did well. At the time of discharge, her wound was clean and dry. She had no calf tenderness. Negative Homans sign. CONDITION AT DISCHARGE: Good. DISCHARGE DIET: Regular. FOLLOWUP: Followup is in three weeks. DISCHARGE MEDICATIONS: Home medications, aspirin one per day for 4 weeks' and Percocet as needed for pain. ACTIVITIES: Weightbearing as tolerated with walker, right lower extremity. Job ID: [id number] DocumentID: [id number] Dictated Date: 03/16/2020 15:18:24 Assistant Analyst Date: 03/17/2020 00:59:53 Dictated By: CECILIO SHORT MD
[2020-03-17 04:00] VITALS: BP 163/82
[2020-03-17 06:28] LABS: HEMOGLOBIN 10.3 G/DL (11.5-16.0)
[2020-03-17] MEDS: oxyCODONE/APAP 5/325MG (PERCOCET 5) TABLET PO PRN ×4 (06:40→12:36)
[2020-03-17] MEDS: MULTIVIT W/MINERALS TAB (THERAGRAN M) PO SCH (06:40)
--- NOTE | 2020-03-17 07:06 | Progress Note ---
Standard Progress Note Progress Notes/Assess & Plan Date Seen by a Provider: March 17, 2020 Time Seen by a Provider: 07:05 Progress/Assessment & Plan post op check no complaints radiographs--HW well positioned without fracture RLE--2 plus DP pulse with brisk cap refill. intact DF and PF of toes and ankle with intact sensation throughout s/p RTKA mobilize as able Final Diagnosis no complaints Vital Signs Date Time Temp Pulse Resp B/P (MAP) Pulse Ox O2 Delivery O2 Flow Rate FiO2 03/17/20 06:41 18 03/17/20 04:00 37.0 94 21 163/82 (109) 95 Room Air 03/17/20 00:00 36.8 92 20 161/84 (109) 98 Room Air 03/16/20 20:00 Room Air 03/16/20 19:38 37.6 85 20 148/71 (96) 100 Room Air 03/16/20 18:00 18 03/16/20 16:59 36.2 82 18 153/79 (103) 99 Room Air 03/16/20 12:00 36.2 78 16 116/71 (86) 96 Room Air 03/16/20 08:00 36.4 75 16 117/72 (87) 99 Room Air 03/16/20 08:00 Room Air I & O 03/17/20 07:00 Intake Total 2090 ml Output Total 2500 ml Balance -410 ml Laboratory Tests Test 03/17/20 05:33 Range/Units Hemoglobin 10.3 L 11.5-16.0 G/DL Hematocrit 31 L 35-52 % RLE--incision clean and dry. No calf tenderness. Neg Toni's s/p RTKA doing well DC home after PT today CECILIO SHORT MD March 17, 2020 07:06
[2020-03-17] MEDS ORDERED: morphine INJ 4 MG/ML 1 ML (VIAL/SYRINGE) IVP PRN (07:15)
--- NOTE | 2020-03-17 07:30 | NUR ---
DR SHORT ON MORNING ROUNDS DISCHARGED PT AND PUT IN ORDERS. PT REPORTS SHE IS READY TO GO HOME. WILL PICK HER UP WHEN SHE IS READY.
[2020-03-17 08:00] VITALS: BP 148/78
--- NOTE | 2020-03-17 08:00 | NUR ---
PT'S IV FLUIDS ALONG WITH STYLIST ASSISTANT DISCONTINUED THIS AM. PT C/O THAT IV IN LEFT HAND WAS LEAKING. THIS RN WAS UNABLE TO FLUSH SALINE LOCK AND D/C'D IV. PT REFUSED TO BE STUCK AGAIN FOR IV PLACEMENT D/T DR SHORT DISCHARGING HER TODAY. THIS RN HAD PULLED HER PRN MORPHINE AND WASTED IT WITH BRANDAN HERNANDEZ RN. PT ALSO REFUSED HER LOVENOX THIS AM, STATING THAT NIGHT RN HAD GIVEN IT TO HER ALREADY THIS AM. LOVENOX WAS NOT SCANNED IF IT HAD BEEN ADMIN. THIS RN WASTED THIS WELL.
[2020-03-17] MEDS: rOPINIRole 0.25 MG (REQUIP) TAB PO SCH (08:04)
[2020-03-17] MEDS: ASPIRIN E.C. 81 MG (ECOTRIN) TAB PO SCH (08:04)
[2020-03-17] MEDS: LOSARTAN 50 MG (COZAAR) TAB PO SCH (08:04)
[2020-03-17] MEDS: SENNA W/DOCUSATE (SENOKOT S) TABLET PO SCH (08:04)
[2020-03-17] MEDS: ENOXAPARIN 30 MG/0.3 ML (LOVENOX) SYR SC SCH ×2 (08:09→08:11)
--- NOTE | 2020-03-17 10:02 | NUR ---
CM/SS follow up. CM/SS informed the patient that her home health was set up with [facility]. She verbalized understanding. She reports that she does not have any other questions or concerns for this ss at this time.
--- NOTE | 2020-03-17 11:20 | Physical Therapy Daily Note ---
PT Daily Note-Current Subjective Pt agreeable to PT. Pt up in chair upon arrival. Pain rated 8/10 (R) knee. Pt says she just had pain med. Discussed sequence on stairs, pt states "I have been doing it that way for quite a while". Pt issued copy of HEP and reviewed, verbalized understanding. Mental Status Patient Orientation: Person, Place, Situation Transfers SCALE: Activities may be completed with or without assistive devices. 7-Jgxwyomjnv-dkpgvpr completes the activity by him/herself with no assistance from a helper. 5-Set-up or Clean-up Assistance-helper sets up or cleans up; patient completes activity. [place] assists only prior to or following the activity. 4-Supervision or Touching Assistance-helper provides verbal cues and/or touching/steadying and/or contact guard assistance as patient completes activity. Assistance may be provided throughout the activity or intermittently. 3-Partial/Moderate Assistance-helper does LESS THAN HALF the effort. [place] lifts, holds or supports trunk or limbs, but provides less than half the effort. 2-Substantial/Maximal Assistance-helper does MORE THAN HALF the effort. [place] lifts or holds trunk or limbs and provides more than half the effort. 4-Shuilcpeq-rndaky does ALL the effort. Patient does none of the effort to complete the activity. Or, the assistance of 2 or more helpers is required for the patient to complete the activity. If activity was not attempted, code reason: 7-Patient Refused. 9-Not Applicable-not attempted and the patient did not perform the activity before the current illness, exacerbation or injury. 10-Not Attempted due to Environmental Limitations-(lack of equipment, weather restraints, etc.). 88-Not Attempted due to Medical Conditions or Safety Concerns. Sit to stand SBA, mod (I) Weight Bearing Right Lower Extremity: Right Weight Bearing/Tolerated Gait Training Gait Assistive Device: FWW Pt amb with FWW and SBA, step to gait pattern x 120ft Exercises Supine Ex: LE Protocol Supine Reps: 15 Treatments (R) LE SLR, heelslide and SAQ required mod-max A due to pain and weakness. Assessment Current Status: Good Progress All functional mobility slow but controlled. Pt amb with step to gait pattern, slightly flexed knee. Pt progressing appropriately. Reviewed HEP, stair sequence. Pt confident with stairs as she has done proper sequence for a while. Pt resting in ornament stapler with call light, cryotherapy in place. PT Dictionary Editor Goals Group Home Goals PT Group Home Goals Time Frame: March 22, 2020 Roll Left & Right (QC): 6 Sit to Lying (QC): 4 Lying-Sitting on Side/Bed(QC): 4 Sit to Stand (QC): 4 Chair/Jck-ng-Svrxq Xfer(QC): 4 Toilet Transfer (QC): 4 Car Transfer (QC): 4 Does the Patient Walk: Yes Walk 10 feet (QC): 4 Walk 50ft with 2 Turns (QC): 4 Walk 150 ft (QC): 4 Walking 10ft on Uneven Surface: 4 1 Step (curb) (QC): 4 4 Steps (QC): 88 12 Steps (QC): 88 Picking up an Object (QC): 88 Wheel 50 feet with 2 turns (QC: 9 Wheel 150 feet: 9 PT Plan Treatment/Plan Treatment Plan: Continue Plan of Care Treatment Plan: Bed Mobility, Education, Functional Activity Heena, Functional Strength, Gait, Safety, Therapeutic Exercise, Transfers Treatment Duration: March 22, 2020 Frequency: 11 times per week Estimated Hrs Per Day: .25 hour per day Patient and/or Family Agrees t: Yes Time/GCodes Time In: 840 Time Out: 915 Total Billed Treatment Time: 35 Total Billed Treatment 1, gait 15', ther ex 20' CLAUDIA CALHOUN CPTA March 17, 2020 11:20
--- NOTE | 2020-03-17 12:00 | NUR ---
PT HAD 11 ML LEFT IN CAD PUMP AFTER IT WAS DISCONTINUED. EILEEN CROFT RN WITNESSED MORPHINE WASTE
--- NOTE | 2020-03-17 12:40 | NUR ---
PT'S CAME TO PICK HER UP BY PRIVATE VEHICLE. SHE WAS TAKEN DOWN TO EXIT BY PCT IN WHEELCHAIR WITH HER BELONGINGS.
== END 2020-03-17 12:40 | disposition home health service (06) | DRG 470 ==
LOC: 4TH 03-15 06:21 → SURG 03-15 06:22 → 4TH 03-15 11:05
PROVIDERS: ADMIT Orthopaedic Surgery; ATTEND Orthopaedic Surgery
PROC: 0SRC0J9 Replacement of Right Knee Joint with Synthetic Substitute, Cemented, Open Approach (ICD-10-PCS; principal; 2020-03-15 07:55)
DX: M17.11 Unilateral primary osteoarthritis, right knee (principal); I10 Essential (primary) hypertension; K21.9 Gastro-esophageal reflux disease without esophagitis; G47.30 Sleep apnea, unspecified; F41.9 Anxiety disorder, unspecified; G43.909 Migraine, unspecified, not intractable, without status migrainosus; G47.00 Insomnia, unspecified; N39.41 Urge incontinence; J30.2 Other seasonal allergic rhinitis; Z90.710 Acquired absence of both cervix and uterus
CPT/HCPCS: 36415; 73560; 85014; 85018; 86850; 86900; 86901

== ENCOUNTER 2020-03-10 08:00 | Outpatient (RCR) | payer OTHER ==
[2020-03-06 09:38] VITALS: BP 115/45
[2020-03-06 10:06] LABS: BILIRUBIN,URINE NEGATIVE (NEGATIVE); CLARITY,URINE CLEAR; COLOR,URINE YELLOW; GLUCOSE, URINE (UA) NEGATIVE (NEGATIVE); KETONES,URINE NEGATIVE (NEGATIVE); LEUKOCYTE ESTERASE ,URINE 1+ (NEGATIVE); NITRITE,URINE NEGATIVE (NEGATIVE); PROTEIN,URINE NEGATIVE (NEGATIVE)
[2020-03-06 10:09] LABS: BASOPHILS % (AUTO) 0 % (0-10); EOSINOPHILS # (AUTO) 0.2 10^3/uL (0.0-0.3); EOSINOPHILS % (AUTO) 3 % (0-10); HEMATOCRIT 39 % (35-52); HEMOGLOBIN 12.9 G/DL (11.5-16.0); LYMPHOCYTES # (AUTO) 2.5 X 10^3 (1.0-4.0); LYMPHOCYTES % (AUTO) 34 % (12-44); MEAN CORPUSCULAR HEMOGLOBIN 30 PG (25-34); MEAN CORPUSCULAR HGB CONC 33 G/DL (32-36); MEAN CORPUSCULAR VOLUME 91 FL (80-99); MONOCYTES # (AUTO) 0.5 X 10^3 (0.0-1.0); MONOCYTES % (AUTO) 7 % (0-12); NEUTROPHILS # (AUTO) 4.1 X 10^3 (1.8-7.8); NEUTROPHILS % (AUTO) 56 % (42-75); PLATELET COUNT 265 10^3/uL (130-400); RED CELL DISTRIBUTION WIDTH 13.4 % (10.0-14.5); WHITE BLOOD COUNT 7.3 10^3/uL (4.3-11.0)
[2020-03-06 10:16] LABS: BACTERIA,URINE TRACE /HPF
--- NOTE | 2020-03-06 10:18 | Diagnostic Imaging Report ---
INDICATION: Preop for right total knee replacement. TIME OF EXAM: 10:11 AM Comparison is made with prior chest from 10/01/2015. FINDINGS: The heart size is normal. The pulmonary vascularity is unremarkable. The lungs are clear. No infiltrate, effusion or pneumothorax is detected. IMPRESSION: No acute cardiopulmonary process is detected. Dictated by: Dictated on workstation # [id number]
[2020-03-06 10:25] LABS: INR 0.9 (0.8-1.4); PROTHROMBIN TIME PATIENT 12.6 SEC (12.2-14.7)
[2020-03-06 10:28] LABS: ALBUMIN 4.3 GM/DL (3.2-4.5); BILIRUBIN,TOTAL 0.6 MG/DL (0.1-1.0); CALCIUM 9.3 MG/DL (8.5-10.1); CREATININE SERUM 1.17 MG/DL (0.60-1.30); ERYTHROCYTE SEDIMENTATION RATE 15 MM/HR (0-30); POTASSIUM 4.2 MMOL/L (3.6-5.0)
[~2020-03-10] VITALS: Ht 165 cm; Wt 103.8 kg
[~2020-03-10 08:00] MED LIST changes: +ALPR0.254 PO; +LOSA50TA63 PO; +MULT-593 PO; +NAPR500T8 PO; +NF-VITD400 PO; +OXYB5TAB13 PO; +PANT40TA3 PO; +ROPI0.253 PO
[2020-03-15] MEDS ORDERED: OXYC1TAB87 PO (07:00)
== END 2020-03-10 16:00 | disposition home or self-care (01) ==
LOC: PREOP 08:00
PROVIDERS: ATTEND Orthopaedic Surgery
DX: Z01.818 Encounter for other preprocedural examination (principal); Z01.812 Encounter for preprocedural laboratory examination; M17.11 Unilateral primary osteoarthritis, right knee; Z11.59 Encounter for screening for other viral diseases; R82.998 Other abnormal findings in urine; Z11.2 Encounter for screening for other bacterial diseases
CPT/HCPCS: 36415; 71046; 80053; 81000; 85025; 85610; 85652; 86850; 86900; 86901; 87077; 87081; 87088; 87186; 87635; 93005

== ENCOUNTER → 2020-06-06 | Outpatient (CLI) | payer OTHER ==
[~2020-06-06] MED LIST changes: +OXYC1TAB87 PO
--- NOTE | 2020-06-06 12:42 | Diagnostic Imaging Report ---
INDICATION: Routine screening. COMPARISON: 02/24/2019 and 02/23/2018. TECHNIQUE: 2D and 3D bilateral screening mammography was performed with CAD. FINDINGS: Scattered fibroglandular densities are identified bilaterally. The benign-appearing density in the posterior right breast at the nipple line on the CC view appears stable. No dominant mass or malignant appearing microcalcifications are seen. There are benign calcifications present. The axillae are unremarkable. IMPRESSION: No mammographic features suspicious for malignancy are identified. ACR BI-RADS Category 2: Benign findings. Result letter will be mailed to the patient. Note: At least 10% of breast cancer is not imaged by mammography. Dictated by: Dictated on workstation # [id number]
== END ==
LOC: RAD 10:07
PROVIDERS: ATTEND Obstetrics & Gynecology
DX: Z12.31 Encounter for screening mammogram for malignant neoplasm of breast (principal)
CPT/HCPCS: 77063; 77067

== ENCOUNTER → 2020-10-02 | Outpatient (CLI) | payer OTHER ==
[~2020-10-02] MED LIST changes: +ALPR.25T PO; -ALPR0.254 PO; +CELE-63 PO; +CHOL200059 PO; -PANT40TA3; -PANT40TA3 PO; +PANT40TA52; +PANT40TA52 PO
== END ==
LOC: CARD 09:11
PROVIDERS: ATTEND Nurse Practitioner Family
DX: R01.1 Cardiac murmur, unspecified (principal); I35.1 Nonrheumatic aortic (valve) insufficiency
CPT/HCPCS: 93306

== ENCOUNTER 2020-10-05 10:55 | Outpatient (RCR) | payer OTHER ==
[~2020-10-05] VITALS: Ht 165.1 cm; Wt 100.7 kg
[~2020-10-05 10:55] MED LIST changes: -CELE-63 PO; -CHOL200059 PO
[2020-10-05] MEDS ORDERED: CELE-63 PO (12:44)
[2020-10-05] MEDS ORDERED: CHOL200059 PO (12:44)
== END 2020-10-05 12:47 | disposition home or self-care (01) ==
LOC: PREOP 10:55
PROVIDERS: ATTEND Surgery
DX: Z01.812 Encounter for preprocedural laboratory examination (principal); K21.9 Gastro-esophageal reflux disease without esophagitis

== ENCOUNTER 2020-10-11 09:33 | Day surgery (SDC) | payer OTHER ==
[~2020-10-11] VITALS: Ht 165.1 cm; Wt 100.7 kg
[2020-10-11] VITALS (11 sets, daily range): BP systolic 97–137; BP diastolic 55–81
[~2020-10-11 09:33] MED LIST changes: +CELE-63 PO; +CHOL200059 PO
[2020-10-11] MEDS ORDERED: NS IV 500 ML 500 ML ONE (09:34)
[2020-10-11] MEDS ORDERED: fentaNYL INJECTION 100 MCG/2 ML AMP IVP ONE (09:45)
[2020-10-11] MEDS ORDERED: MIDAZOLAM 5 MG/5 ML (VERSED) VIAL IV ONE (09:45)
[2020-10-11] MEDS ORDERED: NS IV 500 ML 500 ML IV PRN (09:45)
[2020-10-11] MEDS ORDERED: LIDOCAINE JELLY 2% 6 ML SYRINGE MM PRN (09:45)
[2020-10-11] MEDS ORDERED: HURRICAINE EXT TUBE (BENZOCAINE) XX PRN (09:45)
--- NOTE | 2020-10-11 11:11 | Conscious Sedation/ASA ---
Conscious Sedation Pre-Proced Time 10:30 ASA Score 2 For ASA 3 and 4: Consider anesthesia and medical clearance. Also, for patients with a history of failed moderate sedation consider anesthesia. Airway Lungs Heart ASA score ASA 1: a normal healthy patient ASA 2: a patient with a mild systemic disease (mid diabetes, controlled hypertension, obesity ASA 3: a patient with a severe systemic disease that limits activity (angina, COPD, prior Myocardial infarction) ASA 4: a patient with an incapacitating disease that is a constant threat to life (CHF, renal failure) ASA 5: a moribund patient not expected to survive 24 hrs. (ruptured aneurysm) ASA 6: a declared brain- patient whose organs are being harvested. For emergent operations, add the letter E after the classification Mallampati Classification Grade 2 Sedation Plan Analgesia, Amnesia, Plan communicated to team members, Discussed options with patient/fam, Discussed risks with patient/fam The patient is an appropriate candidate to undergo the planned procedure, sedation, and anesthesia. The patient immediately re-assessed prior to indication. TEDDY CORTEZ MD Oct 11, 2020 11:11
--- NOTE | 2020-10-11 11:12 | Progress Note-Pre Operative ---
Pre-Operative Progress Note H&P Reviewed The H&P was reviewed, patient examined and no changes noted. Date Seen by Provider: Oct 11, 2020 Time Seen by Provider: 10:30 Date H&P Reviewed: Oct 11, 2020 Time H&P Reviewed: 10:30 Pre-Operative Diagnosis: TEDDY PATEL MD Oct 11, 2020 11:12
--- NOTE | 2020-10-11 11:13 | Discharge Inst-Surgical ---
D/C Lap Instructions-DIEGO Follow Up Appt in 2 weeks Activity as tolerated High Fiber Diet 25g or more per day Avoid Alcohol, Caffeine, Spicy [place] and Acid foods. Drink 64 fluid oz or more of fluids per day. Symptoms to Report: Fever over 101 degree F, Nausea/Vomiting If any problems/questions: Contact your physician or go to Emergency Room TEDDY CORTEZ MD Oct 11, 2020 11:13
[2020-10-11] MEDS ORDERED: HYDROcodone/APAP 5 MG/325 MG (LORTAB) TAB PO PRN (11:15)
[2020-10-11] MEDS ORDERED: morphine INJ 10 MG/ML 1ML (SYR OR VIAL) IVP PRN ×2 (11:15)
[2020-10-11] MEDS ORDERED: ONDANSETRON 4 MG/2 ML (SDV) Z0FRAN IVP PRN (11:15)
[2020-10-11] MEDS ORDERED: fentaNYL INJECTION 100 MCG/2 ML AMP ONE (11:53)
[2020-10-11] MEDS ORDERED: HURRICAINE EXT TUBE (BENZOCAINE) ONE (11:53)
[2020-10-11] MEDS ORDERED: MIDAZOLAM 5 MG/5 ML (VERSED) VIAL ONE ×2 (11:53)
[2020-10-11] MEDS ORDERED: LIDOCAINE JELLY 2% 6 ML SYRINGE ONE (12:05)
--- NOTE | 2020-10-11 12:34 | Progress Note-Post Operative ---
Post-Operative Progess Note Surgeon (s)/Speed Winder (s) Surgeon TEDDY CORTEZ MD Speed Winder: none Pre-Operative Diagnosis GERD Post-Operative Diagnosis reflux esophagitis(stage 2), small type 1 HH(2cm), moderate gastritis, mild pyloric inlet stricture. Procedure & Operative Findings Date of Procedure 10/11/20 Procedure Performed/Findings EGD with bx. Anesthesia Type cs Estimated Blood Loss Estimated blood loss (mL): minimal Specimens/Packing Specimens Removed ge jxn, antrum TEDDY CORTEZ MD Oct 11, 2020 12:34
--- NOTE | 2020-10-11 19:50 | OPERATIVE REPORT ---
DATE OF SERVICE: 10/11/2020 ATTENDING PRIMARY CARE PHYSICIAN: Ling Collins MD PREOPERATIVE DIAGNOSIS: Gastroesophageal reflux disease. POSTOPERATIVE DIAGNOSES: Reflux esophagitis stage II, small hiatal hernia approximately 2 cm in size, multiple small hyperplastic polyps, very slight stricture at the antral outlet. PROCEDURE: EGD with biopsy. SURGEON: Teddy Cortez MD ANESTHESIA: Conscious sedation. ESTIMATED BLOOD LOSS: Minimal. FINDINGS: Reflux esophagitis stage II, small hiatal hernia approximately 2 cm in size, multiple small hyperplastic polyps, very slight stricture at the antral outlet. DISPOSITION: The patient tolerated the procedure well. INDICATIONS: The patient is a 60-year-old female who has had issues with reflux in the past and states in the last month, this has worsened despite being on Protonix daily. She was seen by her physician and was started on Carafate as well as Pepcid. She has had 2 previous EGDs in the past and was found to have a hiatal hernia as well as a small pyloric ulcer. Biopsies were negative for H. pylori as well as Villanueva's esophagus. DESCRIPTION OF PROCEDURE: The patient was brought to the endoscopy suite, laid in the left lateral decubitus position. After adequate IV pain and sedative medications and conscious sedation anesthesia, the mouthpiece was applied. The endoscope was placed in the mouth, visualizing the pharynx and hypopharyngeal region. Vocal cords, epiglottis and vallecula identified and appeared to be normal. The endoscope was then gently intubated into the esophageal opening and esophagus insufflated. The endoscope was then advanced to the first, third portions of esophagus at the level of GE junction, a reflux esophagitis stage II identified. There were no ulcers or strictures identified in this region. A biopsy was taken with forceps with visualization of good hemostasis. The endoscope was then advanced into the stomach and endoscope retroflexed, visualizing a small what appeared to be a type 1 sliding hiatal hernia, 2 cm in size. There was a moderate severity gastritis. There were no pyloric ulcers; however, there was a very mild stricture at the pyloric . A biopsy was taken of the stomach, antrum with visualization of good hemostasis. The endoscope was then advanced to the pylorus into the first and second portion of the duodenum, which appeared normal with no distal obstructions. The endoscope was then slowly withdrawn while taking a second look and suctioning of residual air with no additional findings. The patient tolerated the procedure well. We will recommend the necessary lifestyle and diet accommodation including small and more frequent meals, avoidance of eating at night as well as head elevation while lying supine. She also needs to avoid caffeinated beverages, spicy, greasy and acidic foods. For now, we will recommend continued medical management with the Protonix 40 mg daily as well as H2 antagonist daily as well as Carafate q.i.d. for the next 2 weeks, then on a p.r.n. basis. If she does have worsening issues with gastric stasis or gastric outlet obstruction, we would then proceed with dilatation of the mild pyloric stricture. Job ID: [id number] DocumentID: [id number] Dictated Date: 10/11/2020 12:23:59 Animal Trainer Date: 10/11/2020 19:49:36 Dictated By: TEDDY CORTEZ MD
== END 2020-10-11 13:10 | disposition home or self-care (01) ==
LOC: ENDO 09:33
PROVIDERS: ATTEND Surgery
DX: K29.50 Unspecified chronic gastritis without bleeding (principal); K21.00 Gastro-esophageal reflux disease with esophagitis, without bleeding; K44.9 Diaphragmatic hernia without obstruction or gangrene; K22.2 Esophageal obstruction; K31.7 Polyp of stomach and duodenum; I10 Essential (primary) hypertension; G25.81 Restless legs syndrome; N32.81 Overactive bladder; M19.90 Unspecified osteoarthritis, unspecified site; Z79.899 Other long term (current) drug therapy; Z88.1 Allergy status to other antibiotic agents; Z88.2 Allergy status to sulfonamides; Z88.8 Allergy status to other drugs, medicaments and biological substances; Z90.49 Acquired absence of other specified parts of digestive tract; Z90.711 Acquired absence of uterus with remaining cervical stump; Z83.3 Family history of diabetes mellitus; Z80.1 Family history of malignant neoplasm of trachea, bronchus and lung
CPT/HCPCS: 88305

== ENCOUNTER 2020-12-28 05:39 | Outpatient (RCR) | payer OTHER ==
[~2020-12-28] VITALS: Ht 165.1 cm; Wt 102.2 kg
[~2020-12-28 05:39] MED LIST changes: +FAMO40TA72 PO; +PANT40TA2 PO
== END 2020-12-28 14:52 | disposition home or self-care (01) ==
LOC: PREOP 05:39
PROVIDERS: ATTEND Surgery
DX: Z01.812 Encounter for preprocedural laboratory examination (principal); K21.9 Gastro-esophageal reflux disease without esophagitis; K22.2 Esophageal obstruction; Z20.822 Contact with and (suspected) exposure to COVID-19
CPT/HCPCS: 87635

== ENCOUNTER 2020-12-29 11:18 | Day surgery (SDC) | payer OTHER ==
--- NOTE | 2020-12-28 01:20 | HISTORY AND PHYSICAL ---
DATE OF SERVICE: DATE OF ADMISSION: 12/29/2020 ATTENDING PRIMARY CARE PHYSICIAN: Ling Collins MD. HISTORY OF PRESENT ILLNESS: The patient is a 60-year-old female who we have seen before in the past. She has had issues with gastroesophageal reflux disease; however, this has worsened despite being on Protonix 40 mg daily. She has had 2 previous EGDs in the past and was found to have a hiatal hernia as well as a small pyloric ulcer. She did undergo an EGD on 10/11/2020 and was found to have a reflux esophagitis stage II as well as a small hiatal hernia 2 cm in size and a slight stricture at the pyloric inlet. She reports that her symptoms have worsened over time and she always feels bloated with abdominal distention after meals. Eventually, this would go away on its own. She does report that her reflux type of symptoms with epigastric burning sensation and pain have worsened as well. We feel that this is likely due to the pyloric stricture not allowing adequate chyme to reduce down into the small bowel. PAST MEDICAL HISTORY: Hypertension, gastroesophageal reflux disease, restless leg syndrome, overactive bladder, degenerative joint disease. PAST SURGICAL HISTORY: Laparoscopic [id number], partial hysterectomy 1987, completion hysterectomy 2007, laparoscopic appendectomy 2007, right total knee replacement 2019, tonsillectomy 1968, right breast biopsy 1998 benign, left breast biopsy 1999 benign. ALLERGIES: KEFLEX, DOXYCYCLINE, ERYTHROMYCIN, NIACIN, SULFA. MEDICATIONS: Celecoxib 200 mg daily, Protonix 40 mg b.i.d., losartan 50 mg daily, oxybutynin 5 mg daily, ropinirole 0.25 mg b.i.d. SOCIAL HISTORY: Negative smoke, negative alcohol. FAMILY HISTORY: Mother, peripheral vascular disease, diabetes. VITAL SIGNS: Stable, currently 220 pounds at 5 feet 5 inches, body mass index is 36. REVIEW OF SYSTEMS: Well-nourished female currently in no acute distress. She is not experiencing any shortness of breath or difficulty breathing. No chest pain, palpitations, diaphoresis. Intermittent episodes of abdominal bloating and epigastric burning sensation usually after meals. Mild nausea, no vomiting, no hematemesis, no coffee ground emesis. No diarrhea, no constipation, no red blood per rectum, no dark tarry stools. No fever, chills, no recent inadvertent weight loss. All other review of systems negative. PHYSICAL EXAMINATION: CHEST: Clear. Good breath sounds bilaterally. HEART: Regular, no murmurs. EXTREMITIES: No lower extremity edema, negative Homans sign. HEENT: No scleral icterus. NECK: No cervical lymphadenopathy. ABDOMEN: Mild epigastric pain upon deep palpation. No peritoneal signs. No hernias. SKIN: Warm, dry. ASSESSMENT AND PLAN: A 60-year-old female with a gastric outlet obstruction due to pyloric stenosis and gastroesophageal reflux disease exacerbated by a hiatal hernia. We will proceed with another EGD as well as a balloon dilatation of the stricture in hopes of allowing for adequate transit of food and stomach contents into the small bowel and prevent the episodes of reflux. We will also have her continue with the Protonix b.i.d. for now as well as the necessary lifestyle and diet accommodation including small and more frequent meals and avoidance of eating at night. Job ID: [id number] DocumentID: [id number] Dictated Date: 12/26/2020 16:59:36 Rag Sorter And Cutter Date: 12/26/2020 17:17:35 Dictated By: TEDDY CORTEZ MD
[~2020-12-29] VITALS: Ht 165.1 cm; Wt 102.2 kg
--- NOTE | 2020-12-29 11:26 | Progress Note-Pre Operative ---
Pre-Operative Progress Note H&P Reviewed The H&P was reviewed, patient examined and no changes noted. Date Seen by Provider: Dec 29, 2020 Time Seen by Provider: 11:15 Date H&P Reviewed: Dec 29, 2020 Time H&P Reviewed: 11:15 Pre-Operative Diagnosis: dysphagia, GERD, hx pyloric stenosis TEDDY CORTEZ MD Dec 29, 2020 11:26
--- NOTE | 2020-12-29 11:27 | Discharge Inst-Surgical ---
D/C Lap Instructions-DIEGO Follow Up Appt in 2 weeks Activity as tolerated High Fiber Diet 25g or more per day Avoid Alcohol, Caffeine, Spicy [place] and Acid foods. Drink 64 fluid oz or more of fluids per day. Symptoms to Report: Fever over 101 degree F, Nausea/Vomiting If any problems/questions: Contact your physician or go to Emergency Room TEDDY CORTEZ MD Dec 29, 2020 11:27
[2020-12-29] MEDS ORDERED: ACETAMINOPHEN 325 MG TABLET PO PRN (11:30)
[2020-12-29] MEDS ORDERED: HYDROcodone/APAP 5 MG/325 MG (LORTAB) TAB PO PRN (11:30)
[2020-12-29] MEDS ORDERED: morphine INJ 10 MG/ML 1ML (SYR OR VIAL) IVP PRN ×2 (11:30)
[2020-12-29] MEDS ORDERED: ONDANSETRON 4 MG/2 ML (SDV) Z0FRAN IVP PRN (11:30)
[2020-12-29] MEDS ORDERED: LACTATED RINGERS 1,000 ML IV ONE (11:31)
[2020-12-29] MEDS ORDERED: LIDOCAINE JELLY 2% 6 ML SYRINGE MM PRN (11:45)
[2020-12-29] MEDS ORDERED: HURRICAINE EXT TUBE (BENZOCAINE) XX PRN (11:45)
[2020-12-29] MEDS ORDERED: LACTATED RINGERS 1,000 ML IV STA (11:45)
[2020-12-29] MEDS ORDERED: proPOfol 200 MG/20 ML (DIPRIVAN) VIAL IV ONE (11:55)
[2020-12-29] MEDS ORDERED: MIDAZOLAM 2 MG/2 ML (VERSED) VIAL ONE (11:56)
[2020-12-29 12:05] VITALS: BP 126/75
[2020-12-29] MEDS ORDERED: HURRICAINE EXT TUBE (BENZOCAINE) ONE (12:08)
[2020-12-29] MEDS ORDERED: LIDOCAINE JELLY 2% 6 ML SYRINGE ONE (12:08)
[2020-12-29 12:25] VITALS: BP 108/55
[2020-12-29 12:30] VITALS: BP 115/62
[2020-12-29 12:35] VITALS: BP_SYST 113; BP_SYST 116; BP_DIAS 70; BP_DIAS 78
--- NOTE | 2020-12-29 13:03 | OPERATIVE REPORT ---
DATE OF SERVICE: 12/29/2020 ATTENDING PRIMARY CARE PHYSICIAN: Ling Collins MD PREOPERATIVE DIAGNOSES: Gastroesophageal reflux disease, dysphagia, abdominal bloating, history of pyloric stenosis. POSTOPERATIVE DIAGNOSES: Reflux esophagitis stage II, small hiatal hernia 1.5 cm in size, moderate gastritis and mild pyloric stricture. PROCEDURE: EGD with biopsy and balloon dilatation. SURGEON: Teddy Cortez MD ANESTHESIA: Monitored anesthesia care. ESTIMATED BLOOD LOSS: Minimal. FINDINGS: Reflux esophagitis stage II, small hiatal hernia 1.5 cm in size, moderate gastritis and mild pyloric stricture. DISPOSITION: The patient tolerated the procedure well. INDICATIONS: The patient is a 60-year-old female who we have seen in the past. She has had issues with gastroesophageal reflux disease, and abdominal bloating despite being on Protonix 40 mg daily. She underwent an EGD on 10/11/2020, found to have a reflux esophagitis stage II, small hiatal hernia as well as a slight stricture of the pyloric inlet. She reports that her symptoms are worsened over time and she feels bloated after eating meals. DESCRIPTION OF PROCEDURE: The patient was brought to the endoscopy suite, laid in the left lateral decubitus position. After adequate IV pain and sedative medications and monitored anesthesia care, the mouthpiece was applied. The endoscope was placed in the mouth, visualizing the pharynx and hypopharyngeal region. Vocal cords, epiglottis and vallecula identified and appeared to be normal. Endoscope was gently intubated into the esophageal opening and esophagus insufflated. The endoscope was then advanced to the valves of the first, second and third portion of esophagus at the level of the GE junction, a reflux esophagitis stage II identified. No ulcers or strictures identified in this region. A biopsy was taken with forceps with visualization of good hemostasis. The endoscope was then advanced in the stomach and endoscope retroflexed, visualizing a small hiatal hernia 1.5 to 2 cm in size. There was a moderate severity gastritis. No formal ulcerations, polyps, or any neoplasms. A biopsy was taken in the antrum to rule out H. pylori with visualization of good hemostasis. The pyloric inlet stenosis was once again identified; however, did not appear to be severe. The endoscope was easily advanced through this area and there were no ulcers within the pylorus nor the first and second portions of duodenum. We then proceeded with balloon dilatation of the pylorus and the balloon was placed into the duodenum and pulled back to the area of the pylorus. We then proceeded with 2, 4 and 6 atmospheres of pressure with moderate resistance and left this in place for 60 seconds. The balloon was then desufflated and removed with visualization of good hemostasis as well as no mucosal tears. The endoscope was then slowly withdrawn while taking a second look and suctioning of residual air with no additional findings. The patient tolerated the procedure well. We will recommend continued medical management with small more frequent meals, avoidance of eating at night as well as head elevation while lying supine. She also needs to avoid caffeinated beverages, spicy, greasy and acidic foods as well as continue to take her Protonix. If she continues to have symptoms or worsening symptoms, she may need a drainage procedure, which could encompassed an enteroplasty or pyloroplasty. Job ID: [id number] DocumentID: [id number] Dictated Date: 12/29/2020 12:35:24 Aluminum Can Collector Date: 12/29/2020 13:02:22 Dictated By: TEDDY CORTEZ MD
[2020-12-29 13:05] VITALS: BP 120/73
[2020-12-29 13:06] VITALS: BP 120/73
--- NOTE | 2021-01-08 12:26 | Anesthesia-General Post-Op ---
MAC Significant Intra-Op Events Notes addendum 12-29-20 at 1300 Patient Condition Mental Status/LOC: Same as Preop Cardiovascular: Satisfactory Nausea/Vomiting: Absent Respiratory: Satisfactory Pain: Controlled Complications: Absent Post Op Complications Complications None Follow Up Care/Instructions Patient Instructions None needed. Anesthesiology Discharge Order Discharge Order Patient is doing well, no complaints, stable vital signs, no apparent adverse anesthesia problems. No complications reported per nursing. AMARA HUNTER CRNA Jan 08, 2021 12:26
== END 2020-12-29 13:07 | disposition home or self-care (01) ==
LOC: ENDO 11:18
PROVIDERS: ATTEND Surgery
DX: K29.50 Unspecified chronic gastritis without bleeding (principal); K21.00 Gastro-esophageal reflux disease with esophagitis, without bleeding; K44.9 Diaphragmatic hernia without obstruction or gangrene; K31.1 Adult hypertrophic pyloric stenosis; I10 Essential (primary) hypertension; G47.33 Obstructive sleep apnea (adult) (pediatric); M19.90 Unspecified osteoarthritis, unspecified site; N32.81 Overactive bladder; Z79.899 Other long term (current) drug therapy; Z88.2 Allergy status to sulfonamides; Z88.1 Allergy status to other antibiotic agents; Z88.8 Allergy status to other drugs, medicaments and biological substances; Z90.711 Acquired absence of uterus with remaining cervical stump; Z83.3 Family history of diabetes mellitus

== ENCOUNTER → 2021-01-29 | Outpatient (CLI) | payer OTHER ==
[~2021-01-29] MED LIST changes: +CATHETER FLUSH 10 ML SYR IV PRN; +HOLD METFORMIN - RECEIVED CONTRAST 20 ML VIAL IV SCH; +IOHEXOL 350 MG/ML 100 ML (OMNIPAQUE 350) VIAL IV ONE; +NS 100 ML (IVPB) BAG IV ONE
--- NOTE | 2021-01-29 15:58 | Diagnostic Imaging Report ---
PROCEDURE: CT abdomen and pelvis with contrast. TECHNIQUE: Multiple contiguous axial images were obtained through the abdomen and pelvis after administration of intravenous contrast. Auto Exposure Controls were utilized during the CT exam to meet ALARA standards for radiation dose reduction. All CT scans use one or more of the following dose optimizing techniques: automated exposure control, MA and/or KvP adjustment based on patient size and exam type or iterative reconstruction. INDICATION: Nausea and reflux. COMPARISON: Study compared with exam 10/03/2008. FINDINGS: The stomach is nondilated. No gastric wall thickening or perigastric edema. No evidence for outlet obstruction. Gallbladder is absent. Liver, bile ducts, spleen, adrenals, and pancreas are all unremarkable. The unobstructed kidneys are normal. The aortoiliac and mesenteric vessels are patent and nonaneurysmal. Urinary bladder is unremarkable. Uterus is absent. There is no adnexal lesion. The lower abdominal and pelvic small bowel loops are dilated with some fecalization. The terminal ileum is decompressed. The transition appears in the lower pelvis at the midline, etiology not defined perhaps from stricture. At least partial obstruction is suspected. Colon is nondistended limiting its evaluation. IMPRESSION: No evidence for gastric outlet obstruction. Mildly dilated fecalized distal small bowel with terminal ileum decompressed. Transition in the lower pelvis midline at least partial or early small bowel obstruction is suspected. No perforation, abscess, mass or fluid collection. Dictated by: Dictated on workstation # [id number]
== END ==
LOC: RAD 13:13
PROVIDERS: ATTEND Transplant Surgery
DX: K63.89 Other specified diseases of intestine (principal); K21.9 Gastro-esophageal reflux disease without esophagitis
CPT/HCPCS: 74177

== ENCOUNTER → 2021-02-08 | Outpatient (CLI) | payer OTHER ==
[~2021-02-08] MED LIST changes: +BARIUM for suspension 96% w/w (Vanilla Silq Medium Density) PO ONE; +BARIUM for suspension 98% w/w (Vanilla Silq High Density) PO ONE; -CATHETER FLUSH 10 ML SYR IV PRN; -HOLD METFORMIN - RECEIVED CONTRAST 20 ML VIAL IV SCH; -IOHEXOL 350 MG/ML 100 ML (OMNIPAQUE 350) VIAL IV ONE; -NS 100 ML (IVPB) BAG IV ONE
--- NOTE | 2021-02-08 11:12 | Diagnostic Imaging Report ---
INDICATION: Reflux and belching. Patient ingested effervescent crystals as well as thin and thick barium and imaging of the esophagus, stomach and proximal small bowel was performed. 57 seconds of fluoroscopic time was utilized. 31 images were obtained. Preliminary radiograph of the abdomen is unremarkable. Esophagus has a smooth contour. No mass or stricture is identified. No gastroesophageal reflux or hiatal hernia was demonstrated. Stomach has a normal configuration. Duodenal bulb is without deformity. Proximal small bowel loops are unremarkable. IMPRESSION: Unremarkable upper GI study. Dictated by: Dictated on workstation # [id number]
--- NOTE | 2021-02-08 11:14 | Diagnostic Imaging Report ---
INDICATION: Reflux and belching and severe abdominal pain after eating. Serial radiographs of the abdomen were obtained after patient ingested thin and thick barium. Small bowel is normal caliber. No obstruction is seen. The mucosal fold pattern is unremarkable. Contrast reaches the right colon at 45 minutes. IMPRESSION: Unremarkable small bowel study. Dictated by: Dictated on workstation # [id number]
== END ==
LOC: RAD 08:00
PROVIDERS: ATTEND Family Medicine
DX: K21.9 Gastro-esophageal reflux disease without esophagitis (principal)
CPT/HCPCS: 74246; 74248

== ENCOUNTER → 2021-05-09 | Outpatient (CLI) | payer OTHER ==
[~2021-05-09] MED LIST changes: -BARIUM for suspension 96% w/w (Vanilla Silq Medium Density) PO ONE; -BARIUM for suspension 98% w/w (Vanilla Silq High Density) PO ONE; +CATHETER FLUSH 10 ML SYR IV PRN; +REGADENOSON 0.4 MG/5 ML SYR (LEXISCAN) IV ONE
[2021-05-09 09:27] VITALS: BP 132/64
--- NOTE | 2021-05-09 12:56 | Cardiology Stress Test Report ---
Stress Test Report Date of Procedure/Referring: Date of Procedure: May 09, 2021 PCP Jakob Knight MD Admitting Physician Ling Collins MD Indications: HTN Baseline Heart Rate: 63 Baseline Blood Pressure: Blood Pressure Systolic: 132 Blood Pressure Diastolic: 64 Baseline Vitals Vital Signs Date Time Temp Pulse Resp B/P (MAP) Pulse Ox O2 Delivery O2 Flow Rate FiO2 05/09/21 09:27 63 132/64 (86) 05/09/21 09:38 99 Baseline EKG: Baseline EKG: NSR Summary After explaining the procedure to the patient, she signed a consent and then brought to the stress nuclear laboratory. Patient was scheduled for exercise Myoview stress test, was able to exercise for 2 minutes 15 seconds on standard Lenn[place] protocol achieving only 75% of maximal expected heart rate no EKG changes were noted, was unable to perform any further, test was terminated and converted to Lexiscan Myoview stress test. Patient received 0.4 mg Lexiscan for stress test, ECG, heart rate and blood pressure were monitored continuously. Resting and stress dose of radio tracer were injected, imaging was acquired and reviewed in short axis, horizontal long axis and vertical long axis views. TID: 1.17 SSS: 5 SDS: 5 EF: 65 1. Patient was unable to exercise beyond 2 minutes and 15 seconds on Lennox protocol, did not achieve target heart rate, test was converted to Lexiscan Myoview stress test 2. Breast attenuation affecting the quality of the images with reversible ischemia involving the mid to apical anterior wall 3. Normal left ventricular size, EF 65% JAKOB KNIGHT MD May 09, 2021 12:56
== END ==
LOC: CARD 08:30
PROVIDERS: ATTEND Internal Medicine Cardiovascular Disease
DX: I10 Essential (primary) hypertension (principal)
CPT/HCPCS: 78452; 93017; A9502

== ENCOUNTER → 2021-05-11 | Outpatient (CLI) | payer OTHER ==
[~2021-05-11] MED LIST changes: -CATHETER FLUSH 10 ML SYR IV PRN; -REGADENOSON 0.4 MG/5 ML SYR (LEXISCAN) IV ONE
[2021-05-11 08:37] LABS: HEMATOCRIT 40 % (35-52); HEMOGLOBIN 13.3 g/dL (11.5-16.0); MEAN CORPUSCULAR HEMOGLOBIN 31 pg (25-34); MEAN CORPUSCULAR HGB CONC 33 g/dL (32-36); MEAN CORPUSCULAR VOLUME 92 fL (80-99); MEAN PLATELET VOLUME 9.3 fL (9.0-12.2); PLATELET COUNT 241 10^3/uL (130-400); WHITE BLOOD COUNT 7.7 10^3/uL (4.3-11.0)
[2021-05-11 08:40] LABS: BILIRUBIN,URINE NEGATIVE (NEGATIVE); CLARITY,URINE CLEAR; COLOR,URINE YELLOW; GLUCOSE, URINE (UA) NEGATIVE (NEGATIVE); KETONES,URINE NEGATIVE (NEGATIVE); LEUKOCYTE ESTERASE ,URINE NEGATIVE (NEGATIVE); NITRITE,URINE NEGATIVE (NEGATIVE); PROTEIN,URINE NEGATIVE (NEGATIVE)
[2021-05-11 08:48] LABS: INR 0.9 (0.8-1.4); PROTHROMBIN TIME PATIENT 12.4 SEC (12.2-14.7)
[2021-05-11 08:51] LABS: BACTERIA,URINE TRACE /HPF; WBC,URINE RARE /HPF
[2021-05-11 09:01] LABS: ALBUMIN 4.3 GM/DL (3.2-4.5); BILIRUBIN,TOTAL 0.4 MG/DL (0.1-1.0); CALCIUM 9.6 MG/DL (8.5-10.1); CREATININE SERUM 1.19 MG/DL (0.60-1.30); POTASSIUM 4.6 MMOL/L (3.6-5.0); TOTAL PROTEIN 7.3 GM/DL (6.4-8.2)
--- NOTE | 2021-05-11 09:48 | Diagnostic Imaging Report ---
EXAMINATION: Chest radiograph, portable AP view. DATE: 05/11/2021 8:50 AM INDICATION: 61-year-old female, abnormal stress test. Chest pain. COMPARISON: October 01, 2015. FINDINGS: Heart size and mediastinal contours are unchanged and unremarkable. There is no identified pneumothorax. There is no large pleural effusion. There is no identified focal airspace consolidation. IMPRESSION: No identified acute cardiopulmonary abnormality. Dictated by: Dictated on workstation # [id number]
== END ==
LOC: CARD 08:15
PROVIDERS: ATTEND Internal Medicine Cardiovascular Disease
DX: I25.10 Atherosclerotic heart disease of native coronary artery without angina pectoris (principal); I10 Essential (primary) hypertension; E78.5 Hyperlipidemia, unspecified; R94.39 Abnormal result of other cardiovascular function study
CPT/HCPCS: 36415; 71045; 80053; 80061; 81000; 85027; 85610; 85730; 93005

== ENCOUNTER 2021-05-17 09:00 | Day surgery (SDC) | payer OTHER ==
[2021-05-17] VITALS (11 sets, daily range): BP systolic 114–137; BP diastolic 66–81
[~2021-05-17] VITALS: Ht 165.1 cm; Wt 103.4 kg
[~2021-05-17 09:00] MED LIST changes: +ACET-2267 PO; +DICY10CA12 PO; +EST30C VG; +FAMO20TA3 PO; +HEParin (CATH LAB) 2,000 ML IV ONE; +LIDOCAINE 1% INJ 20 ML 20 ML VIAL ONE; +METO5TAB75 PO; +MTP25TSR PO; +NS IV 1000 ML 1,000 ML IV SCH; +NS IV 1000 ML 1,000 ML ONE; +OMEP40CA6 PO; +OXYB-52 PO; +TRAM50TA3 PO
[2021-05-17] MEDS ORDERED: HEParin 1000 UNIT/ML (10ML VIAL) FOR BOLUS ONE (09:30)
[2021-05-17] MEDS ORDERED: VERAPAMIL 5 MG/2 ML (CALAN) VIAL IV ONE (09:30)
[2021-05-17] MEDS ORDERED: fentaNYL INJ 100 MCG/2 ML AMP ONE (09:30)
[2021-05-17] MEDS ORDERED: MIDAZOLAM 5 MG/5 ML (VERSED) VIAL ONE (09:30)
[2021-05-17] MEDS ORDERED: NITRO DRIP 25000 MCG/D5W 250 ML IV ONE (09:30)
--- NOTE | 2021-05-17 09:45 | Pre-Op Note & Conscious Sedat ---
Pre-Operative Progress Note H&P Reviewed The H&P was reviewed, patient examined and no changes noted. Date H&P Reviewed: May 17, 2021 Time H&P Reviewed: 09:45 Pre-Op Diagnosis: Coronary artery disease with angina pectoris and abnormal stress test. Conscious Sedation Pre-Proced ASA Score 2 For ASA 3 and 4: Consider anesthesia and medical clearance. Also, for patients with a history of failed moderate sedation consider anesthesia. Airway Lungs Heart ASA score ASA 1: a normal healthy patient ASA 2: a patient with a mild systemic disease (mid diabetes, controlled hypertension, obesity ASA 3: a patient with a severe systemic disease that limits activity (angina, COPD, prior Myocardial infarction) ASA 4: a patient with an incapacitating disease that is a constant threat to life (CHF, renal failure) ASA 5: a moribund patient not expected to survive 24 hrs. (ruptured aneurysm) ASA 6: a declared brain- patient whose organs are being harvested. For emergent operations, add the letter E after the classification Mallampati Classification Grade 2 Sedation Plan Analgesia, Amnesia, Plan communicated to team members, Discussed options with patient/fam, Discussed risks with patient/fam The patient is an appropriate candidate to undergo the planned procedure, sedation, and anesthesia. The patient immediately re-assessed prior to indication. DEJAN SNOW JR, MD May 17, 2021 09:45
[2021-05-17] MEDS ORDERED: ASPIRIN 325 MG (5 GR) TABLET ONE (10:17)
[2021-05-17] MEDS ORDERED: CLOPIDOGREL 300 MG (PLAVIX) TABLET PO ONE (10:17)
[2021-05-17] MEDS ORDERED: NS IV 1000 ML 1,000 ML IV SCH (10:45)
[2021-05-17] MEDS ORDERED: PATIENT MAY USE OWN MEDS, ALL PO SCH (10:45)
[2021-05-17] MEDS ORDERED: ROSU5TAB13 PO (10:59)
[2021-05-17] MEDS ORDERED: CLOP75TA28 PO (10:59)
[2021-05-17] MEDS ORDERED: ASPI-1238 PO (10:59)
[2021-05-17] MEDS ORDERED: NITR0.4T42 SL (10:59)
[2021-05-17] MEDS ORDERED: NITROGLYCERIN 0.4 MG SL TABS BTL 25'S SL ONE (11:00)
--- NOTE | 2021-05-17 11:09 | Cardiac Cath Report ---
CARDIAC CATHETERIZATION DATE OF PROCEDURE: 05/17/2021 . INDICATION: Coronary artery disease with angina pectoris and abnormal nuclear stress test. HISTORY: The patient is a 61 year old female, With a known history of mild coronary artery disease at the time of cardiac catheterization in 2009. She has been having some intermittent episodes of chest discomfort concerning for angina. She underwent a nuclear stress test that showed an anteroapical ischemic defect. As such, she is now referred for further evaluation with a cardiac catheterization. PROCEDURES PERFORMED: 1. Left heart catheterization with hemodynamic measurements. 2. Diagnostic nikolski coronary angiography. 3. Drug-eluting stent placement to the mid segment of the left circumflex coronary artery. PROCEDURE DESCRIPTION: Left heart catheterization was performed through the right radial artery utilizing a 6 Kenyan system by percutaneous approach. Standard 5 Kenyan Roland catheters were utilized for the diagnostic portion of the procedure. A 5 Kenyan JL 3.5 catheter was utilized to interrogate the left coronary artery. A 6 Kenyan CLS 3 guide catheter was utilized for the percutaneous coronary intervention. All catheters were exchanged over a guidewire. RESULTS: HEMODYNAMICS: The aortic pressure was 139/60 mmHg. The left ventricular pressure was 132 over 0 mmHg with a left ventricular end-diastolic pressure of 10 mmHg. There was no significant pressure gradient upon pullback across the aortic valve.. CORONARY ANGIOGRAPHY: Left main coronary artery: Free of significant disease. Left anterior descending coronary artery: Free of significant disease. Left circumflex coronary artery: There was a 90% stenosis in the midportion of the vessel with NATHAN II flow. Right coronary artery: Dominant and there was a 50% stenosis in the midsegment with NATHAN-3 flow. PERCUTANEOUS CORONARY INTERVENTION: Percutaneous coronary intervention was carried out on the mid segment of left circumflex coronary artery through a 6 Kenyan CLS 3 guide catheter. The lesion was successfully crossed with a Whisper medium support guidewire. I subsequently performed coronary angioplasty with a 3 x 12 mm Trek balloon at a pressure of 8 brandi. I subsequently deployed a 3.5 x 15 mm drug-eluting Xience stent at a pressure of 16 brandi. Following stent placement, there was 0% residual stenosis with NATHAN-3 flow. IMPRESSION: 1. Normal left heart pressures. 2. There was severe disease of the midportion of the left circumflex coronary artery as outlined above. 3. There was moderate disease of the mid right coronary artery as outlined above. 4. Status post drug-eluting stent placement to the midportion of the left circumflex coronary artery with a 3.5 x 15 mm Xience stent with 0% residual stenosis and NATHAN-3 flow. Certain portions of this document may have been dictated utilizing voice recognition technology. Inherent to this technology, typographical and grammatical errors may exist. As much as I am diligent to identify and correct these mistakes, some errors may remain in the document. DEJAN SNOW JR, MD May 17, 2021 11:09
[2021-05-17] MEDS ORDERED: ROSUVASTATIN 5 MG (CRESTOR) TABLET PO SCH (21:00)
[2021-05-18] MEDS ORDERED: ASPIRIN E.C. 81 MG (ECOTRIN) TAB PO SCH (09:00)
[2021-05-18] MEDS ORDERED: CLOPIDOGREL 75 MG (PLAVIX) TABLET PO SCH (09:00)
== END 2021-05-17 15:55 | disposition home or self-care (01) ==
LOC: CATH 09:00 → CSD 10:42 → CATH 15:55
PROVIDERS: ATTEND Internal Medicine Cardiovascular Disease
DX: I25.119 Atherosclerotic heart disease of native coronary artery with unspecified angina pectoris (principal); I10 Essential (primary) hypertension; K21.9 Gastro-esophageal reflux disease without esophagitis; M19.90 Unspecified osteoarthritis, unspecified site; R00.2 Palpitations; I35.1 Nonrheumatic aortic (valve) insufficiency; I25.89 Other forms of chronic ischemic heart disease; I45.89 Other specified conduction disorders; Z79.1 Long term (current) use of non-steroidal anti-inflammatories (NSAID); Z79.891 Long term (current) use of opiate analgesic; Z87.891 Personal history of nicotine dependence
CPT/HCPCS: 93005; 93458; C1725; C1769; C1874; C1894; C9600

== ENCOUNTER → 2021-08-10 | Outpatient (CLI) | payer OTHER ==
[~2021-08-10] MED LIST changes: +ASPI-1238 PO; +CLOP75TA28 PO; -HEParin (CATH LAB) 2,000 ML IV ONE; -LIDOCAINE 1% INJ 20 ML 20 ML VIAL ONE; +NITR0.4T42 SL; -NS IV 1000 ML 1,000 ML IV SCH; -NS IV 1000 ML 1,000 ML ONE; +ROSU5TAB13 PO
--- NOTE | 2021-08-10 15:45 | Diagnostic Imaging Report ---
INDICATION: Routine screening. COMPARISON: Prior mammograms from 06/06/2020 and 02/24/2019. EXAMINATION: 2D and 3D bilateral screening mammography was performed with CAD. The current study was also evaluated with a Computer Aided Detection (CAD) system. FINDINGS: Both breasts are heterogeneously dense, limiting the sensitivity of mammography. Benign nodule in the posterior right breast appears stable. There are benign calcifications present. No new mass or malignant-appearing microcalcifications are seen. Axillae are unremarkable. IMPRESSION: No mammographic features suspicious for malignancy are identified. ACR BI-RADS Category 2: Benign findings. Result letter will be mailed to the patient. Note: At least 10% of breast cancer is not imaged by mammography. Dictated by: Dictated on workstation # [id number]
== END ==
LOC: RAD 11:00
PROVIDERS: ATTEND Obstetrics & Gynecology
DX: Z12.31 Encounter for screening mammogram for malignant neoplasm of breast (principal)
CPT/HCPCS: 77063; 77067

== ENCOUNTER 2021-10-03 16:11 | Emergency (ER) | payer OTHER ==
[~2021-10-03] VITALS: Ht 165.1 cm; Wt 102.0 kg
[2021-10-03] MEDS: MECLIZINE 25 MG (ANTIVERT) TAB PO STA (17:05)
[2021-10-03 17:20] LABS: BASOPHILS # (AUTO) 0.1 10^3/uL (0.0-0.1); BASOPHILS % (AUTO) 1 % (0-10); EOSINOPHILS # (AUTO) 0.3 10^3/uL (0.0-0.3); EOSINOPHILS % (AUTO) 3 % (0-10); HEMATOCRIT 39 % (35-52); HEMOGLOBIN 12.9 g/dL (11.5-16.0); LYMPHOCYTES # (AUTO) 2.3 10^3/uL (1.0-4.0); LYMPHOCYTES % (AUTO) 31 % (12-44); MEAN CORPUSCULAR HEMOGLOBIN 30 pg (25-34); MEAN CORPUSCULAR HGB CONC 33 g/dL (32-36); MEAN CORPUSCULAR VOLUME 93 fL (80-99); MEAN PLATELET VOLUME 9.7 fL (9.0-12.2); MONOCYTES # (AUTO) 0.5 10^3/uL (0.0-1.0); MONOCYTES % (AUTO) 7 % (0-12); NEUTROPHILS # (AUTO) 4.2 10^3/uL (1.8-7.8); NEUTROPHILS % (AUTO) 58 % (42-75); PLATELET COUNT 242 10^3/uL (130-400); WHITE BLOOD COUNT 7.3 10^3/uL (4.3-11.0)
[2021-10-03 17:31] LABS: ALBUMIN 4.4 GM/DL (3.2-4.5); POTASSIUM 3.9 MMOL/L (3.6-5.0)
[2021-10-03 17:33] VITALS: BP_SYST 164; BP_SYST 176; BP_SYST 198; BP_DIAS 113; BP_DIAS 70; BP_DIAS 82
[2021-10-03 17:33] LABS: CALCIUM 9.8 MG/DL (8.5-10.1)
[2021-10-03 17:34] LABS: INR 0.9 (0.8-1.4); PROTHROMBIN TIME PATIENT 12.8 SEC (12.2-14.7); TOTAL PROTEIN 7.2 GM/DL (6.4-8.2)
[2021-10-03 17:36] LABS: BILIRUBIN,TOTAL 0.4 MG/DL (0.1-1.0)
[2021-10-03 17:38] LABS: CREATININE SERUM 1.15 MG/DL (0.60-1.30)
--- NOTE | 2021-10-03 17:46 | ED General ---
General Chief Complaint: Dizziness/Syncope Stated Complaint: FALL Nursing Triage Note: FELL LAST NIGHT AND HIT CHIN. TODAY FELT DIZZY WHEN GOING TO WORK THIS MONING AND FELL THIS AM AT 0740. STATES FELL FORWARD ONTO HER ARMS DENIES INJURY. SINCE THEN NEEDED TO LEAVE WORK D/T HER DIZZINESS. History of Present Illness Date Seen by Provider: Oct 03, 2021 Time Seen by Provider: 16:15 Initial Comments 61-year-old female presents for dizziness that has caused 2 falls in the last 24 hours. She states that it feels as though the room is spinning. When this occurs she loses her balance and falls. She has not had symptoms in the past. She is on medication for hypertension. She denies any visual changes, headache, or seizure activity. No respiratory/sinus congestion or ear pain. She denies chest pain. She has checked her B/P at home and highest was 13 0/80 Timing/Duration: 1-2 Days Associated Systoms: Denies Symptoms Allergies and Home Medications Allergies Coded Allergies: erythromycin base (Verified Allergy, Intermediate, NAUSEA, 11/29/15) Sulfa (Sulfonamide Antibiotics) (Verified Allergy, Mild, 12/04/15) cephalexin (Verified Allergy, Mild, SUNBURN, 03/06/20) divalproex sodium (Verified Allergy, Mild, 12/04/15) doxycycline (Verified Allergy, Mild, VOMITING, 03/06/20) niacin (Verified Allergy, Mild, 12/04/15) Patient Home Medication List Home Medication List Reviewed: Yes Acetaminophen (Tylenol Extra Strength) 500 Mg Tablet, 1,000 MG PO Q8H PRN for PAIN-MILD (1-4), (Reported) Entered as Reported by: IAN BRUNNER on 05/17/21 0823 Aspirin (Aspirin EC) 81 Mg Tablet.dr, 81 MG PO DAILY Prescribed by: DEJAN SNOW JR, MD on 05/17/21 1059 Celecoxib (Celecoxib) 200 Mg Capsule, 200 MG PO DAILY, (Reported) Entered as Reported by: SHERRILL HUBBARD on 10/05/20 1244 Cholecalciferol (Vitamin D3) (Vitamin D3) 50 Mcg Tablet, 50 MCG PO DAILY, (Reported) Entered as Reported by: SHERRILL HUBBARD on 10/05/20 1244 Clopidogrel Bisulfate (Clopidogrel) 75 Mg Tablet, 75 MG PO DAILY Prescribed by: DEJAN SNOW JR, MD on 05/17/21 105 Dicyclomine HCl (Dicyclomine HCl) 10 Mg Capsule, 10 MG PO QIDACHS, (Reported) Entered as Reported by: IAN BRUNNER on 05/17/21822 Estrogens Conjugated (Premarin) 30 Gm Cr, 1 APPLIC VG 2-3 X WEEKLY, (Reported) Entered as Reported by: IAN BRUNNER on 05/17/21822 Famotidine (Acid System Archive Analyst (FAMOTIDINE)) 20 Mg Tablet, 20 MG PO BID PRN for INDIGESTION, (Reported) Entered as Reported by: IAN BRUNNER on 05/17/21822 Losartan Potassium (Losartan Potassium) 50 Mg Tablet, 50 MG PO DAILY, (Reported) Entered as Reported by: LORRIE OSPINA on 03/06/20924 Metoclopramide HCl (Reglan) 5 Mg Tablet, 5 MG PO QIDACHS, (Reported) Entered as Reported by: IAN BRUNNER on 05/17/21822 Metoprolol Succinate (Metoprolol Succinate) 25 Mg Tab.er.24h, 25 MG PO HS, (Reported) Entered as Reported by: IAN BRUNNER on 05/17/21822 Nitroglycerin (Nitroglycerin) 0.4 Mg Tab.subl, 0.4 MG SL NEEDED Prescribed by: DEJAN SNOW JR, MD on 05/17/211058 Omeprazole (Omeprazole) 40 Mg Capsule.dr, 40 MG PO HS, (Reported) Entered as Reported by: IAN BRUNNER on 05/17/21822 Oxybutynin Chloride (Oxybutynin Chloride ER) 5 Mg Tab.er.24, 5 MG PO HS, (Reported) Entered as Reported by: IAN BRUNNER on 05/17/21822 Ropinirole HCl (Ropinirole HCl) 0.25 Mg Tablet, 0.5 MG PO HS, (Reported) Entered as Reported by: LORRIE OSPINA on 03/06/20924 Rosuvastatin Calcium (Rosuvastatin Calcium) 5 Mg Tablet, 5 MG PO HS Prescribed by: DEJAN SNOW JR, MD on 05/17/211058 Sucralfate (Carafate) 1 Gm Tablet, 1 GM PO QIDACHS, (Reported) Entered as Reported by: IAN BRUNNER on 05/17/21822 Tramadol HCl (Tramadol HCl) 50 Mg Tablet, 50 MG PO BID PRN for PAIN-MODERATE (5- 7), (Reported) Entered as Reported by: IAN BRUNNER on 05/17/21822 Review of Systems Review of Systems Constitutional: see HPI, dizziness EENTM: see HPI, no symptoms reported Cardiovascular: no symptoms reported, see HPI; No chest pain Genitourinary: no symptoms reported, see HPI Musculoskeletal: no symptoms reported, see HPI Psychiatric/Neurological: No Symptoms Reported, See HPI All Other Systems Reviewed Negative Unless Noted: Yes Past Bdldhpg-Tvydah-Isacwf Hx Immunizations Up To Date Tetanus Booster (TDap): Unknown Seasonal Allergies Seasonal Allergies: Yes (MILD) Past Medical History Surgeries: Yes (R BREAST CYST,MIGRAIN SURG X3, L LUMPECTOMY, BLADDER, R TKR) Adenoidectomy, Gallbladder, Hysterectomy, Lumpectomy, Orthopedic, Tonsillectomy Respiratory: Yes (NOT CURRENTLY USING CPAP) Sleep Apnea Currently Using CPAP: No Cardiac: Yes (HEART CATH 2009. 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 Sexually Transmitted Disease: No HIV/AIDS: No Genitourinary: No (URGENCY) Gastrointestinal: Yes Gastroesophageal Reflux Musculoskeletal: Yes Arthritis Endocrine: No HEENT: Yes (GLASSES) Loss of Vision: Denies Hearing Impairment: Denies Cancer: No Psychosocial: Yes Sleep Difficulties Integumentary: No Blood Disorders: No Adverse Reaction/Blood Tranf: No (HAS HAD BLOOD WITH NO REACTION-CHILD ) Family Medical History Reviewed Nursing Family Hx Heart Disease, Cancer Physical Exam Vital Signs Vital Signs - First Documented 10/03/21 16:15 Temp 35.7 Pulse 61 Resp 18 B/P (MAP) 181/77 (111) Pulse Ox 100 Capillary Refill : Less Than 3 Seconds Height, Weight, BMI Height: 5'5.00" Weight: 196lbs. 12.8oz. 89.553020wt; 37.00 BMI Method: General Appearance: No Apparent Distress, WD/WN HEENT: PERRL/EOMI, TMs Normal, Normal ENT Inspection, Pharynx Normal Neck: Full Range of Motion, Normal Inspection, Non Tender, Supple Respiratory: Chest Non Tender, Lungs Clear, Normal Breath Sounds Cardiovascular: Regular Rate, Rhythm, No Edema, No JVD, No Murmur, Normal Peripheral Pulses Gastrointestinal: Normal Bowel Sounds, Non Tender, Soft Back: Normal Inspection, No CVA Tenderness, No Vertebral Tenderness Extremity: Normal Capillary Refill, Normal Inspection, Normal Range of Motion Neurologic/Psychiatric: Alert, Oriented x3, No Motor/Sensory Deficits, Normal Mood/Affect Skin: Normal Color, Warm/Dry Progress/Results/Core Measures Suspected Sepsis SIRS Temperature: Pulse: 74 Respiratory Rate: 18 Laboratory Tests 10/03/21 17:05: White Blood Count 7.3 Blood Pressure 198 /113 Mean: 141 Laboratory Tests 10/03/21 17:05: Creatinine 1.15, INR Comment 0.9, Platelet Count 242, Total Bilirubin 0.4 Results/Orders Lab Results Laboratory Tests Test 10/03/21 17:05 10/03/21 17:48 10/03/21 18:23 Range/Units White Blood Count 7.3 4.3-11.0 10^3/uL Red Blood Count 4.24 3.80-5.11 10^6/uL Hemoglobin 12.9 11.5-16.0 g/dL Hematocrit 39 35-52 % Mean Corpuscular Volume 93 80-99 fL Mean Corpuscular Hemoglobin 30 25-34 pg Mean Corpuscular Hemoglobin Concent 33 32-36 g/dL Red Cell Distribution Width 12.2 10.0-14.5 % Platelet Count 242 130-400 10^3/uL Mean Platelet Volume 9.7 9.0-12.2 fL Immature Granulocyte % (Auto) 0 % Neutrophils (%) (Auto) 58 42-75 % Lymphocytes (%) (Auto) 31 12-44 % Monocytes (%) (Auto) 7 0-12 % Eosinophils (%) (Auto) 3 0-10 % Basophils (%) (Auto) 1 0-10 % Neutrophils # (Auto) 4.2 1.8-7.8 10^3/uL Lymphocytes # (Auto) 2.3 1.0-4.0 10^3/uL Monocytes # (Auto) 0.5 0.0-1.0 10^3/uL Eosinophils # (Auto) 0.3 0.0-0.3 10^3/uL Basophils # (Auto) 0.1 0.0-0.1 10^3/uL Immature Granulocyte # (Auto) 0.0 0.0-0.1 10^3/uL Prothrombin Time 12.8 12.2-14.7 SEC INR Comment 0.9 0.8-1.4 Activated Partial Thromboplast Time 29 24-35 SEC Sodium Level 139 135-145 MMOL/L Potassium Level 3.9 3.6-5.0 MMOL/L Chloride Level 100 98-107 MMOL/L Carbon Dioxide Level 24 21-32 MMOL/L Anion Gap 15 H 5-14 MMOL/L Blood Urea Nitrogen 22 H 7-18 MG/DL Creatinine 1.15 0.60-1.30 MG/DL Estimat Glomerular Filtration Rate 48 BUN/Creatinine Ratio 19 Glucose Level 87 70-105 MG/DL Calcium Level 9.8 8.5-10.1 MG/DL Corrected Calcium 9.5 8.5-10.1 MG/DL Total Bilirubin 0.4 0.1-1.0 MG/DL Aspartate Amino Transf (AST/SGOT) 27 5-34 U/L Alanine Aminotransferase (ALT/SGPT) 26 0-55 U/L Alkaline Phosphatase 88 40-136 U/L Total Protein 7.2 6.4-8.2 GM/DL Albumin 4.4 3.2-4.5 GM/DL Urine Color YELLOW Urine Clarity CLEAR Urine pH 6.0 5-9 Urine Specific [place] <=1.005 1.016-1.022 Urine Protein NEGATIVE NEGATIVE Urine Glucose (UA) NEGATIVE NEGATIVE Urine Ketones NEGATIVE NEGATIVE Urine Nitrite NEGATIVE NEGATIVE Urine Bilirubin NEGATIVE NEGATIVE Urine Urobilinogen 0.2 < = 1.0 MG/DL Urine Leukocyte Esterase NEGATIVE NEGATIVE Urine RBC (Auto) NEGATIVE NEGATIVE Urine RBC NONE /HPF Urine WBC NONE /HPF Urine Squamous Epithelial Cells 0-2 /HPF Urine Crystals NONE /LPF Urine Bacteria NEGATIVE /HPF Urine Casts NONE /LPF Urine Mucus NEGATIVE /LPF Urine Culture Indicated NO Troponin I < 0.028 <0.028 NG/ML TSH [place] Testing 1.32 0.35-4.94 UIU/ML My Orders Orders - NICKI DIAZ Ct Head Wo (10/03/21 16:46) Cbc With Automated Diff (10/03/21 16:46) Comprehensive Metabolic Panel (10/03/21 16:46) Protime With Inr (10/03/21 16:46) Partial Thromboplastin Time (10/03/21 16:46) Meclizine Tablet (Antivert Tablet) (10/03/21 16:48) Ua Culture If Indicated (10/03/21 17:47) Hydralazine Tablet (Apresoline Tablet) (10/03/21 17:59) Clonidine Tablet (Catapres Tablet) (10/03/21 17:59) Ekg Tracing (10/03/21 18:18) Thyroid Analyzer (10/03/21 18:18) Troponin I [place] (10/03/21 18:18) Vital Signs/I&O 10/03/21 10/03/21 16:15 17:33 Temp 35.7 Pulse 61 57 65 58 Resp 18 B/P (MAP) 181/77 (111) 164/70 (101) 176/82 (113) 198/113 (141) Sitting Pulse Ox 100 Capillary Refill : Less Than 3 Seconds Blood Pressure Mean: 141 Progress Note : Time: 16:15 Progress Note Patient seen and evaluated, will obtain labs and reevaluate. CT head. Meclizine 25 mg orally for dizziness. [address], labs essentially normal. Increase in B/P when standing, compared to lying and sitting. 1745 CT negative, minimal change with Meclizine. B/P 180s/110s, will give Hydralazine and Catapres PO 1800 B/P improving. No complaints. Less Vertigo with standing and walking. 1900 discharge instructions and return precautions reviewed with the patient. All questions answered. ECG Initial ECG Impression Date: Oct 03, 2021 Initial ECG Impression Time: 18:26 Initial ECG Rate: 60 Initial ECG Rhythm: Normal Sinus Initial ECG Intervals: Normal Initial ECG Intervals MS 209, QRSD 97, QT 423, QTc 423. [place] P 38, QRS -8, T 27. Initial ECG Impression: Normal Initial ECG Comparisson: Unchanged Diagnostic Imaging Diagonstic Imaging: CT Plain Films/CT/US/NM/MRI: head Comments NAME: [facility] REC#: [id number] PT STATUS: REG ER : 1960 PHYSICIAN: NICKI DIAZ ADMIT DATE: 10/03/21/ER Draft Date of Exam:10/03/21 CT HEAD WO INDICATION: Fall with trauma to the face. Dizziness. TECHNIQUE: Routine non contrast-enhanced axial images were obtained from the skull base to the vertex. Auto Exposure Controls were utilized during the CT exam to meet ALARA standards for radiation dose reduction COMPARISON: None. FINDINGS: The ventricles and cortical sulci are normal in size and contour. There is no midline shift or mass-effect. No acute intra-axial hemorrhage is seen. There are no abnormal areas of increased or decreased density to suggest acute hemorrhage or edema. No extra-axial masses or collections are present. The bony calvarium is intact. The visualized paranasal sinuses are unremarkable. The mastoid air cells are clear. IMPRESSION: No acute intracranial abnormality. No CT evidence of mass, acute infarct or intracranial hemorrhage. Dictated on workstation # [id number] Dict: 10/03/21 1757 Trans: 10/03/21 1801 PJE [id number] Interpreted by: REJI ARNOLD MD Electronically signed by: Reviewed: Reviewed by Me Departure Impression Primary Impression: Vertigo Additional Impression: Hypertension Qualified Codes: I10 - Essential (primary) hypertension Disposition: HOME, SELF-CARE Condition: Improved Departure-Patient Inst. Decision time for Depature: 18:40 Referrals: DAIJA BLANTON MD (PCP/Family) Primary Care Physician Patient Instructions: Vertigo (a Type of Dizziness) (DC), High Blood Pressure (DC) Add. Discharge Instructions: Change from sitting or lying to standing slowly before taking off to walk. Schedule a follow-up appointment with Dr. Knight. No driving or work until dizziness has improved. Continue taking your home medications as prescribed. Check your blood pressure twice daily and record it. Take meclizine 25 mg every 8 hours as needed for dizziness, this is an xukz-ekl-qcygadi medication. Return to the emergency department for chest pain, worsening of the dizziness, or new problems. All discharge instructions reviewed with patient and/or family. Voiced understanding. Work/School Note: Work Release Form Date Seen in the Emergency Department: Oct 03, 2021 Restrictions: Need Release from Doctor Copy Copies To 1: JAKOB KNIGHT MD, AMY ARNP Oct 03, 2021 17:46
[2021-10-03 17:52] LABS: BILIRUBIN,URINE NEGATIVE (NEGATIVE); CLARITY,URINE CLEAR; COLOR,URINE YELLOW; GLUCOSE, URINE (UA) NEGATIVE (NEGATIVE); KETONES,URINE NEGATIVE (NEGATIVE); LEUKOCYTE ESTERASE ,URINE NEGATIVE (NEGATIVE); NITRITE,URINE NEGATIVE (NEGATIVE); PROTEIN,URINE NEGATIVE (NEGATIVE)
[2021-10-03 17:58] LABS: BACTERIA,URINE NEGATIVE /HPF; SQUAMOUS EPITHELIAL CELL,UR 0-2 /HPF
--- NOTE | 2021-10-03 18:01 | Diagnostic Imaging Report ---
INDICATION: Fall with trauma to the face. Dizziness. TECHNIQUE: Routine non contrast-enhanced axial images were obtained from the skull base to the vertex. Auto Exposure Controls were utilized during the CT exam to meet ALARA standards for radiation dose reduction COMPARISON: None. FINDINGS: The ventricles and cortical sulci are normal in size and contour. There is no midline shift or mass-effect. No acute intra-axial hemorrhage is seen. There are no abnormal areas of increased or decreased density to suggest acute hemorrhage or edema. No extra-axial masses or collections are present. The bony calvarium is intact. The visualized paranasal sinuses are unremarkable. The mastoid air cells are clear. IMPRESSION: No acute intracranial abnormality. No CT evidence of mass, acute infarct or intracranial hemorrhage. Dictated by: Dictated on workstation # [id number]
[2021-10-03] MEDS: hydrALAZINE (APRESOLINE) 25 MG TAB PO STA (18:09)
[2021-10-03] MEDS: cloNIDine 0.2 MG (CATAPRES) TAB PO STA (18:09)
[2021-10-03 18:56] LABS: TSH (THYROID ANALYZER) 1.32 UIU/ML (0.35-4.94)
[2021-10-03 19:12] VITALS: BP 105/67
== END 2021-10-03 19:13 | disposition home or self-care (01) ==
LOC: EDUNIT# 16:11 → ER 16:14
DX: R42 Dizziness and giddiness (principal); I10 Essential (primary) hypertension; G47.30 Sleep apnea, unspecified; K21.9 Gastro-esophageal reflux disease without esophagitis; Z79.899 Other long term (current) drug therapy; Z79.82 Long term (current) use of aspirin; Z79.01 Long term (current) use of anticoagulants
CPT/HCPCS: 36415; 70450; 80053; 81000; 84443; 84484; 85025; 85610; 85730; 93005

== ENCOUNTER → 2021-10-09 | Outpatient (CLI) | payer OTHER | LOC: CARD 09:32 | PROVIDERS: ATTEND Internal Medicine Cardiovascular Disease | DX: I49.9 Cardiac arrhythmia, unspecified (principal) | CPT/HCPCS: 93225; 93226 ==

== ENCOUNTER 2021-12-10 09:40 | Emergency (ER) | payer OTHER ==
[~2021-12-10] VITALS: Ht 165.1 cm; Wt 102.0 kg
[2021-12-10] MEDS ORDERED: ASPIRIN 81 MG CHEW (CHILDREN'S ASA) PO ONE (10:00)
[2021-12-10 10:02] LABS: HEMOGLOBIN 13.4 g/dL (11.5-16.0); MEAN CORPUSCULAR VOLUME 94 fL (80-99); MONOCYTES # (AUTO) 0.5 10^3/uL (0.0-1.0)
[2021-12-10 10:04] LABS: BASOPHILS # (AUTO) 0.1 10^3/uL (0.0-0.1); BASOPHILS % (AUTO) 1 % (0-10); EOSINOPHILS # (AUTO) 0.3 10^3/uL (0.0-0.3); EOSINOPHILS % (AUTO) 4 % (0-10); HEMATOCRIT 41 % (35-52); LYMPHOCYTES # (AUTO) 1.8 10^3/uL (1.0-4.0); LYMPHOCYTES % (AUTO) 25 % (12-44); MEAN CORPUSCULAR HEMOGLOBIN 31 pg (25-34); MEAN CORPUSCULAR HGB CONC 33 g/dL (32-36); MEAN PLATELET VOLUME 10.2 fL (9.0-12.2); MONOCYTES % (AUTO) 7 % (0-12); NEUTROPHILS # (AUTO) 4.6 10^3/uL (1.8-7.8); NEUTROPHILS % (AUTO) 63 % (42-75); PLATELET COUNT 290 10^3/uL (130-400); WHITE BLOOD COUNT 7.3 10^3/uL (4.3-11.0)
[2021-12-10 10:19] LABS: INR 0.9 (0.8-1.4); PROTHROMBIN TIME PATIENT 12.8 SEC (12.2-14.7)
[2021-12-10 10:20] LABS: ALBUMIN 4.3 GM/DL (3.2-4.5); POTASSIUM 4.6 MMOL/L (3.6-5.0)
[2021-12-10 10:21] LABS: CALCIUM 9.4 MG/DL (8.5-10.1)
[2021-12-10 10:23] LABS: TOTAL PROTEIN 7.5 GM/DL (6.4-8.2)
[2021-12-10 10:24] LABS: BILIRUBIN,TOTAL 0.5 MG/DL (0.1-1.0)
[2021-12-10 10:26] LABS: CREATININE SERUM 1.03 MG/DL (0.60-1.30)
--- NOTE | 2021-12-10 10:32 | Diagnostic Imaging Report ---
CLINICAL INDICATION: Patient with chest pain started yesterday and has intermittent stabbing pain. EXAM: Portable chest x-ray, upright view. COMPARISON: Chest x-ray dated 05/11/2021. FINDINGS: Lungs/pleura: Lungs are clear. There is no pneumothorax. There is no pleural effusion. Mediastinum: Unremarkable. Pulmonary vasculature: Unremarkable. Heart: Unremarkable. Bones/extrathoracic soft tissue: There are degenerative spurs involving the thoracic spine. IMPRESSION: There is no radiographic evidence of acute cardiopulmonary process. Dictated by: Dictated on workstation # [id number]
--- NOTE | 2021-12-10 12:44 | ED Chest Pain ---
General Chief Complaint: Chest Pain Stated Complaint: CP Nursing Triage Note: PT AMB TO RM 8 WITH COMPLAINT OF CP. STATES PAIN STARTED YESTERDAY AND IS AN INTERMITTENT STABBING PAIN. TOOK 1 NITRO LASTNIGHT AROUND 1600 AND STATES THAT DID IMPROVE PAIN, BUT CAUSED A HEADACHE. NO PAIN AT TRIAGE Source: patient History of Present Illness Date Seen by Provider: Dec 10, 2021 Time Seen by Provider: 09:49 Allergies and Home Medications Allergies Coded Allergies: erythromycin base (Verified Allergy, Intermediate, NAUSEA, 11/29/15) Sulfa (Sulfonamide Antibiotics) (Verified Allergy, Mild, 12/04/15) cephalexin (Verified Allergy, Mild, SUNBURN, 03/06/20) divalproex sodium (Verified Allergy, Mild, 12/04/15) doxycycline (Verified Allergy, Mild, VOMITING, 03/06/20) niacin (Verified Allergy, Mild, 12/04/15) Patient Home Medication List Acetaminophen (Tylenol Extra Strength) 500 Mg Tablet, 1,000 MG PO Q8H PRN for PAIN-MILD (1-4), (Reported) Entered as Reported by: IAN BRUNNER on 05/17/21822 Aspirin (Aspirin EC) 81 Mg Tablet.dr, 81 MG PO DAILY Prescribed by: DEJAN SNOW JR, MD on 05/17/21 1059 Celecoxib (Celecoxib) 200 Mg Capsule, 200 MG PO DAILY, (Reported) Entered as Reported by: SHERRILL HUBBARD on 10/05/20 1244 Cholecalciferol (Vitamin D3) (Vitamin D3) 50 Mcg Tablet, 50 MCG PO DAILY, (Reported) Entered as Reported by: SHERRILL HUBBARD on 10/05/20 1244 Clopidogrel Bisulfate (Clopidogrel) 75 Mg Tablet, 75 MG PO DAILY Prescribed by: DEJAN SNOW JR, MD on 05/17/21 1059 Dicyclomine HCl (Dicyclomine HCl) 10 Mg Capsule, 10 MG PO QIDACHS, (Reported) Entered as Reported by: IAN BRUNNER on 05/17/21 08 Estrogens Conjugated (Premarin) 30 Gm Cr, 1 APPLIC VG 2-3 X WEEKLY, (Reported) Entered as Reported by: IAN BRUNNER on 05/17/21 08 Famotidine ([employer] (FAMOTIDINE)) 20 Mg Tablet, 20 MG PO BID PRN for INDIGESTION, (Reported) Entered as Reported by: IAN BRUNNER on 05/17/21822 Losartan Potassium (Losartan Potassium) 50 Mg Tablet, 50 MG PO DAILY, (Reported) Entered as Reported by: LORRIE OSPINA on 03/06/20924 Metoclopramide HCl (Reglan) 5 Mg Tablet, 5 MG PO QIDACHS, (Reported) Entered as Reported by: IAN BRUNNER on 05/17/21822 Metoprolol Succinate (Metoprolol Succinate) 25 Mg Tab.er.24h, 25 MG PO HS, (Reported) Entered as Reported by: IAN BRUNNER on 05/17/21822 Nitroglycerin (Nitroglycerin) 0.4 Mg Tab.subl, 0.4 MG SL NEEDED Prescribed by: DEJAN SNOW JR, MD on 05/17/21 105 Omeprazole (Omeprazole) 40 Mg Capsule.dr, 40 MG PO HS, (Reported) Entered as Reported by: IAN BRUNNER on 05/17/21822 Oxybutynin Chloride (Oxybutynin Chloride ER) 5 Mg Tab.er.24, 5 MG PO HS, (Reported) Entered as Reported by: IAN BRUNNER on 05/17/21822 Ropinirole HCl (Ropinirole HCl) 0.25 Mg Tablet, 0.5 MG PO HS, (Reported) Entered as Reported by: LORRIE OSPINA on 03/06/20924 Rosuvastatin Calcium (Rosuvastatin Calcium) 5 Mg Tablet, 5 MG PO HS Prescribed by: DEJAN SNOW JR, MD on 05/17/21 1059 Sucralfate (Carafate) 1 Gm Tablet, 1 GM PO QIDACHS, (Reported) Entered as Reported by: IAN BRUNNER on 05/17/21822 Tramadol HCl (Tramadol HCl) 50 Mg Tablet, 50 MG PO BID PRN for PAIN-MODERATE (5- 7), (Reported) Entered as Reported by: IAN BRUNNER on 05/17/21822 Past Hkkwwup-Sujddl-Kxqpot Hx Patient Social History Tobacco Use?: No Use of E-Cig and/or Vaping dev: No Substance use?: No Alcohol Use?: No Pt feels they are or have been: No Immunizations Up To Date Tetanus Booster (TDap): Unknown Influenza Vaccine Up-to-Date: No; Not Current First/Initial COVID19 Vaccinat: MAY 2021 Second COVID19 Vaccination [place]: MAY 2021 Seasonal Allergies Seasonal Allergies: Yes (MILD) Past Medical History Surgeries: Yes (R BREAST CYST,MIGRAIN SURG X3, L LUMPECTOMY, BLADDER, R TKR) Adenoidectomy, Gallbladder, Hysterectomy, Lumpectomy, Orthopedic, Tonsillectomy Respiratory: Yes (NOT CURRENTLY USING CPAP) Sleep Apnea Currently Using CPAP: No Cardiac: Yes (HEART CATH 2009. ECHO SHOWS REGURGITATION) Hypertension Neurological: No Reproductive Disorders: No [employer] History: Hysterectomy Sexually Transmitted Disease: No HIV/AIDS: No Genitourinary: No (URGENCY) Gastrointestinal: Yes Gastroesophageal Reflux Musculoskeletal: Yes Arthritis Endocrine: No HEENT: Yes (GLASSES) Loss of Vision: Denies Hearing Impairment: Denies Cancer: No Psychosocial: Yes Sleep Difficulties Integumentary: No Blood Disorders: No Adverse Reaction/Blood Tranf: No (HAS HAD BLOOD WITH NO REACTION-CHILD ) Family Medical History Heart Disease, Cancer Physical Exam Vital Signs Vital Signs - First Documented 12/10/21 09:46 Pulse 67 Resp 21 B/P (MAP) 129/97 (108) Pulse Ox 97 O2 Delivery Room Air Capillary Refill : Less Than 3 Seconds Height, Weight, BMI Height: 5'5.00" Weight: 196lbs. 12.8oz. 89.143034fs; 37.00 BMI Method: Progress/Results/Core Measures Results/Orders Lab Results Laboratory Tests Test 12/10/21 09:55 12/10/21 12:45 Range/Units White Blood Count 7.3 4.3-11.0 10^3/uL Red Blood Count 4.35 3.80-5.11 10^6/uL Hemoglobin 13.4 11.5-16.0 g/dL Hematocrit 41 35-52 % Mean Corpuscular Volume 94 80-99 fL Mean Corpuscular Hemoglobin 31 25-34 pg Mean Corpuscular Hemoglobin Concent 33 32-36 g/dL Red Cell Distribution Width 12.5 10.0-14.5 % Platelet Count 290 130-400 10^3/uL Mean Platelet Volume 10.2 9.0-12.2 fL Immature Granulocyte % (Auto) 0 % Neutrophils (%) (Auto) 63 42-75 % Lymphocytes (%) (Auto) 25 12-44 % Monocytes (%) (Auto) 7 0-12 % Eosinophils (%) (Auto) 4 0-10 % Basophils (%) (Auto) 1 0-10 % Neutrophils # (Auto) 4.6 1.8-7.8 10^3/uL Lymphocytes # (Auto) 1.8 1.0-4.0 10^3/uL Monocytes # (Auto) 0.5 0.0-1.0 10^3/uL Eosinophils # (Auto) 0.3 0.0-0.3 10^3/uL Basophils # (Auto) 0.1 0.0-0.1 10^3/uL Immature Granulocyte # (Auto) 0.0 0.0-0.1 10^3/uL Percent Immature Platelet Fraction 1.8 0.0-7.6 % Prothrombin Time 12.8 12.2-14.7 SEC INR Comment 0.9 0.8-1.4 Activated Partial Thromboplast Time 20 L 24-35 SEC Sodium Level 138 135-145 MMOL/L Potassium Level 4.6 3.6-5.0 MMOL/L Chloride Level 104 98-107 MMOL/L Carbon Dioxide Level 24 21-32 MMOL/L Anion Gap 10 5-14 MMOL/L Blood Urea Nitrogen 17 7-18 MG/DL Creatinine 1.03 0.60-1.30 MG/DL Estimat Glomerular Filtration Rate 62 BUN/Creatinine Ratio 17 Glucose Level 99 70-105 MG/DL Calcium Level 9.4 8.5-10.1 MG/DL Corrected Calcium 9.2 8.5-10.1 MG/DL Magnesium Level 2.0 1.6-2.4 MG/DL Total Bilirubin 0.5 0.1-1.0 MG/DL Aspartate Amino Transf (AST/SGOT) 26 5-34 U/L Alanine Aminotransferase (ALT/SGPT) 16 0-55 U/L Alkaline Phosphatase 81 40-136 U/L Total Creatine Kinase 65 29-168 U/L Creatine Kinase MB 1.0 <6.6 NG/ML Myoglobin 53.1 10.0-92.0 NG/ML Troponin I < 0.028 < 0.028 <0.028 NG/ML B-Type Natriuretic Peptide 60.8 <100.0 PG/ML Total Protein 7.5 6.4-8.2 GM/DL Albumin 4.3 3.2-4.5 GM/DL Amylase Level 34 25-125 U/L Lipase 14 8-78 U/L My Orders Orders - LISANDRACARLOS Pritchett Cbc With Automated Diff (12/10/21 09:53) Magnesium (12/10/21 09:53) Chest 1 View, Ap/Pa Only (12/10/21 09:53) Ekg Tracing (12/10/21 09:53) Comprehensive Metabolic Panel (12/10/21 09:53) Myoglobin Serum (12/10/21 09:53) Protime With Inr (12/10/21 09:53) Partial Thromboplastin Time (12/10/21 09:53) O2 (12/10/21 09:53) Monitor-Rhythm Ecg Trace Only (12/10/21 09:53) Ed Iv/Invasive Line Start (12/10/21 09:53) Creatine Kinase (12/10/21 09:53) Creatine Kinase Mb (12/10/21 09:53) Lipase (12/10/21 09:53) Amylase (12/10/21 09:53) Bnp [place] (12/10/21 09:53) Troponin I Vern (12/10/21 09:53) Aspirin Chewable Tablet (Baby Aspirin Ch (12/10/21 10:00) Ekg Tracing (12/10/21 12:36) Troponin I Vern (12/10/21 12:36) Medications Given in ED Current Medications Medications Dose Ordered Sig/Vianey Route Start Time Stop Time Status Last Admin Dose Admin Aspirin 324 mg ONCE ONCE PO 12/10/21 10:00 12/10/21 10:01 DC 12/10/21 10:11 324 MG Vital Signs/I&O 12/10/21 09:46 Pulse 67 Resp 21 B/P (MAP) 129/97 (108) Pulse Ox 97 O2 Delivery Room Air Blood Pressure Mean: 108 Initial ECG Impression Date: Dec 10, 2021 Initial ECG Impression Time: 09:51 Initial ECG Rate: 63 Initial ECG Rhythm: Normal Sinus EKG : EKG Time: 12:38 Rate: 50 Rhythm: Normal Sinus ECG Comparisson: Unchanged Departure Impression Primary Impression: Chest pain Disposition: 01 HOME, SELF-CARE Condition: Improved Departure-Patient Inst. Decision time for Depature: 13:31 Referrals: DAIJA BLANTON MD (PCP/Family) Primary Care Physician JAKOB ROSENTHAL MD Patient Instructions: Chest Pain (DC) Add. Discharge Instructions: CONTINUE YOUR REGULAR MEDICATIONS PRESCRIBED FOLLOW UP WITH DR. ROSENTHAL THIS WEEK FOR FURTHER CARE, RETURN TO ER IF WORSE All discharge instructions reviewed with patient and/or family. Voiced understanding. CARLOS FRY DO Dec 10, 2021 12:44
[2021-12-10 13:46] VITALS: BP 141/80
== END 2021-12-10 13:46 | disposition home or self-care (01) ==
LOC: EDUNIT# 09:40 → ER 09:41
DX: R07.9 Chest pain, unspecified (principal); G47.30 Sleep apnea, unspecified; K21.9 Gastro-esophageal reflux disease without esophagitis; I10 Essential (primary) hypertension; Z79.01 Long term (current) use of anticoagulants; Z79.82 Long term (current) use of aspirin; Z79.899 Other long term (current) drug therapy
CPT/HCPCS: 36415; 71045; 80053; 82150; 82550; 82553; 83690; 83735; 83874; 83880; 84484; 85025; 85610; 85730; 93005; 93041

== ENCOUNTER → 2022-01-16 | Outpatient (CLI) | payer OTHER ==
[~2022-01-16] MED LIST changes: +CATHETER FLUSH 10 ML SYR IVP PRN
[2022-01-16 09:37] VITALS: BP 146/78
--- NOTE | 2022-01-16 12:19 | Cardiology Stress Test Report ---
Stress Test Report Date of Procedure/Referring: Date of Procedure: Jan 16, 2022 PCP Jakob Knight MD Admitting Physician Ling Collins MD Indications: HTN Baseline Heart Rate: 62 Baseline Blood Pressure: Blood Pressure Systolic: 146 Blood Pressure Diastolic: 78 Vital Signs Date Time Temp Pulse Resp B/P (MAP) Pulse Ox O2 Delivery O2 Flow Rate FiO2 01/16/22 09:37 62 146/78 (100) Baseline Vital Signs Vital Signs Date Time Temp Pulse Resp B/P (MAP) Pulse Ox O2 Delivery O2 Flow Rate FiO2 01/16/22 09:37 62 146/78 (100) Baseline EKG: Baseline EKG: NSR Summary: After explaining the procedure and details to the patient, she signed the consent and was brought to the stress nuclear laboratory. Patient exercised on standard Lennox protocol, EKG, heart rate and blood pressure were monitored continuously, resting and stress doses of radio tracer were injected, imaging was acquired and reviewed in the short axis, horizontal long axis and vertical long axis views Patient was able to exercise for a total of 3.30 minutes on Lennox protocol, METs 5.2 Maximum heart rate 136 Maximum blood pressure 202/82 Stress EKG, Minimal nondiagnostic changes Recovery EKG, Return to baseline TID: 0.93 SSS: 9 SDS: 6 EF: 67 Conclusion: 1. Fair exercise tolerance for a total of 3 minutes 30 seconds on standard Lennox protocol, 5.2 METS achieving 85% of maximal expected heart rate 2. Appropriate heart rate response to exercise with severe hypertensive response to exercise with peak blood pressure 202/82 return to baseline during recovery 3. Reversible ischemia involving the anterior wall and anterolateral wall 4. Normal left ventricular size, EF 67% JAKOB KNIGHT MD Jan 16, 2022 12:19
== END ==
LOC: CARD 08:15
PROVIDERS: ATTEND Internal Medicine Cardiovascular Disease
DX: I10 Essential (primary) hypertension (principal)
CPT/HCPCS: 78452; 93017; A9502

== ENCOUNTER 2022-01-30 09:00 | Day surgery (SDC) | payer OTHER ==
[~2022-01-30] VITALS: Ht 165.1 cm; Wt 105.0 kg
[2022-01-30] VITALS (11 sets, daily range): BP systolic 123–140; BP diastolic 72–83
[2022-01-30 07:50] LABS: BILIRUBIN,URINE NEGATIVE (NEGATIVE); CLARITY,URINE CLEAR; COLOR,URINE YELLOW; GLUCOSE, URINE (UA) NEGATIVE (NEGATIVE); KETONES,URINE NEGATIVE (NEGATIVE); LEUKOCYTE ESTERASE ,URINE NEGATIVE (NEGATIVE); NITRITE,URINE NEGATIVE (NEGATIVE); PROTEIN,URINE NEGATIVE (NEGATIVE)
[2022-01-30 07:52] LABS: HEMATOCRIT 40 % (35-52); HEMOGLOBIN 13.3 g/dL (11.5-16.0); MEAN CORPUSCULAR HEMOGLOBIN 31 pg (25-34); MEAN CORPUSCULAR HGB CONC 34 g/dL (32-36); MEAN CORPUSCULAR VOLUME 92 fL (80-99); MEAN PLATELET VOLUME 9.5 fL (9.0-12.2); PLATELET COUNT 244 10^3/uL (130-400); WHITE BLOOD COUNT 6.4 10^3/uL (4.3-11.0)
[2022-01-30 08:02] LABS: INR 0.9 (0.8-1.4); PROTHROMBIN TIME PATIENT 12.5 SEC (12.2-14.7)
[2022-01-30 08:05] LABS: BACTERIA,URINE TRACE /HPF; SQUAMOUS EPITHELIAL CELL,UR 0-2 /HPF
[2022-01-30 08:08] LABS: ALBUMIN 4.2 GM/DL (3.2-4.5); BILIRUBIN,TOTAL 0.6 MG/DL (0.1-1.0); CALCIUM 9.2 MG/DL (8.5-10.1); CREATININE SERUM 0.98 MG/DL (0.60-1.30); POTASSIUM 4.3 MMOL/L (3.6-5.0); TOTAL PROTEIN 6.6 GM/DL (6.4-8.2)
--- NOTE | 2022-01-30 08:10 | Diagnostic Imaging Report ---
INDICATION: Palpitation, chest pain and hypertension. AP view of the chest is obtained with comparison made to study of 12/10/2021. FINDINGS: Heart size and pulmonary vascularity are within normal limits, and the lungs are clear, bilaterally. IMPRESSION: Unremarkable chest. Dictated by: Dictated on workstation # [id number]
--- NOTE | 2022-01-30 08:57 | Conscious Sedation/ASA ---
Conscious Sedation Pre-Proced Time 08:57 ASA Score 3 For ASA 3 and 4: Consider anesthesia and medical clearance. Also, for patients with a history of failed moderate sedation consider anesthesia. Airway Lungs Heart ASA score ASA 1: a normal healthy patient ASA 2: a patient with a mild systemic disease (mid diabetes, controlled hypertension, obesity x ASA 3: a patient with a severe systemic disease that limits activity (angina, COPD, prior Myocardial infarction) ASA 4: a patient with an incapacitating disease that is a constant threat to life (CHF, renal failure) ASA 5: a moribund patient not expected to survive 24 hrs. (ruptured aneurysm) ASA 6: a declared brain- patient whose organs are being harvested. For emergent operations, add the letter E after the classification Mallampati Classification Grade 3 Sedation Plan Analgesia, Amnesia, Plan communicated to team members, Discussed options with patient/fam, Discussed risks with patient/fam The patient is an appropriate candidate to undergo the planned procedure, sedation, and anesthesia. The patient immediately re-assessed prior to indication. JAKOB ROSENTHAL MD Jan 30, 2022 08:57
[~2022-01-30 09:00] MED LIST changes: -CATHETER FLUSH 10 ML SYR IVP PRN; +HEParin (CATH LAB) 2,000 ML IV ONE; +LIDOCAINE 1% INJ 50 ML (XYLOCAINE) VIAL ONE; +NS IV 1000 ML 1,000 ML IV SCH; +NS IV 1000 ML 1,000 ML ONE
[2022-01-30] MEDS ORDERED: HEParin 1000 UNIT/ML (10ML VIAL) FOR BOLUS ONE (09:01)
[2022-01-30] MEDS ORDERED: MIDAZOLAM 5 MG/5 ML (VERSED) VIAL ONE (09:01)
[2022-01-30] MEDS ORDERED: fentaNYL INJ 100 MCG/2 ML AMP ONE ×2 (09:01→09:27)
[2022-01-30] MEDS ORDERED: VERAPAMIL 5 MG/2 ML (CALAN) VIAL IV ONE (09:01)
[2022-01-30] MEDS ORDERED: NITRO DRIP 25000 MCG/D5W 0 ML IV ONE (09:02)
--- NOTE | 2022-01-30 09:54 | Discharge Inst-Post CATH ---
Discharge Inst-CATH/EP Problems Reviewed?: Yes Post Cardiac Cath/EP D/C Inst Follow Up/Plan Appointment with Dr. Knight's office in 4 weeks <b>CARDIAC CATH/EP PROCEDURE DISCHARGE INSTRUCTIONS</b> ACTIVITY * Go Home directly and rest. * Limit activity of the leg (or wrist if it was used) for 7 days including aerobics, swimming, jogging, bicycling, etc. * Restrict stair-climbing for 7 days if possible, if not, climb up with your non-cath leg, then bring together on the same step. * Avoid lifting, pushing, pulling or excessive movement of the affected extremity for 7 days. * Customary sexual activity may be resumed after 2 days-use caution not to use a position that strains or causes pain to the affected extremity. * No driving for 24 hours. * NO SMOKING. * Avoid straining for bowel movements for 7 days. * Gentle walking on level ground is allowed. * Returning to work will depend on the type of procedure and the results. Your doctor will discuss this with you. CALL YOUR DOCTOR FOR ANY OF THE FOLLOWING: *If bleeding from the puncture site occurs- Apply gentle pressure to site with clean cloth and call your doctor or EMS. * If a knot or lump forms under the skin, increases in size, or causes pain. * If bruising appears to be worsening or moving further down your leg instead of disappearing. * Temperature above 101 F. CARE OF YOUR GROIN INCISION; * Bruising or purple discoloration of the skin near the puncture site is common. * You may shower only, no bathtub bathing for 5 days. Be careful to avoid slipping as your leg may feel stiff. * If a closure device was used on your femoral artery, please see the attached guide regarding care of the device and your leg. * Leave dressing on FOR 24 hours. CARE OF YOUR WRIST INCISION; * Bruising or purple discoloration of the skin near the puncture site is common. * You may shower. * DO NOT submerge wrist. * Leave dressing on FOR 24 hours. JAKOB KNIGHT MD Jan 30, 2022 09:54
--- NOTE | 2022-01-30 09:57 | Cardiac Cath Report ---
Cardiac Cath Report Physician (s)/Corn Sheller Operator (s) Physician JAKOB ROSENTHAL MD Pre-Procedure Diagnosis Pre-Procedure Diagnosis: Coronary artery disease with angina pectoris and abno rmal stress test. Post-Procedure Note Procedure Start Date: Jan 30, 2022 Name of Procedure: Left heart catheterization Findings/Procedure Note PROCEDURE NOTE: 61-year-old lady with history of coronary artery disease, hypertension, hyperlipidemia, has been having chest pain, had an abnormal stress test. Scheduled for cardiac catheterization possible PTCA. After explaining the procedure to the patient, all pros and cons were explained, all questions were answered. The patient signed the consent and then she was placed on the cardiac catheterization laboratory. Groin was prepped SL fashion local anesthesia was used. Multiple attempts to access the right radial artery was unsuccessful, I was unable to advance a wire through the artery. Manual pressure applied then I accessed the right femoral artery, 6 [place] sheath was placed, combination of right and left Roland catheter were used to access the right and left coronary system, Roland right catheter was prolapsed to the left ventricular cavity, pressure was measured. At the end of the procedure the sheath was removed. Manual pressure applied FINDINGS: Hemodynamics LV 132/9, end-diastolic pressure of 9 Aorta 124/63 mean of 73 ANATOMY: Left Main is free of obstructive disease Left Anterior Descending has mild disease nonobstructive disease Left Circumflex has patent stent in the mid circumflex artery, the stent appears to be oversized. Otherwise mild disease nonobstructive disease Right Coronary Artery is dominant artery with mild disease nonobstructive disease LV Gram was not done, pressure was measured CONCLUSION: 1. Patent stent in the mid circumflex artery, otherwise mild disease nonobstructive disease in the coronary system 2. Normal left ventricular end-diastolic pressure DISCUSSION AND RECOMMENDATION: Medical therapy is recommended no intervention is warranted, abnormal stress test is probably due to small vessel disease Anesthesia Type: Conscious Sedation Estimated blood loss (mL): 15 ml Contrast Amount: 37 ml Total Radiation Dose: 332 mGy Post-Procedure Diagnosis Post-operative diagnosis: Chest pain Coronary artery disease Hypertension Hyperlipidemia JAKOB ROSENTHAL MD Jan 30, 2022 09:57
[2022-01-30] MEDS ORDERED: NS IV 1000 ML 1,000 ML IV SCH (10:00)
[2022-01-30] MEDS ORDERED: PATIENT MAY USE OWN MEDS, ALL PO SCH (10:00)
== END 2022-01-30 14:30 | disposition home or self-care (01) ==
LOC: CATH 09:00 → SDC 10:16 → CATH 14:30
PROVIDERS: ATTEND Internal Medicine Cardiovascular Disease
DX: I25.119 Atherosclerotic heart disease of native coronary artery with unspecified angina pectoris (principal); E78.5 Hyperlipidemia, unspecified; R00.2 Palpitations; R42 Dizziness and giddiness; I65.23 Occlusion and stenosis of bilateral carotid arteries; I11.9 Hypertensive heart disease without heart failure; I35.1 Nonrheumatic aortic (valve) insufficiency; K21.9 Gastro-esophageal reflux disease without esophagitis; M19.90 Unspecified osteoarthritis, unspecified site; I49.1 Atrial premature depolarization; Z79.82 Long term (current) use of aspirin; Z79.899 Other long term (current) drug therapy; Z79.02 Long term (current) use of antithrombotics/antiplatelets; Z87.891 Personal history of nicotine dependence; Z96.651 Presence of right artificial knee joint; Z90.49 Acquired absence of other specified parts of digestive tract; Z90.710 Acquired absence of both cervix and uterus
CPT/HCPCS: 71045; 80053; 80061; 81000; 85027; 85610; 85730; 87081; 93005; 93458; C1894; 36415

== ENCOUNTER → 2022-08-20 | Outpatient (CLI) | payer OTHER ==
[~2022-08-20] MED LIST changes: -HEParin (CATH LAB) 2,000 ML IV ONE; -LIDOCAINE 1% INJ 50 ML (XYLOCAINE) VIAL ONE; -NS IV 1000 ML 1,000 ML IV SCH; -NS IV 1000 ML 1,000 ML ONE
--- NOTE | 2022-08-20 14:51 | Diagnostic Imaging Report ---
INDICATION: Routine screening. Comparison is made with prior mammogram 08/10/2021 and 06/06/2020. 2-D and 3-D bilateral screening mammography was performed with CAD. Scattered fibroglandular densities are identified bilaterally. The parenchymal pattern is stable. No mass or malignant-appearing microcalcifications are seen. Occasional benign calcifications are noted. Axillae are unremarkable. IMPRESSION: No mammographic features suspicious for malignancy are identified. ACR BI-RADS Category 2: Benign findings. Result letter will be mailed to the patient. Note: At least 10% of breast cancer is not imaged by mammography. BI-RADS Category 2 Dictated by: Dictated on workstation # [id number]
== END ==
LOC: RAD 08:26
PROVIDERS: ATTEND Nurse Practitioner Family
DX: Z12.31 Encounter for screening mammogram for malignant neoplasm of breast (principal)
CPT/HCPCS: 77063; 77067

== ENCOUNTER → 2023-08-21 | Outpatient (CLI) | payer OTHER ==
[~2023-08-21] MED LIST changes: -CELE-63 PO; +CELE-91 PO; +DICY-11 PO; -DICY10CA12 PO; +FAMO-356 PO; -FAMO20TA3 PO; -ROPI0.253 PO; +ROPI0.2533 PO
--- NOTE | 2023-08-21 12:54 | Diagnostic Imaging Report ---
Indication: Routine screening. Comparison is made with prior mammograms 08/20/2022 and 08/10/2021. 2-D and 3-D bilateral screening mammography was performed with CAD. Scattered fibroglandular densities are identified bilaterally. The parenchymal pattern is stable. The density noted in the right lower posterior breast appears stable. There are benign calcifications. No new mass or malignant-appearing microcalcifications are seen. Axillae are unremarkable. IMPRESSION: BI-RADS Category 2 No mammographic features suspicious for malignancy are identified. ACR BI-RADS Category 2: Benign findings. Result letter will be mailed to the patient. Note: At least 10% of breast cancer is not imaged by mammography. Dictated by: Dictated on workstation # [id number]
== END ==
LOC: RAD 10:43
PROVIDERS: ATTEND Nurse Practitioner Family
DX: Z12.31 Encounter for screening mammogram for malignant neoplasm of breast (principal); I10 Essential (primary) hypertension; I25.10 Atherosclerotic heart disease of native coronary artery without angina pectoris; E66.8 Other obesity; F41.1 Generalized anxiety disorder; K21.9 Gastro-esophageal reflux disease without esophagitis; R39.14 Feeling of incomplete bladder emptying; B37.31 Acute candidiasis of vulva and vagina
CPT/HCPCS: 77063; 77067